=== PATIENT | female | born 1955 | race Caucasian/White ===

== ENCOUNTER → 2021-10-15 13:00 | Outpatient (CLI) | payer MEDICARE, SELFPAY ==
[2021-10-19 19:19] LABS: Occult Blood 1 Negative (Negative)
[2021-10-19 20:08] LABS: Clostridium Difficile Tox PCR Negative for C. diff (Negative)
== END ==
PROVIDERS: PCP Nurse Practitioner Family; Visit Provider Nurse Practitioner Family
DX: R19.7 Diarrhea, unspecified (principal)
CPT/HCPCS: 82270; 87045; 87177; 87493; 87899

== ENCOUNTER 2023-02-13 13:50 | Inpatient (IN) | payer MEDICARE, SELFPAY ==
[2023-02-13] VITALS (111 sets, daily range): BP systolic 127–184; BP diastolic 70–113; PULSE 61–133; RESP 12–46; TEMP 36.1–38.9; O2SAT 86–100; BMI 22.3
--- NOTE | 2023-02-13 13:57 | DI.RAD.S_ITS ---
PROCEDURE: XR CHEST 1V INDICATIONS: suspected sepsis TECHNIQUE: One view of the chest was acquired. COMPARISON: None. FINDINGS: Surgical changes and devices: None. Lungs and pleura: Lungs are clear. No pleural effusions or pneumothorax. Mediastinum: Mediastinal contours appear normal. Heart size is normal. Bones and chest wall: No suspicious bony lesions. Overlying soft tissues appear unremarkable. IMPRESSION: No evidence acute pulmonary process. Dictated by: Delmer Christiansen M.D. on 02/13/2023 at 15:09 Approved by: Delmer Christiansen M.D. on 02/13/2023 at 15:10
--- NOTE | 2023-02-13 14:02 | DI.CT.S_ITS ---
PROCEDURE: CT STROKE INDICATIONS: decreased mental status ? bleed TECHNIQUE: Noncontrast 4.5 mm thick angled axial sections acquired from the foramen magnum to the vertex, with coronal reformats. For radiation dose reduction, the following was used: automated exposure control, adjustment of mA and/or kV according to patient size. COMPARISON: None. FINDINGS: Image quality: Excellent. CSF spaces: Basal cisterns are patent. No extra-axial fluid collections. The ventricles are symmetric in size and shape. Brain: No acute intracranial hemorrhage or mass effect. There is cerebral volume loss for age, with resultant ventricular and sulcal prominence. There are periventricular and deep white matter chronic small vessel ischemic changes. There is intracranial internal carotid artery atherosclerosis. Skull and face: Calvarium and visualized facial bones appear intact, without suspicious lesions. Sinuses: Visualized sinuses and mastoids are clear. IMPRESSION: No acute intracranial abnormality. Findings were discussed with the referring physician, Dr. Olmstead, by telephone on 02/13/2023 at 2:16 PM. This study fulfills neurological imaging criteria for inclusion or exclusion of acute stroke therapies based on available published neurological guidelines. Approved by: Volodymyr Pitts M.D. on 02/13/2023 at 14:17
[2023-02-13 14:39] LABS: Add Manual Diff / Slide Review NO; Basophils Absolute Auto 0 /uL (0-100); Basophils Percent Auto 0.3 % (0-2); Eosinophils Absolute Auto 0 /uL (0-450); Hematocrit 42.4 % (36-46); Lymphocytes Absolute Auto 1300 /uL (1100-4500); Lymphocytes Percent Auto 11.6 % (25-40); Mean Corpuscular HGB Conc 33.1 % (30-36); Mean Corpuscular Hemoglobin 28.6 PG (26-34); Mean Corpuscular Volume 86.5 fL (80-100); Monocytes Absolute Auto 300 /uL (0-900); Monocytes Percent Auto 2.4 % (3-14); Neutrophils Absolute Auto 9900 /uL (1500-7000); Neutrophils Percent Auto 85.7 % (50-75); Platelet Count 370 X10^3/uL (150-400); White Blood Cell Count 11.6 X10^3/uL (4.5-11.0)
[2023-02-13] MEDS: SODIUM CHLORIDE 0.9% 1,000 ML 1000 ML IV ×2 (14:39→15:29)
[2023-02-13 14:47] LABS: pH ABG 7.56 (7.35-7.45)
--- NOTE | 2023-02-13 14:47 | ED.AMS ---
HPI - Altered Mental Status <Carolina Olmstead, DO - Last Filed: 02/15/23 07:52> General Chief Complaint: Altered Mental Status Stated Complaint: ?UTI, weakness, nausea x 5 days Time Seen by Provider: 02/13/23 14:02 History of Present Illness HPI narrative: Patient is a 67-year-old female who presents today with decreasing mental status nausea and vomiting. She takes Lexapro for depression. She apparently was admitted at [facility] 08/04/2022 through 08/07/2022 with a similar presentation. During that admission she had taken her late 's temazepam secondary to her insomnia and she had metabolic encephalopathy coffee-ground emesis appearing during that admission she underwent an EGD and colonoscopy without acute findings. Today she has a decreasing mental status overall poor historian history is provided by son and previous records. She is able to follow commands she is actively vomiting. According to the son she thought that she had a bladder infection a couple of days ago. He reports that the temazepam has been thrown away. Other medications in the bathroom include ketorolac, Pyridium, diphenoxylate/atropine, HCTZ, pantoprazole. Due to her severe confusion and vomiting concern for intracranial hemorrhage. She was immediately taken to CT. Related Data Home Medications Medication Instructions Recorded Confirmed escitalopram oxalate 10 mg tablet 10 mg PO DAILY 02/13/23 02/13/23 omeprazole 20 mg capsule,delayed 20 mg PO DAILY 02/13/23 02/13/23 release Previous Rx's Medication Instructions Recorded amoxicillin 875 mg-potassium 1 tab PO BID 5 days #10 tabs 02/17/23 clavulanate 125 mg tablet potassium chloride 20 mEq 20 meq PO DAILY #30 tabs 02/17/23 tablet,extended release Allergies Allergy/AdvReac Type Severity Reaction Status Date / Time No Known Drug Allergies Allergy Unverified 10/15/21 12:47 <Dorian Mir DO - Last Filed: 02/18/23 04:01> History of Present Illness HPI narrative: Patient is a 67-year-old female who presents today with decreasing mental status nausea and vomiting. She takes Lexapro for depression. She apparently was admitted at [facility] 08/04/2022 through 08/07/2022 with a similar presentation. During that admission she had taken her late 's temazepam secondary to her insomnia and she had metabolic encephalopathy coffee-ground emesis appearing during that admission she underwent an EGD and colonoscopy without acute findings. Today she has a decreasing mental status overall poor historian history is provided by son and previous records. She is able to follow commands she is actively vomiting. According to the son she thought that she had a bladder infection a couple of days ago. He reports that the temazepam has been thrown away. Other medications in the bathroom include ketorolac, Pyridium, diphenoxylate/atropine, HCTZ, pantoprazole. Due to her severe confusion and vomiting concern for intracranial hemorrhage. She was immediately taken to CT. Review of Systems <Carolina Olmstead DO - Last Filed: 02/15/23 07:52> Review of Systems ROS Unobtainable: All systems reviewed & are unremarkable except as noted in HPI and below Patient History <Carolina Olmstead DO - Last Filed: 02/15/23 07:52> Social History household members: children Smoking Status: Former smoker alcohol intake: never Smoking Status: Former smoker Exam <Carolina Olmstead DO - Last Filed: 02/15/23 07:52> Initial Vital Signs Initial Vital Signs: Vital Signs Pulse Rate 71 02/13/23 14:04 Respiratory Rate 26 H 02/13/23 14:04 Blood Pressure 127/74 02/13/23 14:04 Pulse Oximetry 97 02/13/23 14:04 Oxygen Delivery Method Nasal Cannula 02/13/23 14:04 Oxygen Flow Rate 4 02/13/23 14:04 GENERAL: Alert confused weak 67-year-old female, actively dry heaving HEENT: Head atraumatic,EOMI, face is symmetric pupils dilated but equal CARDIOVASCULAR: Regular rate and rhythm without murmurs, rubs or gallops. RESPIRATORY: Breath sounds equal bilaterally, no wheezes rales or rhonchi. ABDOMEN: Soft, nontender. Normoactive bowel sounds all 4 quadrants. No guarding or rebound. EXTREMITIES: Normal range of motion, no clubbing or edema. Neurovascularly intact NEUROLOGICAL: Moving extremities gin clerk strength equal SKIN: Warm, dry, no laceration, no petechiae, no rashes or lesions. <Dorian Mir DO - Last Filed: 02/18/23 04:01> Initial Vital Signs Initial Vital Signs: Vital Signs Pulse Rate 71 02/13/23 14:04 Respiratory Rate 26 H 02/13/23 14:04 Blood Pressure 127/74 02/13/23 14:04 Pulse Oximetry 97 02/13/23 14:04 Oxygen Delivery Method Nasal Cannula 02/13/23 14:04 Oxygen Flow Rate 4 02/13/23 14:04 <Dorian Mir DO - Last Filed: 02/18/23 04:01> Lumbar Puncture Time Out Performed: Yes Patient Position: upright Skin Prep: Povidone-Iodine 1% Local Anesthetic: lidocaine 1% Amount of anesthesia used (mL): 3 Spinal Needle Gauge: 20G Interspace Used: L4-L5 Fluid Initially Obtained: clear Complications: none Scores <Carolina Olmstead DO - Last Filed: 02/15/23 07:52> GCS Eduardo coma scale eye opening: Spontaneous Eduardo coma scale verbal response: Words Eduardo coma scale motor response: Obey commands Eduardo coma scale total score: 13 <Dorian Mir DO - Last Filed: 02/18/23 04:01> GCS Reeds coma scale total score: 13 Course <Carolina Olmstead DO - Last Filed: 02/15/23 07:52> Orders Ordered: Discontinued Medications Acetaminophen (Acetaminophen 325 Mg Tablet) 975 mg PO NOW ONE Stop: 02/14/23 08:55 Last Admin: 02/15/23 01:44 Dose: Not Given Documented By: LIZETH Acetaminophen (Acetaminophen 325 Mg Tablet) 650 mg PO Q6H PRN PRN Reason: Fever/Mild Pain (1-3) Amiodarone HCl (Amiodarone 200 Mg Tablet) 400 mg PO BIDWM [facility] Last Admin: 02/16/23 10:06 Dose: Not Given Documented By: BLAS Heparin Sodium (Porcine) (Heparin 5,000 Unit/Ml Vial) 5,000 unit SUBCUT BID [facility] Last Admin: 02/17/23 09:00 Dose: 5,000 unit Documented By: Admin: 02/16/23 21:30 Dose: 5,000 unit Documented By: Admin: 02/16/23 08:53 Dose: 5,000 unit Documented By: Admin: 02/15/23 22:49 Dose: 5,000 unit Documented By: Admin: 02/15/23 08:20 Dose: 5,000 unit Documented By: Admin: 02/14/23 21:12 Dose: 5,000 unit Documented By: Admin: 02/14/23 12:21 Dose: 5,000 unit Documented By: FARTUN Sodium Chloride (Normal Saline 0.9%) 1,000 mls @ 1,000 mls/hr IV BOLUS ONE Stop: 02/13/23 14:56 Last Infusion: 02/13/23 15:47 Dose: 0 mls/hr Documented By: Admin: 02/13/23 14:39 Dose: 1,000 mls/hr Documented By: TORRIE Sodium Chloride (Normal Saline 0.9%) 1,000 mls @ 1,000 mls/hr IV BOLUS ONE Stop: 02/13/23 16:20 Last Infusion: 02/13/23 15:56 Dose: 0 mls/hr Documented By: Admin: 02/13/23 15:29 Dose: 1,000 mls/hr Documented By: YONG Ceftriaxone Sodium 2,000 mg/ (Sodium Chloride) 100 mls @ 200 mls/hr IV NOW ONE Stop: 02/13/23 17:11 Last Infusion: 02/13/23 17:40 Dose: 0 mls/hr Documented By: Admin: 02/13/23 17:20 Dose: 200 mls/hr Documented By: TORRIE Azithromycin 500 mg/ Dextrose 250 mls @ 250 mls/hr IV NOW ONE Stop: 02/13/23 17:11 Last Infusion: 02/13/23 19:12 Dose: 0 mls/hr Documented By: Admin: 02/13/23 18:12 Dose: 250 mls/hr Documented By: TORRIE Metronidazole (Flagyl) 500 mg in 100 mls @ 100 mls/hr IV NOW ONE Stop: 02/13/23 18:58 Last Infusion: 02/13/23 22:13 Dose: 0 mls/hr Documented By: Admin: 02/13/23 19:50 Dose: 100 mls/hr Documented By: LISA Acetaminophen (Ofirmev) 1,000 mg in 100 mls @ 400 mls/hr IV NOW ONE Stop: 02/13/23 18:34 Last Infusion: 02/13/23 19:00 Dose: 0 mls/hr Documented By: Admin: 02/13/23 18:39 Dose: 400 mls/hr Documented By: MPO Sodium Chloride (Normal Saline 0.9%) 1,000 mls @ 150 mls/hr IV CONT FILOMENA Last Infusion: 02/17/23 10:38 Dose: 0 mls/hr Documented By: Admin: 02/17/23 04:45 Dose: 150 mls/hr Documented By: Infusion: 02/17/23 04:10 Dose: 150 mls/hr Documented By: Admin: 02/16/23 21:29 Dose: 150 mls/hr Documented By: Infusion: 02/16/23 21:05 Dose: 150 mls/hr Documented By: Admin: 02/16/23 14:24 Dose: 150 mls/hr Documented By: Infusion: 02/16/23 07:51 Dose: 150 mls/hr Documented By: Admin: 02/16/23 01:10 Dose: 150 mls/hr Documented By: Infusion: 02/16/23 01:03 Dose: 150 mls/hr Documented By: Admin: 02/15/23 18:22 Dose: 150 mls/hr Documented By: Infusion: 02/15/23 17:25 Dose: 150 mls/hr Documented By: Admin: 02/15/23 10:44 Dose: 150 mls/hr Documented By: Infusion: 02/14/23 12:25 Dose: 150 mls/hr Documented By: Admin: 02/14/23 09:25 Dose: 150 mls/hr Documented By: Infusion: 02/14/23 09:24 Dose: 0 mls/hr Documented By: Admin: 02/14/23 02:34 Dose: 150 mls/hr Documented By: SB POTASSIUM CHLORIDE IN WATER (Potassium Cl 10 Meq/100 Ml Sharla) 10 meq in 100 mls @ 100 mls/hr IV Q1H FILOMENA Stop: 02/14/23 10:44 Last Admin: 02/14/23 13:43 Dose: 100 mls/hr Documented By: Infusion: 02/14/23 11:00 Dose: 0 mls/hr Documented By: Admin: 02/14/23 09:56 Dose: 100 mls/hr Documented By: Infusion: 02/14/23 09:56 Dose: 0 mls/hr Documented By: Admin: 02/14/23 08:53 Dose: 100 mls/hr Documented By: Infusion: 02/14/23 08:52 Dose: 0 mls/hr Documented By: Admin: 02/14/23 07:25 Dose: 100 mls/hr Documented By: Infusion: 02/14/23 07:17 Dose: 0 mls/hr Documented By: Admin: 02/14/23 06:16 Dose: 100 mls/hr Documented By: Infusion: 02/14/23 06:07 Dose: 0 mls/hr Documented By: Admin: 02/14/23 05:07 Dose: 100 mls/hr Documented By: ES Piperacillin Sod/Tazobactam (Sod 4.5 gm/ Sodium Chloride) 100 mls @ 200 mls/hr IV NOW ONE Stop: 02/14/23 06:05 Last Infusion: 02/14/23 08:13 Dose: 0 mls/hr Documented By: Admin: 02/14/23 07:26 Dose: 200 mls/hr Documented By: TORRIE Piperacillin Sod/Tazobactam (Sod 3.375 gm/ Sodium Chloride) 100 mls @ 25 mls/hr IV Q8H [facility] Last Admin: 02/14/23 12:37 Dose: Not Given Documented By: FARTUN Vancomycin HCl (Vancomycin) 750 mg in 150 mls @ 150 mls/hr IV Q8H [facility] [place] Last Infusion: 02/15/23 06:37 Dose: 0 mls/hr Documented By: Admin: 02/15/23 05:11 Dose: 150 mls/hr Documented By: Infusion: 02/15/23 01:44 Dose: 0 mls/hr Documented By: Admin: 02/14/23 21:11 Dose: 150 mls/hr Documented By: Infusion: 02/14/23 17:21 Dose: 150 mls/hr Documented By: Admin: 02/14/23 12:38 Dose: 150 mls/hr Documented By: FARTUN Sodium Chloride (Normal Saline 0.9%) 1,000 mls @ 100 mls/hr IV CONT FILOMENA Last Infusion: 02/15/23 01:45 Dose: 0 mls/hr Documented By: Admin: 02/14/23 12:35 Dose: 100 mls/hr Documented By: FARTUN Piperacillin Sod/Tazobactam (Sod 3.375 gm/ Sodium Chloride) 100 mls @ 25 mls/hr IV Q8H [facility] Last Admin: 02/17/23 08:14 Dose: 25 mls/hr Documented By: Infusion: 02/17/23 04:45 Dose: 0 mls/hr Documented By: Admin: 02/17/23 00:26 Dose: 25 mls/hr Documented By: Infusion: 02/16/23 21:08 Dose: 0 mls/hr Documented By: Admin: 02/16/23 15:30 Dose: 25 mls/hr Documented By: Infusion: 02/16/23 12:52 Dose: 25 mls/hr Documented By: Admin: 02/16/23 08:52 Dose: 25 mls/hr Documented By: Infusion: 02/16/23 04:00 Dose: 0 mls/hr Documented By: Admin: 02/15/23 23:47 Dose: 25 mls/hr Documented By: Infusion: 02/15/23 21:53 Dose: 0 mls/hr Documented By: Admin: 02/15/23 16:55 Dose: 25 mls/hr Documented By: Infusion: 02/15/23 12:20 Dose: 25 mls/hr Documented By: Admin: 02/15/23 08:20 Dose: 25 mls/hr Documented By: Infusion: 02/15/23 05:11 Dose: 0 mls/hr Documented By: Admin: 02/14/23 23:56 Dose: 25 mls/hr Documented By: Infusion: 02/14/23 21:00 Dose: 25 mls/hr Documented By: Admin: 02/14/23 17:00 Dose: 25 mls/hr Documented By: FARTUN POTASSIUM CHLORIDE IN WATER (Potassium Cl 10 Meq/100 Ml Sharla) 10 meq in 100 mls @ 100 mls/hr IV Q1H FILOME[facility] Stop: 02/14/23 20:14 Last Infusion: 02/14/23 22:32 Dose: 0 mls/hr Documented By: Admin: 02/14/23 20:57 Dose: 100 mls/hr Documented By: Infusion: 02/14/23 20:54 Dose: 0 mls/hr Documented By: Admin: 02/14/23 19:28 Dose: 100 mls/hr Documented By: Infusion: 02/14/23 19:28 Dose: 100 mls/hr Documented By: Admin: 02/14/23 18:29 Dose: 100 mls/hr Documented By: Infusion: 02/14/23 18:19 Dose: 100 mls/hr Documented By: Admin: 02/14/23 17:19 Dose: 100 mls/hr Documented By: FARTUN Magnesium Sulfate (Magnesium Sulfate) 2 gm in 50 mls @ 25 mls/hr IV NOW ONE Stop: 02/15/23 02:55 Last Infusion: 02/15/23 03:18 Dose: 0 mls/hr Documented By: LIZETH Co-signed By: LETICIA Admin: 02/15/23 01:31 Dose: 25 mls/hr Documented By: LETICIA Co-signed By: Amiodarone HCl/Dextrose (Nexterone) 150 mg in 100 mls @ 600 mls/hr IV NOW ONE; Protocol Stop: 02/15/23 01:05 Last Infusion: 02/15/23 01:45 Dose: 0 mls/hr Documented By: Admin: 02/15/23 01:32 Dose: 600 mls/hr Documented By: LETICIA Amiodarone HCl/Dextrose (Nexterone) 360 mg in 200 mls @ 33.333 mls/hr IV NOW ONE; Protocol Stop: 02/15/23 06:55 Last Admin: 02/15/23 01:39 Dose: 33.333 ml/hr, 33.33 mls/hr Documented By: LETICIA POTASSIUM CHLORIDE IN WATER (Potassium Cl 10 Meq/100 Ml Sharla) 10 meq in 100 mls @ 100 mls/hr IV Q1H [facility] [place] Stop: 02/15/23 06:29 Last Admin: 02/15/23 06:17 Dose: 100 mls/hr Documented By: Infusion: 02/15/23 06:11 Dose: 0 mls/hr Documented By: Admin: 02/15/23 05:11 Dose: 100 mls/hr Documented By: Infusion: 02/15/23 04:44 Dose: 0 mls/hr Documented By: Admin: 02/15/23 03:44 Dose: 100 mls/hr Documented By: Infusion: 02/15/23 03:42 Dose: 0 mls/hr Documented By: Admin: 02/15/23 02:42 Dose: 100 mls/hr Documented By: LIZETH Amiodarone HCl/Dextrose (Nexterone) 360 mg in 200 mls @ 16.7 mls/hr IV CONT FILOMENA; Protocol Stop: 02/15/23 17:59 Last Titration: 02/15/23 20:10 Dose: 0 mls/hr, 0 mls/hr Documented By: Admin: 02/15/23 06:16 Dose: 16.7 mls/hr, 16.7 mls/hr Documented By: LIZETH Amiodarone HCl/Dextrose (Nexterone) 150 mg in 100 mls @ 600 mls/hr IV NOW ONE; Protocol Stop: 02/16/23 10:49 Last Admin: 02/16/23 10:45 Dose: 600 mls/hr Documented By: BLAS Amiodarone HCl/Dextrose (Nexterone) 360 mg in 200 mls @ 33.333 mls/hr IV NOW ONE; Protocol Stop: 02/16/23 16:49 Last Admin: 02/16/23 11:05 Dose: 33.3 mls/hr, 33.3 mls/hr Documented By: BLAS Amiodarone HCl/Dextrose (Nexterone) 360 mg in 200 mls @ 16.7 mls/hr IV CONT FILOMENA; Protocol Stop: 02/17/23 04:49 Last Titration: 02/17/23 04:43 Dose: 0 mls/hr, 0 mls/hr Documented By: Admin: 02/16/23 16:27 Dose: 16.7 mls/hr, 16.7 mls/hr Documented By: BLAS Magnesium Sulfate (Magnesium Sulfate) 2 gm in 50 mls @ 25 mls/hr IV NOW ONE Stop: 02/16/23 13:03 Last Admin: 02/16/23 11:12 Dose: 25 mls/hr Documented By: BLAS Co-signed By: ZOË Amiodarone HCl/Dextrose (Nexterone) 180 mg in 100 mls @ 16.7 mls/hr IV CONT FILOMENA; Protocol Stop: 02/17/23 10:50 Last Infusion: 02/17/23 11:09 Dose: 0 mls/hr Documented By: Admin: 02/17/23 04:45 Dose: 16.7 mls/hr Documented By: SOMMER POTASSIUM CHLORIDE IN WATER (Potassium Cl 10 Meq/100 Ml Sharla) 10 meq in 100 mls @ 100 mls/hr IV Q1H FILOMENA Stop: 02/16/23 19:29 Last Infusion: 02/16/23 21:10 Dose: 0 mls/hr Documented By: Admin: 02/16/23 18:28 Dose: 100 mls/hr Documented By: Infusion: 02/16/23 18:28 Dose: 100 mls/hr Documented By: Admin: 02/16/23 17:35 Dose: 100 mls/hr Documented By: Infusion: 02/16/23 17:27 Dose: 100 mls/hr Documented By: Admin: 02/16/23 16:27 Dose: 100 mls/hr Documented By: Infusion: 02/16/23 16:27 Dose: 100 mls/hr Documented By: Admin: 02/16/23 15:30 Dose: 100 mls/hr Documented By: Infusion: 02/16/23 15:25 Dose: 100 mls/hr Documented By: Admin: 02/16/23 14:25 Dose: 100 mls/hr Documented By: Infusion: 02/16/23 14:25 Dose: 100 mls/hr Documented By: Admin: 02/16/23 13:35 Dose: 100 mls/hr Documented By: Infusion: 02/16/23 13:30 Dose: 100 mls/hr Documented By: Admin: 02/16/23 12:30 Dose: 100 mls/hr Documented By: Infusion: 02/16/23 12:30 Dose: 100 mls/hr Documented By: Admin: 02/16/23 11:35 Dose: 100 mls/hr Documented By: BLAS POTASSIUM CHLORIDE IN WATER (Potassium Cl 10 Meq/100 Ml Sharla) 10 meq in 100 mls @ 100 mls/hr IV Q1H [facility] Stop: 02/17/23 08:44 Last Infusion: 02/17/23 11:09 Dose: 0 mls/hr Documented By: Admin: 02/17/23 08:02 Dose: 100 mls/hr Documented By: Infusion: 02/17/23 07:54 Dose: 100 mls/hr Documented By: Admin: 02/17/23 06:54 Dose: 100 mls/hr Documented By: Infusion: 02/17/23 06:47 Dose: 100 mls/hr Documented By: Admin: 02/17/23 05:47 Dose: 100 mls/hr Documented By: Infusion: 02/17/23 05:47 Dose: 100 mls/hr Documented By: Admin: 02/17/23 04:49 Dose: 100 mls/hr Documented By: SOMMER Magnesium Sulfate (Magnesium Sulfate) 2 gm in 50 mls @ 25 mls/hr IV NOW ONE Stop: 02/17/23 07:05 Last Infusion: 02/17/23 08:02 Dose: 0 mls/hr Documented By: BLAS Co-signed By: Admin: 02/17/23 05:47 Dose: 25 mls/hr Documented By: SOMMER Co-signed By: CHAYA Ketorolac Tromethamine (Ketorolac 30 Mg/Ml Vial) 15 mg IV NOW ONE Stop: 02/13/23 17:11 Last Admin: 02/13/23 17:20 Dose: 15 mg Documented By: TORRIE Ketorolac Tromethamine (Ketorolac 30 Mg/Ml Vial) 15 mg IV NOW ONE Stop: 02/14/23 01:33 Last Admin: 02/14/23 02:34 Dose: 15 mg Documented By: LISA Loperamide HCl (Loperamide 2 Mg Capsule) 2 mg PO QID PRN PRN Reason: Diarrhea Last Admin: 02/17/23 03:13 Dose: 2 mg Documented By: Admin: 02/16/23 15:44 Dose: 2 mg Documented By: BLAS Lorazepam (Lorazepam 2 Mg/Ml Inj) 1 mg IV NOW ONE Stop: 02/13/23 15:25 Last Admin: 02/13/23 15:28 Dose: 0.5 mg Documented By: YONG Lorazepam (Lorazepam 0.5 Mg Tablet) 0.5 mg PO NOW ONE Stop: 02/16/23 22:22 Last Admin: 02/16/23 22:43 Dose: 0.5 mg Documented By: SOMMER Metoclopramide HCl (Metoclopramide 10 Mg/2 Ml Inj) 10 mg IV NOW ONE Stop: 02/13/23 19:00 Last Admin: 02/13/23 19:05 Dose: 10 mg Documented By: YONG Metoclopramide HCl (Metoclopramide 10 Mg/2 Ml Inj) 10 mg IV Q6HR PRN PRN Reason: Nausea And Vomiting Last Admin: 02/17/23 12:54 Dose: 10 mg Documented By: BLAS Naloxone HCl (Naloxone 0.4 Mg/Ml Vial) 0.2 mg IV Q2MIN PRN PRN Reason: Opiate Reversal Ondansetron HCl (Ondansetron 4 Mg/2 Ml Inj) 4 mg IV NOW PRN PRN Reason: Nausea And Vomiting Last Admin: 02/14/23 02:34 Dose: 4 mg Documented By: LISA Ondansetron HCl (Ondansetron 4 Mg Odt) 4 mg SL NOW PRN PRN Reason: Nausea And Vomiting Ondansetron HCl (Ondansetron 4 Mg/2 Ml Inj) 4 mg IV Q8HR PRN PRN Reason: Nausea And Vomiting Last Admin: 02/14/23 12:33 Dose: 4 mg Documented By: FARTUN Ondansetron HCl (Ondansetron 4 Mg/2 Ml Inj) 4 mg IV Q6HR PRN PRN Reason: Nausea And Vomiting Last Admin: 02/16/23 11:11 Dose: 4 mg Documented By: Admin: 02/16/23 04:02 Dose: 4 mg Documented By: Admin: 02/15/23 14:56 Dose: 4 mg Documented By: Admin: 02/14/23 21:18 Dose: 4 mg Documented By: HORTENCIA Pantoprazole Sodium (Pantoprazole 40 Mg Vial) 40 mg IV NOW ONE Stop: 02/13/23 15:25 Last Admin: 02/13/23 15:28 Dose: 40 mg Documented By: YONG Pantoprazole Sodium (Pantoprazole 40 Mg Vial) 40 mg IV NOW ONE Stop: 02/14/23 04:46 Last Admin: 02/14/23 05:07 Dose: 40 mg Documented By: CALOS Pantoprazole Sodium (Pantoprazole 40 Mg Vial) 40 mg IV BID [facility] [place] Last Admin: 02/14/23 12:37 Dose: Not Given Documented By: FARTUN Pantoprazole Sodium (Pantoprazole 40 Mg Vial) 40 mg IV BID [facility] [place] Last Admin: 02/17/23 09:00 Dose: 40 mg Documented By: Admin: 02/16/23 21:30 Dose: 40 mg Documented By: Admin: 02/16/23 08:53 Dose: 40 mg Documented By: Admin: 02/15/23 22:50 Dose: 40 mg Documented By: Admin: 02/15/23 08:20 Dose: 40 mg Documented By: Admin: 02/14/23 21:12 Dose: 40 mg Documented By: Admin: 02/14/23 12:21 Dose: 40 mg Documented By: FARTUN Potassium Chloride (Potassium Chloride 20 Meq Tab) 40 meq PO TIDWM [facility] [place] Stop: 02/16/23 17:01 Last Admin: 02/16/23 11:48 Dose: Not Given Documented By: BLAS Potassium Chloride (Potassium Chloride 20 Meq Tab) 40 meq PO TIDWM [facility] [place] Stop: 02/17/23 17:01 Last Admin: 02/17/23 12:00 Dose: 40 meq Documented By: Admin: 02/17/23 10:37 Dose: 40 meq Documented By: BLAS Pramipexole Dihydrochloride (Pramipexole 0.25 Mg Tablet) 0.125 mg PO BEDTIME [facility] [place] Last Admin: 02/16/23 18:28 Dose: 0.125 mg Documented By: BLAS Vancomycin HCl (Vancomycin Per Pharmacy) 1 request [facility] NOW ONE Stop: 02/14/23 08:52 Last Admin: 02/14/23 12:36 Dose: 1 request Documented By: FARTUN Vital Signs Vital signs: Vital Signs - 8 hr 02/13/23 21:00 02/13/23 21:00 02/13/23 21:05 Temperature 101.3 F H 101.3 F H Pulse Rate 70 67 Respiratory Rate 30 H 30 H Blood Pressure 177/110 H Pulse Oximetry 97 98 Oxygen Delivery Method Oxygen Flow Rate 02/13/23 21:10 02/13/23 21:15 02/13/23 21:15 Temperature 101.3 F H 101.1 F H Pulse Rate 76 68 Respiratory Rate 26 H 29 H Blood Pressure 174/105 H Pulse Oximetry 97 98 Oxygen Delivery Method Oxygen Flow Rate 02/13/23 21:20 02/13/23 21:25 02/13/23 21:30 Temperature 101.1 F H 101.1 F H Pulse Rate 68 69 Respiratory Rate 23 22 Blood Pressure 179/90 H Pulse Oximetry 99 99 Oxygen Delivery Method Oxygen Flow Rate 02/13/23 21:30 02/13/23 21:35 02/13/23 21:40 Temperature 101.1 F H 101.1 F H 101.1 F H Pulse Rate 69 72 69 Respiratory Rate 20 18 23 Blood Pressure Pulse Oximetry 99 98 98 Oxygen Delivery Method Oxygen Flow Rate 02/13/23 21:45 02/13/23 21:46 02/13/23 21:46 Temperature 101.1 F H 101.1 F H Pulse Rate 68 70 Respiratory Rate 26 H 26 H Blood Pressure 172/113 H Pulse Oximetry 98 97 Oxygen Delivery Method Oxygen Flow Rate 02/13/23 21:50 02/13/23 21:55 02/13/23 21:55 Temperature 101.1 F H 101.1 F H Pulse Rate 68 71 Respiratory Rate 22 27 H Blood Pressure 150/79 H Pulse Oximetry 97 96 Oxygen Delivery Method Oxygen Flow Rate 02/13/23 22:00 02/13/23 22:01 02/13/23 22:01 Temperature 101.1 F H 101.1 F H Pulse Rate 71 69 Respiratory Rate 27 H 24 Blood Pressure 171/79 H Pulse Oximetry 96 96 Oxygen Delivery Method Oxygen Flow Rate 02/13/23 22:05 02/13/23 22:10 02/13/23 22:15 Temperature 101.1 F H 101.3 F H 101.3 F H Pulse Rate 69 71 75 Respiratory Rate 27 H 26 H 27 H Blood Pressure Pulse Oximetry 96 97 98 Oxygen Delivery Method Oxygen Flow Rate 02/13/23 22:20 02/13/23 22:25 02/13/23 22:30 Temperature 101.3 F H 101.3 F H Pulse Rate 75 73 Respiratory Rate 25 H 30 H Blood Pressure 173/81 H Pulse Oximetry 97 97 Oxygen Delivery Method Oxygen Flow Rate 02/13/23 22:30 02/13/23 22:35 02/13/23 22:40 Temperature 101.3 F H 101.3 F H 101.5 F H Pulse Rate 72 73 71 Respiratory Rate 42 H 21 30 H Blood Pressure Pulse Oximetry 96 97 97 Oxygen Delivery Method Oxygen Flow Rate 02/13/23 22:45 02/13/23 22:50 02/13/23 22:55 Temperature 101.5 F H 101.5 F H 101.5 F H Pulse Rate 75 76 72 Respiratory Rate 25 H 30 H 27 H Blood Pressure Pulse Oximetry 97 98 97 Oxygen Delivery Method Oxygen Flow Rate 02/13/23 23:00 02/13/23 23:00 02/13/23 23:05 Temperature 101.5 F H 101.5 F H Pulse Rate 71 70 Respiratory Rate 21 26 H Blood Pressure 174/93 H Pulse Oximetry 96 96 Oxygen Delivery Method Oxygen Flow Rate 02/13/23 23:10 02/13/23 23:15 02/13/23 23:20 Temperature 101.5 F H 101.5 F H 101.5 F H Pulse Rate 70 69 70 Respiratory Rate 27 H 26 H 27 H Blood Pressure Pulse Oximetry 96 97 96 Oxygen Delivery Method Oxygen Flow Rate 02/13/23 23:25 02/13/23 23:30 02/13/23 23:35 Temperature 101.5 F H 101.5 F H 101.5 F H Pulse Rate 71 73 72 Respiratory Rate 25 H 31 H 23 Blood Pressure Pulse Oximetry 97 97 97 Oxygen Delivery Method Oxygen Flow Rate 02/13/23 23:40 02/13/23 23:45 02/13/23 23:50 Temperature 101.3 F H 101.5 F H 101.5 F H Pulse Rate 74 92 H 73 Respiratory Rate 29 H 31 H 29 H Blood Pressure Pulse Oximetry 97 96 97 Oxygen Delivery Method Oxygen Flow Rate 02/13/23 23:55 02/14/23 00:00 02/14/23 00:05 Temperature 101.5 F H 101.3 F H 101.3 F H Pulse Rate 75 79 74 Respiratory Rate 30 H 44 H 36 H Blood Pressure Pulse Oximetry 97 97 96 Oxygen Delivery Method Oxygen Flow Rate 02/14/23 00:10 02/14/23 00:15 02/14/23 00:30 Temperature 101.3 F H 101.3 F H Pulse Rate 75 78 80 Respiratory Rate 36 H 34 H 26 H Blood Pressure Pulse Oximetry 96 97 98 Oxygen Delivery Method Nasal Cannula Oxygen Flow Rate 4 02/14/23 00:45 02/14/23 01:00 02/14/23 01:15 Temperature Pulse Rate 108 H 112 H 75 Respiratory Rate 33 H 41 H 22 Blood Pressure Pulse Oximetry 98 97 98 Oxygen Delivery Method Nasal Cannula Room Air Oxygen Flow Rate 2 02/14/23 01:30 02/14/23 02:34 Temperature 101.5 F H 101.5 F H Pulse Rate 70 Respiratory Rate 24 Blood Pressure Pulse Oximetry 97 Oxygen Delivery Method Oxygen Flow Rate <Dorian Mir DO - Last Filed: 02/18/23 04:01> Orders Ordered: Discontinued Medications Acetaminophen (Acetaminophen 325 Mg Tablet) 975 mg PO NOW ONE Stop: 02/14/23 08:55 Last Admin: 02/15/23 01:44 Dose: Not Given Documented By: LIZETH Acetaminophen (Acetaminophen 325 Mg Tablet) 650 mg PO Q6H PRN PRN Reason: Fever/Mild Pain (1-3) Amiodarone HCl (Amiodarone 200 Mg Tablet) 400 mg PO BIDWM [facility] [place] Last Admin: 02/16/23 10:06 Dose: Not Given Documented By: BLAS Heparin Sodium (Porcine) (Heparin 5,000 Unit/Ml Vial) 5,000 unit SUBCUT BID [facility] [place] Last Admin: 02/17/23 09:00 Dose: 5,000 unit Documented By: Admin: 02/16/23 21:30 Dose: 5,000 unit Documented By: Admin: 02/16/23 08:53 Dose: 5,000 unit Documented By: Admin: 02/15/23 22:49 Dose: 5,000 unit Documented By: Admin: 02/15/23 08:20 Dose: 5,000 unit Documented By: Admin: 02/14/23 21:12 Dose: 5,000 unit Documented By: Admin: 02/14/23 12:21 Dose: 5,000 unit Documented By: FARTUN Sodium Chloride (Normal Saline 0.9%) 1,000 mls @ 1,000 mls/hr IV BOLUS ONE Stop: 02/13/23 14:56 Last Infusion: 02/13/23 15:47 Dose: 0 mls/hr Documented By: Admin: 02/13/23 14:39 Dose: 1,000 mls/hr Documented By: TORRIE Sodium Chloride (Normal Saline 0.9%) 1,000 mls @ 1,000 mls/hr IV BOLUS ONE Stop: 02/13/23 16:20 Last Infusion: 02/13/23 15:56 Dose: 0 mls/hr Documented By: Admin: 02/13/23 15:29 Dose: 1,000 mls/hr Documented By: YONG Ceftriaxone Sodium 2,000 mg/ (Sodium Chloride) 100 mls @ 200 mls/hr IV NOW ONE Stop: 02/13/23 17:11 Last Infusion: 02/13/23 17:40 Dose: 0 mls/hr Documented By: Admin: 02/13/23 17:20 Dose: 200 mls/hr Documented By: MPO Azithromycin 500 mg/ Dextrose 250 mls @ 250 mls/hr IV NOW ONE Stop: 02/13/23 17:11 Last Infusion: 02/13/23 19:12 Dose: 0 mls/hr Documented By: Admin: 02/13/23 18:12 Dose: 250 mls/hr Documented By: MPO Metronidazole (Flagyl) 500 mg in 100 mls @ 100 mls/hr IV NOW ONE Stop: 02/13/23 18:58 Last Infusion: 02/13/23 22:13 Dose: 0 mls/hr Documented By: Admin: 02/13/23 19:50 Dose: 100 mls/hr Documented By: SB Acetaminophen (Ofirmev) 1,000 mg in 100 mls @ 400 mls/hr IV NOW ONE Stop: 02/13/23 18:34 Last Infusion: 02/13/23 19:00 Dose: 0 mls/hr Documented By: Admin: 02/13/23 18:39 Dose: 400 mls/hr Documented By: MPO Sodium Chloride (Normal Saline 0.9%) 1,000 mls @ 150 mls/hr IV CONT FILOMENA Last Infusion: 02/17/23 10:38 Dose: 0 mls/hr Documented By: Admin: 02/17/23 04:45 Dose: 150 mls/hr Documented By: Infusion: 02/17/23 04:10 Dose: 150 mls/hr Documented By: Admin: 02/16/23 21:29 Dose: 150 mls/hr Documented By: Infusion: 02/16/23 21:05 Dose: 150 mls/hr Documented By: Admin: 02/16/23 14:24 Dose: 150 mls/hr Documented By: Infusion: 02/16/23 07:51 Dose: 150 mls/hr Documented By: Admin: 02/16/23 01:10 Dose: 150 mls/hr Documented By: Infusion: 02/16/23 01:03 Dose: 150 mls/hr Documented By: Admin: 02/15/23 18:22 Dose: 150 mls/hr Documented By: Infusion: 02/15/23 17:25 Dose: 150 mls/hr Documented By: Admin: 02/15/23 10:44 Dose: 150 mls/hr Documented By: Infusion: 02/14/23 12:25 Dose: 150 mls/hr Documented By: Admin: 02/14/23 09:25 Dose: 150 mls/hr Documented By: Infusion: 02/14/23 09:24 Dose: 0 mls/hr Documented By: Admin: 02/14/23 02:34 Dose: 150 mls/hr Documented By: LISA POTASSIUM CHLORIDE IN WATER (Potassium Cl 10 Meq/100 Ml Sharla) 10 meq in 100 mls @ 100 mls/hr IV Q1H FILOMENA Stop: 02/14/23 10:44 Last Admin: 02/14/23 13:43 Dose: 100 mls/hr Documented By: Infusion: 02/14/23 11:00 Dose: 0 mls/hr Documented By: Admin: 02/14/23 09:56 Dose: 100 mls/hr Documented By: Infusion: 02/14/23 09:56 Dose: 0 mls/hr Documented By: Admin: 02/14/23 08:53 Dose: 100 mls/hr Documented By: Infusion: 02/14/23 08:52 Dose: 0 mls/hr Documented By: Admin: 02/14/23 07:25 Dose: 100 mls/hr Documented By: Infusion: 02/14/23 07:17 Dose: 0 mls/hr Documented By: Admin: 02/14/23 06:16 Dose: 100 mls/hr Documented By: Infusion: 02/14/23 06:07 Dose: 0 mls/hr Documented By: Admin: 02/14/23 05:07 Dose: 100 mls/hr Documented By: CALOS Piperacillin Sod/Tazobactam (Sod 4.5 gm/ Sodium Chloride) 100 mls @ 200 mls/hr IV NOW ONE Stop: 02/14/23 06:05 Last Infusion: 02/14/23 08:13 Dose: 0 mls/hr Documented By: Admin: 02/14/23 07:26 Dose: 200 mls/hr Documented By: MPO Piperacillin Sod/Tazobactam (Sod 3.375 gm/ Sodium Chloride) 100 mls @ 25 mls/hr IV Q8H FILOMENA Last Admin: 02/14/23 12:37 Dose: Not Given Documented By: FARTUN Vancomycin HCl (Vancomycin) 750 mg in 150 mls @ 150 mls/hr IV Q8H FILOMENA Last Infusion: 02/15/23 06:37 Dose: 0 mls/hr Documented By: Admin: 02/15/23 05:11 Dose: 150 mls/hr Documented By: Infusion: 02/15/23 01:44 Dose: 0 mls/hr Documented By: Admin: 02/14/23 21:11 Dose: 150 mls/hr Documented By: Infusion: 02/14/23 17:21 Dose: 150 mls/hr Documented By: Admin: 02/14/23 12:38 Dose: 150 mls/hr Documented By: FARTUN Sodium Chloride (Normal Saline 0.9%) 1,000 mls @ 100 mls/hr IV CONT FILOMENA Last Infusion: 02/15/23 01:45 Dose: 0 mls/hr Documented By: Admin: 02/14/23 12:35 Dose: 100 mls/hr Documented By: FARTUN Piperacillin Sod/Tazobactam (Sod 3.375 gm/ Sodium Chloride) 100 mls @ 25 mls/hr IV Q8H FILOMENA Last Admin: 02/17/23 08:14 Dose: 25 mls/hr Documented By: Infusion: 02/17/23 04:45 Dose: 0 mls/hr Documented By: Admin: 02/17/23 00:26 Dose: 25 mls/hr Documented By: Infusion: 02/16/23 21:08 Dose: 0 mls/hr Documented By: Admin: 02/16/23 15:30 Dose: 25 mls/hr Documented By: Infusion: 02/16/23 12:52 Dose: 25 mls/hr Documented By: Admin: 02/16/23 08:52 Dose: 25 mls/hr Documented By: Infusion: 02/16/23 04:00 Dose: 0 mls/hr Documented By: Admin: 02/15/23 23:47 Dose: 25 mls/hr Documented By: Infusion: 02/15/23 21:53 Dose: 0 mls/hr Documented By: Admin: 02/15/23 16:55 Dose: 25 mls/hr Documented By: Infusion: 02/15/23 12:20 Dose: 25 mls/hr Documented By: Admin: 02/15/23 08:20 Dose: 25 mls/hr Documented By: Infusion: 02/15/23 05:11 Dose: 0 mls/hr Documented By: Admin: 02/14/23 23:56 Dose: 25 mls/hr Documented By: Infusion: 02/14/23 21:00 Dose: 25 mls/hr Documented By: Admin: 02/14/23 17:00 Dose: 25 mls/hr Documented By: FARTUN POTASSIUM CHLORIDE IN WATER (Potassium Cl 10 Meq/100 Ml Sharla) 10 meq in 100 mls @ 100 mls/hr IV Q1H [facility] [place] Stop: 02/14/23 20:14 Last Infusion: 02/14/23 22:32 Dose: 0 mls/hr Documented By: Admin: 02/14/23 20:57 Dose: 100 mls/hr Documented By: Infusion: 02/14/23 20:54 Dose: 0 mls/hr Documented By: Admin: 02/14/23 19:28 Dose: 100 mls/hr Documented By: Infusion: 02/14/23 19:28 Dose: 100 mls/hr Documented By: Admin: 02/14/23 18:29 Dose: 100 mls/hr Documented By: Infusion: 02/14/23 18:19 Dose: 100 mls/hr Documented By: Admin: 02/14/23 17:19 Dose: 100 mls/hr Documented By: FARTUN Magnesium Sulfate (Magnesium Sulfate) 2 gm in 50 mls @ 25 mls/hr IV NOW ONE Stop: 02/15/23 02:55 Last Infusion: 02/15/23 03:18 Dose: 0 mls/hr Documented By: LIZETH Co-signed By: LETICIA Admin: 02/15/23 01:31 Dose: 25 mls/hr Documented By: LETICIA Co-signed By: Amiodarone HCl/Dextrose (Nexterone) 150 mg in 100 mls @ 600 mls/hr IV NOW ONE; Protocol Stop: 02/15/23 01:05 Last Infusion: 02/15/23 01:45 Dose: 0 mls/hr Documented By: Admin: 02/15/23 01:32 Dose: 600 mls/hr Documented By: LETICIA Amiodarone HCl/Dextrose (Nexterone) 360 mg in 200 mls @ 33.333 mls/hr IV NOW ONE; Protocol Stop: 02/15/23 06:55 Last Admin: 02/15/23 01:39 Dose: 33.333 ml/hr, 33.33 mls/hr Documented By: LETICIA POTASSIUM CHLORIDE IN WATER (Potassium Cl 10 Meq/100 Ml Sharla) 10 meq in 100 mls @ 100 mls/hr IV Q1H FILOMENA Stop: 02/15/23 06:29 Last Admin: 02/15/23 06:17 Dose: 100 mls/hr Documented By: Infusion: 02/15/23 06:11 Dose: 0 mls/hr Documented By: Admin: 02/15/23 05:11 Dose: 100 mls/hr Documented By: Infusion: 02/15/23 04:44 Dose: 0 mls/hr Documented By: Admin: 02/15/23 03:44 Dose: 100 mls/hr Documented By: Infusion: 02/15/23 03:42 Dose: 0 mls/hr Documented By: Admin: 02/15/23 02:42 Dose: 100 mls/hr Documented By: LIZETH Amiodarone HCl/Dextrose (Nexterone) 360 mg in 200 mls @ 16.7 mls/hr IV CONT FILOMENA; Protocol Stop: 02/15/23 17:59 Last Titration: 02/15/23 20:10 Dose: 0 mls/hr, 0 mls/hr Documented By: Admin: 02/15/23 06:16 Dose: 16.7 mls/hr, 16.7 mls/hr Documented By: LIZETH Amiodarone HCl/Dextrose (Nexterone) 150 mg in 100 mls @ 600 mls/hr IV NOW ONE; Protocol Stop: 02/16/23 10:49 Last Admin: 02/16/23 10:45 Dose: 600 mls/hr Documented By: BLAS Amiodarone HCl/Dextrose (Nexterone) 360 mg in 200 mls @ 33.333 mls/hr IV NOW ONE; Protocol Stop: 02/16/23 16:49 Last Admin: 02/16/23 11:05 Dose: 33.3 mls/hr, 33.3 mls/hr Documented By: BLAS Amiodarone HCl/Dextrose (Nexterone) 360 mg in 200 mls @ 16.7 mls/hr IV CONT FILOMENA; Protocol Stop: 02/17/23 04:49 Last Titration: 02/17/23 04:43 Dose: 0 mls/hr, 0 mls/hr Documented By: Admin: 02/16/23 16:27 Dose: 16.7 mls/hr, 16.7 mls/hr Documented By: BLAS Magnesium Sulfate (Magnesium Sulfate) 2 gm in 50 mls @ 25 mls/hr IV NOW ONE Stop: 02/16/23 13:03 Last Admin: 02/16/23 11:12 Dose: 25 mls/hr Documented By: BLAS Co-signed By: ZOË Amiodarone HCl/Dextrose (Nexterone) 180 mg in 100 mls @ 16.7 mls/hr IV CONT FILOMENA; Protocol Stop: 02/17/23 10:50 Last Infusion: 02/17/23 11:09 Dose: 0 mls/hr Documented By: Admin: 02/17/23 04:45 Dose: 16.7 mls/hr Documented By: SOMMER POTASSIUM CHLORIDE IN WATER (Potassium Cl 10 Meq/100 Ml Sharla) 10 meq in 100 mls @ 100 mls/hr IV Q1H FILOMENA Stop: 02/16/23 19:29 Last Infusion: 02/16/23 21:10 Dose: 0 mls/hr Documented By: Admin: 02/16/23 18:28 Dose: 100 mls/hr Documented By: Infusion: 02/16/23 18:28 Dose: 100 mls/hr Documented By: Admin: 02/16/23 17:35 Dose: 100 mls/hr Documented By: Infusion: 02/16/23 17:27 Dose: 100 mls/hr Documented By: Admin: 02/16/23 16:27 Dose: 100 mls/hr Documented By: Infusion: 02/16/23 16:27 Dose: 100 mls/hr Documented By: Admin: 02/16/23 15:30 Dose: 100 mls/hr Documented By: Infusion: 02/16/23 15:25 Dose: 100 mls/hr Documented By: Admin: 02/16/23 14:25 Dose: 100 mls/hr Documented By: Infusion: 02/16/23 14:25 Dose: 100 mls/hr Documented By: Admin: 02/16/23 13:35 Dose: 100 mls/hr Documented By: Infusion: 02/16/23 13:30 Dose: 100 mls/hr Documented By: Admin: 02/16/23 12:30 Dose: 100 mls/hr Documented By: Infusion: 02/16/23 12:30 Dose: 100 mls/hr Documented By: Admin: 02/16/23 11:35 Dose: 100 mls/hr Documented By: BLAS POTASSIUM CHLORIDE IN WATER (Potassium Cl 10 Meq/100 Ml Sharla) 10 meq in 100 mls @ 100 mls/hr IV Q1H FILOMENA Stop: 02/17/23 08:44 Last Infusion: 02/17/23 11:09 Dose: 0 mls/hr Documented By: Admin: 02/17/23 08:02 Dose: 100 mls/hr Documented By: Infusion: 02/17/23 07:54 Dose: 100 mls/hr Documented By: Admin: 02/17/23 06:54 Dose: 100 mls/hr Documented By: Infusion: 02/17/23 06:47 Dose: 100 mls/hr Documented By: Admin: 02/17/23 05:47 Dose: 100 mls/hr Documented By: Infusion: 02/17/23 05:47 Dose: 100 mls/hr Documented By: Admin: 02/17/23 04:49 Dose: 100 mls/hr Documented By: SOMMER Magnesium Sulfate (Magnesium Sulfate) 2 gm in 50 mls @ 25 mls/hr IV NOW ONE Stop: 02/17/23 07:05 Last Infusion: 02/17/23 08:02 Dose: 0 mls/hr Documented By: BLAS Co-signed By: Admin: 02/17/23 05:47 Dose: 25 mls/hr Documented By: SOMMER Co-signed By: CHAYA Ketorolac Tromethamine (Ketorolac 30 Mg/Ml Vial) 15 mg IV NOW ONE Stop: 02/13/23 17:11 Last Admin: 02/13/23 17:20 Dose: 15 mg Documented By: TORRIE Ketorolac Tromethamine (Ketorolac 30 Mg/Ml Vial) 15 mg IV NOW ONE Stop: 02/14/23 01:33 Last Admin: 02/14/23 02:34 Dose: 15 mg Documented By: SB Loperamide HCl (Loperamide 2 Mg Capsule) 2 mg PO QID PRN PRN Reason: Diarrhea Last Admin: 02/17/23 03:13 Dose: 2 mg Documented By: Admin: 02/16/23 15:44 Dose: 2 mg Documented By: BLAS Lorazepam (Lorazepam 2 Mg/Ml Inj) 1 mg IV NOW ONE Stop: 02/13/23 15:25 Last Admin: 02/13/23 15:28 Dose: 0.5 mg Documented By: YONG Lorazepam (Lorazepam 0.5 Mg Tablet) 0.5 mg PO NOW ONE Stop: 02/16/23 22:22 Last Admin: 02/16/23 22:43 Dose: 0.5 mg Documented By: SOMMER Metoclopramide HCl (Metoclopramide 10 Mg/2 Ml Inj) 10 mg IV NOW ONE Stop: 02/13/23 19:00 Last Admin: 02/13/23 19:05 Dose: 10 mg Documented By: YONG Metoclopramide HCl (Metoclopramide 10 Mg/2 Ml Inj) 10 mg IV Q6HR PRN PRN Reason: Nausea And Vomiting Last Admin: 02/17/23 12:54 Dose: 10 mg Documented By: BLAS Naloxone HCl (Naloxone 0.4 Mg/Ml Vial) 0.2 mg IV Q2MIN PRN PRN Reason: Opiate Reversal Ondansetron HCl (Ondansetron 4 Mg/2 Ml Inj) 4 mg IV NOW PRN PRN Reason: Nausea And Vomiting Last Admin: 02/14/23 02:34 Dose: 4 mg Documented By: LISA Ondansetron HCl (Ondansetron 4 Mg Odt) 4 mg SL NOW PRN PRN Reason: Nausea And Vomiting Ondansetron HCl (Ondansetron 4 Mg/2 Ml Inj) 4 mg IV Q8HR PRN PRN Reason: Nausea And Vomiting Last Admin: 02/14/23 12:33 Dose: 4 mg Documented By: FARTUN Ondansetron HCl (Ondansetron 4 Mg/2 Ml Inj) 4 mg IV Q6HR PRN PRN Reason: Nausea And Vomiting Last Admin: 02/16/23 11:11 Dose: 4 mg Documented By: Admin: 02/16/23 04:02 Dose: 4 mg Documented By: Admin: 02/15/23 14:56 Dose: 4 mg Documented By: Admin: 02/14/23 21:18 Dose: 4 mg Documented By: HORTENCIA Pantoprazole Sodium (Pantoprazole 40 Mg Vial) 40 mg IV NOW ONE Stop: 02/13/23 15:25 Last Admin: 02/13/23 15:28 Dose: 40 mg Documented By: YONG Pantoprazole Sodium (Pantoprazole 40 Mg Vial) 40 mg IV NOW ONE Stop: 02/14/23 04:46 Last Admin: 02/14/23 05:07 Dose: 40 mg Documented By: CALOS Pantoprazole Sodium (Pantoprazole 40 Mg Vial) 40 mg IV BID [facility] [place] Last Admin: 02/14/23 12:37 Dose: Not Given Documented By: FARTUN Pantoprazole Sodium (Pantoprazole 40 Mg Vial) 40 mg IV BID [facility] [place] Last Admin: 02/17/23 09:00 Dose: 40 mg Documented By: Admin: 02/16/23 21:30 Dose: 40 mg Documented By: Admin: 02/16/23 08:53 Dose: 40 mg Documented By: Admin: 02/15/23 22:50 Dose: 40 mg Documented By: Admin: 02/15/23 08:20 Dose: 40 mg Documented By: Admin: 02/14/23 21:12 Dose: 40 mg Documented By: Admin: 02/14/23 12:21 Dose: 40 mg Documented By: FARTUN Potassium Chloride (Potassium Chloride 20 Meq Tab) 40 meq PO TIDWM [facility] [place] Stop: 02/16/23 17:01 Last Admin: 02/16/23 11:48 Dose: Not Given Documented By: BLAS Potassium Chloride (Potassium Chloride 20 Meq Tab) 40 meq PO TIDWM [facility] [place] Stop: 02/17/23 17:01 Last Admin: 02/17/23 12:00 Dose: 40 meq Documented By: Admin: 02/17/23 10:37 Dose: 40 meq Documented By: BLAS Pramipexole Dihydrochloride (Pramipexole 0.25 Mg Tablet) 0.125 mg PO BEDTIME [facility] [place] Last Admin: 02/16/23 18:28 Dose: 0.125 mg Documented By: BLAS Vancomycin HCl (Vancom[facility] Per Pharmacy) [facility] Stop: 02/14/23 08:52 Last Admin: 02/14/23 12:36 Dose: 1 request Documented By: FARTUN Vital Signs Vital signs: Vital Signs - 8 hr 02/13/23 21:00 02/13/23 21:00 02/13/23 21:05 Temperature 101.3 F H 101.3 F H Pulse Rate 70 67 Respiratory Rate 30 H 30 H Blood Pressure 177/110 H Pulse Oximetry 97 98 Oxygen Delivery Method Oxygen Flow Rate 02/13/23 21:10 02/13/23 21:15 02/13/23 21:15 Temperature 101.3 F H 101.1 F H Pulse Rate 76 68 Respiratory Rate 26 H 29 H Blood Pressure 174/105 H Pulse Oximetry 97 98 Oxygen Delivery Method Oxygen Flow Rate 02/13/23 21:20 02/13/23 21:25 02/13/23 21:30 Temperature 101.1 F H 101.1 F H Pulse Rate 68 69 Respiratory Rate 23 22 Blood Pressure 179/90 H Pulse Oximetry 99 99 Oxygen Delivery Method Oxygen Flow Rate 02/13/23 21:30 02/13/23 21:35 02/13/23 21:40 Temperature 101.1 F H 101.1 F H 101.1 F H Pulse Rate 69 72 69 Respiratory Rate 20 18 23 Blood Pressure Pulse Oximetry 99 98 98 Oxygen Delivery Method Oxygen Flow Rate 02/13/23 21:45 02/13/23 21:46 02/13/23 21:46 Temperature 101.1 F H 101.1 F H Pulse Rate 68 70 Respiratory Rate 26 H 26 H Blood Pressure 172/113 H Pulse Oximetry 98 97 Oxygen Delivery Method Oxygen Flow Rate 02/13/23 21:50 02/13/23 21:55 02/13/23 21:55 Temperature 101.1 F H 101.1 F H Pulse Rate 68 71 Respiratory Rate 22 27 H Blood Pressure 150/79 H Pulse Oximetry 97 96 Oxygen Delivery Method Oxygen Flow Rate 02/13/23 22:00 02/13/23 22:01 02/13/23 22:01 Temperature 101.1 F H 101.1 F H Pulse Rate 71 69 Respiratory Rate 27 H 24 Blood Pressure 171/79 H Pulse Oximetry 96 96 Oxygen Delivery Method Oxygen Flow Rate 02/13/23 22:05 02/13/23 22:10 02/13/23 22:15 Temperature 101.1 F H 101.3 F H 101.3 F H Pulse Rate 69 71 75 Respiratory Rate 27 H 26 H 27 H Blood Pressure Pulse Oximetry 96 97 98 Oxygen Delivery Method Oxygen Flow Rate 02/13/23 22:20 02/13/23 22:25 02/13/23 22:30 Temperature 101.3 F H 101.3 F H Pulse Rate 75 73 Respiratory Rate 25 H 30 H Blood Pressure 173/81 H Pulse Oximetry 97 97 Oxygen Delivery Method Oxygen Flow Rate 02/13/23 22:30 02/13/23 22:35 02/13/23 22:40 Temperature 101.3 F H 101.3 F H 101.5 F H Pulse Rate 72 73 71 Respiratory Rate 42 H 21 30 H Blood Pressure Pulse Oximetry 96 97 97 Oxygen Delivery Method Oxygen Flow Rate 02/13/23 22:45 02/13/23 22:50 02/13/23 22:55 Temperature 101.5 F H 101.5 F H 101.5 F H Pulse Rate 75 76 72 Respiratory Rate 25 H 30 H 27 H Blood Pressure Pulse Oximetry 97 98 97 Oxygen Delivery Method Oxygen Flow Rate 02/13/23 23:00 02/13/23 23:00 02/13/23 23:05 Temperature 101.5 F H 101.5 F H Pulse Rate 71 70 Respiratory Rate 21 26 H Blood Pressure 174/93 H Pulse Oximetry 96 96 Oxygen Delivery Method Oxygen Flow Rate 02/13/23 23:10 02/13/23 23:15 02/13/23 23:20 Temperature 101.5 F H 101.5 F H 101.5 F H Pulse Rate 70 69 70 Respiratory Rate 27 H 26 H 27 H Blood Pressure Pulse Oximetry 96 97 96 Oxygen Delivery Method Oxygen Flow Rate 02/13/23 23:25 02/13/23 23:30 02/13/23 23:35 Temperature 101.5 F H 101.5 F H 101.5 F H Pulse Rate 71 73 72 Respiratory Rate 25 H 31 H 23 Blood Pressure Pulse Oximetry 97 97 97 Oxygen Delivery Method Oxygen Flow Rate 02/13/23 23:40 02/13/23 23:45 02/13/23 23:50 Temperature 101.3 F H 101.5 F H 101.5 F H Pulse Rate 74 92 H 73 Respiratory Rate 29 H 31 H 29 H Blood Pressure Pulse Oximetry 97 96 97 Oxygen Delivery Method Oxygen Flow Rate 02/13/23 23:55 02/14/23 00:00 02/14/23 00:05 Temperature 101.5 F H 101.3 F H 101.3 F H Pulse Rate 75 79 74 Respiratory Rate 30 H 44 H 36 H Blood Pressure Pulse Oximetry 97 97 96 Oxygen Delivery Method Oxygen Flow Rate 02/14/23 00:10 02/14/23 00:15 02/14/23 00:30 Temperature 101.3 F H 101.3 F H Pulse Rate 75 78 80 Respiratory Rate 36 H 34 H 26 H Blood Pressure Pulse Oximetry 96 97 98 Oxygen Delivery Method Nasal Cannula Oxygen Flow Rate 4 02/14/23 00:45 02/14/23 01:00 02/14/23 01:15 Temperature Pulse Rate 108 H 112 H 75 Respiratory Rate 33 H 41 H 22 Blood Pressure Pulse Oximetry 98 97 98 Oxygen Delivery Method Nasal Cannula Room Air Oxygen Flow Rate 2 02/14/23 01:30 02/14/23 02:34 Temperature 101.5 F H 101.5 F H Pulse Rate 70 Respiratory Rate 24 Blood Pressure Pulse Oximetry 97 Oxygen Delivery Method Oxygen Flow Rate MDM - Altered Mental Status <Carolina Olmstead, DO - Last Filed: 02/15/23 07:52> Lab Data 02/17/23 04:08 02/17/23 04:08 Labs: Lab Results 02/13/23 02/13/23 02/13/23 Range/Units 14:30 14:30 14:30 WBC 11.6 H (4.5-11.0) X10^3/uL RBC 4.90 (4.0-5.2) X10^6/uL Hgb 14.0 (12.0-16.0) g/dL Hct 42.4 (36-46) % MCV 86.5 (80-100) fL MCH 28.6 (26-34) PG MCHC 33.1 (30-36) % RDW 13.0 (11.6-14.8) % Plt Count 370 (150-400) X10^3/uL Neut % (Auto) 85.7 H (50-75) % Lymph % (Auto) 11.6 L (25-40) % [place] % (Auto) 2.4 L (3-14) % Eos % (Auto) 0.0 L (2-4) % Baso % (Auto) 0.3 (0-2) % Neut # (Auto) 9900 H (5534-7947) /uL Lymph # (Auto) 1300 (9375-3731) /uL [place] # (Auto) 300 (0-900) /uL Eos # (Auto) 0 (0-450) /uL Baso # (Auto) 0 (0-100) /uL PT 12.0 (10.1-12.7) SECONDS INR 1.0 (0.9-1.3) APTT 52 H (26-36) SECONDS ABG pH (7.35-7.45) ABG pCO2 (35-45) mmHg ABG pO2 (80-100) mmHg ABG HCO3 (23-27) mmol/L ABG Total CO2 (23-27) mmol/L ABG O2 Saturation (95-100) % ABG Base Excess (-2-3) mmol/L FiO2 Sodium 141 (137-145) mmol/L Potassium 3.6 (3.4-5.1) mmol/L Chloride 106 (98-107) mmol/L Carbon Dioxide 22 (22-32) mmol/L BUN 13 (7-17) mg/dL Creatinine 0.77 (0.52-1.04) mg/dL Estimated GFR > 60 (>60) mL/min BUN/Creatinine Ratio 16.9 (6-22) Glucose 146 H (80-110) mg/dL Lactate (0.7-2.1) mmol/L Calcium 9.4 (8.4-10.2) mg/dL Total Bilirubin 0.6 (0.2-1.3) mg/dL AST 31 (14-36) IU/L ALT 17 (<35) IU/L Alkaline Phosphatase 163 H (38-126) U/L Ammonia (9-30) umol/L Total Creatine Kinase (30-135) U/L Troponin I (0.01-0.034) ng/mL Total Protein 8.4 H (6.3-8.2) g/dL Albumin 4.4 (3.5-5.0) g/dL Globulin 4.0 (1.7-4.1) g/dL Albumin/Globulin Ratio 1.1 (1.0-2.8) Lipase 77 (23-300) U/L Procalcitonin < 0.03 (<0.5) ng/mL Urine Color Urine Appearance Urine pH (4.5-8.0) Ur Specific [place] (1.000-1.035) Urine Protein (Negative) Urine Glucose (UA) (Negative) g/dL Urine Ketones (NEGATIVE) Urine Occult Blood (Negative) Urine Nitrate (Negative) Urine Bilirubin (NEGATIVE) Urine Urobilinogen (0.2) E.U./dL Ur Leukocyte Esterase (NEGATIVE) Urine RBC (0-5/HPF) Urine WBC (0-5/HPF) Ur Squamous Epith Cells (0-5/HPF) Urine Bacteria (None) Ur Culture Indicated? CSF Tube Number CSF Volume CSF Appearance (Clear) CSF Color (Colorless) CSF WBC (0-5) MONO/uL CSF RBC RBC /uL CSF Mononuclear WBCs CSF Polynuclear WBCs CSF Glucose (40-70) mg/dL CSF Total Protein (12-60) mg/dL CSF C.neoform/gat PCR (Not Detect) CSF CMV DNA (PCR) (Not Detect) CSF Enterovirus (PCR) (Not Detect) CSF E. coli (PCR) (Not Detect) CSF H. influenzae (PCR) (Not Detect) CSF HSV I (PCR) (Not Detect) CSF HSV II (PCR) (Not Detect) CSF HHV 6 (PCR) (Not Detect) CSF L.monocytogenes PCR (Not Detect) CSF N. meningitidis PCR (Not Detect) CSF Parechovirus (PCR) (Not Detect) CSF S. agalactiae (PCR) (Not Detect) CSF S. pneumoniae (PCR) (Not Detect) CSF VZV (PCR) (Not Detecte) Salicylates (<20) mg/dL U Opiates 300ng/mL cut (Negative) Ur Oxycodone Screen (Negative) Urine Methadone Screen (Negative) Acetaminophen (10-30) ug/mL Ur Barbiturates Screen (Negative) U Tricyclic Antidepress (Negative) Ur Phencyclidine Scrn (Negative) Ur Amphetamines Screen (Negative) U Methamphetamines Scrn (Negative) Ur MDMA Scrn (Ecstasy) (Negative) U Benzodiazepines Scrn (Negative) Urine Cocaine Screen (Negative) U Marijuana (THC) Screen (Negative) Ethyl Alcohol ( - 10) mg/dL Chlamy pneumoniae PCR (Not Detect) Adenovirus (PCR) (Not Detect) B. pertussis DNA (PCR) (Not Detecte) B.parapertussis DNA PCR (Not Detecte) Coronavirus OC43 (PCR) (Not Detect) Coronavirus HKU1 (PCR) (Not Detect) Coronavirus 229E (PCR) (Not Detect) SARS-CoV-2 (PCR) (Not Detecte) Coronavirus NL63 (PCR) (Not Detect) Human Metapneumovir PCR (Not Detect) Influenza Type A (PCR) (Not Detect) Influenza Type B (PCR) (Not Detect) M. pneumoniae (PCR) (Not Detect) Parainfluenza 1 (PCR) (Not Detect) Parainfluenza 2 (PCR) (Not Detect) Parainfluenza 3 (PCR) (Not Detect) Parainfluenza 4 (PCR) (Not Detect) RSV (PCR) (Not Detect) Entero/Rhino (PCR) (Not Detect) 02/13/23 02/13/23 02/13/23 Range/Units 14:30 14:30 14:30 WBC (4.5-11.0) X10^3/uL RBC (4.0-5.2) X10^6/uL Hgb (12.0-16.0) g/dL Hct (36-46) % MCV (80-100) fL MCH (26-34) PG MCHC (30-36) % RDW (11.6-14.8) % Plt Count (150-400) X10^3/uL Neut % (Auto) (50-75) % Lymph % (Auto) (25-40) % [place] % (Auto) (3-14) % Eos % (Auto) (2-4) % Baso % (Auto) (0-2) % Neut # (Auto) (8684-6555) /uL Lymph # (Auto) (8007-9181) /uL [place] # (Auto) (0-900) /uL Eos # (Auto) (0-450) /uL Baso # (Auto) (0-100) /uL PT (10.1-12.7) SECONDS INR (0.9-1.3) APTT (26-36) SECONDS ABG pH (7.35-7.45) ABG pCO2 (35-45) mmHg ABG pO2 (80-100) mmHg ABG HCO3 (23-27) mmol/L ABG Total CO2 (23-27) mmol/L ABG O2 Saturation (95-100) % ABG Base Excess (-2-3) mmol/L FiO2 Sodium (137-145) mmol/L Potassium (3.4-5.1) mmol/L Chloride (98-107) mmol/L Carbon Dioxide (22-32) mmol/L BUN (7-17) mg/dL Creatinine (0.52-1.04) mg/dL Estimated GFR (>60) mL/min BUN/Creatinine Ratio (6-22) Glucose (80-110) mg/dL Lactate 2.8 H (0.7-2.1) mmol/L Calcium (8.4-10.2) mg/dL Total Bilirubin (0.2-1.3) mg/dL AST (14-36) IU/L ALT (<35) IU/L Alkaline Phosphatase (38-126) U/L Ammonia (9-30) umol/L Total Creatine Kinase 31 (30-135) U/L Troponin I < 0.012 (0.01-0.034) ng/mL Total Protein (6.3-8.2) g/dL Albumin (3.5-5.0) g/dL Globulin (1.7-4.1) g/dL Albumin/Globulin Ratio (1.0-2.8) Lipase (23-300) U/L Procalcitonin (<0.5) ng/mL Urine Color Urine Appearance Urine pH (4.5-8.0) Ur Specific [place] (1.000-1.035) Urine Protein (Negative) Urine Glucose (UA) (Negative) g/dL Urine Ketones (NEGATIVE) Urine Occult Blood (Negative) Urine Nitrate (Negative) Urine Bilirubin (NEGATIVE) Urine Urobilinogen (0.2) E.U./dL Ur Leukocyte Esterase (NEGATIVE) Urine RBC (0-5/HPF) Urine WBC (0-5/HPF) Ur Squamous Epith Cells (0-5/HPF) Urine Bacteria (None) Ur Culture Indicated? CSF Tube Number CSF Volume CSF Appearance (Clear) CSF Color (Colorless) CSF WBC (0-5) MONO/uL CSF RBC RBC /uL CSF Mononuclear WBCs CSF Polynuclear WBCs CSF Glucose (40-70) mg/dL CSF Total Protein (12-60) mg/dL CSF C.neoform/gat PCR (Not Detect) CSF CMV DNA (PCR) (Not Detect) CSF Enterovirus (PCR) (Not Detect) CSF E. coli (PCR) (Not Detect) CSF H. influenzae (PCR) (Not Detect) CSF HSV I (PCR) (Not Detect) CSF HSV II (PCR) (Not Detect) CSF HHV 6 (PCR) (Not Detect) CSF L.monocytogenes PCR (Not Detect) CSF N. meningitidis PCR (Not Detect) CSF Parechovirus (PCR) (Not Detect) CSF S. agalactiae (PCR) (Not Detect) CSF S. pneumoniae (PCR) (Not Detect) CSF VZV (PCR) (Not Detecte) Salicylates < 1.0 (<20) mg/dL U Opiates 300ng/mL cut (Negative) Ur Oxycodone Screen (Negative) Urine Methadone Screen (Negative) Acetaminophen < 10 (10-30) ug/mL Ur Barbiturates Screen (Negative) U Tricyclic Antidepress (Negative) Ur Phencyclidine Scrn (Negative) Ur Amphetamines Screen (Negative) U Methamphetamines Scrn (Negative) Ur MDMA Scrn (Ecstasy) (Negative) U Benzodiazepines Scrn (Negative) Urine Cocaine Screen (Negative) U Marijuana (THC) Screen (Negative) Ethyl Alcohol < 10 ( - 10) mg/dL Chlamy pneumoniae PCR (Not Detect) Adenovirus (PCR) (Not Detect) B. pertussis DNA (PCR) (Not Detecte) B.parapertussis DNA PCR (Not Detecte) Coronavirus OC43 (PCR) (Not Detect) Coronavirus HKU1 (PCR) (Not Detect) Coronavirus 229E (PCR) (Not Detect) SARS-CoV-2 (PCR) (Not Detecte) Coronavirus NL63 (PCR) (Not Detect) Human Metapneumovir PCR (Not Detect) Influenza Type A (PCR) (Not Detect) Influenza Type B (PCR) (Not Detect) M. pneumoniae (PCR) (Not Detect) Parainfluenza 1 (PCR) (Not Detect) Parainfluenza 2 (PCR) (Not Detect) Parainfluenza 3 (PCR) (Not Detect) Parainfluenza 4 (PCR) (Not Detect) RSV (PCR) (Not Detect) Entero/Rhino (PCR) (Not Detect) 02/13/23 02/13/23 02/13/23 Range/Units 14:41 14:50 15:45 WBC (4.5-11.0) X10^3/uL RBC (4.0-5.2) X10^6/uL Hgb (12.0-16.0) g/dL Hct (36-46) % MCV (80-100) fL MCH (26-34) PG MCHC (30-36) % RDW (11.6-14.8) % Plt Count (150-400) X10^3/uL Neut % (Auto) (50-75) % Lymph % (Auto) (25-40) % [place] % (Auto) (3-14) % Eos % (Auto) (2-4) % Baso % (Auto) (0-2) % Neut # (Auto) (7749-5086) /uL Lymph # (Auto) (6739-8522) /uL [place] # (Auto) (0-900) /uL Eos # (Auto) (0-450) /uL Baso # (Auto) (0-100) /uL PT (10.1-12.7) SECONDS INR (0.9-1.3) APTT (26-36) SECONDS ABG pH 7.56 H (7.35-7.45) ABG pCO2 21.9 L* (35-45) mmHg ABG pO2 58 L (80-100) mmHg ABG HCO3 19 L (23-27) mmol/L ABG Total CO2 20 L (23-27) mmol/L ABG O2 Saturation 94 L (95-100) % ABG Base Excess -3.0 L (-2-3) mmol/L FiO2 21 Sodium (137-145) mmol/L Potassium (3.4-5.1) mmol/L Chloride (98-107) mmol/L Carbon Dioxide (22-32) mmol/L BUN (7-17) mg/dL Creatinine (0.52-1.04) mg/dL Estimated GFR (>60) mL/min BUN/Creatinine Ratio (6-22) Glucose (80-110) mg/dL Lactate (0.7-2.1) mmol/L Calcium (8.4-10.2) mg/dL Total Bilirubin (0.2-1.3) mg/dL AST (14-36) IU/L ALT (<35) IU/L Alkaline Phosphatase (38-126) U/L Ammonia (9-30) umol/L Total Creatine Kinase (30-135) U/L Troponin I (0.01-0.034) ng/mL Total Protein (6.3-8.2) g/dL Albumin (3.5-5.0) g/dL Globulin (1.7-4.1) g/dL Albumin/Globulin Ratio (1.0-2.8) Lipase (23-300) U/L Procalcitonin (<0.5) ng/mL Urine Color Urine Appearance Urine pH (4.5-8.0) Ur Specific [place] (1.000-1.035) Urine Protein (Negative) Urine Glucose (UA) (Negative) g/dL Urine Ketones (NEGATIVE) Urine Occult Blood (Negative) Urine Nitrate (Negative) Urine Bilirubin (NEGATIVE) Urine Urobilinogen (0.2) E.U./dL Ur Leukocyte Esterase (NEGATIVE) Urine RBC (0-5/HPF) Urine WBC (0-5/HPF) Ur Squamous Epith Cells (0-5/HPF) Urine Bacteria (None) Ur Culture Indicated? CSF Tube Number CSF Volume CSF Appearance (Clear) CSF Color (Colorless) CSF WBC (0-5) MONO/uL CSF RBC RBC /uL CSF Mononuclear WBCs CSF Polynuclear WBCs CSF Glucose (40-70) mg/dL CSF Total Protein (12-60) mg/dL CSF C.neoform/gat PCR (Not Detect) CSF CMV DNA (PCR) (Not Detect) CSF Enterovirus (PCR) (Not Detect) CSF E. coli (PCR) (Not Detect) CSF H. influenzae (PCR) (Not Detect) CSF HSV I (PCR) (Not Detect) CSF HSV II (PCR) (Not Detect) CSF HHV 6 (PCR) (Not Detect) CSF L.monocytogenes PCR (Not Detect) CSF N. meningitidis PCR (Not Detect) CSF Parechovirus (PCR) (Not Detect) CSF S. agalactiae (PCR) (Not Detect) CSF S. pneumoniae (PCR) (Not Detect) CSF VZV (PCR) (Not Detecte) Salicylates (<20) mg/dL U Opiates 300ng/mL cut Negative (Negative) Ur Oxycodone Screen Negative (Negative) Urine Methadone Screen Negative (Negative) Acetaminophen (10-30) ug/mL Ur Barbiturates Screen Negative (Negative) U Tricyclic Antidepress Negative (Negative) Ur Phencyclidine Scrn Negative (Negative) Ur Amphetamines Screen Negative (Negative) U Methamphetamines Scrn Negative (Negative) Ur MDMA Scrn (Ecstasy) Negative (Negative) U Benzodiazepines Scrn Negative (Negative) Urine Cocaine Screen Negative (Negative) U Marijuana (THC) Screen Negative (Negative) Ethyl Alcohol ( - 10) mg/dL Chlamy pneumoniae PCR Not detected (Not Detect) Adenovirus (PCR) Not detected (Not Detect) B. pertussis DNA (PCR) Not detected (Not Detecte) B.parapertussis DNA PCR Not detected (Not Detecte) Coronavirus OC43 (PCR) Not detected (Not Detect) Coronavirus HKU1 (PCR) Not detected (Not Detect) Coronavirus 229E (PCR) Not detected (Not Detect) SARS-CoV-2 (PCR) Not detected (Not Detecte) Coronavirus NL63 (PCR) Not detected (Not Detect) Human Metapneumovir PCR Not detected (Not Detect) Influenza Type A (PCR) Not detected (Not Detect) Influenza Type B (PCR) Not detected (Not Detect) M. pneumoniae (PCR) Not detected (Not Detect) Parainfluenza 1 (PCR) Not detected (Not Detect) Parainfluenza 2 (PCR) Not detected (Not Detect) Parainfluenza 3 (PCR) Not detected (Not Detect) Parainfluenza 4 (PCR) Not detected (Not Detect) RSV (PCR) Not detected (Not Detect) Entero/Rhino (PCR) Not detected (Not Detect) 02/13/23 02/13/23 02/13/23 Range/Units 15:45 16:50 19:31 WBC (4.5-11.0) X10^3/uL RBC (4.0-5.2) X10^6/uL Hgb (12.0-16.0) g/dL Hct (36-46) % MCV (80-100) fL MCH (26-34) PG MCHC (30-36) % RDW (11.6-14.8) % Plt Count (150-400) X10^3/uL Neut % (Auto) (50-75) % Lymph % (Auto) (25-40) % [place] % (Auto) (3-14) % Eos % (Auto) (2-4) % Baso % (Auto) (0-2) % Neut # (Auto) (2838-0387) /uL Lymph # (Auto) (4515-9147) /uL [place] # (Auto) (0-900) /uL Eos # (Auto) (0-450) /uL Baso # (Auto) (0-100) /uL PT (10.1-12.7) SECONDS INR (0.9-1.3) APTT (26-36) SECONDS ABG pH (7.35-7.45) ABG pCO2 (35-45) mmHg ABG pO2 (80-100) mmHg ABG HCO3 (23-27) mmol/L ABG Total CO2 (23-27) mmol/L ABG O2 Saturation (95-100) % ABG Base Excess (-2-3) mmol/L FiO2 Sodium (137-145) mmol/L Potassium (3.4-5.1) mmol/L Chloride (98-107) mmol/L Carbon Dioxide (22-32) mmol/L BUN (7-17) mg/dL Creatinine (0.52-1.04) mg/dL Estimated GFR (>60) mL/min BUN/Creatinine Ratio (6-22) Glucose (80-110) mg/dL Lactate 1.6 5.1 H* (0.7-2.1) mmol/L Calcium (8.4-10.2) mg/dL Total Bilirubin (0.2-1.3) mg/dL AST (14-36) IU/L ALT (<35) IU/L Alkaline Phosphatase (38-126) U/L Ammonia (9-30) umol/L Total Creatine Kinase (30-135) U/L Troponin I (0.01-0.034) ng/mL Total Protein (6.3-8.2) g/dL Albumin (3.5-5.0) g/dL Globulin (1.7-4.1) g/dL Albumin/Globulin Ratio (1.0-2.8) Lipase (23-300) U/L Procalcitonin (<0.5) ng/mL Urine Color Yellow Urine Appearance Sl cloudy Urine pH 6.5 (4.5-8.0) Ur Specific [place] <=1.005 (1.000-1.035) Urine Protein Negative (Negative) Urine Glucose (UA) Negative (Negative) g/dL Urine Ketones Negative (NEGATIVE) Urine Occult Blood Trace-intact (Negative) Urine Nitrate Negative (Negative) Urine Bilirubin Negative (NEGATIVE) Urine Urobilinogen 0.2 (0.2) E.U./dL Ur Leukocyte Esterase Trace H (NEGATIVE) Urine RBC 0-1/hpf (0-5/HPF) Urine WBC 1-5/hpf (0-5/HPF) Ur Squamous Epith Cells None seen (0-5/HPF) Urine Bacteria Many (>30) H (None) Ur Culture Indicated? Specimen cultured CSF Tube Number CSF Volume CSF Appearance (Clear) CSF Color (Colorless) CSF WBC (0-5) MONO/uL CSF RBC RBC /uL CSF Mononuclear WBCs CSF Polynuclear WBCs CSF Glucose (40-70) mg/dL CSF Total Protein (12-60) mg/dL CSF C.neoform/gat PCR (Not Detect) CSF CMV DNA (PCR) (Not Detect) CSF Enterovirus (PCR) (Not Detect) CSF E. coli (PCR) (Not Detect) CSF H. influenzae (PCR) (Not Detect) CSF HSV I (PCR) (Not Detect) CSF HSV II (PCR) (Not Detect) CSF HHV 6 (PCR) (Not Detect) CSF L.monocytogenes PCR (Not Detect) CSF N. meningitidis PCR (Not Detect) CSF Parechovirus (PCR) (Not Detect) CSF S. agalactiae (PCR) (Not Detect) CSF S. pneumoniae (PCR) (Not Detect) CSF VZV (PCR) (Not Detecte) Salicylates (<20) mg/dL U Opiates 300ng/mL cut (Negative) Ur Oxycodone Screen (Negative) Urine Methadone Screen (Negative) Acetaminophen (10-30) ug/mL Ur Barbiturates Screen (Negative) U Tricyclic Antidepress (Negative) Ur Phencyclidine Scrn (Negative) Ur Amphetamines Screen (Negative) U Methamphetamines Scrn (Negative) Ur MDMA Scrn (Ecstasy) (Negative) U Benzodiazepines Scrn (Negative) Urine Cocaine Screen (Negative) U Marijuana (THC) Screen (Negative) Ethyl Alcohol ( - 10) mg/dL Chlamy pneumoniae PCR (Not Detect) Adenovirus (PCR) (Not Detect) B. pertussis DNA (PCR) (Not Detecte) B.parapertussis DNA PCR (Not Detecte) Coronavirus OC43 (PCR) (Not Detect) Coronavirus HKU1 (PCR) (Not Detect) Coronavirus 229E (PCR) (Not Detect) SARS-CoV-2 (PCR) (Not Detecte) Coronavirus NL63 (PCR) (Not Detect) Human Metapneumovir PCR (Not Detect) Influenza Type A (PCR) (Not Detect) Influenza Type B (PCR) (Not Detect) M. pneumoniae (PCR) (Not Detect) Parainfluenza 1 (PCR) (Not Detect) Parainfluenza 2 (PCR) (Not Detect) Parainfluenza 3 (PCR) (Not Detect) Parainfluenza 4 (PCR) (Not Detect) RSV (PCR) (Not Detect) Entero/Rhino (PCR) (Not Detect) 02/13/23 02/13/23 02/13/23 Range/Units 19:31 20:15 20:15 WBC (4.5-11.0) X10^3/uL RBC (4.0-5.2) X10^6/uL Hgb (12.0-16.0) g/dL Hct (36-46) % MCV (80-100) fL MCH (26-34) PG MCHC (30-36) % RDW (11.6-14.8) % Plt Count (150-400) X10^3/uL Neut % (Auto) (50-75) % Lymph % (Auto) (25-40) % [place] % (Auto) (3-14) % Eos % (Auto) (2-4) % Baso % (Auto) (0-2) % Neut # (Auto) (7135-6529) /uL Lymph # (Auto) (2722-2143) /uL [place] # (Auto) (0-900) /uL Eos # (Auto) (0-450) /uL Baso # (Auto) (0-100) /uL PT (10.1-12.7) SECONDS INR (0.9-1.3) APTT (26-36) SECONDS ABG pH (7.35-7.45) ABG pCO2 (35-45) mmHg ABG pO2 (80-100) mmHg ABG HCO3 (23-27) mmol/L ABG Total CO2 (23-27) mmol/L ABG O2 Saturation (95-100) % ABG Base Excess (-2-3) mmol/L FiO2 Sodium (137-145) mmol/L Potassium (3.4-5.1) mmol/L Chloride (98-107) mmol/L Carbon Dioxide (22-32) mmol/L BUN (7-17) mg/dL Creatinine (0.52-1.04) mg/dL Estimated GFR (>60) mL/min BUN/Creatinine Ratio (6-22) Glucose (80-110) mg/dL Lactate (0.7-2.1) mmol/L Calcium (8.4-10.2) mg/dL Total Bilirubin (0.2-1.3) mg/dL AST (14-36) IU/L ALT (<35) IU/L Alkaline Phosphatase (38-126) U/L Ammonia < 9 L (9-30) umol/L Total Creatine Kinase (30-135) U/L Troponin I (0.01-0.034) ng/mL Total Protein (6.3-8.2) g/dL Albumin (3.5-5.0) g/dL Globulin (1.7-4.1) g/dL Albumin/Globulin Ratio (1.0-2.8) Lipase (23-300) U/L Procalcitonin (<0.5) ng/mL Urine Color Urine Appearance Urine pH (4.5-8.0) Ur Specific [place] (1.000-1.035) Urine Protein (Negative) Urine Glucose (UA) (Negative) g/dL Urine Ketones (NEGATIVE) Urine Occult Blood (Negative) Urine Nitrate (Negative) Urine Bilirubin (NEGATIVE) Urine Urobilinogen (0.2) E.U./dL Ur Leukocyte Esterase (NEGATIVE) Urine RBC (0-5/HPF) Urine WBC (0-5/HPF) Ur Squamous Epith Cells (0-5/HPF) Urine Bacteria (None) Ur Culture Indicated? CSF Tube Number 3 CSF Volume 1.0 ml CSF Appearance Clear (Clear) CSF Color Colorless (Colorless) CSF WBC 3 (0-5) MONO/uL CSF RBC 0 RBC /uL CSF Mononuclear WBCs CSF Polynuclear WBCs CSF Glucose 76 H (40-70) mg/dL CSF Total Protein 95 H (12-60) mg/dL CSF C.neoform/gat PCR Not detected (Not Detect) CSF CMV DNA (PCR) Not detected (Not Detect) CSF Enterovirus (PCR) Not detected (Not Detect) CSF E. coli (PCR) Not detected (Not Detect) CSF H. influenzae (PCR) Not detected (Not Detect) CSF HSV I (PCR) Not detected (Not Detect) CSF HSV II (PCR) Not detected (Not Detect) CSF HHV 6 (PCR) Not detected (Not Detect) CSF L.monocytogenes PCR Not detected (Not Detect) CSF N. meningitidis PCR Not detected (Not Detect) CSF Parechovirus (PCR) Not detected (Not Detect) CSF S. agalactiae (PCR) Not detected (Not Detect) CSF S. pneumoniae (PCR) Not detected (Not Detect) CSF VZV (PCR) Not detected (Not Detecte) Salicylates (<20) mg/dL U Opiates 300ng/mL cut (Negative) Ur Oxycodone Screen (Negative) Urine Methadone Screen (Negative) Acetaminophen (10-30) ug/mL Ur Barbiturates Screen (Negative) U Tricyclic Antidepress (Negative) Ur Phencyclidine Scrn (Negative) Ur Amphetamines Screen (Negative) U Methamphetamines Scrn (Negative) Ur MDMA Scrn (Ecstasy) (Negative) U Benzodiazepines Scrn (Negative) Urine Cocaine Screen (Negative) U Marijuana (THC) Screen (Negative) Ethyl Alcohol ( - 10) mg/dL Chlamy pneumoniae PCR (Not Detect) Adenovirus (PCR) (Not Detect) B. pertussis DNA (PCR) (Not Detecte) B.parapertussis DNA PCR (Not Detecte) Coronavirus OC43 (PCR) (Not Detect) Coronavirus HKU1 (PCR) (Not Detect) Coronavirus 229E (PCR) (Not Detect) SARS-CoV-2 (PCR) (Not Detecte) Coronavirus NL63 (PCR) (Not Detect) Human Metapneumovir PCR (Not Detect) Influenza Type A (PCR) (Not Detect) Influenza Type B (PCR) (Not Detect) M. pneumoniae (PCR) (Not Detect) Parainfluenza 1 (PCR) (Not Detect) Parainfluenza 2 (PCR) (Not Detect) Parainfluenza 3 (PCR) (Not Detect) Parainfluenza 4 (PCR) (Not Detect) RSV (PCR) (Not Detect) Entero/Rhino (PCR) (Not Detect) 02/13/23 02/13/23 02/14/23 Range/Units 20:18 22:34 03:28 WBC 19.1 H D (4.5-11.0) X10^3/uL RBC 5.05 (4.0-5.2) X10^6/uL Hgb 14.5 (12.0-16.0) g/dL Hct 42.6 (36-46) % MCV 84.3 (80-100) fL MCH 28.6 (26-34) PG MCHC 34.0 (30-36) % RDW 13.1 (11.6-14.8) % Plt Count 439 H (150-400) X10^3/uL Neut % (Auto) 84.5 H (50-75) % Lymph % (Auto) 12.0 L (25-40) % [place] % (Auto) 3.4 (3-14) % Eos % (Auto) 0.0 L (2-4) % Baso % (Auto) 0.1 (0-2) % Neut # (Auto) 86833 H (1861-4582) /uL Lymph # (Auto) 2300 (8519-2073) /uL [place] # (Auto) 600 (0-900) /uL Eos # (Auto) 0 (0-450) /uL Baso # (Auto) 0 (0-100) /uL PT (10.1-12.7) SECONDS INR (0.9-1.3) APTT (26-36) SECONDS ABG pH (7.35-7.45) ABG pCO2 (35-45) mmHg ABG pO2 (80-100) mmHg ABG HCO3 (23-27) mmol/L ABG Total CO2 (23-27) mmol/L ABG O2 Saturation (95-100) % ABG Base Excess (-2-3) mmol/L FiO2 Sodium (137-145) mmol/L Potassium (3.4-5.1) mmol/L Chloride (98-107) mmol/L Carbon Dioxide (22-32) mmol/L BUN (7-17) mg/dL Creatinine (0.52-1.04) mg/dL Estimated GFR (>60) mL/min BUN/Creatinine Ratio (6-22) Glucose (80-110) mg/dL Lactate 2.5 H (0.7-2.1) mmol/L Calcium (8.4-10.2) mg/dL Total Bilirubin (0.2-1.3) mg/dL AST (14-36) IU/L ALT (<35) IU/L Alkaline Phosphatase (38-126) U/L Ammonia (9-30) umol/L Total Creatine Kinase (30-135) U/L Troponin I (0.01-0.034) ng/mL Total Protein (6.3-8.2) g/dL Albumin (3.5-5.0) g/dL Globulin (1.7-4.1) g/dL Albumin/Globulin Ratio (1.0-2.8) Lipase (23-300) U/L Procalcitonin (<0.5) ng/mL Urine Color Urine Appearance Urine pH (4.5-8.0) Ur Specific [place] (1.000-1.035) Urine Protein (Negative) Urine Glucose (UA) (Negative) g/dL Urine Ketones (NEGATIVE) Urine Occult Blood (Negative) Urine Nitrate (Negative) Urine Bilirubin (NEGATIVE) Urine Urobilinogen (0.2) E.U./dL Ur Leukocyte Esterase (NEGATIVE) Urine RBC (0-5/HPF) Urine WBC (0-5/HPF) Ur Squamous Epith Cells (0-5/HPF) Urine Bacteria (None) Ur Culture Indicated? CSF Tube Number CSF Volume CSF Appearance (Clear) CSF Color (Colorless) CSF WBC (0-5) MONO/uL CSF RBC RBC /uL CSF Mononuclear WBCs Not Reportable CSF Polynuclear WBCs Not Reportable CSF Glucose (40-70) mg/dL CSF Total Protein (12-60) mg/dL CSF C.neoform/gat PCR (Not Detect) CSF CMV DNA (PCR) (Not Detect) CSF Enterovirus (PCR) (Not Detect) CSF E. coli (PCR) (Not Detect) CSF H. influenzae (PCR) (Not Detect) CSF HSV I (PCR) (Not Detect) CSF HSV II (PCR) (Not Detect) CSF HHV 6 (PCR) (Not Detect) CSF L.monocytogenes PCR (Not Detect) CSF N. meningitidis PCR (Not Detect) CSF Parechovirus (PCR) (Not Detect) CSF S. agalactiae (PCR) (Not Detect) CSF S. pneumoniae (PCR) (Not Detect) CSF VZV (PCR) (Not Detecte) Salicylates (<20) mg/dL U Opiates 300ng/mL cut (Negative) Ur Oxycodone Screen (Negative) Urine Methadone Screen (Negative) Acetaminophen (10-30) ug/mL Ur Barbiturates Screen (Negative) U Tricyclic Antidepress (Negative) Ur Phencyclidine Scrn (Negative) Ur Amphetamines Screen (Negative) U Methamphetamines Scrn (Negative) Ur MDMA Scrn (Ecstasy) (Negative) U Benzodiazepines Scrn (Negative) Urine Cocaine Screen (Negative) U Marijuana (THC) Screen (Negative) Ethyl Alcohol ( - 10) mg/dL Chlamy pneumoniae PCR (Not Detect) Adenovirus (PCR) (Not Detect) B. pertussis DNA (PCR) (Not Detecte) B.parapertussis DNA PCR (Not Detecte) Coronavirus OC43 (PCR) (Not Detect) Coronavirus HKU1 (PCR) (Not Detect) Coronavirus 229E (PCR) (Not Detect) SARS-CoV-2 (PCR) (Not Detecte) Coronavirus NL63 (PCR) (Not Detect) Human Metapneumovir PCR (Not Detect) Influenza Type A (PCR) (Not Detect) Influenza Type B (PCR) (Not Detect) M. pneumoniae (PCR) (Not Detect) Parainfluenza 1 (PCR) (Not Detect) Parainfluenza 2 (PCR) (Not Detect) Parainfluenza 3 (PCR) (Not Detect) Parainfluenza 4 (PCR) (Not Detect) RSV (PCR) (Not Detect) Entero/Rhino (PCR) (Not Detect) 02/14/23 02/14/23 02/14/23 Range/Units 03:28 03:28 03:28 WBC (4.5-11.0) X10^3/uL RBC (4.0-5.2) X10^6/uL Hgb (12.0-16.0) g/dL Hct (36-46) % MCV (80-100) fL MCH (26-34) PG MCHC (30-36) % RDW (11.6-14.8) % Plt Count (150-400) X10^3/uL Neut % (Auto) (50-75) % Lymph % (Auto) (25-40) % [place] % (Auto) (3-14) % Eos % (Auto) (2-4) % Baso % (Auto) (0-2) % Neut # (Auto) (2051-7909) /uL Lymph # (Auto) (6679-1686) /uL [place] # (Auto) (0-900) /uL Eos # (Auto) (0-450) /uL Baso # (Auto) (0-100) /uL PT (10.1-12.7) SECONDS INR (0.9-1.3) APTT (26-36) SECONDS ABG pH (7.35-7.45) ABG pCO2 (35-45) mmHg ABG pO2 (80-100) mmHg ABG HCO3 (23-27) mmol/L ABG Total CO2 (23-27) mmol/L ABG O2 Saturation (95-100) % ABG Base Excess (-2-3) mmol/L FiO2 Sodium 137 (137-145) mmol/L Potassium 2.7 L* (3.4-5.1) mmol/L Chloride 105 (98-107) mmol/L Carbon Dioxide 18 L (22-32) mmol/L BUN 11 (7-17) mg/dL Creatinine 0.71 (0.52-1.04) mg/dL Estimated GFR > 60 (>60) mL/min BUN/Creatinine Ratio 15.5 (6-22) Glucose 150 H (80-110) mg/dL Lactate 2.7 H (0.7-2.1) mmol/L Calcium 9.5 (8.4-10.2) mg/dL Total Bilirubin 0.8 (0.2-1.3) mg/dL AST 36 (14-36) IU/L ALT 18 (<35) IU/L Alkaline Phosphatase 147 H (38-126) U/L Ammonia (9-30) umol/L Total Creatine Kinase (30-135) U/L Troponin I (0.01-0.034) ng/mL Total Protein 8.5 H (6.3-8.2) g/dL Albumin 4.5 (3.5-5.0) g/dL Globulin 4.0 (1.7-4.1) g/dL Albumin/Globulin Ratio 1.1 (1.0-2.8) Lipase (23-300) U/L Procalcitonin < 0.03 (<0.5) ng/mL Urine Color Urine Appearance Urine pH (4.5-8.0) Ur Specific [place] (1.000-1.035) Urine Protein (Negative) Urine Glucose (UA) (Negative) g/dL Urine Ketones (NEGATIVE) Urine Occult Blood (Negative) Urine Nitrate (Negative) Urine Bilirubin (NEGATIVE) Urine Urobilinogen (0.2) E.U./dL Ur Leukocyte Esterase (NEGATIVE) Urine RBC (0-5/HPF) Urine WBC (0-5/HPF) Ur Squamous Epith Cells (0-5/HPF) Urine Bacteria (None) Ur Culture Indicated? CSF Tube Number CSF Volume CSF Appearance (Clear) CSF Color (Colorless) CSF WBC (0-5) MONO/uL CSF RBC RBC /uL CSF Mononuclear WBCs CSF Polynuclear WBCs CSF Glucose (40-70) mg/dL CSF Total Protein (12-60) mg/dL CSF C.neoform/gat PCR (Not Detect) CSF CMV DNA (PCR) (Not Detect) CSF Enterovirus (PCR) (Not Detect) CSF E. coli (PCR) (Not Detect) CSF H. influenzae (PCR) (Not Detect) CSF HSV I (PCR) (Not Detect) CSF HSV II (PCR) (Not Detect) CSF HHV 6 (PCR) (Not Detect) CSF L.monocytogenes PCR (Not Detect) CSF N. meningitidis PCR (Not Detect) CSF Parechovirus (PCR) (Not Detect) CSF S. agalactiae (PCR) (Not Detect) CSF S. pneumoniae (PCR) (Not Detect) CSF VZV (PCR) (Not Detecte) Salicylates (<20) mg/dL U Opiates 300ng/mL cut (Negative) Ur Oxycodone Screen (Negative) Urine Methadone Screen (Negative) Acetaminophen (10-30) ug/mL Ur Barbiturates Screen (Negative) U Tricyclic Antidepress (Negative) Ur Phencyclidine Scrn (Negative) Ur Amphetamines Screen (Negative) U Methamphetamines Scrn (Negative) Ur MDMA Scrn (Ecstasy) (Negative) U Benzodiazepines Scrn (Negative) Urine Cocaine Screen (Negative) U Marijuana (THC) Screen (Negative) Ethyl Alcohol ( - 10) mg/dL Chlamy pneumoniae PCR (Not Detect) Adenovirus (PCR) (Not Detect) B. pertussis DNA (PCR) (Not Detecte) B.parapertussis DNA PCR (Not Detecte) Coronavirus OC43 (PCR) (Not Detect) Coronavirus HKU1 (PCR) (Not Detect) Coronavirus 229E (PCR) (Not Detect) SARS-CoV-2 (PCR) (Not Detecte) Coronavirus NL63 (PCR) (Not Detect) Human Metapneumovir PCR (Not Detect) Influenza Type A (PCR) (Not Detect) Influenza Type B (PCR) (Not Detect) M. pneumoniae (PCR) (Not Detect) Parainfluenza 1 (PCR) (Not Detect) Parainfluenza 2 (PCR) (Not Detect) Parainfluenza 3 (PCR) (Not Detect) Parainfluenza 4 (PCR) (Not Detect) RSV (PCR) (Not Detect) Entero/Rhino (PCR) (Not Detect) 02/14/23 02/14/23 02/14/23 Range/Units 07:36 07:36 07:36 WBC 17.6 H (4.5-11.0) X10^3/uL RBC 4.80 (4.0-5.2) X10^6/uL Hgb 13.6 (12.0-16.0) g/dL Hct 40.6 (36-46) % MCV 84.6 (80-100) fL MCH 28.3 (26-34) PG MCHC 33.5 (30-36) % RDW 13.2 (11.6-14.8) % Plt Count 368 (150-400) X10^3/uL Neut % (Auto) 80.7 H (50-75) % Lymph % (Auto) 14.2 L (25-40) % [place] % (Auto) 4.7 (3-14) % Eos % (Auto) 0.1 L (2-4) % Baso % (Auto) 0.3 (0-2) % Neut # (Auto) 03228 H (8904-0869) /uL Lymph # (Auto) 2500 (3927-4858) /uL [place] # (Auto) 800 (0-900) /uL Eos # (Auto) 0 (0-450) /uL Baso # (Auto) 100 (0-100) /uL PT (10.1-12.7) SECONDS INR (0.9-1.3) APTT (26-36) SECONDS ABG pH (7.35-7.45) ABG pCO2 (35-45) mmHg ABG pO2 (80-100) mmHg ABG HCO3 (23-27) mmol/L ABG Total CO2 (23-27) mmol/L ABG O2 Saturation (95-100) % ABG Base Excess (-2-3) mmol/L FiO2 Sodium 136 L (137-145) mmol/L Potassium 3.0 L (3.4-5.1) mmol/L Chloride 106 (98-107) mmol/L Carbon Dioxide 17 L (22-32) mmol/L BUN 11 (7-17) mg/dL Creatinine 0.68 (0.52-1.04) mg/dL Estimated GFR > 60 (>60) mL/min BUN/Creatinine Ratio 16.2 (6-22) Glucose 143 H (80-110) mg/dL Lactate 1.8 (0.7-2.1) mmol/L Calcium 9.1 (8.4-10.2) mg/dL Total Bilirubin 0.9 (0.2-1.3) mg/dL AST 33 (14-36) IU/L ALT 17 (<35) IU/L Alkaline Phosphatase 133 H (38-126) U/L Ammonia (9-30) umol/L Total Creatine Kinase (30-135) U/L Troponin I (0.01-0.034) ng/mL Total Protein 7.8 (6.3-8.2) g/dL Albumin 4.1 (3.5-5.0) g/dL Globulin 3.7 (1.7-4.1) g/dL Albumin/Globulin Ratio 1.1 (1.0-2.8) Lipase (23-300) U/L Procalcitonin (<0.5) ng/mL Urine Color Urine Appearance Urine pH (4.5-8.0) Ur Specific [place] (1.000-1.035) Urine Protein (Negative) Urine Glucose (UA) (Negative) g/dL Urine Ketones (NEGATIVE) Urine Occult Blood (Negative) Urine Nitrate (Negative) Urine Bilirubin (NEGATIVE) Urine Urobilinogen (0.2) E.U./dL Ur Leukocyte Esterase (NEGATIVE) Urine RBC (0-5/HPF) Urine WBC (0-5/HPF) Ur Squamous Epith Cells (0-5/HPF) Urine Bacteria (None) Ur Culture Indicated? CSF Tube Number CSF Volume CSF Appearance (Clear) CSF Color (Colorless) CSF WBC (0-5) MONO/uL CSF RBC RBC /uL CSF Mononuclear WBCs CSF Polynuclear WBCs CSF Glucose (40-70) mg/dL CSF Total Protein (12-60) mg/dL CSF C.neoform/gat PCR (Not Detect) CSF CMV DNA (PCR) (Not Detect) CSF Enterovirus (PCR) (Not Detect) CSF E. coli (PCR) (Not Detect) CSF H. influenzae (PCR) (Not Detect) CSF HSV I (PCR) (Not Detect) CSF HSV II (PCR) (Not Detect) CSF HHV 6 (PCR) (Not Detect) CSF L.monocytogenes PCR (Not Detect) CSF N. meningitidis PCR (Not Detect) CSF Parechovirus (PCR) (Not Detect) CSF S. agalactiae (PCR) (Not Detect) CSF S. pneumoniae (PCR) (Not Detect) CSF VZV (PCR) (Not Detecte) Salicylates (<20) mg/dL U Opiates 300ng/mL cut (Negative) Ur Oxycodone Screen (Negative) Urine Methadone Screen (Negative) Acetaminophen (10-30) ug/mL Ur Barbiturates Screen (Negative) U Tricyclic Antidepress (Negative) Ur Phencyclidine Scrn (Negative) Ur Amphetamines Screen (Negative) U Methamphetamines Scrn (Negative) Ur MDMA Scrn (Ecstasy) (Negative) U Benzodiazepines Scrn (Negative) Urine Cocaine Screen (Negative) U Marijuana (THC) Screen (Negative) Ethyl Alcohol ( - 10) mg/dL Chlamy pneumoniae PCR (Not Detect) Adenovirus (PCR) (Not Detect) B. pertussis DNA (PCR) (Not Detecte) B.parapertussis DNA PCR (Not Detecte) Coronavirus OC43 (PCR) (Not Detect) Coronavirus HKU1 (PCR) (Not Detect) Coronavirus 229E (PCR) (Not Detect) SARS-CoV-2 (PCR) (Not Detecte) Coronavirus NL63 (PCR) (Not Detect) Human Metapneumovir PCR (Not Detect) Influenza Type A (PCR) (Not Detect) Influenza Type B (PCR) (Not Detect) M. pneumoniae (PCR) (Not Detect) Parainfluenza 1 (PCR) (Not Detect) Parainfluenza 2 (PCR) (Not Detect) Parainfluenza 3 (PCR) (Not Detect) Parainfluenza 4 (PCR) (Not Detect) RSV (PCR) (Not Detect) Entero/Rhino (PCR) (Not Detect) Point of Care Testing Glucose POC [address] scan - head: Radiologist's Impression: PROCEDURE:? CT STROKE ? INDICATIONS:? decreased mental status ? bleed ? TECHNIQUE:? Noncontrast 4.5 mm thick angled axial sections acquired from the foramen magnum to the vertex, with coronal reformats.? For radiation dose reduction, the following was used:? automated exposure control, adjustment of mA and/or kV according to patient size.? ? COMPARISON:? None. ? FINDINGS:? Image quality:? Excellent.? ? CSF spaces:? Basal cisterns are patent.? No extra-axial fluid collections.? The ventricles are symmetric in size and shape.? ? Brain:? No acute intracranial hemorrhage or mass effect.? There is cerebral volume loss for age, with resultant ventricular and sulcal prominence.? There are periventricular and deep white matter chronic small vessel ischemic changes.? There is intracranial internal carotid artery atherosclerosis.? ? Skull and face:? Calvarium and visualized facial bones appear intact, without suspicious lesions.? ? Sinuses:? Visualized sinuses and mastoids are clear.? ? IMPRESSION:? No acute intracranial abnormality. ? Findings were discussed with the referring physician, Dr. Olmstead, by telephone on 02/13/2023 at 2:16 PM. ? This study fulfills neurological imaging criteria for inclusion or exclusion of acute stroke therapies based on available published neurological guidelines.? Approved by: Volodymyr Pitts M.D. on 02/13/2023 at 14:17? CT scan - abdomen/pelvis: Radiologist's Impression: PROCEDURE:? CT CHEST ABD PEL W CON ? INDICATIONS:? vomiting confusion ? TECHNIQUE:? After the administration of intravenous contrast, 5 mm thick sections acquired from the lung apices to the symphysis.? 5 mm coronal and sagittal reformats were performed, with additional 7 mm MIP reformats through the lungs.? For radiation dose reduction, the following was used:? automated exposure control, adjustment of mA and/or kV according to patient size.? ? COMPARISON:? None. ? FINDINGS:? Image quality:? Excellent.? ? CHEST:? Lungs and pleura:? No acute airspace opacities.? Linear atelectasis versus scarring within the right middle lobe.? Mild atelectasis adjacent to the hiatal hernia.? No pleural effusions or pneumothorax.? Central and peripheral airways appear patent and normal in caliber.? 2 millimeter right upper lobe pulmonary nodule (). ? Mediastinum:? Heart size is normal.? Mild coronary artery calcifications.? No pericardial effusion.? No mediastinal or hilar adenopathy by size criteria.? Thoracic aorta and central pulmonary arteries are normal in size.? Atherosclerotic vascular calcifications.? Patulous and fluid-filled esophagus.? Moderate to large hiatal hernia.? ? Chest wall:? No axillary or supraclavicular adenopathy by size criteria.? Thyroid gland is within normal limits .? ? ? ABDOMEN:? Solid organs:? Liver is normal in size and enhancement.? Gallbladder is within normal limits .? Biliary system is non dilated.? Pancreas enhances normally.? Spleen is normal in size and enhancement.? No adrenal nodules.? Kidneys demonstrate normal size and enhancement, without hydronephrosis.? Nonobstructing stones within the left kidney measuring up to 4 millimeters. ? ? Peritoneum and bowel:? Colonic wall thickening versus decompression Bowel loops otherwise demonstrate normal wall thickness and caliber.? No free fluid or air.? ? Nodes and vessels:? No retroperitoneal or mesenteric adenopathy by size criteria.? Aorta and inferior vena cava are normal in size.? ? Miscellaneous:? No ventral hernias.? ? ? PELVIS:? Genitourinary:? Bladder wall thickness is normal.? ? Miscellaneous:? No inguinal hernias or adenopathy.? ? Bones:? No suspicious bony lesions.? No vertebral body compression fractures.? ? IMPRESSION:? ? 1. Moderate to large hiatal hernia.? Patulous and fluid-filled esophagus. 2. Non-obstructing left renal stones measuring up to 4 millimeters.? No hydronephrosis. 3. Colonic wall thickening versus decompression, correlate for colitis. ? ? ? Dictated by: Phan Christian M.D. on 02/13/2023 at 15:53? Chest x-ray: Radiologist's Impression: PROCEDURE:? XR CHEST 1V ? INDICATIONS:? suspected sepsis ? TECHNIQUE:? One view of the chest was acquired.? ? COMPARISON:? None. ? FINDINGS:? ? Surgical changes and devices:? None.? ? Lungs and pleura:? Lungs are clear.? No pleural effusions or pneumothorax.? ? Mediastinum:? Mediastinal contours appear normal.? Heart size is normal.? ? Bones and chest wall:? No suspicious bony lesions.? Overlying soft tissues appear unremarkable.? ? IMPRESSION:? No evidence acute pulmonary process. ? ? ? Dictated by: Delmer Christiansen M.D. on 02/13/2023 at 15:09 ? ? Approved by: Delmer Christiansen M.D. on 02/13/2023 at 15:10 ? ECG Data Interpretation: Sinus rhythm rate 65 SC interval 156 QRS [address] changes MDM Narrative Medical decision making narrative: Patient 67-year-old female presents today with a metabolic encephalopathy nausea and vomiting. Initial concern was intracranial hemorrhage head CT is negative she does not appear to be on any anticoagulation. Blood work she is mild leukocytosis of 11 lactate slightly elevated at 2.8 which improved to 1.6 no electrolyte abnormality. She continues to vomit chest abdomen pelvis CT ordered which does show hiatal hernia but no obstruction. There is concern for aspiration while she is in the emergency department. She was given a small dose of Ativan. This seems to be a similar presentation what she had previously. She does have a UTI with trace leukocytes and many bacteria. She is given Rocephin azithromycin Rocephin for UTI and pneumonia azithromycin for possible aspiration. Possibility of a toxidrome she does take Celexa possible serotonin syndrome with elevated temperature however she is not significantly agitated. Unclear if this is infectious versus toxic Dr. Vogt accepts patient, however request LP be done. Patient signed out to Dr. Mir, who will do the LP [1900] ([place]) Patient received in sign out from Dr. Olmstead I have reviewed the clinical course and performed an independent history and physical exam. patient remains somewhat confused, controlling airway, secretions, following commands. Hemodynamically stable. Vitals improving. LP without abnormalities called mortgage processor to admit, but given earlier lactate of 5.1, now improved to 5.1, without more clear etiology of encephalopathy he suggests patient is best served at a larger institution 0200 - patient remains stable. Answering some questions though still confused. HR in the 70-80s. BP in the 110s 0435 - vomited, somewhat dark. Repeat labs back and K down. K Ridres ordered along with Protonix. <Dorian Mir, DO - Last Filed: 02/18/23 04:01> Lab Data Labs: Lab Results 02/13/23 02/13/23 02/13/23 Range/Units 14:30 14:30 14:30 WBC 11.6 H (4.5-11.0) X10^3/uL RBC 4.90 (4.0-5.2) X10^6/uL Hgb 14.0 (12.0-16.0) g/dL Hct 42.4 (36-46) % MCV 86.5 (80-100) fL MCH 28.6 (26-34) PG MCHC 33.1 (30-36) % RDW 13.0 (11.6-14.8) % Plt Count 370 (150-400) X10^3/uL Neut % (Auto) 85.7 H (50-75) % Lymph % (Auto) 11.6 L (25-40) % [place] % (Auto) 2.4 L (3-14) % Eos % (Auto) 0.0 L (2-4) % Baso % (Auto) 0.3 (0-2) % Neut # (Auto) 9900 H (3290-1895) /uL Lymph # (Auto) 1300 (8492-2810) /uL [place] # (Auto) 300 (0-900) /uL Eos # (Auto) 0 (0-450) /uL Baso # (Auto) 0 (0-100) /uL PT 12.0 (10.1-12.7) SECONDS INR 1.0 (0.9-1.3) APTT 52 H (26-36) SECONDS ABG pH (7.35-7.45) ABG pCO2 (35-45) mmHg ABG pO2 (80-100) mmHg ABG HCO3 (23-27) mmol/L ABG Total CO2 (23-27) mmol/L ABG O2 Saturation (95-100) % ABG Base Excess (-2-3) mmol/L FiO2 Sodium 141 (137-145) mmol/L Potassium 3.6 (3.4-5.1) mmol/L Chloride 106 (98-107) mmol/L Carbon Dioxide 22 (22-32) mmol/L BUN 13 (7-17) mg/dL Creatinine 0.77 (0.52-1.04) mg/dL Estimated GFR > 60 (>60) mL/min BUN/Creatinine Ratio 16.9 (6-22) Glucose 146 H (80-110) mg/dL Lactate (0.7-2.1) mmol/L Calcium 9.4 (8.4-10.2) mg/dL Total Bilirubin 0.6 (0.2-1.3) mg/dL AST 31 (14-36) IU/L ALT 17 (<35) IU/L Alkaline Phosphatase 163 H (38-126) U/L Ammonia (9-30) umol/L Total Creatine Kinase (30-135) U/L Troponin I (0.01-0.034) ng/mL Total Protein 8.4 H (6.3-8.2) g/dL Albumin 4.4 (3.5-5.0) g/dL Globulin 4.0 (1.7-4.1) g/dL Albumin/Globulin Ratio 1.1 (1.0-2.8) Lipase 77 (23-300) U/L Procalcitonin < 0.03 (<0.5) ng/mL Urine Color Urine Appearance Urine pH (4.5-8.0) Ur Specific [place] (1.000-1.035) Urine Protein (Negative) Urine Glucose (UA) (Negative) g/dL Urine Ketones (NEGATIVE) Urine Occult Blood (Negative) Urine Nitrate (Negative) Urine Bilirubin (NEGATIVE) Urine Urobilinogen (0.2) E.U./dL Ur Leukocyte Esterase (NEGATIVE) Urine RBC (0-5/HPF) Urine WBC (0-5/HPF) Ur Squamous Epith Cells (0-5/HPF) Urine Bacteria (None) Ur Culture Indicated? CSF Tube Number CSF Volume CSF Appearance (Clear) CSF Color (Colorless) CSF WBC (0-5) MONO/uL CSF RBC RBC /uL CSF Mononuclear WBCs CSF Polynuclear WBCs CSF Glucose (40-70) mg/dL CSF Total Protein (12-60) mg/dL CSF C.neoform/gat PCR (Not Detect) CSF CMV DNA (PCR) (Not Detect) CSF Enterovirus (PCR) (Not Detect) CSF E. coli (PCR) (Not Detect) CSF H. influenzae (PCR) (Not Detect) CSF HSV I (PCR) (Not Detect) CSF HSV II (PCR) (Not Detect) CSF HHV 6 (PCR) (Not Detect) CSF L.monocytogenes PCR (Not Detect) CSF N. meningitidis PCR (Not Detect) CSF Parechovirus (PCR) (Not Detect) CSF S. agalactiae (PCR) (Not Detect) CSF S. pneumoniae (PCR) (Not Detect) CSF VZV (PCR) (Not Detecte) Salicylates (<20) mg/dL U Opiates 300ng/mL cut (Negative) Ur Oxycodone Screen (Negative) Urine Methadone Screen (Negative) Acetaminophen (10-30) ug/mL Ur Barbiturates Screen (Negative) U Tricyclic Antidepress (Negative) Ur Phencyclidine Scrn (Negative) Ur Amphetamines Screen (Negative) U Methamphetamines Scrn (Negative) Ur MDMA Scrn (Ecstasy) (Negative) U Benzodiazepines Scrn (Negative) Urine Cocaine Screen (Negative) U Marijuana (THC) Screen (Negative) Ethyl Alcohol ( - 10) mg/dL Chlamy pneumoniae PCR (Not Detect) Adenovirus (PCR) (Not Detect) B. pertussis DNA (PCR) (Not Detecte) B.parapertussis DNA PCR (Not Detecte) Coronavirus OC43 (PCR) (Not Detect) Coronavirus HKU1 (PCR) (Not Detect) Coronavirus 229E (PCR) (Not Detect) SARS-CoV-2 (PCR) (Not Detecte) Coronavirus NL63 (PCR) (Not Detect) Human Metapneumovir PCR (Not Detect) Influenza Type A (PCR) (Not Detect) Influenza Type B (PCR) (Not Detect) M. pneumoniae (PCR) (Not Detect) Parainfluenza 1 (PCR) (Not Detect) Parainfluenza 2 (PCR) (Not Detect) Parainfluenza 3 (PCR) (Not Detect) Parainfluenza 4 (PCR) (Not Detect) RSV (PCR) (Not Detect) Entero/Rhino (PCR) (Not Detect) 02/13/23 02/13/23 02/13/23 Range/Units 14:30 14:30 14:30 WBC (4.5-11.0) X10^3/uL RBC (4.0-5.2) X10^6/uL Hgb (12.0-16.0) g/dL Hct (36-46) % MCV (80-100) fL MCH (26-34) PG MCHC (30-36) % RDW (11.6-14.8) % Plt Count (150-400) X10^3/uL Neut % (Auto) (50-75) % Lymph % (Auto) (25-40) % [place] % (Auto) (3-14) % Eos % (Auto) (2-4) % Baso % (Auto) (0-2) % Neut # (Auto) (2435-9565) /uL Lymph # (Auto) (2383-9566) /uL [place] # (Auto) (0-900) /uL Eos # (Auto) (0-450) /uL Baso # (Auto) (0-100) /uL PT (10.1-12.7) SECONDS INR (0.9-1.3) APTT (26-36) SECONDS ABG pH (7.35-7.45) ABG pCO2 (35-45) mmHg ABG pO2 (80-100) mmHg ABG HCO3 (23-27) mmol/L ABG Total CO2 (23-27) mmol/L ABG O2 Saturation (95-100) % ABG Base Excess (-2-3) mmol/L FiO2 Sodium (137-145) mmol/L Potassium (3.4-5.1) mmol/L Chloride (98-107) mmol/L Carbon Dioxide (22-32) mmol/L BUN (7-17) mg/dL Creatinine (0.52-1.04) mg/dL Estimated GFR (>60) mL/min BUN/Creatinine Ratio (6-22) Glucose (80-110) mg/dL Lactate 2.8 H (0.7-2.1) mmol/L Calcium (8.4-10.2) mg/dL Total Bilirubin (0.2-1.3) mg/dL AST (14-36) IU/L ALT (<35) IU/L Alkaline Phosphatase (38-126) U/L Ammonia (9-30) umol/L Total Creatine Kinase 31 (30-135) U/L Troponin I < 0.012 (0.01-0.034) ng/mL Total Protein (6.3-8.2) g/dL Albumin (3.5-5.0) g/dL Globulin (1.7-4.1) g/dL Albumin/Globulin Ratio (1.0-2.8) Lipase (23-300) U/L Procalcitonin (<0.5) ng/mL Urine Color Urine Appearance Urine pH (4.5-8.0) Ur Specific [place] (1.000-1.035) Urine Protein (Negative) Urine Glucose (UA) (Negative) g/dL Urine Ketones (NEGATIVE) Urine Occult Blood (Negative) Urine Nitrate (Negative) Urine Bilirubin (NEGATIVE) Urine Urobilinogen (0.2) E.U./dL Ur Leukocyte Esterase (NEGATIVE) Urine RBC (0-5/HPF) Urine WBC (0-5/HPF) Ur Squamous Epith Cells (0-5/HPF) Urine Bacteria (None) Ur Culture Indicated? CSF Tube Number CSF Volume CSF Appearance (Clear) CSF Color (Colorless) CSF WBC (0-5) MONO/uL CSF RBC RBC /uL CSF Mononuclear WBCs CSF Polynuclear WBCs CSF Glucose (40-70) mg/dL CSF Total Protein (12-60) mg/dL CSF C.neoform/gat PCR (Not Detect) CSF CMV DNA (PCR) (Not Detect) CSF Enterovirus (PCR) (Not Detect) CSF E. coli (PCR) (Not Detect) CSF H. influenzae (PCR) (Not Detect) CSF HSV I (PCR) (Not Detect) CSF HSV II (PCR) (Not Detect) CSF HHV 6 (PCR) (Not Detect) CSF L.monocytogenes PCR (Not Detect) CSF N. meningitidis PCR (Not Detect) CSF Parechovirus (PCR) (Not Detect) CSF S. agalactiae (PCR) (Not Detect) CSF S. pneumoniae (PCR) (Not Detect) CSF VZV (PCR) (Not Detecte) Salicylates < 1.0 (<20) mg/dL U Opiates 300ng/mL cut (Negative) Ur Oxycodone Screen (Negative) Urine Methadone Screen (Negative) Acetaminophen < 10 (10-30) ug/mL Ur Barbiturates Screen (Negative) U Tricyclic Antidepress (Negative) Ur Phencyclidine Scrn (Negative) Ur Amphetamines Screen (Negative) U Methamphetamines Scrn (Negative) Ur MDMA Scrn (Ecstasy) (Negative) U Benzodiazepines Scrn (Negative) Urine Cocaine Screen (Negative) U Marijuana (THC) Screen (Negative) Ethyl Alcohol < 10 ( - 10) mg/dL Chlamy pneumoniae PCR (Not Detect) Adenovirus (PCR) (Not Detect) B. pertussis DNA (PCR) (Not Detecte) B.parapertussis DNA PCR (Not Detecte) Coronavirus OC43 (PCR) (Not Detect) Coronavirus HKU1 (PCR) (Not Detect) Coronavirus 229E (PCR) (Not Detect) SARS-CoV-2 (PCR) (Not Detecte) Coronavirus NL63 (PCR) (Not Detect) Human Metapneumovir PCR (Not Detect) Influenza Type A (PCR) (Not Detect) Influenza Type B (PCR) (Not Detect) M. pneumoniae (PCR) (Not Detect) Parainfluenza 1 (PCR) (Not Detect) Parainfluenza 2 (PCR) (Not Detect) Parainfluenza 3 (PCR) (Not Detect) Parainfluenza 4 (PCR) (Not Detect) RSV (PCR) (Not Detect) Entero/Rhino (PCR) (Not Detect) 02/13/23 02/13/23 02/13/23 Range/Units 14:41 14:50 15:45 WBC (4.5-11.0) X10^3/uL RBC (4.0-5.2) X10^6/uL Hgb (12.0-16.0) g/dL Hct (36-46) % MCV (80-100) fL MCH (26-34) PG MCHC (30-36) % RDW (11.6-14.8) % Plt Count (150-400) X10^3/uL Neut % (Auto) (50-75) % Lymph % (Auto) (25-40) % [place] % (Auto) (3-14) % Eos % (Auto) (2-4) % Baso % (Auto) (0-2) % Neut # (Auto) (8200-8156) /uL Lymph # (Auto) (5455-9358) /uL [place] # (Auto) (0-900) /uL Eos # (Auto) (0-450) /uL Baso # (Auto) (0-100) /uL PT (10.1-12.7) SECONDS INR (0.9-1.3) APTT (26-36) SECONDS ABG pH 7.56 H (7.35-7.45) ABG pCO2 21.9 L* (35-45) mmHg ABG pO2 58 L (80-100) mmHg ABG HCO3 19 L (23-27) mmol/L ABG Total CO2 20 L (23-27) mmol/L ABG O2 Saturation 94 L (95-100) % ABG Base Excess -3.0 L (-2-3) mmol/L FiO2 21 Sodium (137-145) mmol/L Potassium (3.4-5.1) mmol/L Chloride (98-107) mmol/L Carbon Dioxide (22-32) mmol/L BUN (7-17) mg/dL Creatinine (0.52-1.04) mg/dL Estimated GFR (>60) mL/min BUN/Creatinine Ratio (6-22) Glucose (80-110) mg/dL Lactate (0.7-2.1) mmol/L Calcium (8.4-10.2) mg/dL Total Bilirubin (0.2-1.3) mg/dL AST (14-36) IU/L ALT (<35) IU/L Alkaline Phosphatase (38-126) U/L Ammonia (9-30) umol/L Total Creatine Kinase (30-135) U/L Troponin I (0.01-0.034) ng/mL Total Protein (6.3-8.2) g/dL Albumin (3.5-5.0) g/dL Globulin (1.7-4.1) g/dL Albumin/Globulin Ratio (1.0-2.8) Lipase (23-300) U/L Procalcitonin (<0.5) ng/mL Urine Color Urine Appearance Urine pH (4.5-8.0) Ur Specific [place] (1.000-1.035) Urine Protein (Negative) Urine Glucose (UA) (Negative) g/dL Urine Ketones (NEGATIVE) Urine Occult Blood (Negative) Urine Nitrate (Negative) Urine Bilirubin (NEGATIVE) Urine Urobilinogen (0.2) E.U./dL Ur Leukocyte Esterase (NEGATIVE) Urine RBC (0-5/HPF) Urine WBC (0-5/HPF) Ur Squamous Epith Cells (0-5/HPF) Urine Bacteria (None) Ur Culture Indicated? CSF Tube Number CSF Volume CSF Appearance (Clear) CSF Color (Colorless) CSF WBC (0-5) MONO/uL CSF RBC RBC /uL CSF Mononuclear WBCs CSF Polynuclear WBCs CSF Glucose (40-70) mg/dL CSF Total Protein (12-60) mg/dL CSF C.neoform/gat PCR (Not Detect) CSF CMV DNA (PCR) (Not Detect) CSF Enterovirus (PCR) (Not Detect) CSF E. coli (PCR) (Not Detect) CSF H. influenzae (PCR) (Not Detect) CSF HSV I (PCR) (Not Detect) CSF HSV II (PCR) (Not Detect) CSF HHV 6 (PCR) (Not Detect) CSF L.monocytogenes PCR (Not Detect) CSF N. meningitidis PCR (Not Detect) CSF Parechovirus (PCR) (Not Detect) CSF S. agalactiae (PCR) (Not Detect) CSF S. pneumoniae (PCR) (Not Detect) CSF VZV (PCR) (Not Detecte) Salicylates (<20) mg/dL U Opiates 300ng/mL cut Negative (Negative) Ur Oxycodone Screen Negative (Negative) Urine Methadone Screen Negative (Negative) Acetaminophen (10-30) ug/mL Ur Barbiturates Screen Negative (Negative) U Tricyclic Antidepress Negative (Negative) Ur Phencyclidine Scrn Negative (Negative) Ur Amphetamines Screen Negative (Negative) U Methamphetamines Scrn Negative (Negative) Ur MDMA Scrn (Ecstasy) Negative (Negative) U Benzodiazepines Scrn Negative (Negative) Urine Cocaine Screen Negative (Negative) U Marijuana (THC) Screen Negative (Negative) Ethyl Alcohol ( - 10) mg/dL Chlamy pneumoniae PCR Not detected (Not Detect) Adenovirus (PCR) Not detected (Not Detect) B. pertussis DNA (PCR) Not detected (Not Detecte) B.parapertussis DNA PCR Not detected (Not Detecte) Coronavirus OC43 (PCR) Not detected (Not Detect) Coronavirus HKU1 (PCR) Not detected (Not Detect) Coronavirus 229E (PCR) Not detected (Not Detect) SARS-CoV-2 (PCR) Not detected (Not Detecte) Coronavirus NL63 (PCR) Not detected (Not Detect) Human Metapneumovir PCR Not detected (Not Detect) Influenza Type A (PCR) Not detected (Not Detect) Influenza Type B (PCR) Not detected (Not Detect) M. pneumoniae (PCR) Not detected (Not Detect) Parainfluenza 1 (PCR) Not detected (Not Detect) Parainfluenza 2 (PCR) Not detected (Not Detect) Parainfluenza 3 (PCR) Not detected (Not Detect) Parainfluenza 4 (PCR) Not detected (Not Detect) RSV (PCR) Not detected (Not Detect) Entero/Rhino (PCR) Not detected (Not Detect) 02/13/23 02/13/23 02/13/23 Range/Units 15:45 16:50 19:31 WBC (4.5-11.0) X10^3/uL RBC (4.0-5.2) X10^6/uL Hgb (12.0-16.0) g/dL Hct (36-46) % MCV (80-100) fL MCH (26-34) PG MCHC (30-36) % RDW (11.6-14.8) % Plt Count (150-400) X10^3/uL Neut % (Auto) (50-75) % Lymph % (Auto) (25-40) % [place] % (Auto) (3-14) % Eos % (Auto) (2-4) % Baso % (Auto) (0-2) % Neut # (Auto) (4189-8754) /uL Lymph # (Auto) (7488-6562) /uL [place] # (Auto) (0-900) /uL Eos # (Auto) (0-450) /uL Baso # (Auto) (0-100) /uL PT (10.1-12.7) SECONDS INR (0.9-1.3) APTT (26-36) SECONDS ABG pH (7.35-7.45) ABG pCO2 (35-45) mmHg ABG pO2 (80-100) mmHg ABG HCO3 (23-27) mmol/L ABG Total CO2 (23-27) mmol/L ABG O2 Saturation (95-100) % ABG Base Excess (-2-3) mmol/L FiO2 Sodium (137-145) mmol/L Potassium (3.4-5.1) mmol/L Chloride (98-107) mmol/L Carbon Dioxide (22-32) mmol/L BUN (7-17) mg/dL Creatinine (0.52-1.04) mg/dL Estimated GFR (>60) mL/min BUN/Creatinine Ratio (6-22) Glucose (80-110) mg/dL Lactate 1.6 5.1 H* (0.7-2.1) mmol/L Calcium (8.4-10.2) mg/dL Total Bilirubin (0.2-1.3) mg/dL AST (14-36) IU/L ALT (<35) IU/L Alkaline Phosphatase (38-126) U/L Ammonia (9-30) umol/L Total Creatine Kinase (30-135) U/L Troponin I (0.01-0.034) ng/mL Total Protein (6.3-8.2) g/dL Albumin (3.5-5.0) g/dL Globulin (1.7-4.1) g/dL Albumin/Globulin Ratio (1.0-2.8) Lipase (23-300) U/L Procalcitonin (<0.5) ng/mL Urine Color Yellow Urine Appearance Sl cloudy Urine pH 6.5 (4.5-8.0) Ur Specific [place] <=1.005 (1.000-1.035) Urine Protein Negative (Negative) Urine Glucose (UA) Negative (Negative) g/dL Urine Ketones Negative (NEGATIVE) Urine Occult Blood Trace-intact (Negative) Urine Nitrate Negative (Negative) Urine Bilirubin Negative (NEGATIVE) Urine Urobilinogen 0.2 (0.2) E.U./dL Ur Leukocyte Esterase Trace H (NEGATIVE) Urine RBC 0-1/hpf (0-5/HPF) Urine WBC 1-5/hpf (0-5/HPF) Ur Squamous Epith Cells None seen (0-5/HPF) Urine Bacteria Many (>30) H (None) Ur Culture Indicated? Specimen cultured CSF Tube Number CSF Volume CSF Appearance (Clear) CSF Color (Colorless) CSF WBC (0-5) MONO/uL CSF RBC RBC /uL CSF Mononuclear WBCs CSF Polynuclear WBCs CSF Glucose (40-70) mg/dL CSF Total Protein (12-60) mg/dL CSF C.neoform/gat PCR (Not Detect) CSF CMV DNA (PCR) (Not Detect) CSF Enterovirus (PCR) (Not Detect) CSF E. coli (PCR) (Not Detect) CSF H. influenzae (PCR) (Not Detect) CSF HSV I (PCR) (Not Detect) CSF HSV II (PCR) (Not Detect) CSF HHV 6 (PCR) (Not Detect) CSF L.monocytogenes PCR (Not Detect) CSF N. meningitidis PCR (Not Detect) CSF Parechovirus (PCR) (Not Detect) CSF S. agalactiae (PCR) (Not Detect) CSF S. pneumoniae (PCR) (Not Detect) CSF VZV (PCR) (Not Detecte) Salicylates (<20) mg/dL U Opiates 300ng/mL cut (Negative) Ur Oxycodone Screen (Negative) Urine Methadone Screen (Negative) Acetaminophen (10-30) ug/mL Ur Barbiturates Screen (Negative) U Tricyclic Antidepress (Negative) Ur Phencyclidine Scrn (Negative) Ur Amphetamines Screen (Negative) U Methamphetamines Scrn (Negative) Ur MDMA Scrn (Ecstasy) (Negative) U Benzodiazepines Scrn (Negative) Urine Cocaine Screen (Negative) U Marijuana (THC) Screen (Negative) Ethyl Alcohol ( - 10) mg/dL Chlamy pneumoniae PCR (Not Detect) Adenovirus (PCR) (Not Detect) B. pertussis DNA (PCR) (Not Detecte) B.parapertussis DNA PCR (Not Detecte) Coronavirus OC43 (PCR) (Not Detect) Coronavirus HKU1 (PCR) (Not Detect) Coronavirus 229E (PCR) (Not Detect) SARS-CoV-2 (PCR) (Not Detecte) Coronavirus NL63 (PCR) (Not Detect) Human Metapneumovir PCR (Not Detect) Influenza Type A (PCR) (Not Detect) Influenza Type B (PCR) (Not Detect) M. pneumoniae (PCR) (Not Detect) Parainfluenza 1 (PCR) (Not Detect) Parainfluenza 2 (PCR) (Not Detect) Parainfluenza 3 (PCR) (Not Detect) Parainfluenza 4 (PCR) (Not Detect) RSV (PCR) (Not Detect) Entero/Rhino (PCR) (Not Detect) 02/13/23 02/13/23 02/13/23 Range/Units 19:31 20:15 20:15 WBC (4.5-11.0) X10^3/uL RBC (4.0-5.2) X10^6/uL Hgb (12.0-16.0) g/dL Hct (36-46) % MCV (80-100) fL MCH (26-34) PG MCHC (30-36) % RDW (11.6-14.8) % Plt Count (150-400) X10^3/uL Neut % (Auto) (50-75) % Lymph % (Auto) (25-40) % [place] % (Auto) (3-14) % Eos % (Auto) (2-4) % Baso % (Auto) (0-2) % Neut # (Auto) (2089-1643) /uL Lymph # (Auto) (8319-0124) /uL [place] # (Auto) (0-900) /uL Eos # (Auto) (0-450) /uL Baso # (Auto) (0-100) /uL PT (10.1-12.7) SECONDS INR (0.9-1.3) APTT (26-36) SECONDS ABG pH (7.35-7.45) ABG pCO2 (35-45) mmHg ABG pO2 (80-100) mmHg ABG HCO3 (23-27) mmol/L ABG Total CO2 (23-27) mmol/L ABG O2 Saturation (95-100) % ABG Base Excess (-2-3) mmol/L FiO2 Sodium (137-145) mmol/L Potassium (3.4-5.1) mmol/L Chloride (98-107) mmol/L Carbon Dioxide (22-32) mmol/L BUN (7-17) mg/dL Creatinine (0.52-1.04) mg/dL Estimated GFR (>60) mL/min BUN/Creatinine Ratio (6-22) Glucose (80-110) mg/dL Lactate (0.7-2.1) mmol/L Calcium (8.4-10.2) mg/dL Total Bilirubin (0.2-1.3) mg/dL AST (14-36) IU/L ALT (<35) IU/L Alkaline Phosphatase (38-126) U/L Ammonia < 9 L (9-30) umol/L Total Creatine Kinase (30-135) U/L Troponin I (0.01-0.034) ng/mL Total Protein (6.3-8.2) g/dL Albumin (3.5-5.0) g/dL Globulin (1.7-4.1) g/dL Albumin/Globulin Ratio (1.0-2.8) Lipase (23-300) U/L Procalcitonin (<0.5) ng/mL Urine Color Urine Appearance Urine pH (4.5-8.0) Ur Specific [place] (1.000-1.035) Urine Protein (Negative) Urine Glucose (UA) (Negative) g/dL Urine Ketones (NEGATIVE) Urine Occult Blood (Negative) Urine Nitrate (Negative) Urine Bilirubin (NEGATIVE) Urine Urobilinogen (0.2) E.U./dL Ur Leukocyte Esterase (NEGATIVE) Urine RBC (0-5/HPF) Urine WBC (0-5/HPF) Ur Squamous Epith Cells (0-5/HPF) Urine Bacteria (None) Ur Culture Indicated? CSF Tube Number 3 CSF Volume 1.0 ml CSF Appearance Clear (Clear) CSF Color Colorless (Colorless) CSF WBC 3 (0-5) MONO/uL CSF RBC 0 RBC /uL CSF Mononuclear WBCs CSF Polynuclear WBCs CSF Glucose 76 H (40-70) mg/dL CSF Total Protein 95 H (12-60) mg/dL CSF C.neoform/gat PCR Not detected (Not Detect) CSF CMV DNA (PCR) Not detected (Not Detect) CSF Enterovirus (PCR) Not detected (Not Detect) CSF E. coli (PCR) Not detected (Not Detect) CSF H. influenzae (PCR) Not detected (Not Detect) CSF HSV I (PCR) Not detected (Not Detect) CSF HSV II (PCR) Not detected (Not Detect) CSF HHV 6 (PCR) Not detected (Not Detect) CSF L.monocytogenes PCR Not detected (Not Detect) CSF N. meningitidis PCR Not detected (Not Detect) CSF Parechovirus (PCR) Not detected (Not Detect) CSF S. agalactiae (PCR) Not detected (Not Detect) CSF S. pneumoniae (PCR) Not detected (Not Detect) CSF VZV (PCR) Not detected (Not Detecte) Salicylates (<20) mg/dL U Opiates 300ng/mL cut (Negative) Ur Oxycodone Screen (Negative) Urine Methadone Screen (Negative) Acetaminophen (10-30) ug/mL Ur Barbiturates Screen (Negative) U Tricyclic Antidepress (Negative) Ur Phencyclidine Scrn (Negative) Ur Amphetamines Screen (Negative) U Methamphetamines Scrn (Negative) Ur MDMA Scrn (Ecstasy) (Negative) U Benzodiazepines Scrn (Negative) Urine Cocaine Screen (Negative) U Marijuana (THC) Screen (Negative) Ethyl Alcohol ( - 10) mg/dL Chlamy pneumoniae PCR (Not Detect) Adenovirus (PCR) (Not Detect) B. pertussis DNA (PCR) (Not Detecte) B.parapertussis DNA PCR (Not Detecte) Coronavirus OC43 (PCR) (Not Detect) Coronavirus HKU1 (PCR) (Not Detect) Coronavirus 229E (PCR) (Not Detect) SARS-CoV-2 (PCR) (Not Detecte) Coronavirus NL63 (PCR) (Not Detect) Human Metapneumovir PCR (Not Detect) Influenza Type A (PCR) (Not Detect) Influenza Type B (PCR) (Not Detect) M. pneumoniae (PCR) (Not Detect) Parainfluenza 1 (PCR) (Not Detect) Parainfluenza 2 (PCR) (Not Detect) Parainfluenza 3 (PCR) (Not Detect) Parainfluenza 4 (PCR) (Not Detect) RSV (PCR) (Not Detect) Entero/Rhino (PCR) (Not Detect) 02/13/23 02/13/23 02/14/23 Range/Units 20:18 22:34 03:28 WBC 19.1 H D (4.5-11.0) X10^3/uL RBC 5.05 (4.0-5.2) X10^6/uL Hgb 14.5 (12.0-16.0) g/dL Hct 42.6 (36-46) % MCV 84.3 (80-100) fL MCH 28.6 (26-34) PG MCHC 34.0 (30-36) % RDW 13.1 (11.6-14.8) % Plt Count 439 H (150-400) X10^3/uL Neut % (Auto) 84.5 H (50-75) % Lymph % (Auto) 12.0 L (25-40) % [place] % (Auto) 3.4 (3-14) % Eos % (Auto) 0.0 L (2-4) % Baso % (Auto) 0.1 (0-2) % Neut # (Auto) 15693 H (7223-1383) /uL Lymph # (Auto) 2300 (4131-6552) /uL [place] # (Auto) 600 (0-900) /uL Eos # (Auto) 0 (0-450) /uL Baso # (Auto) 0 (0-100) /uL PT (10.1-12.7) SECONDS INR (0.9-1.3) APTT (26-36) SECONDS ABG pH (7.35-7.45) ABG pCO2 (35-45) mmHg ABG pO2 (80-100) mmHg ABG HCO3 (23-27) mmol/L ABG Total CO2 (23-27) mmol/L ABG O2 Saturation (95-100) % ABG Base Excess (-2-3) mmol/L FiO2 Sodium (137-145) mmol/L Potassium (3.4-5.1) mmol/L Chloride (98-107) mmol/L Carbon Dioxide (22-32) mmol/L BUN (7-17) mg/dL Creatinine (0.52-1.04) mg/dL Estimated GFR (>60) mL/min BUN/Creatinine Ratio (6-22) Glucose (80-110) mg/dL Lactate 2.5 H (0.7-2.1) mmol/L Calcium (8.4-10.2) mg/dL Total Bilirubin (0.2-1.3) mg/dL AST (14-36) IU/L ALT (<35) IU/L Alkaline Phosphatase (38-126) U/L Ammonia (9-30) umol/L Total Creatine Kinase (30-135) U/L Troponin I (0.01-0.034) ng/mL Total Protein (6.3-8.2) g/dL Albumin (3.5-5.0) g/dL Globulin (1.7-4.1) g/dL Albumin/Globulin Ratio (1.0-2.8) Lipase (23-300) U/L Procalcitonin (<0.5) ng/mL Urine Color Urine Appearance Urine pH (4.5-8.0) Ur Specific [place] (1.000-1.035) Urine Protein (Negative) Urine Glucose (UA) (Negative) g/dL Urine Ketones (NEGATIVE) Urine Occult Blood (Negative) Urine Nitrate (Negative) Urine Bilirubin (NEGATIVE) Urine Urobilinogen (0.2) E.U./dL Ur Leukocyte Esterase (NEGATIVE) Urine RBC (0-5/HPF) Urine WBC (0-5/HPF) Ur Squamous Epith Cells (0-5/HPF) Urine Bacteria (None) Ur Culture Indicated? CSF Tube Number CSF Volume CSF Appearance (Clear) CSF Color (Colorless) CSF WBC (0-5) MONO/uL CSF RBC RBC /uL CSF Mononuclear WBCs Not Reportable CSF Polynuclear WBCs Not Reportable CSF Glucose (40-70) mg/dL CSF Total Protein (12-60) mg/dL CSF C.neoform/gat PCR (Not Detect) CSF CMV DNA (PCR) (Not Detect) CSF Enterovirus (PCR) (Not Detect) CSF E. coli (PCR) (Not Detect) CSF H. influenzae (PCR) (Not Detect) CSF HSV I (PCR) (Not Detect) CSF HSV II (PCR) (Not Detect) CSF HHV 6 (PCR) (Not Detect) CSF L.monocytogenes PCR (Not Detect) CSF N. meningitidis PCR (Not Detect) CSF Parechovirus (PCR) (Not Detect) CSF S. agalactiae (PCR) (Not Detect) CSF S. pneumoniae (PCR) (Not Detect) CSF VZV (PCR) (Not Detecte) Salicylates (<20) mg/dL U Opiates 300ng/mL cut (Negative) Ur Oxycodone Screen (Negative) Urine Methadone Screen (Negative) Acetaminophen (10-30) ug/mL Ur Barbiturates Screen (Negative) U Tricyclic Antidepress (Negative) Ur Phencyclidine Scrn (Negative) Ur Amphetamines Screen (Negative) U Methamphetamines Scrn (Negative) Ur MDMA Scrn (Ecstasy) (Negative) U Benzodiazepines Scrn (Negative) Urine Cocaine Screen (Negative) U Marijuana (THC) Screen (Negative) Ethyl Alcohol ( - 10) mg/dL Chlamy pneumoniae PCR (Not Detect) Adenovirus (PCR) (Not Detect) B. pertussis DNA (PCR) (Not Detecte) B.parapertussis DNA PCR (Not Detecte) Coronavirus OC43 (PCR) (Not Detect) Coronavirus HKU1 (PCR) (Not Detect) Coronavirus 229E (PCR) (Not Detect) SARS-CoV-2 (PCR) (Not Detecte) Coronavirus NL63 (PCR) (Not Detect) Human Metapneumovir PCR (Not Detect) Influenza Type A (PCR) (Not Detect) Influenza Type B (PCR) (Not Detect) M. pneumoniae (PCR) (Not Detect) Parainfluenza 1 (PCR) (Not Detect) Parainfluenza 2 (PCR) (Not Detect) Parainfluenza 3 (PCR) (Not Detect) Parainfluenza 4 (PCR) (Not Detect) RSV (PCR) (Not Detect) Entero/Rhino (PCR) (Not Detect) 02/14/23 02/14/23 02/14/23 Range/Units 03:28 03:28 03:28 WBC (4.5-11.0) X10^3/uL RBC (4.0-5.2) X10^6/uL Hgb (12.0-16.0) g/dL Hct (36-46) % MCV (80-100) fL MCH (26-34) PG MCHC (30-36) % RDW (11.6-14.8) % Plt Count (150-400) X10^3/uL Neut % (Auto) (50-75) % Lymph % (Auto) (25-40) % [place] % (Auto) (3-14) % Eos % (Auto) (2-4) % Baso % (Auto) (0-2) % Neut # (Auto) (2563-6452) /uL Lymph # (Auto) (4961-4726) /uL [place] # (Auto) (0-900) /uL Eos # (Auto) (0-450) /uL Baso # (Auto) (0-100) /uL PT (10.1-12.7) SECONDS INR (0.9-1.3) APTT (26-36) SECONDS ABG pH (7.35-7.45) ABG pCO2 (35-45) mmHg ABG pO2 (80-100) mmHg ABG HCO3 (23-27) mmol/L ABG Total CO2 (23-27) mmol/L ABG O2 Saturation (95-100) % ABG Base Excess (-2-3) mmol/L FiO2 Sodium 137 (137-145) mmol/L Potassium 2.7 L* (3.4-5.1) mmol/L Chloride 105 (98-107) mmol/L Carbon Dioxide 18 L (22-32) mmol/L BUN 11 (7-17) mg/dL Creatinine 0.71 (0.52-1.04) mg/dL Estimated GFR > 60 (>60) mL/min BUN/Creatinine Ratio 15.5 (6-22) Glucose 150 H (80-110) mg/dL Lactate 2.7 H (0.7-2.1) mmol/L Calcium 9.5 (8.4-10.2) mg/dL Total Bilirubin 0.8 (0.2-1.3) mg/dL AST 36 (14-36) IU/L ALT 18 (<35) IU/L Alkaline Phosphatase 147 H (38-126) U/L Ammonia (9-30) umol/L Total Creatine Kinase (30-135) U/L Troponin I (0.01-0.034) ng/mL Total Protein 8.5 H (6.3-8.2) g/dL Albumin 4.5 (3.5-5.0) g/dL Globulin 4.0 (1.7-4.1) g/dL Albumin/Globulin Ratio 1.1 (1.0-2.8) Lipase (23-300) U/L Procalcitonin < 0.03 (<0.5) ng/mL Urine Color Urine Appearance Urine pH (4.5-8.0) Ur Specific [place] (1.000-1.035) Urine Protein (Negative) Urine Glucose (UA) (Negative) g/dL Urine Ketones (NEGATIVE) Urine Occult Blood (Negative) Urine Nitrate (Negative) Urine Bilirubin (NEGATIVE) Urine Urobilinogen (0.2) E.U./dL Ur Leukocyte Esterase (NEGATIVE) Urine RBC (0-5/HPF) Urine WBC (0-5/HPF) Ur Squamous Epith Cells (0-5/HPF) Urine Bacteria (None) Ur Culture Indicated? CSF Tube Number CSF Volume CSF Appearance (Clear) CSF Color (Colorless) CSF WBC (0-5) MONO/uL CSF RBC RBC /uL CSF Mononuclear WBCs CSF Polynuclear WBCs CSF Glucose (40-70) mg/dL CSF Total Protein (12-60) mg/dL CSF C.neoform/gat PCR (Not Detect) CSF CMV DNA (PCR) (Not Detect) CSF Enterovirus (PCR) (Not Detect) CSF E. coli (PCR) (Not Detect) CSF H. influenzae (PCR) (Not Detect) CSF HSV I (PCR) (Not Detect) CSF HSV II (PCR) (Not Detect) CSF HHV 6 (PCR) (Not Detect) CSF L.monocytogenes PCR (Not Detect) CSF N. meningitidis PCR (Not Detect) CSF Parechovirus (PCR) (Not Detect) CSF S. agalactiae (PCR) (Not Detect) CSF S. pneumoniae (PCR) (Not Detect) CSF VZV (PCR) (Not Detecte) Salicylates (<20) mg/dL U Opiates 300ng/mL cut (Negative) Ur Oxycodone Screen (Negative) Urine Methadone Screen (Negative) Acetaminophen (10-30) ug/mL Ur Barbiturates Screen (Negative) U Tricyclic Antidepress (Negative) Ur Phencyclidine Scrn (Negative) Ur Amphetamines Screen (Negative) U Methamphetamines Scrn (Negative) Ur MDMA Scrn (Ecstasy) (Negative) U Benzodiazepines Scrn (Negative) Urine Cocaine Screen (Negative) U Marijuana (THC) Screen (Negative) Ethyl Alcohol ( - 10) mg/dL Chlamy pneumoniae PCR (Not Detect) Adenovirus (PCR) (Not Detect) B. pertussis DNA (PCR) (Not Detecte) B.parapertussis DNA PCR (Not Detecte) Coronavirus OC43 (PCR) (Not Detect) Coronavirus HKU1 (PCR) (Not Detect) Coronavirus 229E (PCR) (Not Detect) SARS-CoV-2 (PCR) (Not Detecte) Coronavirus NL63 (PCR) (Not Detect) Human Metapneumovir PCR (Not Detect) Influenza Type A (PCR) (Not Detect) Influenza Type B (PCR) (Not Detect) M. pneumoniae (PCR) (Not Detect) Parainfluenza 1 (PCR) (Not Detect) Parainfluenza 2 (PCR) (Not Detect) Parainfluenza 3 (PCR) (Not Detect) Parainfluenza 4 (PCR) (Not Detect) RSV (PCR) (Not Detect) Entero/Rhino (PCR) (Not Detect) 08/15/23 08/15/23 08/15/23 Range/Units 07:36 07:36 07:36 WBC 17.6 H (4.5-11.0) X10^3/uL RBC 4.80 (4.0-5.2) X10^6/uL Hgb 13.6 (12.0-16.0) g/dL Hct 40.6 (36-46) % MCV 84.6 (80-100) fL MCH 28.3 (26-34) PG MCHC 33.5 (30-36) % RDW 13.2 (11.6-14.8) % Plt Count 368 (150-400) X10^3/uL Neut % (Auto) 80.7 H (50-75) % Lymph % (Auto) 14.2 L (25-40) % [place] % (Auto) 4.7 (3-14) % Eos % (Auto) 0.1 L (2-4) % Baso % (Auto) 0.3 (0-2) % Neut # (Auto) 09199 H (5951-7853) /uL Lymph # (Auto) 2500 (1767-1829) /uL [place] # (Auto) 800 (0-900) /uL Eos # (Auto) 0 (0-450) /uL Baso # (Auto) 100 (0-100) /uL PT (10.1-12.7) SECONDS INR (0.9-1.3) APTT (26-36) SECONDS ABG pH (7.35-7.45) ABG pCO2 (35-45) mmHg ABG pO2 (80-100) mmHg ABG HCO3 (23-27) mmol/L ABG Total CO2 (23-27) mmol/L ABG O2 Saturation (95-100) % ABG Base Excess (-2-3) mmol/L FiO2 Sodium 136 L (137-145) mmol/L Potassium 3.0 L (3.4-5.1) mmol/L Chloride 106 (98-107) mmol/L Carbon Dioxide 17 L (22-32) mmol/L BUN 11 (7-17) mg/dL Creatinine 0.68 (0.52-1.04) mg/dL Estimated GFR > 60 (>60) mL/min BUN/Creatinine Ratio 16.2 (6-22) Glucose 143 H (80-110) mg/dL Lactate 1.8 (0.7-2.1) mmol/L Calcium 9.1 (8.4-10.2) mg/dL Total Bilirubin 0.9 (0.2-1.3) mg/dL AST 33 (14-36) IU/L ALT 17 (<35) IU/L Alkaline Phosphatase 133 H (38-126) U/L Ammonia (9-30) umol/L Total Creatine Kinase (30-135) U/L Troponin I (0.01-0.034) ng/mL Total Protein 7.8 (6.3-8.2) g/dL Albumin 4.1 (3.5-5.0) g/dL Globulin 3.7 (1.7-4.1) g/dL Albumin/Globulin Ratio 1.1 (1.0-2.8) Lipase (23-300) U/L Procalcitonin (<0.5) ng/mL Urine Color Urine Appearance Urine pH (4.5-8.0) Ur Specific [place] (1.000-1.035) Urine Protein (Negative) Urine Glucose (UA) (Negative) g/dL Urine Ketones (NEGATIVE) Urine Occult Blood (Negative) Urine Nitrate (Negative) Urine Bilirubin (NEGATIVE) Urine Urobilinogen (0.2) E.U./dL Ur Leukocyte Esterase (NEGATIVE) Urine RBC (0-5/HPF) Urine WBC (0-5/HPF) Ur Squamous Epith Cells (0-5/HPF) Urine Bacteria (None) Ur Culture Indicated? CSF Tube Number CSF Volume CSF Appearance (Clear) CSF Color (Colorless) CSF WBC (0-5) MONO/uL CSF RBC RBC /uL CSF Mononuclear WBCs CSF Polynuclear WBCs CSF Glucose (40-70) mg/dL CSF Total Protein (12-60) mg/dL CSF C.neoform/gat PCR (Not Detect) CSF CMV DNA (PCR) (Not Detect) CSF Enterovirus (PCR) (Not Detect) CSF E. coli (PCR) (Not Detect) CSF H. influenzae (PCR) (Not Detect) CSF HSV I (PCR) (Not Detect) CSF HSV II (PCR) (Not Detect) CSF HHV 6 (PCR) (Not Detect) CSF L.monocytogenes PCR (Not Detect) CSF N. meningitidis PCR (Not Detect) CSF Parechovirus (PCR) (Not Detect) CSF S. agalactiae (PCR) (Not Detect) CSF S. pneumoniae (PCR) (Not Detect) CSF VZV (PCR) (Not Detecte) Salicylates (<20) mg/dL U Opiates 300ng/mL cut (Negative) Ur Oxycodone Screen (Negative) Urine Methadone Screen (Negative) Acetaminophen (10-30) ug/mL Ur Barbiturates Screen (Negative) U Tricyclic Antidepress (Negative) Ur Phencyclidine Scrn (Negative) Ur Amphetamines Screen (Negative) U Methamphetamines Scrn (Negative) Ur MDMA Scrn (Ecstasy) (Negative) U Benzodiazepines Scrn (Negative) Urine Cocaine Screen (Negative) U Marijuana (THC) Screen (Negative) Ethyl Alcohol ( - 10) mg/dL Chlamy pneumoniae PCR (Not Detect) Adenovirus (PCR) (Not Detect) B. pertussis DNA (PCR) (Not Detecte) B.parapertussis DNA PCR (Not Detecte) Coronavirus OC43 (PCR) (Not Detect) Coronavirus HKU1 (PCR) (Not Detect) Coronavirus 229E (PCR) (Not Detect) SARS-CoV-2 (PCR) (Not Detecte) Coronavirus NL63 (PCR) (Not Detect) Human Metapneumovir PCR (Not Detect) Influenza Type A (PCR) (Not Detect) Influenza Type B (PCR) (Not Detect) M. pneumoniae (PCR) (Not Detect) Parainfluenza 1 (PCR) (Not Detect) Parainfluenza 2 (PCR) (Not Detect) Parainfluenza 3 (PCR) (Not Detect) Parainfluenza 4 (PCR) (Not Detect) RSV (PCR) (Not Detect) Entero/Rhino (PCR) (Not Detect) Point of Care Testing Glucose POC 161 MDM Narrative Medical decision making narrative: Patient 67-year-old female presents today with a metabolic encephalopathy nausea and vomiting. Initial concern was intracranial hemorrhage head CT is negative she does not appear to be on any anticoagulation. Blood work she is mild leukocytosis of 11 lactate slightly elevated at 2.8 which improved to 1.6 no electrolyte abnormality. She continues to vomit chest abdomen pelvis CT ordered which does show hiatal hernia but no obstruction. There is concern for aspiration while she is in the emergency department. She was given a small dose of Ativan. This seems to be a similar presentation what she had previously. She does have a UTI with trace leukocytes and many bacteria. She is given Rocephin azithromycin Rocephin for UTI and pneumonia azithromycin for possible aspiration. Dr. Vogt accepts patient, however request LP be done. Patient signed out to Dr. Mir [[id number]] ([place]) Patient received in sign out from Dr. Olmstead I have reviewed the clinical course and performed an independent history and physical exam. patient remains somewhat confused, controlling airway, secretions, following commands. Hemodynamically stable. Vitals improving. LP without abnormalities called mortgage processor to admit, but given earlier lactate of 5.1, now improved to 5.1, without more clear etiology of encephalopathy he suggests patient is best served at a larger institution 0200 - patient remains stable. Answering some questions though still confused. HR in the 70-80s. BP in the 110s 0435 - vomited, somewhat dark. Repeat labs back and K down. K Ridres ordered along with Protonix. Discharge Plan Departure Patient Disposition: Admitted As Inpatient Clinical Impression: Encephalopathy, metabolic, Acute UTI Admit Date/Time: 02/14/23 09:35 Admit Provider: Rodney Vogt
[2023-02-13 14:48] LABS: Fractionated Inspired Oxygen 21; HCO3 ABG 19 mmol/L (23-27); Oxygen Saturation ABG 94 % (95-100); PCO2 ABG 21.9 mmHg (35-45); PO2 ABG 58 mmHg (80-100); TCO2 ABG 20 mmol/L (23-27)
--- NOTE | 2023-02-13 14:50 | DI.CT.S_ITS ---
PROCEDURE: CT CHEST ABD PEL W CON INDICATIONS: vomiting confusion TECHNIQUE: After the administration of intravenous contrast, 5 mm thick sections acquired from the lung apices to the symphysis. 5 mm coronal and sagittal reformats were performed, with additional 7 mm MIP reformats through the lungs. For radiation dose reduction, the following was used: automated exposure control, adjustment of mA and/or kV according to patient size. COMPARISON: None. FINDINGS: Image quality: Excellent. CHEST: Lungs and pleura: No acute airspace opacities. Linear atelectasis versus scarring within the right middle lobe. Mild atelectasis adjacent to the hiatal hernia. No pleural effusions or pneumothorax. Central and peripheral airways appear patent and normal in caliber. 2 millimeter right upper lobe pulmonary nodule (5/70). Mediastinum: Heart size is normal. Mild coronary artery calcifications. No pericardial effusion. No mediastinal or hilar adenopathy by size criteria. Thoracic aorta and central pulmonary arteries are normal in size. Atherosclerotic vascular calcifications. Patulous and fluid-filled esophagus. Moderate to large hiatal hernia. Chest wall: No axillary or supraclavicular adenopathy by size criteria. Thyroid gland is within normal limits . ABDOMEN: Solid organs: Liver is normal in size and enhancement. Gallbladder is within normal limits . Biliary system is non dilated. Pancreas enhances normally. Spleen is normal in size and enhancement. No adrenal nodules. Kidneys demonstrate normal size and enhancement, without hydronephrosis. Nonobstructing stones within the left kidney measuring up to 4 millimeters. Peritoneum and bowel: Colonic wall thickening versus decompression Bowel loops otherwise demonstrate normal wall thickness and caliber. No free fluid or air. Nodes and vessels: No retroperitoneal or mesenteric adenopathy by size criteria. Aorta and inferior vena cava are normal in size. Miscellaneous: No ventral hernias. PELVIS: Genitourinary: Bladder wall thickness is normal. Miscellaneous: No inguinal hernias or adenopathy. Bones: No suspicious bony lesions. No vertebral body compression fractures. IMPRESSION: 1. Moderate to large hiatal hernia. Patulous and fluid-filled esophagus. 2. Non-obstructing left renal stones measuring up to 4 millimeters. No hydronephrosis. 3. Colonic wall thickening versus decompression, correlate for colitis. Dictated by: Phan Christian M.D. on 02/13/2023 at 15:53 Approved by: Phan Christian M.D. on 02/13/2023 at 16:04
[2023-02-13 14:51] LABS: PTT Partial Thromboplastin Tim 52 SECONDS (26-36)
[2023-02-13 14:56] LABS: Alanine Aminotransferase 17 IU/L (<35); Albumin 4.4 g/dL (3.5-5.0); Albumin Globulin Ratio 1.1 (1.0-2.8); Alkaline Phosphatase 163 U/L (38-126); Aspartate Aminotransferase 31 IU/L (14-36); BUN Creatinine Ratio 16.9 (6-22); Bilirubin Total 0.6 mg/dL (0.2-1.3); Blood Urea Nitrogen 13 mg/dL (7-17); Calcium 9.4 mg/dL (8.4-10.2); Carbon Dioxide 22 mmol/L (22-32); Chloride 106 mmol/L (98-107); Estimated Glomerular Filt Rate > 60 mL/min (>60); Glucose 146 mg/dL (80-110); HEMOLYSIS < 15 (0-50); Lactate (Lactic Acid) 2.8 mmol/L (0.7-2.1); Lipase 77 U/L (23-300); Potassium 3.6 mmol/L (3.4-5.1); Sodium 141 mmol/L (137-145); Total Protein 8.4 g/dL (6.3-8.2)
[2023-02-13 15:01] LABS: Creatine Kinase 31 U/L (30-135)
[2023-02-13 15:02] LABS: Acetaminophen < 10 ug/mL (10-30); Ethanol (ETOH) < 10 mg/dL; Salicylate < 1.0 mg/dL (<20)
[2023-02-13 15:12] LABS: Procalcitonin < 0.03 ng/mL (<0.5)
[2023-02-13 15:13] LABS: Troponin I < 0.012 ng/mL (0.01-0.034)
[2023-02-13] MEDS: PANTOPRAZOLE 40 MG VIAL IV (15:28)
[2023-02-13] MEDS: LORazepam 2 MG/ML INJ 1 MG IV (15:28)
[2023-02-13 15:48] LABS: Adenovirus Not Detected (Not Detect); B. parapertussis Not Detected (Not Detecte); Bordetella pertussis Not Detected (Not Detecte); Chlamydophila pneumoniae Not Detected (Not Detect); Coronavirus 229E Not Detected (Not Detect); Coronavirus HKU1 Not Detected (Not Detect); Coronavirus NL 63 Not Detected (Not Detect); Coronavirus OC43 Not Detected (Not Detect); Human Metapneumovirus Not Detected (Not Detect); Human Rhinovirus/Enterovirus Not Detected (Not Detect); Influenza A Not Detected (Not Detect); Influenza B Not Detected (Not Detect); Mycoplasma pneumoniae Not Detected (Not Detect); Parainfluenza Virus 1 Not Detected (Not Detect); Parainfluenza Virus 2 Not Detected (Not Detect); Parainfluenza Virus 3 Not Detected (Not Detect); Parainfluenza Virus 4 Not Detected (Not Detect); Respiratory Syncytial Virus Not Detected (Not Detect); SARS- CoV-2 Not Detected (Not Detecte)
--- NOTE | 2023-02-13 16:04 | PC.NURSE ---
1530 Pt more alert and able to answer questions.
[2023-02-13 16:19] LABS: Appearance Urine UA SL CLOUDY; Bilirubin Urine UA NEGATIVE (NEGATIVE); Color Urine UA YELLOW; Glucose Urine UA NEGATIVE (Negative); Ketones Urine UA NEGATIVE (NEGATIVE); Leukocyte Esterase Urine UA TRACE (NEGATIVE); Nitrite Urine UA NEGATIVE (Negative); Occult Blood Urine UA TRACE-INTACT (Negative); Protein Urine UA NEGATIVE (Negative); Specific Gravity Urine UA <=1.005 (1.000-1.035); Urobilinogen Urine UA 0.2 E.U./dL (0.2)
[2023-02-13 16:27] LABS: Ur Creatinine Normal (Normal); Ur Specific Gravity Normal (Normal); Urine pH Normal (Normal); pH Urine UA 6.5 (4.5-8.0)
[2023-02-13 16:28] LABS: UR Morphine/Opiate cutoff 300 Negative (Negative); Urine Amphetamines Negative (Negative); Urine Barbiturates Negative (Negative); Urine Benzodiazepines Negative (Negative); Urine Cocaine Negative (Negative); Urine MDMA Negative (Negative); Urine Methadone Negative (Negative); Urine Methamphetamines Negative (Negative); Urine Oxycodone Negative (Negative); Urine Phencyclidine Negative (Negative); Urine Tetrahydrocannabinol Negative (Negative); Urine Tricyclic Antidepressant Negative (Negative)
[2023-02-13 16:31] LABS: Bacteria Urine Many (>30); Culture Indicated Urine Specimen Cultured; RBC Urine 0-1/HPF (0-5/HPF); Squamous Epithelial Cell Urine None Seen (0-5/HPF); WBC Urine 1-5/HPF (0-5/HPF)
[2023-02-13 16:35] LABS: Reflexed Lactate in 2 Hours Y
--- NOTE | 2023-02-13 17:03 | PC.NURSE ---
continues to have vomiting of bile. Strong possibility of aspiration.
[2023-02-13 17:11] LABS: Lactate 2HR (Lactic Acid Rflx) 1.6 mmol/L (0.7-2.1)
[2023-02-13] MEDS: cefTRIAXone 2,000 MG in SODIUM CHLORIDE 0.9% 100 ML 200 MG IV (17:20)
[2023-02-13] MEDS: KETOROLAC 30 MG/ML VIAL 15 MG IV (17:20)
[2023-02-13] MEDS: AZITHROMYCIN 500 MG in DEXTROSE 5% IN WATER 250 ML 250 MG IV (18:12)
[2023-02-13] MEDS: ACETAMINOPHEN IV 1,000 MG/100 ML VIAL 400 MG IV (18:39)
[2023-02-13] MEDS: METOCLOPRAMIDE 10 MG/2 ML INJ IV (19:05)
--- NOTE | 2023-02-13 19:34 | PC.NURSE ---
At 1850, pt was found to be increasingly altered. Pt's speech is uncomprehendable. Pt is beginning to pull at medical equipment. Dr. Olmstead notifed. RN attempting to re-orient pt.
[2023-02-13] MEDS: metroNIDAZOLE 500 MG/100 ML PIGGYBACK 100 MG IV (19:50)
[2023-02-13 19:58] LABS: Ammonia (NH3) < 9 umol/L (9-30)
[2023-02-13] MEDS: LIDOCAINE 1% 20 ML (20:00)
[2023-02-13 20:07] LABS: Lactate (Lactic Acid) 5.1 mmol/L (0.7-2.1)
[2023-02-13 20:39] LABS: Appearance CSF Clear (Clear); CSF Tube Number 3; Color CSF Colorless (Colorless)
[2023-02-13 20:46] LABS: Glucose CSF 76 mg/dL (40-70); Total Protein CSF 95 mg/dL (12-60)
[2023-02-13 20:51] LABS: Red Blood Cell CSF 0 RBC /uL; White Blood Cell CSF 3 MONO/uL (0-5)
[2023-02-13 20:53] LABS: CSF Tube Volume 1.0 mL
[2023-02-13 21:41] LABS: Reflexed Lactate in 2 Hours Y
[2023-02-13 21:57] LABS: Escherichia coli K1 Not Detected (Not Detect)
[2023-02-13 21:58] LABS: Cryptococcus neoformans/gattii Not Detected (Not Detect); Enterovirus Not Detected (Not Detect); Haemophilus influenzae Not Detected (Not Detect); Herpes simplex virus 1 Not Detected (Not Detect); Herpes simplex virus 2 Not Detected (Not Detect); Human herpesvirus 6 Not Detected (Not Detect); Human parechovirus Not Detected (Not Detect); Listeria monocytogenes Not Detected (Not Detect); Neisseria meningitidis Not Detected (Not Detect); Streptococcus agalactiae Not Detected (Not Detect); Streptococcus pneumoniae Not Detected (Not Detect); Varicella Zoster Virus Not Detected (Not Detecte)
[2023-02-13 22:52] LABS: Lactate 2HR (Lactic Acid Rflx) 2.5 mmol/L (0.7-2.1)
[2023-02-14] VITALS (37 sets, daily range): BP systolic 136–176; BP diastolic 71–103; PULSE 63–114; RESP 16–50; TEMP 37–38.7; O2SAT 94–100
--- NOTE | 2023-02-14 | DI.RAD.S_ITS ---
PROCEDURE: XR CHEST FOR PICC 1V INDICATIONS: PICC LINE TECHNIQUE: One view of the chest was acquired. COMPARISON: [facility], , XR CHEST FOR PICC 1V, 02/14/2023, 11:11. FINDINGS: Surgical changes and devices: There is a right PICC with the tip pointing cephalic, presumably within the jugular vein. On the subsequent x-ray, the PICC is repositioned with the tip in the area of atrial caval junction. Lungs and pleura: Linear densities in the right midlung zone is most likely scars and atelectasis. No pleural effusions or pneumothorax. Mediastinum: Mediastinal contours appear normal. Heart size is normal. Bones and chest wall: No suspicious bony lesions. Overlying soft tissues appear unremarkable. IMPRESSION: The ight PICC with the tip pointing cephalic, presumably within the jugular vein. On the subsequent x-ray, the PICC is repositioned with the tip in the area of atriocaval junction. Dictated by: Pietro Faye M.D. on 02/14/2023 at 12:45 Approved by: Pietro Faye M.D. on 02/14/2023 at 12:46
[2023-02-14] MEDS: KETOROLAC 30 MG/ML VIAL 15 MG IV (02:34)
[2023-02-14] MEDS: ONDANSETRON 4 MG/2 ML INJ IV ×3 (02:34→21:18)
[2023-02-14] MEDS: SODIUM CHLORIDE 0.9% 1,000 ML 150 ML IV ×2 (02:34→09:25)
[2023-02-14 04:26] LABS: Add Manual Diff / Slide Review NO; Basophils Absolute Auto 0 /uL (0-100); Basophils Percent Auto 0.1 % (0-2); Eosinophils Absolute Auto 0 /uL (0-450); Hematocrit 42.6 % (36-46); Hemoglobin 14.5 g/dL (12.0-16.0); Lymphocytes Absolute Auto 2300 /uL (1100-4500); Mean Corpuscular Hemoglobin 28.6 PG (26-34); Mean Corpuscular Volume 84.3 fL (80-100); Monocytes Absolute Auto 600 /uL (0-900); Monocytes Percent Auto 3.4 % (3-14); Neutrophils Absolute Auto 16100 /uL (1500-7000); Neutrophils Percent Auto 84.5 % (50-75); Platelet Count 439 X10^3/uL (150-400); Red Blood Cell Count 5.05 X10^6/uL (4.0-5.2); Red Cell Distribution Width 13.1 % (11.6-14.8); White Blood Cell Count 19.1 X10^3/uL (4.5-11.0)
--- NOTE | 2023-02-14 04:30 | PC.NURSE ---
Patient coughing frequently, then vomited while sitting up in bed. Emesis seen on white blankets, emesis had coffee ground appearance. Patient reports having some abd discomfort. Pt's gown and linen changed, repositioned on bed for comfort. MD updated about emesis appearance.
[2023-02-14 04:38] LABS: Lactate (Lactic Acid) 2.7 mmol/L (0.7-2.1)
[2023-02-14 04:39] LABS: Alanine Aminotransferase 18 IU/L (<35); Albumin 4.5 g/dL (3.5-5.0); Albumin Globulin Ratio 1.1 (1.0-2.8); Alkaline Phosphatase 147 U/L (38-126); Aspartate Aminotransferase 36 IU/L (14-36); BUN Creatinine Ratio 15.5 (6-22); Bilirubin Total 0.8 mg/dL (0.2-1.3); Blood Urea Nitrogen 11 mg/dL (7-17); Calcium 9.5 mg/dL (8.4-10.2); Carbon Dioxide 18 mmol/L (22-32); Chloride 105 mmol/L (98-107); Estimated Glomerular Filt Rate > 60 mL/min (>60); Glucose 150 mg/dL (80-110); HEMOLYSIS < 15 (0-50); Sodium 137 mmol/L (137-145); Total Protein 8.5 g/dL (6.3-8.2)
[2023-02-14 04:44] LABS: Potassium 2.7 mmol/L (3.4-5.1)
[2023-02-14 04:54] LABS: Procalcitonin < 0.03 ng/mL (<0.5)
[2023-02-14] MEDS: POTASSIUM CHLORIDE IN WATER 10 MEQ/100 ML PIGGYBACK 100 MEQ IV ×10 (05:07→20:57)
[2023-02-14] MEDS: PANTOPRAZOLE 40 MG VIAL IV ×3 (05:07→21:12)
[2023-02-14 06:19] LABS: Reflexed Lactate in 2 Hours Y
--- NOTE | 2023-02-14 06:40 | PC.NURSE ---
Patient again vomiting coffee ground appearing emesis, patient protecting airway, sitting up but continues to be confused. Gown and linen changed. MD updated.
[2023-02-14] MEDS: PIPERACILLIN/TAZO 4.5 GM in SODIUM CHLORIDE 0.9% 100 ML IV (07:26)
--- NOTE | 2023-02-14 07:42 | PC.NURSE ---
Pt alert and confused and disoriented. Arousable to name and touch.
[2023-02-14 07:46] LABS: Add Manual Diff / Slide Review NO; Basophils Absolute Auto 100 /uL (0-100); Basophils Percent Auto 0.3 % (0-2); Eosinophils Absolute Auto 0 /uL (0-450); Eosinophils Percent Auto 0.1 % (2-4); Hematocrit 40.6 % (36-46); Hemoglobin 13.6 g/dL (12.0-16.0); Lymphocytes Absolute Auto 2500 /uL (1100-4500); Lymphocytes Percent Auto 14.2 % (25-40); Mean Corpuscular HGB Conc 33.5 % (30-36); Mean Corpuscular Hemoglobin 28.3 PG (26-34); Mean Corpuscular Volume 84.6 fL (80-100); Monocytes Absolute Auto 800 /uL (0-900); Monocytes Percent Auto 4.7 % (3-14); Neutrophils Absolute Auto 14200 /uL (1500-7000); Neutrophils Percent Auto 80.7 % (50-75); Platelet Count 368 X10^3/uL (150-400); Red Cell Distribution Width 13.2 % (11.6-14.8); White Blood Cell Count 17.6 X10^3/uL (4.5-11.0)
[2023-02-14 07:55] LABS: Lactate 2HR (Lactic Acid Rflx) 1.8 mmol/L (0.7-2.1)
[2023-02-14 07:56] LABS: Alanine Aminotransferase 17 IU/L (<35); Albumin 4.1 g/dL (3.5-5.0); Albumin Globulin Ratio 1.1 (1.0-2.8); Alkaline Phosphatase 133 U/L (38-126); Aspartate Aminotransferase 33 IU/L (14-36); BUN Creatinine Ratio 16.2 (6-22); Bilirubin Total 0.9 mg/dL (0.2-1.3); Blood Urea Nitrogen 11 mg/dL (7-17); Calcium 9.1 mg/dL (8.4-10.2); Carbon Dioxide 17 mmol/L (22-32); Chloride 106 mmol/L (98-107); Estimated Glomerular Filt Rate > 60 mL/min (>60); Globulin 3.7 g/dL (1.7-4.1); Glucose 143 mg/dL (80-110); HEMOLYSIS < 15 (0-50); Sodium 136 mmol/L (137-145); Total Protein 7.8 g/dL (6.3-8.2)
--- NOTE | 2023-02-14 11:13 | DI.RAD.S_ITS ---
PROCEDURE: XR CHEST FOR PICC 1V INDICATIONS: picc verification COMPARISON: [facility], TARIK, XR CHEST FOR PICC 1V, 02/14/2023, 10:34. [facility], TARIK, XR CHEST 1V, 02/13/2023, 14:13. FINDINGS: PICC was placed by the intravenous therapy team from the right side. Fluoroscopic spot film demonstrates the tip of PICC projecting to the area of cavoatrial junction/proximal right atrium. IMPRESSION: Tip of PICC projects to the area of cavoatrial junction/proximal right atrium. Dictated by: Phan Christian M.D. on 02/14/2023 at 12:38 Approved by: Phan Christian M.D. on 02/14/2023 at 12:40
[2023-02-14] MEDS: HEPARIN 5,000 UNIT/ML VIAL 5000 UNIT SUBCUT ×2 (12:21→21:12)
[2023-02-14] MEDS: SODIUM CHLORIDE 0.9% 1,000 ML 100 ML IV (12:35)
[2023-02-14] MEDS: VANCOMYCIN PER PHARMACY 1 REQUEST MISC (12:36)
[2023-02-14] MEDS: VANCOMYCIN 750 MG/150 ML PIGGYBACK 150 MG IV ×2 (12:38→21:11)
[2023-02-14 14:29] LABS: Add Manual Diff / Slide Review NO; Basophils Absolute Auto 100 /uL (0-100); Basophils Percent Auto 0.5 % (0-2); Eosinophils Absolute Auto 0 /uL (0-450); Hematocrit 38.5 % (36-46); Hemoglobin 13.1 g/dL (12.0-16.0); Lymphocytes Absolute Auto 2500 /uL (1100-4500); Lymphocytes Percent Auto 14.6 % (25-40); Mean Corpuscular Hemoglobin 28.8 PG (26-34); Mean Corpuscular Volume 84.7 fL (80-100); Monocytes Absolute Auto 1000 /uL (0-900); Monocytes Percent Auto 5.8 % (3-14); Neutrophils Absolute Auto 13600 /uL (1500-7000); Neutrophils Percent Auto 79.1 % (50-75); Platelet Count 364 X10^3/uL (150-400); Red Blood Cell Count 4.54 X10^6/uL (4.0-5.2); White Blood Cell Count 17.2 X10^3/uL (4.5-11.0)
[2023-02-14 14:44] LABS: BUN Creatinine Ratio 16.4 (6-22); Blood Urea Nitrogen 11 mg/dL (7-17); Carbon Dioxide 17 mmol/L (22-32); Chloride 107 mmol/L (98-107); Estimated Glomerular Filt Rate > 60 mL/min (>60); Glucose 132 mg/dL (80-110); HEMOLYSIS 46 (0-50); Potassium 3.2 mmol/L (3.4-5.1); Sodium 134 mmol/L (137-145)
--- NOTE | 2023-02-14 16:59 | PM.HP.1 ---
History of Present Illness History of Present Illness Date Patient Seen: 02/14/23 Time Patient Seen: 09:00 Chief complaint: ?UTI, weakness, nausea x 5 days Narrative: Ms. Khanna is a 67W with PMH hiatal hernia, depression who presents to the hospital with encephalopathy and fever. She is unable to provide any significant history. Her family does provide a history and states she has previously had a severe encephalopathic admission secondary to temazepam overdose. However this event there is no known ingestion. She does have a prescription for lexapro but has not filled this recently. She did have lomotil at home, her son found an old bottle of gabapentin for her dog. Her son did say she have urinary symptoms a few days prior to presentation, and that she was concerned she was developing a UTI. She had some back pain as well. She has no cough or shortness of breath. She was found confused at her home, unable to provide history, speaking garbled, she was repeatedly vomiting. In the ED workup was done, vitals notable for febrile to 101, heart rate 70s, blood pressure 120s/70s, sats 97% on room air. Labs reviewed by me and notable for WBC 11.6->17.6, hgb 14, plts 370. Creatinine 0.77. Lactate 2.8->1.6->5.1->2.5->1.8. Procal 0.03. UA had trace leuk esterase and many bacteria. Urine culture showed gram negative rods. CSF showed mildly elevated glucose and protein, and WBCs of 3. Urine tox screen negative. Viral respiratory panel negative. Chest xray with no acute process. Head CT with no acute process. CT abdomen showed moderate to large hiatal hernia with fluid filled esophagus, possible colonic wall thickening. EKG with narrow complex, normal intervals, tachycardic. She was ordered for fluids and antibiotics and admitted for further treatment. FOR[facility]LY [facility] Social History Smoking Status: Former smoker alcohol intake: never Meds Home Medications and Allergies Home Medications Medication Instructions Recorded Confirmed Type escitalopram oxalate 10 mg tablet 10 mg PO DAILY 02/13/23 02/13/23 History omeprazole 20 mg capsule,delayed 20 mg PO DAILY 02/13/23 02/13/23 History release Allergies Allergy/AdvReac Type Severity Reaction Status Date / Time No Known Drug Allergies Allergy Unverified 10/15/21 12:47 Review of Systems Review of Systems Narrative: 14 systems reviewed and negative aside from whats is noted in HPI Exam Vital Signs (past 8 hours): - 02/14/23 09:00 02/14/23 09:01 02/14/23 09:01 Temperature 100.6 F H 100.6 F H Pulse Rate 114 H 76 Respiratory Rate 32 H 29 H Blood Pressure 147/92 H Pulse Oximetry 98 99 Oxygen Delivery Method Oxygen Flow Rate 02/14/23 09:30 02/14/23 09:30 02/14/23 10:00 Temperature 100.9 F H 100.6 F H Pulse Rate 67 84 Respiratory Rate 29 H 35 H Blood Pressure 146/102 H Pulse Oximetry 97 98 Oxygen Delivery Method Oxygen Flow Rate 02/14/23 10:30 02/14/23 11:00 02/14/23 11:30 Temperature 100.6 F H 100.8 F H 100.8 F H Pulse Rate 86 68 70 Respiratory Rate 32 H 24 27 H Blood Pressure Pulse Oximetry 97 99 98 Oxygen Delivery Method Oxygen Flow Rate 02/14/23 11:53 02/14/23 11:53 02/14/23 15:53 Temperature 98.9 F 100.2 F H Pulse Rate 63 71 Respiratory Rate 20 20 Blood Pressure 156/87 H 148/80 H Pulse Oximetry 99 99 94 Oxygen Delivery Method Room Air Oxygen Flow Rate 0 0 Oxygen Delivery Method Room Air Oxygen Flow Rate 0 Narrative Exam Narrative: GEN: ill appearing, restless, flushed, mumbling incoherently PERRL: equal and reactive bilaterally CV: regular rate and rhythm, no murmurs PULM: clear bilaterally ABD: soft, nontender NEURO: altered, moving all extremities aimlessly Objective Labs 02/14/23 14:20 02/14/23 14:20 Labs: Laboratory Results - last 24 hr 02/13/23 02/13/23 02/13/23 16:50 19:31 19:31 WBC RBC Hgb Hct MCV MCH MCHC RDW Plt Count Neut % (Auto) Lymph % (Auto) Howard % (Auto) Eos % (Auto) Baso % (Auto) Neut # (Auto) Lymph # (Auto) Howard # (Auto) Eos # (Auto) Baso # (Auto) Sodium Potassium Chloride Carbon Dioxide BUN Creatinine Estimated GFR BUN/Creatinine Ratio Glucose Lactate 1.6 5.1 H* Calcium Total Bilirubin AST ALT Alkaline Phosphatase Ammonia < 9 L Total Protein Albumin Globulin Albumin/Globulin Ratio Procalcitonin CSF Tube Number CSF Volume CSF Appearance CSF Color CSF WBC CSF RBC CSF Mononuclear WBCs CSF Polynuclear WBCs CSF Glucose CSF Total Protein CSF C.neoform/gat PCR CSF CMV DNA (PCR) CSF Enterovirus (PCR) CSF E. coli (PCR) CSF H. influenzae (PCR) CSF HSV I (PCR) CSF HSV II (PCR) CSF HHV 6 (PCR) CSF L.monocytogenes PCR CSF N. meningitidis PCR CSF Parechovirus (PCR) CSF S. agalactiae (PCR) CSF S. pneumoniae (PCR) CSF VZV (PCR) 02/13/23 02/13/23 02/13/23 20:15 20:15 20:18 WBC RBC Hgb Hct MCV MCH MCHC RDW Plt Count Neut % (Auto) Lymph % (Auto) Howard % (Auto) Eos % (Auto) Baso % (Auto) Neut # (Auto) Lymph # (Auto) Howard # (Auto) Eos # (Auto) Baso # (Auto) Sodium Potassium Chloride Carbon Dioxide BUN Creatinine Estimated GFR BUN/Creatinine Ratio Glucose Lactate Calcium Total Bilirubin AST ALT Alkaline Phosphatase Ammonia Total Protein Albumin Globulin Albumin/Globulin Ratio Procalcitonin CSF Tube Number 3 CSF Volume 1.0 ml CSF Appearance Clear CSF Color Colorless CSF WBC 3 CSF RBC 0 CSF Mononuclear WBCs Not Reportable CSF Polynuclear WBCs Not Reportable CSF Glucose 76 H CSF Total Protein 95 H CSF C.neoform/gat PCR Not detected CSF CMV DNA (PCR) Not detected CSF Enterovirus (PCR) Not detected CSF E. coli (PCR) Not detected CSF H. influenzae (PCR) Not detected CSF HSV I (PCR) Not detected CSF HSV II (PCR) Not detected CSF HHV 6 (PCR) Not detected CSF L.monocytogenes PCR Not detected CSF N. meningitidis PCR Not detected CSF Parechovirus (PCR) Not detected CSF S. agalactiae (PCR) Not detected CSF S. pneumoniae (PCR) Not detected CSF VZV (PCR) Not detected 02/13/23 02/14/23 02/14/23 22:34 03:28 03:28 WBC 19.1 H D RBC 5.05 Hgb 14.5 Hct 42.6 MCV 84.3 MCH 28.6 MCHC 34.0 RDW 13.1 Plt Count 439 H Neut % (Auto) 84.5 H Lymph % (Auto) 12.0 L Howard % (Auto) 3.4 Eos % (Auto) 0.0 L Baso % (Auto) 0.1 Neut # (Auto) 89138 H Lymph # (Auto) 2300 Howard # (Auto) 600 Eos # (Auto) 0 Baso # (Auto) 0 Sodium 137 Potassium 2.7 L* Chloride 105 Carbon Dioxide 18 L BUN 11 Creatinine 0.71 Estimated GFR > 60 BUN/Creatinine Ratio 15.5 Glucose 150 H Lactate 2.5 H Calcium 9.5 Total Bilirubin 0.8 AST 36 ALT 18 Alkaline Phosphatase 147 H Ammonia Total Protein 8.5 H Albumin 4.5 Globulin 4.0 Albumin/Globulin Ratio 1.1 Procalcitonin CSF Tube Number CSF Volume CSF Appearance CSF Color CSF WBC CSF RBC CSF Mononuclear WBCs CSF Polynuclear WBCs CSF Glucose CSF Total Protein CSF C.neoform/gat PCR CSF CMV DNA (PCR) CSF Enterovirus (PCR) CSF E. coli (PCR) CSF H. influenzae (PCR) CSF HSV I (PCR) CSF HSV II (PCR) CSF HHV 6 (PCR) CSF L.monocytogenes PCR CSF N. meningitidis PCR CSF Parechovirus (PCR) CSF S. agalactiae (PCR) CSF S. pneumoniae (PCR) CSF VZV (PCR) 02/14/23 02/14/23 02/14/23 03:28 03:28 07:36 WBC RBC Hgb Hct MCV MCH MCHC RDW Plt Count Neut % (Auto) Lymph % (Auto) Howard % (Auto) Eos % (Auto) Baso % (Auto) Neut # (Auto) Lymph # (Auto) Howard # (Auto) Eos # (Auto) Baso # (Auto) Sodium Potassium Chloride Carbon Dioxide BUN Creatinine Estimated GFR BUN/Creatinine Ratio Glucose Lactate 2.7 H 1.8 Calcium Total Bilirubin AST ALT Alkaline Phosphatase Ammonia Total Protein Albumin Globulin Albumin/Globulin Ratio Procalcitonin < 0.03 CSF Tube Number CSF Volume CSF Appearance CSF Color CSF WBC CSF RBC CSF Mononuclear WBCs CSF Polynuclear WBCs CSF Glucose CSF Total Protein CSF C.neoform/gat PCR CSF CMV DNA (PCR) CSF Enterovirus (PCR) CSF E. coli (PCR) CSF H. influenzae (PCR) CSF HSV I (PCR) CSF HSV II (PCR) CSF HHV 6 (PCR) CSF L.monocytogenes PCR CSF N. meningitidis PCR CSF Parechovirus (PCR) CSF S. agalactiae (PCR) CSF S. pneumoniae (PCR) CSF VZV (PCR) 02/14/23 02/14/23 02/14/23 07:36 07:36 14:20 WBC 17.6 H 17.2 H RBC 4.80 4.54 Hgb 13.6 13.1 Hct 40.6 38.5 MCV 84.6 84.7 MCH 28.3 28.8 MCHC 33.5 34.0 RDW 13.2 13.0 Plt Count 368 364 Neut % (Auto) 80.7 H 79.1 H Lymph % (Auto) 14.2 L 14.6 L Howard % (Auto) 4.7 5.8 Eos % (Auto) 0.1 L 0.0 L Baso % (Auto) 0.3 0.5 Neut # (Auto) 78609 H 01586 H Lymph # (Auto) 2500 2500 Howard # (Auto) 800 1000 H Eos # (Auto) 0 0 Baso # (Auto) 100 100 Sodium 136 L Potassium 3.0 L Chloride 106 Carbon Dioxide 17 L BUN 11 Creatinine 0.68 Estimated GFR > 60 BUN/Creatinine Ratio 16.2 Glucose 143 H Lactate Calcium 9.1 Total Bilirubin 0.9 AST 33 ALT 17 Alkaline Phosphatase 133 H Ammonia Total Protein 7.8 Albumin 4.1 Globulin 3.7 Albumin/Globulin Ratio 1.1 Procalcitonin CSF Tube Number CSF Volume CSF Appearance CSF Color CSF WBC CSF RBC CSF Mononuclear WBCs CSF Polynuclear WBCs CSF Glucose CSF Total Protein CSF C.neoform/gat PCR CSF CMV DNA (PCR) CSF Enterovirus (PCR) CSF E. coli (PCR) CSF H. influenzae (PCR) CSF HSV I (PCR) CSF HSV II (PCR) CSF HHV 6 (PCR) CSF L.monocytogenes PCR CSF N. meningitidis PCR CSF Parechovirus (PCR) CSF S. agalactiae (PCR) CSF S. pneumoniae (PCR) CSF VZV (PCR) 02/14/23 14:20 WBC RBC Hgb Hct MCV MCH MCHC RDW Plt Count Neut % (Auto) Lymph % (Auto) Howard % (Auto) Eos % (Auto) Baso % (Auto) Neut # (Auto) Lymph # (Auto) Howard # (Auto) Eos # (Auto) Baso # (Auto) Sodium 134 L Potassium 3.2 L Chloride 107 Carbon Dioxide 17 L BUN 11 Creatinine 0.67 Estimated GFR > 60 BUN/Creatinine Ratio 16.4 Glucose 132 H Lactate Calcium 9.0 Total Bilirubin AST ALT Alkaline Phosphatase Ammonia Total Protein Albumin Globulin Albumin/Globulin Ratio Procalcitonin CSF Tube Number CSF Volume CSF Appearance CSF Color CSF WBC CSF RBC CSF Mononuclear WBCs CSF Polynuclear WBCs CSF Glucose CSF Total Protein CSF C.neoform/gat PCR CSF CMV DNA (PCR) CSF Enterovirus (PCR) CSF E. coli (PCR) CSF H. influenzae (PCR) CSF HSV I (PCR) CSF HSV II (PCR) CSF HHV 6 (PCR) CSF L.monocytogenes PCR CSF N. meningitidis PCR CSF Parechovirus (PCR) CSF S. agalactiae (PCR) CSF S. pneumoniae (PCR) CSF VZV (PCR) Assessment & Plan Assessment & Plan narrative: 1. Acute encephalopathy -etiology possibly secondary to infection -lumbar puncture with only 3 WBCs, doubt infection -urine culture growing GNR, but not clear to me if this is source as UA is fairly unremarkable -CT shows no pneumonia -procal only at 0.03 -ammonia normal -other consideration is ingestion, possible serotonin syndrome vs anticholinergic toxicity, but no definite ingestion occurred per family, and if it were the case supportive care is what is indicated -follow up blood cultures -for now ordered or broad spectrum antibiotics 2. Sepsis -secondary to possible urinary infection -presented with leukocytosis, fevers and encephalopathy -treat as above 3. UTI -follow up urine cultures -treat as above 4. Depression -hold ssri for now 5. Hiatal hernia -continue with IV PPI -advance diet as able I have discussed plan of care and obtained history from patient's son. I have discussed plan of care with ED physician and bedside nurse. I have reviewed labs, imaging. CODE: presumed Full, patient unable to state Proxy: Chinedu Khanna, aranza Quality VTE Deep Vein Thrombosis/Pulmonary Embolism Present on Admission: No MIPS - Meds 'Current medications' to include all prescriptions, [id number] products, herbals, cannabis/cannabidiol products, and vitamin/mineral/dietary (nutritional) supplements. I have utilized all available resources to obtain, update, or review the patient?s current medications. [If Yes, STOP here]: Yes
[2023-02-14] MEDS: PIPERACILLIN/TAZO 3.375 GM in SODIUM CHLORIDE 0.9% 100 ML IV ×2 (17:00→23:56)
--- NOTE | 2023-02-14 20:58 | DI.CT.S_ITS ---
PROCEDURE: CT HEAD/BRAIN WO CON INDICATIONS: unequal pupils TECHNIQUE: Noncontrast 4.5 mm thick angled axial sections acquired from the foramen magnum to the vertex, with coronal and sagittal reformats. For radiation dose reduction, the following was used: automated exposure control, adjustment of mA and/or kV according to patient size. COMPARISON: [facility], CT, CT STROKE, 02/13/2023, 14:13. FINDINGS: Image quality: Excellent. CSF spaces: Basal cisterns are patent. No extra-axial fluid collections. Ventricles are normal in size and shape. Brain: No intracranial hemorrhage, mass, or mass effect. Zamora-white matter interface appears preserved. Skull and face: Calvarium and visualized facial bones are intact, without suspicious lesions. The globes are intact and symmetric in appearance. Sinuses: Visualized sinuses and mastoids are clear. IMPRESSION: 1. No acute intracranial abnormality. Dictated by: Nakul Rowell M.D. on 02/14/2023 at 23:06 Approved by: Nakul Rowell M.D. on 02/14/2023 at 23:07
--- NOTE | 2023-02-14 21:08 | PM.EVENT ---
Event Note Event Note (Rapid Response, Code, or fall): RN called due to unequal pupils. No other FND. Per prior RN shift - pupils were also unequal and reactive - same as present. Fever resolved. Patient with acute met encephalopathy due to UTI PVCs on tele. PLAN: Check Mag - serum, CT head non con stat, fall and aspiration precautions.
[2023-02-14 21:40] LABS: Magnesium 1.5 mg/dL (1.6-2.3)
[2023-02-15] VITALS (57 sets, daily range): BP systolic 138–185; BP diastolic 79–113; PULSE 59–104; RESP 14–39; TEMP 37.2–38.4; O2SAT 93–99
--- NOTE | 2023-02-15 00:46 | PM.EVENT ---
Event Note Event Note (Rapid Response, Code, or fall): Episode of sustained ventricular tachycardia lasting 1.5 to 2 minutes.? The patient is altered at baseline attributed to complicated UTI POA.? Also undergoing expanded work-up for altered mental status.? Magnesium tested and equal to 1.5. Blood pressure normal. Plan: Discussed extensively with warehouse associate driver.? Transfer to ICU.? Amiodarone 150 mg IV bolus now followed by gtt.? Continue telemetry.? Fall and aspiration precautions.? Magnesium 2 g IV.
[2023-02-15] MEDS: MAGNESIUM SULFATE 2 GM/50 ML PIGGYBACK IV (01:31)
[2023-02-15] MEDS: AMIODARONE 150 MG/100 ML PIGGYBACK 600 MG IV (01:32)
[2023-02-15 01:33] LABS: Alanine Aminotransferase 19 IU/L (<35); Albumin 3.9 g/dL (3.5-5.0); Alkaline Phosphatase 111 U/L (38-126); Aspartate Aminotransferase 48 IU/L (14-36); BUN Creatinine Ratio 16.2 (6-22); Bilirubin Total 1.2 mg/dL (0.2-1.3); Blood Urea Nitrogen 11 mg/dL (7-17); Calcium 8.8 mg/dL (8.4-10.2); Carbon Dioxide 14 mmol/L (22-32); Chloride 106 mmol/L (98-107); Estimated Glomerular Filt Rate > 60 mL/min (>60); Globulin 3.9 g/dL (1.7-4.1); Glucose 157 mg/dL (80-110); HEMOLYSIS 32 (0-50); Potassium 3.1 mmol/L (3.4-5.1); Sodium 132 mmol/L (137-145); Total Protein 7.8 g/dL (6.3-8.2)
[2023-02-15 01:36] LABS: Add Manual Diff / Slide Review NO; Basophils Absolute Auto 100 /uL (0-100); Basophils Percent Auto 0.3 % (0-2); Eosinophils Absolute Auto 0 /uL (0-450); Hemoglobin 13.2 g/dL (12.0-16.0); Lymphocytes Absolute Auto 2700 /uL (1100-4500); Lymphocytes Percent Auto 16.2 % (25-40); Mean Corpuscular HGB Conc 33.8 % (30-36); Mean Corpuscular Hemoglobin 28.7 PG (26-34); Mean Corpuscular Volume 84.9 fL (80-100); Monocytes Absolute Auto 1000 /uL (0-900); Monocytes Percent Auto 5.7 % (3-14); Neutrophils Absolute Auto 13100 /uL (1500-7000); Neutrophils Percent Auto 77.8 % (50-75); Platelet Count 339 X10^3/uL (150-400); Red Blood Cell Count 4.59 X10^6/uL (4.0-5.2); Red Cell Distribution Width 12.9 % (11.6-14.8); White Blood Cell Count 16.8 X10^3/uL (4.5-11.0)
[2023-02-15] MEDS: AMIODARONE 360 MG/200 ML PIGGYBACK 33.33 MG IV (01:39)
--- NOTE | 2023-02-15 01:40 | PC.NURSE ---
Addendum entered by Janki Drew R.N. 02/15/23 05:31: At approx 20:30 this RN was notified by RACHEL MCKINNON of change in patient condition, with increasing confusion as well as unequal dilated pupils. Pt reported by thre ICU to have 2 beats of VTACH as well as an increase in PVC frequency. Contacted provider, ordered lab draw of magnesium and a head CT. At approx 2200, ICU noted a 22 beat run of VTACH, patient asymptomatic, other vital signs stable. Informed provider, awaiting results of pending labs/CT, requested continued monitoring. At 0037 this RN was notified by the primary RN about sustained VTACH 1.5-2 minutes w/ patient change in condition/mentation. DIPLOMATIC COURIER F RUNDLES present to assist. Provider imemdiately notified. Ordered loading dose of amiodarone followed by titrating gtt, 2 mg magnesium IV, and XFR to ICU. Stat labs ordered and obtained on entering ICU. Ordered additional IV potassium supplement when labs returned. Patient care handed off to DIPLOMATIC COURIER. Original Note: Amiodarone gtt started w/ F RUNDLES in ICU per titrating protocol.
[2023-02-15 01:44] LABS: Troponin I 0.083 ng/mL (0.01-0.034)
[2023-02-15 02:18] LABS: Lactate (Lactic Acid) 1.5 mmol/L (0.7-2.1)
[2023-02-15] MEDS: POTASSIUM CHLORIDE IN WATER 10 MEQ/100 ML PIGGYBACK 100 MEQ IV ×4 (02:42→06:17)
[2023-02-15 03:10] LABS: MRSA (Nasal) PCR Not Detected (Not Detect)
--- NOTE | 2023-02-15 03:53 | PC.NURSE ---
Event RN Note-Patient transferred to ICU room 231 for VT lasting 1-2 minutes noted on Telemetry and lethargy. Upon arrival, patient is back in SR, can state name and follow very simple commands, remains drowsy and mostly non-verbal, makes eye contact, is also slightly restless, turning side to side and fidgeting with lines, denies pain. Amiodarone started per order/protocol, 2mg Mg+ rider started, labs drawn, Temp Cullen in place, initial T 101.1, now 100.4, skin hot and dry, had chills briefly, ice packs placed to axilla and groin. Curtain open, patient within view of staff, bed alarm on. See also assessment and vitals.
[2023-02-15] MEDS: VANCOMYCIN 750 MG/150 ML PIGGYBACK 150 MG IV (05:11)
[2023-02-15] MEDS: AMIODARONE 360 MG/200 ML PIGGYBACK 16.7 MG IV (06:16)
[2023-02-15] MEDS: HEPARIN 5,000 UNIT/ML VIAL 5000 UNIT SUBCUT ×2 (08:20→22:49)
[2023-02-15] MEDS: PANTOPRAZOLE 40 MG VIAL IV ×2 (08:20→22:50)
[2023-02-15] MEDS: PIPERACILLIN/TAZO 3.375 GM in SODIUM CHLORIDE 0.9% 100 ML IV ×3 (08:20→23:47)
--- NOTE | 2023-02-15 09:08 | PM.PN.1 ---
Subjective Subjective Interval history: Admitted for encephalopathy. Better over night. Had VT and was given amiodarone. Low K and Mag. More alert today. On abx for possible infection (pna or colitis). 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 PICC placed in ED. Exam Vital Signs (past 8 hours): - 02/15/23 01:10 02/15/23 01:10 02/15/23 01:20 Temperature 100.9 F H 100.8 F H Pulse Rate 78 97 H Respiratory Rate 33 H 39 H Blood Pressure 155/90 H Pulse Oximetry 99 99 Oxygen Delivery Method Oxygen Flow Rate 02/15/23 01:20 02/15/23 01:30 02/15/23 01:30 Temperature 100.8 F H Pulse Rate 80 Respiratory Rate 28 H Blood Pressure 160/86 H 165/98 H Pulse Oximetry 98 Oxygen Delivery Method Oxygen Flow Rate 02/15/23 01:40 02/15/23 01:40 02/15/23 01:50 Temperature 100.8 F H 100.8 F H Pulse Rate 90 92 H Respiratory Rate 29 H 37 H Blood Pressure 159/95 H Pulse Oximetry 98 98 Oxygen Delivery Method Oxygen Flow Rate 02/15/23 01:50 02/15/23 02:00 02/15/23 02:00 Temperature 100.2 F H Pulse Rate 70 Respiratory Rate 30 H Blood Pressure 149/93 H 179/92 H Pulse Oximetry 98 Oxygen Delivery Method Oxygen Flow Rate 0 0 02/15/23 02:10 02/15/23 02:10 02/15/23 02:22 Temperature 100.0 F H 100.6 F H Pulse Rate 91 H 80 Respiratory Rate 27 H 28 H Blood Pressure 185/88 H Pulse Oximetry 97 97 Oxygen Delivery Method Oxygen Flow Rate 02/15/23 02:22 02/15/23 02:30 02/15/23 03:00 Temperature 100.4 F H Pulse Rate 66 Respiratory Rate 20 Blood Pressure 182/97 H 165/85 H Pulse Oximetry 97 Oxygen Delivery Method Oxygen Flow Rate 02/15/23 03:00 02/15/23 05:00 02/15/23 03:30 Temperature 100.6 F H 100.4 F H Pulse Rate 80 82 Respiratory Rate 25 H 16 Blood Pressure Pulse Oximetry 97 97 97 Oxygen Delivery Method Room Air Oxygen Flow Rate 0 02/15/23 04:00 02/15/23 04:00 02/15/23 04:30 Temperature 100.4 F H 100.4 F H Pulse Rate 85 64 Respiratory Rate 24 28 H Blood Pressure 164/80 H Pulse Oximetry 97 96 Oxygen Delivery Method Oxygen Flow Rate 02/15/23 05:00 02/15/23 05:00 02/15/23 05:30 Temperature 100.6 F H 100.4 F H Pulse Rate 67 72 Respiratory Rate 25 H 29 H Blood Pressure 167/90 H Pulse Oximetry 96 97 Oxygen Delivery Method Oxygen Flow Rate 0 02/15/23 06:00 02/15/23 06:00 02/15/23 06:30 Temperature 100.6 F H 100.4 F H Pulse Rate 66 67 Respiratory Rate 27 H 25 H Blood Pressure 163/82 H Pulse Oximetry 96 93 Oxygen Delivery Method Oxygen Flow Rate 0 02/15/23 07:00 02/15/23 07:00 02/15/23 07:30 Temperature 100.4 F H 99.9 F H Pulse Rate 64 68 Respiratory Rate 29 H 24 Blood Pressure 176/92 H Pulse Oximetry Oxygen Delivery Method Oxygen Flow Rate Oxygen Delivery Method Room Air Oxygen Flow Rate 0 Narrative Exam Narrative: NAD Slow but appropriate speech. Lungs clear Heart regular. No murmur. Abdomen soft. NT No leg edema or skin rash. Objective Imaging CT scan - abdomen: Radiologist's impression: IMPRESSION:? ? 1. Moderate to large hiatal hernia.? Patulous and fluid-filled esophagus. 2. Non-obstructing left renal stones measuring up to 4 millimeters.? No hydronephrosis. 3. Colonic wall thickening versus decompression, correlate for colitis. Labs 02/15/23 01:20 02/15/23 01:12 Labs: Laboratory Results - last 24 hr 02/14/23 02/14/23 02/14/23 14:20 14:20 21:20 WBC 17.2 H RBC 4.54 Hgb 13.1 Hct 38.5 MCV 84.7 MCH 28.8 MCHC 34.0 RDW 13.0 Plt Count 364 Neut % (Auto) 79.1 H Lymph % (Auto) 14.6 L [place] % (Auto) 5.8 Eos % (Auto) 0.0 L Baso % (Auto) 0.5 Neut # (Auto) 56520 H Lymph # (Auto) 2500 [place] # (Auto) 1000 H Eos # (Auto) 0 Baso # (Auto) 100 Sodium 134 L Potassium 3.2 L Chloride 107 Carbon Dioxide 17 L BUN 11 Creatinine 0.67 Estimated GFR > 60 BUN/Creatinine Ratio 16.4 Glucose 132 H Lactate Calcium 9.0 Magnesium 1.5 L Total Bilirubin AST ALT Alkaline Phosphatase Troponin I Total Protein Albumin Globulin Albumin/Globulin Ratio Nasal Screen MRSA (PCR) 02/15/23 02/15/23 02/15/23 01:12 01:20 01:50 WBC 16.8 H RBC 4.59 Hgb 13.2 Hct 39.0 MCV 84.9 MCH 28.7 MCHC 33.8 RDW 12.9 Plt Count 339 Neut % (Auto) 77.8 H Lymph % (Auto) 16.2 L [place] % (Auto) 5.7 Eos % (Auto) 0.0 L Baso % (Auto) 0.3 Neut # (Auto) 48191 H Lymph # (Auto) 2700 [place] # (Auto) 1000 H Eos # (Auto) 0 Baso # (Auto) 100 Sodium 132 L Potassium 3.1 L Chloride 106 Carbon Dioxide 14 L BUN 11 Creatinine 0.68 Estimated GFR > 60 BUN/Creatinine Ratio 16.2 Glucose 157 H Lactate Calcium 8.8 Magnesium Total Bilirubin 1.2 AST 48 H ALT 19 Alkaline Phosphatase 111 Troponin I 0.083 H Total Protein 7.8 Albumin 3.9 Globulin 3.9 Albumin/Globulin Ratio 1.0 Nasal Screen MRSA (PCR) Not detected 02/15/23 02:00 WBC RBC Hgb Hct MCV MCH MCHC RDW Plt Count Neut % (Auto) Lymph % (Auto) [place] % (Auto) Eos % (Auto) Baso % (Auto) Neut # (Auto) Lymph # (Auto) [place] # (Auto) Eos # (Auto) Baso # (Auto) Sodium Potassium Chloride Carbon Dioxide BUN Creatinine Estimated GFR BUN/Creatinine Ratio Glucose Lactate 1.5 Calcium Magnesium Total Bilirubin AST ALT Alkaline Phosphatase Troponin I Total Protein Albumin Globulin Albumin/Globulin Ratio Nasal Screen MRSA (PCR) [facility] Social History Smoking Status: Former smoker alcohol intake: never Assessment & Plan Assessment & Plan narrative: 1. Acute encephalopathy, POA and improving. -etiology possibly secondary to infection (pos urine culture). -lumbar puncture with only 3 WBCs, doubt infection -urine culture growing GNR, but not clear to me if this is source as UA is fairly unremarkable -CT shows no pneumonia -procal only at 0.03, lactic at 1.5 -ammonia normal -other consideration is ingestion, possible serotonin syndrome vs anticholinergic toxicity, but no definite ingestion occurred per family, and if it were the case supportive care is what is indicated. She denies. -follow up blood cultures (remain negative). -continue Zosyn, stop vanco. 2. VT last night, improved. - Mg and K repleted. - monitor and replete - cont amiodarone - ECHO 3. Hypokalemia and Hypomagnesemia, new and active. - replete and monitor. 2. Sepsis, POA and improved. -secondary to possible urinary infection -presented with leukocytosis, fevers and encephalopathy -cont Zosyn pending cultures. 3. UTI, POA -follow up urine cultures -treat as above 4. Depression -hold ssri for now 5. Hiatal hernia -continue with IV PPI -advance diet as able Time Spent With Patient Time with patient: less than 30 minutes Quality VTE Deep Vein Thrombosis/Pulmonary Embolism Present on Admission: No
[2023-02-15 09:33] LABS: BUN Creatinine Ratio 16.4 (6-22); Blood Urea Nitrogen 10 mg/dL (7-17); Calcium 8.7 mg/dL (8.4-10.2); Carbon Dioxide 17 mmol/L (22-32); Chloride 104 mmol/L (98-107); Estimated Glomerular Filt Rate > 60 mL/min (>60); Glucose 123 mg/dL (80-110); HEMOLYSIS 40 (0-50); Potassium 3.4 mmol/L (3.4-5.1); Sodium 133 mmol/L (137-145)
--- NOTE | 2023-02-15 09:33 | PC.NURSE ---
late entry Patient arrived to room 206 02/14/23 at approximately 1245 pm. Patient had PICC placed and DI Nurse awaiting placement confirmation. Cleared to use PICC Line. Patient was able to answer some simple yes and no questions about comfort and state name. Unable to state where she is even with choices. She moves all extremities and speech is clear. She denies pain but state nausea comes and goes. VSS, although low grade temp 99.0-100.2 this afternoon. NSR on telemetry this shift. She tolerates IV vanco and zosyn well and receives potassium replacement from ED (6) total bags of 10 MEQ K+. This evening she is cleared for clear liquid diet but declines eating and drinking more than a sip or two. Per labs 3.2 K+ potassium this afternoon orders to repeat K+ replacement started on (3 of 4 bags) 10 meq K+. Son (Chinedu) called for an update on patient today states he lives with his mother and at baseline she is mobile and mostly oriented at baseline, some forgetfullness.
[2023-02-15 09:45] LABS: Troponin I 0.067 ng/mL (0.01-0.034)
[2023-02-15 10:00] LABS: Magnesium 2.1 mg/dL (1.6-2.3)
[2023-02-15] MEDS: SODIUM CHLORIDE 0.9% 1,000 ML 150 ML IV ×2 (10:44→18:22)
--- NOTE | 2023-02-15 13:14 | PC.NURSE ---
Addendum entered by Jose Nelson R.N. 02/15/23 17:10: 1530 - Patient tolerated five minutes of the MRI. Upon returning, exhibiting flat affect and no speech. Able to follow commands, tracking with her eyes. Dr Cabrales at bedside. Original Note: Patient states vision is blurry. Pupils unequal and non-reactive, right 6mm and left 8mm. Dr Cabrales made aware.
--- NOTE | 2023-02-15 13:23 | DI.MRI.S_ITS ---
PROCEDURE: MR HEAD/BRAIN WO CON INDICATIONS: confusion TECHNIQUE: Is this study is highly limited, terminated early by the patient. The following imaging sequences were obtained: Sagittal FLAIR images, axial T1 weighted images, axial FLAIR images COMPARISON: [facility], CT, CT HEAD/BRAIN WO CON, 02/14/2023, 22:21. FINDINGS: Image quality: Limited by patient motion and by incomplete protocol, as the patient terminated the examination early. CSF spaces: Ventricles appear symmetric in size and shape. Basal cisterns are patent. No extra-axial fluid collections. Brain: No intracranial bleeds or mass effects. There is cerebral volume loss for age. There are periventricular and deep white matter chronic small vessel ischemic changes. Brainstem appears normal. No chronic ischemic insults. Normal intravascular flow voids are present. Skull and face: Calvarial bone marrow is normal in signal. Orbits are normal. Sinuses: No significant paranasal sinus abnormality is seen. IMPRESSION: Highly limited study, without a kaila acute abnormality. Please note that no diffusion weighted images were obtained and this study does not evaluate for acute infarct. Please consider short-term follow-up study, when complete the examination. Dictated by: Maury Danielson M.D. on 02/15/2023 at 15:19 Approved by: Maury Danielson M.D. on 02/15/2023 at 15:21
[2023-02-15 13:36] LABS: Alanine Aminotransferase 19 IU/L (<35); Albumin 4.1 g/dL (3.5-5.0); Albumin Globulin Ratio 1.2 (1.0-2.8); Alkaline Phosphatase 111 U/L (38-126); Aspartate Aminotransferase 59 IU/L (14-36); BUN Creatinine Ratio 14.7 (6-22); Bilirubin Total 1.2 mg/dL (0.2-1.3); Blood Urea Nitrogen 10 mg/dL (7-17); Calcium 9.2 mg/dL (8.4-10.2); Carbon Dioxide 16 mmol/L (22-32); Chloride 105 mmol/L (98-107); Estimated Glomerular Filt Rate > 60 mL/min (>60); Globulin 3.4 g/dL (1.7-4.1); Glucose 141 mg/dL (80-110); Potassium 3.6 mmol/L (3.4-5.1); Sodium 135 mmol/L (137-145); Total Protein 7.5 g/dL (6.3-8.2)
[2023-02-15 13:37] LABS: HEMOLYSIS 57 (0-50)
[2023-02-15 13:52] LABS: Troponin I 0.045 ng/mL (0.01-0.034)
[2023-02-15] MEDS: ONDANSETRON 4 MG/2 ML INJ IV (14:56)
--- NOTE | 2023-02-15 17:21 | DI.CT.S_ITS ---
PROCEDURE: CT HEAD/BRAIN WO CON INDICATIONS: confusion TECHNIQUE: Noncontrast 4.5 mm thick angled axial sections acquired from the foramen magnum to the vertex, with coronal and sagittal reformats. For radiation dose reduction, the following was used: automated exposure control, adjustment of mA and/or kV according to patient size. COMPARISON: [facility], CT, CT STROKE, 02/13/2023, 14:13. [facility], MR, MR HEAD/BRAIN WO CON, 02/15/2023, 15:35. [facility], CT, CT HEAD/BRAIN WO CON, 02/14/2023, 22:21. FINDINGS: Image quality: Excellent. CSF spaces: Basal cisterns are patent. No extra-axial fluid collections. The ventricles are symmetric in size and shape. Brain: No intracranial bleeds or masses. There is cerebral volume loss for age, with resultant ventricular and sulcal prominence. There are periventricular and deep white matter chronic small vessel ischemic changes. There is intracranial internal carotid artery atherosclerosis. Skull and face: Calvarium and visualized facial bones appear intact, without suspicious lesions. Sinuses: Visualized sinuses and mastoids are clear. IMPRESSION: No interval abnormality can be seen. No acute intracranial hemorrhage. Dictated by: Maury Danielson M.D. on 02/15/2023 at 17:27 Approved by: Maury Danielson M.D. on 02/15/2023 at 17:28
[2023-02-16] VITALS (51 sets, daily range): BP systolic 131–170; BP diastolic 69–95; PULSE 55–101; RESP 14–34; TEMP 36.8–38.1; O2SAT 85–98
[2023-02-16] MEDS: SODIUM CHLORIDE 0.9% 1,000 ML 150 ML IV ×3 (01:10→21:29)
[2023-02-16] MEDS: ONDANSETRON 4 MG/2 ML INJ IV ×2 (04:02→11:11)
[2023-02-16] MEDS: PIPERACILLIN/TAZO 3.375 GM in SODIUM CHLORIDE 0.9% 100 ML IV ×2 (08:52→15:30)
[2023-02-16] MEDS: PANTOPRAZOLE 40 MG VIAL IV ×2 (08:53→21:30)
[2023-02-16] MEDS: HEPARIN 5,000 UNIT/ML VIAL 5000 UNIT SUBCUT ×2 (08:53→21:30)
--- NOTE | 2023-02-16 09:13 | DI.ECHO.S_ITS ---
[facility] +---------+ : : [address] : : : : [id number] : : : : Phone: [phone]+ Echocardiogram Report + + :Name: DEBBIE SALAZAR Study Date: 02/16/2023 Height: 64 in : :[facility] ReadingLocation: Weight: 140 lb : : Gender: Female BSA: 1.7 m2 : :: 1955 Age: 67 yrs BP: 136/79 mmHg: :Reason For Study: TACHYCARDIA : :Ordering Physician: JOSE, : :THERESA Calix Performed By: Kaylin Aaron : :Referring: THERESA GARCIA : + + Interpretation Summary Normal sinus rhythm. Heart rate is 55-59 bpm. Normal LV size, wall thickness, wall motion and LV systolic function. Ejection fraction is 60-65% Normal chamber sizes. No significant valvular abnormalities. No prior study available for comparison. Procedure: A two-dimensional transthoracic echocardiogram with color flow and Doppler was performed. The study quality was technically adequate. There is no prior echocardiogram noted for this patient. The patient was in sinus rhythm with heart rates between 55-59 bpm during the exam. Left Ventricle: The left ventricle is normal in size and wall thickness. The ejection fraction is estimated to be 60-65%. Right Ventricle: The right ventricle is normal in size and function. Atria: The left atrial size is normal. Right atrial size is normal. There is no Doppler evidence for an interatrial shunt. Mitral Valve: The mitral valve is normal in structure and function. There is mild mitral regurgitation. Aortic Valve: The aortic valve is trileaflet. The aortic valve opens well. There is no aortic valve stenosis. There is trace aortic regurgitation. Tricuspid Valve: The tricuspid valve is normal in structure and function. There is mild tricuspid regurgitation. The right ventricular systolic pressure is estimated to be at least 25 mmHg based on an estimated right atrial pressure of 3 mm Hg. Pulmonic Valve: The pulmonic valve leaflets are thin and pliable; valve motion is normal. There is no pulmonic valvular regurgitation. Great Vessels: The aortic root is normal size. The dimensions of the ascending aorta are normal. The IVC is of normal diameter and collapses greater than 50% with a sniff. This suggests a low right atrial pressure of 3 mm Hg. Pericardium/ Pleura There is no pericardial effusion. There is no pleural effusion. MMode/2D Measurements & Calculations LVIDd: 4.3 cm LVOT diam: 2.0 cm LVIDs: 2.7 cm Ao root diam: 2.7 cm FS: 37.0 % asc Aorta Diam: 2.6 cm EPSS: 1.0 cm Ao Arch Diam (Prox Trans): 2.5 cm IVSd: 0.72 cm LVPWd: 0.87 cm LV byers. diameter/BSA (cm/m^2): 2.6 LV sys. diameter/BSA (cm/m^2): 1.6 LA A2 area: 14.8 cm2 RA long axis: 4.4 cm LA A4 area: 14.2 cm2 RA area: 13.0 cm2 LA length (vol): 4.2 cm RA vol: 32.6 ml LA vol: 42.6 ml RA : 19.4 ml/m2 LA vol index: 25.3 ml/m2 IVC diam: 1.1 cm RVD1 (basal): 3.6 cm RVD2 (mid): 2.8 cm TAPSE: 2.3 cm Doppler Measurements & Calculations Ao V2 max: 152.3 cm/sec LVOT Max Florencio: 84.6 cm/sec Ao V2 mean: 107.3 cm/sec LV V1 max P.9 mmHg Ao max P.3 mmHg LV V1 VTI: 17.0 cm Ao mean P.2 mmHg CHASTITY(I,D): 1.9 cm2 Ao V2 VTI: 30.2 cm CHASTITY(V,D): 1.8 cm2 sev ratio: 0.56 CHASTITY indexed to BSA (cm^2/m^2): 1.1 MV E max florencio: 57.7 cm/sec TR max florencio: 234.2 cm/sec MV A max florencio: 80.5 cm/sec TR max P.9 mmHg MV E/A: 0.72 PA V2 max: 87.4 cm/sec Med Peak E' Florencio: 4.1 cm/sec PA V2 mean: 56.4 cm/sec E/E' med: 14.2 PA mean P.5 mmHg Lat Peak E' Florencio: 5.6 cm/sec PA pr(Accel): 27.6 mmHg E/E' lat: 10.3 E/e' average: 12.2 MV dec time: 0.34 sec Pulm Fifi Revs Florencio: 31.8 cm/sec SV(LVOT): 56.0 ml Pulmalcom Calix Revs Dur: 0.11 sec Electronically signed by: Michelle Bai M.D. on Reading Physician:02/16/2023 04:10 PM
[2023-02-16] MEDS: AMIODARONE 150 MG/100 ML PIGGYBACK 600 MG IV (10:45)
[2023-02-16 10:48] LABS: Add Manual Diff / Slide Review NO; Basophils Absolute Auto 100 /uL (0-100); Basophils Percent Auto 0.6 % (0-2); Eosinophils Absolute Auto 0 /uL (0-450); Hematocrit 37.4 % (36-46); Hemoglobin 12.6 g/dL (12.0-16.0); Lymphocytes Absolute Auto 2100 /uL (1100-4500); Lymphocytes Percent Auto 16.6 % (25-40); Mean Corpuscular HGB Conc 33.6 % (30-36); Mean Corpuscular Hemoglobin 28.7 PG (26-34); Mean Corpuscular Volume 85.5 fL (80-100); Monocytes Absolute Auto 1000 /uL (0-900); Monocytes Percent Auto 7.7 % (3-14); Neutrophils Absolute Auto 9600 /uL (1500-7000); Neutrophils Percent Auto 75.1 % (50-75); Platelet Count 280 X10^3/uL (150-400); Red Blood Cell Count 4.37 X10^6/uL (4.0-5.2); Red Cell Distribution Width 12.9 % (11.6-14.8); White Blood Cell Count 12.8 X10^3/uL (4.5-11.0)
[2023-02-16 11:00] LABS: Magnesium 1.7 mg/dL (1.6-2.3)
[2023-02-16 11:01] LABS: BUN Creatinine Ratio 15.5 (6-22); Blood Urea Nitrogen 9 mg/dL (7-17); Calcium 8.3 mg/dL (8.4-10.2); Carbon Dioxide 20 mmol/L (22-32); Chloride 105 mmol/L (98-107); Estimated Glomerular Filt Rate > 60 mL/min (>60); Glucose 96 mg/dL (80-110); HEMOLYSIS 23 (0-50); Sodium 133 mmol/L (137-145)
[2023-02-16 11:02] LABS: Potassium 2.6 mmol/L (3.4-5.1)
[2023-02-16] MEDS: AMIODARONE 360 MG/200 ML PIGGYBACK 33.3 MG IV (11:05)
[2023-02-16] MEDS: MAGNESIUM SULFATE 2 GM/50 ML PIGGYBACK IV (11:12)
[2023-02-16] MEDS: POTASSIUM CHLORIDE IN WATER 10 MEQ/100 ML PIGGYBACK 100 MEQ IV ×8 (11:35→18:28)
--- NOTE | 2023-02-16 12:06 | PC.NURSE ---
1039 - Patient's monitoring manager alarming v-tach. Patient symptomatic with mild dizziness, stated they felt their heart racing. Dr Hightower alerted, IV amiodarone protocol restarted.
--- NOTE | 2023-02-16 13:05 | CM.DANOTE ---
Initial DCP Assessment Note Pt is a 67 yo female, resident of [place], admitted for encephalopathy, possibly UTI source PCP: Nito Coburn Payer: ALICE ESCOBEDO Reviewed chart, spoke with son/DPOA Chinedu (requested DPOA ppk) by phone, introduced self and role Patient and son Chinedu currently live together, Chinedu is not employed currently. Patient's spouse 3 years ago. Patient is indp and active at baseline per son and completes all ADLs indp Patient has struggled with depression and anxiety for most of her adult life per son, feels sx have been well managed on Lexapro. Patient had expressed suicidal ideation in 2008,no attempt, son states patient has not expressed SI to him since that time Discussed home health services. Son willing to consider if dr recommends. This MCAT INSTRUCTOR will plan to meet with patient today or tomorrow once more awake and alert, introduce self and role and review DCP JOLIE Jovel Discharge Planning/Care Management CM Discharge Assessment Start: 02/16/23 12:58 Freq: Status: Active Protocol: Document 02/16/23 12:58 CINDY (Rec: 02/16/23 13:05 CINDY [id number]) Discharge Planning Assessment Assigned Specialty Molder JOLIE Snider/Assigned Designee Name aranza Spangler Contact Information [phone] Advance Directives? Yes Advance Directives on File No History Provided By Family Member,Medical Record Prior Living Arrangements House Household Members children Type of transporation used prior to Relies on Others admit Independent with ADL's Yes Is patient alert and oriented? Yes Comment Struggled with depression and anxiety most of her life per son. [facility] 2008 suicidal ideation. None expressed since that time per son Patient/Family Preference Home with Home Health Barriers to Discharge No Comment Home w/son upon discharge, may benefit from HH services Discharge Plan Home Transportation Arrangement son Additional Comment May benefit from HH services
[2023-02-16] MEDS: LOPERAMIDE 2 MG CAPSULE PO (15:44)
--- NOTE | 2023-02-16 15:58 | ST.IPSLE ---
Visit Care Team Role Provider Type Carolina Olmstead DO Referring Provider Physician Specialty: Emergency Medicine Address: [address] [place] [address], [address] Email: [email or web address] Primary Care Provider Non-Staff Specialty: Nursing Address: [address] [address], [address], [place], [address] Fax: Email: Dorian Mir DO Emergency Provider Physician Specialty: Emergency Medicine Address: [address] [place] [address], [address] Email: [email or web address] Rodney Vogt MD Admit Provider Physician Attending Provider Specialty: Hospitalist Address: [address] [place] [address], [address] Fax: Email: [email or web address] Sepsis, unspecified organism (02/14/23) Speech-Language Pathology 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 Khanna is a 67W with PMH hiatal hernia, depression who presents to the hospital with encephalopathy and fever. She is unable to provide any significant history. Her family does provide a history and states she has previously had a severe encephalopathic admission secondary to temazepam overdose. However this event there is no known ingestion. She does have a prescription for lexapro but has not filled this recently. She did have lomotil at home, her son found an old bottle of gabapentin for her dog. Her son did say she have urinary symptoms a few days prior to presentation, and that she was concerned she was developing a UTI. She had some back pain as well. She has no cough or shortness of breath. She was found confused at her home, unable to provide history, speaking garbled, she was repeatedly vomiting. In the ED workup was done, vitals notable for febrile to 101, heart rate 70s, blood pressure 120s/70s, sats 97% on room air. Labs reviewed by me and notable for WBC 11.6->17. 6, hgb 14, plts 370. Creatinine 0.77. Lactate 2.8-> 1.6->5.1->2.5->1.8. Procal 0. 03. UA had trace leuk esterase and many bacteria. Urine culture showed gram negative rods. CSF showed mildly elevated glucose and protein, and WBCs of 3. Urine tox screen negative. Viral respiratory panel negative. Chest xray with no acute process. Head CT with no acute process. CT abdomen showed moderate to large hiatal hernia with fluid filled esophagus, possible colonic wall thickening. EKG with narrow complex, normal intervals, tachycardic. She was ordered for fluids and antibiotics and admitted for further treatment. Pt admitted for encephalopathy , and was noteable for low K and Mag. Pt demonstrating continued sessions of emesis with nursing note reporting concerns for possible aspiration and unequal pupil size. Head CT showed no acute findings. Following attempted MRI, pt reported to be nonverbal with increased confusion. Pt demonstrating variable mentation with memory deficits. ST referred to assess current swallow and cognitive function. Hearing Hearing Level Normal Vision Vision Status Impaired Comments blurry vision Subjective Pain Intensity 0 Pain Scale Used Numeric (0 - 10) Mental Status Alert,Confused,Lethargic Assessment Oral Motor Examination Completed Yes Results OME WNL Informal Assessment Receptive Language Normal Yes Receptive Language Impairment(s) Comprehension of complex yes/ no questions,Following 3-step commands Expressive Language Normal No: word finding deficits observed Expressive Language Impairment(s) Divergent naming,Expression of complex thoughts/ideas Pragmatic Language Normal Yes Speech Normal No Speech Impairment(s) Slow speech rate,Decreased volume/intensity,Poor breath support Cognition Normal No Cognitive Impairment(s) Orientation,Attention,Short- term memory,Long-term memory, Executive functioning,Problem solving,Reasoning,Thought organization,Safety awareness, Impulsivity Formal Assessment Standardized Test/Screener Type [facility] Status ([facility]) Administration Incomplete Results UMS attempted, and partially completed, unable to complete d/t patient fatigue and nausea. Pt partially oriented, with difficulty in short term memory and attention. PT stated she feels she has had mild cognitive improvement, but that her cognition is still not good, that she had recently been asked simple questions by other staff but had been unable to recall them (where she was, where she lived, etc). Pt was able to state the date, including the year, but this may have been d /t recently being asked by other staff. Pt did not recall where her call light was or how to ask for assist. ST provided education and example w good return. Pt demonstrated difficulty w recall of recent events and with reasoning tasks (cause and effect of intake and nutrition, impact of hernia and esophageal issues as possible causation for emesis and illness). Findings/Results Language Function Within functional limits Cognitive Function Moderately impaired Findings Subjectively, pt demonstrates moderate cognitive impairment, with an unclear etiology. Pt demonstrates variable mentation which may be related to hypokalemia, however does not appear to directly correlate to K+ levels. Pt K+ had increased to 3.6 on 02/15, however K+ dropped in labs performed today (02/16) to 2.6. Variable mentation appears likely to be metabolic in nature. Should pt not demonstrate improvement in cognitive function following treatment of current medical issues, pt may benefit from re -evaluation and skilled ST to address environmental modifications and patient/ caregiver training for increased safety and participation. ST to dc at this time with re-evaluation as needed. Cognitive Communication Deficits Self-awareness of Cognitive- Situational awareness ( Communication Deficits recognition of problem in context;in real time) Impact on Functioning Activity Limits/Particip.Rest. Mod: General Tasks and Demands Safety Risks Sev: Being Left Alone at Home Reacting to Emergency Managing Medication Traveling Alone in Community Prognosis Comment Unable to assess at this time Plan of Care Speech-Language Treatment No Discharge Recommendations Home with Home Health
--- NOTE | 2023-02-16 16:05 | ST.IPCSEOM ---
Visit Care Team Role Provider Type Carolina Olmstead DO Referring Provider Physician Specialty: Emergency Medicine Address: [address] [place] [address], [address] Email: [email or web address] Primary Care Provider Non-Staff Specialty: Nursing Address: [address] [address], [address], [place], [address] Fax: Email: Dorian Mir DO Emergency Provider Physician Specialty: Emergency Medicine Address: [address] [place] [address], [address] Email: [email or web address] Rodney Vogt MD Admit Provider Physician Attending Provider Specialty: Hospitalist Address: [address] [place] [address], [address] Fax: Email: [email or web address] Sepsis, unspecified organism (02/14/23) Speech-Language Pathology Swallow 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 ST assisted in repositioning to approx fully upright position. Pt denied any physical issues with swallowing or cough response to solids or liquids, describing the issue as more mental, like she was reluctant or just didn't want to eat or drink, likely d/t frequent emesis. Patients vocal quality low and raspy, with loss of voice x1 during session for a few seconds. Reported by Patient/Caregiver Pain/Discomfort No Current Diet Liquidised (IDDSI 3) Baseline Feeding Method Independent in self-feeding Type of Patient Questionnaire (e.g., EAT Promis GDS -10, MDADI, etc.) Results 51.6, indicative of mild swallow impairment, possibly related to her hiatal hernia The IDDSI Framework Protocol: IDDSI.1 Objective Assessment Mental Status Alert,Confused Oral Integrity WFL Dentition Within normal limits Lip Function Within normal limits Tongue Function Within normal limits Jaw Function Within normal limits Hard/Soft Palate Function Within normal limits Food and Liquid Trials Position During Assessment Upright (90 degrees) Liquids Trialed Thin (IDDSI 0) Administration Type Cup consecutive sips,Straw Oral Impairment Within functional limits Pharyngeal Impairment Within functional limits Fatigue/Endurance Moderate fatigue [place] Swallow Protocol Yes Results Pt passed [place] challenge, however pt noted to be slow to attempt and demonstrated increased vocal roughness following multiple swallows. ( Voice is noted to be low and raspy, possibly d/t combined repeated emesis and limited oral intake. ST provided education on need for oral intake and followup w PCP should vocal issues not resolve) The IDDSI Framework Protocol: IDDSI.1 Findings Swallowing Function Within functional limits Swallowing Function Comments mild weakness in swallow function, no overt s/s of asp/ pen observed. Severity of Swallow Impairment Within functional limits Contributing Factors to Swallow Reduced alertness or attention Impairment Prognosis Fair Based on Cognitive status,Other ( comment) Comment Clinical swallow eval today demonstrated min functional swallow concerns, pt demonstrated no overt s/s of asp/pen at beside and was able to sucessfully complete a [place] swallow challenge. ( although silent aspiration cannot be ruled out with an instrumental exam). Patient does demonstrate a low and raspy vocal quality, which is believed to be d/t repeated episodes of emesis and limited oral intake. ST recommended patient discuss w PCP should it not resolve independently in response to other cares. Limited oral intake and mild swallow deficits appear likely to be related to esophageal findings (hiatal hernia and fluid filled esophagus) and repeated emesis, (possibly related to hernia and/or low K +). ST discussed options of clear nutritional drinks vs milk based with patient and informed nursing of pt preference of clear/ juice based protein drinks). ST provided education for importance of small amounts of oral intake as tolerated. Should current min intake continue, pt may be at risk for inadequate nutition/ hydration. No additional swallow therapy required at this time, recommend re-eval if needed following treatment for hernia and hypokalemia. Impact on Safety and Functioning Risk for inadequate nutrition/ hydration Recommendations Instrumental Assessment No Swallowing Treatment No Recommended Liquids Thin (IDDSI 0) Safety Precautions/Swallowing Remain upright (90 degrees) Recommendations during all oral intake,Small bites and sips when eating, Slow rate; swallow between bites Medication Recommendations As Tolerated Discharge Recommendations Home,Home with Home Health Referrals Recommended Referrals Gastroenterology Education Patient/Caregiver Education Patient expressed understanding of evaluation, Patient expressed understanding of safety precautions,Patient expressed understanding of feeding recommendations
[2023-02-16] MEDS: AMIODARONE 360 MG/200 ML PIGGYBACK 16.7 MG IV (16:27)
--- NOTE | 2023-02-16 17:16 | PM.PN.1 ---
Subjective Subjective Interval history: Patient feeling more clear-headed today. Having NV and diarrhea. Runs of VT this AM so back on amio drip with plan to bridge to po amio. K returned at 2.6. Exam Vital Signs (past 8 hours): - 02/16/23 12:00 02/16/23 09:30 02/16/23 10:00 Temperature 98.2 F 100.0 F H Pulse Rate 75 Respiratory Rate 25 H Blood Pressure 163/89 H Pulse Oximetry Oxygen Delivery Method 02/16/23 10:00 02/16/23 10:30 02/16/23 10:42 Temperature 99.9 F H 99.9 F H Pulse Rate 57 L 81 Respiratory Rate 25 H 17 Blood Pressure 149/75 H Pulse Oximetry Oxygen Delivery Method 02/16/23 10:42 02/16/23 11:00 02/16/23 11:00 Temperature 99.9 F H 99.9 F H Pulse Rate 85 101 H Respiratory Rate 26 H 22 Blood Pressure 146/82 H Pulse Oximetry Oxygen Delivery Method 02/16/23 11:30 02/16/23 12:00 02/16/23 12:00 Temperature 99.9 F H Pulse Rate 79 69 Respiratory Rate 17 14 Blood Pressure 135/78 Pulse Oximetry Oxygen Delivery Method 02/16/23 10:00 02/16/23 13:00 02/16/23 13:10 Temperature 98.2 F Pulse Rate Respiratory Rate Blood Pressure Pulse Oximetry 98 Oxygen Delivery Method Room Air Room Air 02/16/23 12:30 02/16/23 13:00 02/16/23 13:00 Temperature Pulse Rate 68 69 Respiratory Rate 22 24 Blood Pressure 149/73 H Pulse Oximetry Oxygen Delivery Method 02/16/23 13:30 02/16/23 14:00 02/16/23 14:00 Temperature Pulse Rate 84 64 Respiratory Rate 21 15 Blood Pressure 131/76 Pulse Oximetry Oxygen Delivery Method 02/16/23 14:30 02/16/23 15:00 02/16/23 15:00 Temperature Pulse Rate 70 60 Respiratory Rate 29 H 20 Blood Pressure 136/70 Pulse Oximetry Oxygen Delivery Method 02/16/23 15:30 02/16/23 17:00 Temperature Pulse Rate 65 Respiratory Rate 17 Blood Pressure Pulse Oximetry 98 Oxygen Delivery Method Room Air Oxygen Delivery Method Room Air Oxygen Flow Rate 0 Narrative Exam Narrative: NAD, appears fatigued Slow but appropriate speech. Lungs clear Heart regular. No murmur. Abdomen soft. NT No leg edema or skin rash. Objective Labs 02/16/23 09:11 02/16/23 09:11 Labs: Laboratory Results - last 24 hr 02/16/23 02/16/23 02/16/23 09:11 09:11 10:30 WBC 12.8 H RBC 4.37 Hgb 12.6 Hct 37.4 MCV 85.5 MCH 28.7 MCHC 33.6 RDW 12.9 Plt Count 280 Neut % (Auto) 75.1 H Lymph % (Auto) 16.6 L [place] % (Auto) 7.7 Eos % (Auto) 0.0 L Baso % (Auto) 0.6 Neut # (Auto) 9600 H Lymph # (Auto) 2100 [place] # (Auto) 1000 H Eos # (Auto) 0 Baso # (Auto) 100 Sodium 133 L Potassium 2.6 L* Chloride 105 Carbon Dioxide 20 L BUN 9 Creatinine 0.58 Estimated GFR > 60 BUN/Creatinine Ratio 15.5 Glucose 96 Calcium 8.3 L Magnesium 1.7 PFSH Social History household members: children Smoking Status: Former smoker alcohol intake: never Assessment & Plan Assessment & Plan narrative: 1. Acute encephalopathy, POA and resolved. -etiology possibly secondary to infection (pos urine culture). -lumbar puncture with only 3 WBCs, doubt infection. Culture negative. -urine culture with E. coli resistant to cephalosporins and quinolones -CT shows no pneumonia -procal only at 0.03, lactic at 1.5 -ammonia normal -other consideration is ingestion, possible serotonin syndrome vs anticholinergic toxicity, but no definite ingestion occurred per family, and if it were the case supportive care is what is indicated. She denies. -follow up blood cultures (remain negative). -continue Zosyn, stop vanco. 2. VT, improved. - mag 1.7 and K 2.6, repleted with IV - monitor and replete PRN - cont amiodarone drip with bridge to po amio - ECHO with EF 60-65% and otherwise normal 3. Hypokalemia and Hypomagnesemia, new and active. - replete and monitor. 4. Pyelonephritis with sepsis, improving -secondary to possible urinary infection -presented with leukocytosis, fevers and encephalopathy -cont Zosyn, urine culture with E. coli resistant to cephalosporins and quinolones 5. Depression -hold ssri for now 6. Hiatal hernia -continue with IV PPI -advance diet as able -speech eval ordered Dispo: Home pending resolution of VT and sepsis. Likely 1-2 days. Time Spent With Patient Time with patient: less than 30 minutes Quality VTE Deep Vein Thrombosis/Pulmonary Embolism Present on Admission: No
[2023-02-16] MEDS: PRAMIPEXOLE 0.25 MG TABLET 0.125 MG PO (18:28)
[2023-02-16 20:37] LABS: BUN Creatinine Ratio 10.9 (6-22); Blood Urea Nitrogen 7 mg/dL (7-17); Calcium 8.1 mg/dL (8.4-10.2); Carbon Dioxide 17 mmol/L (22-32); Chloride 110 mmol/L (98-107); Estimated Glomerular Filt Rate > 60 mL/min (>60); Glucose 117 mg/dL (80-110); HEMOLYSIS < 15 (0-50); Sodium 137 mmol/L (137-145)
[2023-02-16 21:57] LABS: HEMOLYSIS 49 (0-50); Potassium 3.3 mmol/L (3.4-5.1)
[2023-02-16] MEDS: LORazepam 0.5 MG TABLET PO (22:43)
[2023-02-17] VITALS (31 sets, daily range): BP systolic 118–153; BP diastolic 64–86; PULSE 53–79; RESP 10–29; TEMP 36.6; O2SAT 95–99
[2023-02-17] MEDS: PIPERACILLIN/TAZO 3.375 GM in SODIUM CHLORIDE 0.9% 100 ML IV ×2 (00:26→08:14)
[2023-02-17] MEDS: LOPERAMIDE 2 MG CAPSULE PO (03:13)
[2023-02-17 04:19] LABS: Add Manual Diff / Slide Review NO; Basophils Absolute Auto 100 /uL (0-100); Basophils Percent Auto 1.4 % (0-2); Eosinophils Absolute Auto 0 /uL (0-450); Hematocrit 34.2 % (36-46); Hemoglobin 11.6 g/dL (12.0-16.0); Lymphocytes Absolute Auto 2000 /uL (1100-4500); Lymphocytes Percent Auto 21.9 % (25-40); Mean Corpuscular Hemoglobin 28.9 PG (26-34); Monocytes Absolute Auto 900 /uL (0-900); Monocytes Percent Auto 9.5 % (3-14); Neutrophils Absolute Auto 6100 /uL (1500-7000); Neutrophils Percent Auto 67.2 % (50-75); Platelet Count 253 X10^3/uL (150-400); Red Blood Cell Count 4.02 X10^6/uL (4.0-5.2); Red Cell Distribution Width 12.9 % (11.6-14.8)
[2023-02-17 04:27] LABS: BUN Creatinine Ratio 8.6 (6-22); Blood Urea Nitrogen 5 mg/dL (7-17); Calcium 7.7 mg/dL (8.4-10.2); Carbon Dioxide 20 mmol/L (22-32); Chloride 106 mmol/L (98-107); Estimated Glomerular Filt Rate > 60 mL/min (>60); Glucose 141 mg/dL (80-110); HEMOLYSIS 45 (0-50); Magnesium 1.9 mg/dL (1.6-2.3); Potassium 2.9 mmol/L (3.4-5.1); Sodium 133 mmol/L (137-145)
[2023-02-17] MEDS: AMIODARONE 180 MG/100 ML PIGGYBACK 16.7 MG IV (04:45)
[2023-02-17] MEDS: SODIUM CHLORIDE 0.9% 1,000 ML 150 ML IV (04:45)
[2023-02-17] MEDS: POTASSIUM CHLORIDE IN WATER 10 MEQ/100 ML PIGGYBACK 100 MEQ IV ×4 (04:49→08:02)
[2023-02-17] MEDS: MAGNESIUM SULFATE 2 GM/50 ML PIGGYBACK IV (05:47)
[2023-02-17] MEDS: PANTOPRAZOLE 40 MG VIAL IV (09:00)
[2023-02-17] MEDS: HEPARIN 5,000 UNIT/ML VIAL 5000 UNIT SUBCUT (09:00)
--- NOTE | 2023-02-17 10:35 | PC.NURSE ---
1015 - Cullen catheter removed. Patient tolerated well.
[2023-02-17] MEDS: POTASSIUM CHLORIDE 20 MEQ TAB 40 MEQ PO ×2 (10:37→12:00)
[2023-02-17] MEDS: METOCLOPRAMIDE 10 MG/2 ML INJ IV (12:54)
--- NOTE | 2023-02-17 15:30 | P.DS_ITS ---
History of Present Illness History of Present Illness Date Patient Seen: 02/14/23 Time Patient Seen: 09:00 Chief complaint: ?UTI, weakness, nausea x 5 days Narrative: Ms. Khanna is a 67W with PMH hiatal hernia, depression who presents to the hospital with encephalopathy and fever. She is unable to provide any significant history. Her family does provide a history and states she has previously had a severe encephalopathic admission secondary to temazepam overdose. However this event there is no known ingestion. She does have a prescription for lexapro but has not filled this recently. She did have lomotil at home, her son found an old bottle of gabapentin for her dog. Her son did say she have urinary symptoms a few days prior to presentation, and that she was concerned she was developing a UTI. She had some back pain as well. She has no cough or shortness of breath. She was found confused at her home, unable to provide history, speaking garbled, she was repeatedly vomiting. In the ED workup was done, vitals notable for febrile to 101, heart rate 70s, blood pressure 120s/70s, sats 97% on room air. Labs reviewed by me and notable for WBC 11.6->17.6, hgb 14, plts 370. Creatinine 0.77. Lactate 2.8->1.6->5.1->2.5->1.8. Procal 0.03. UA had trace leuk esterase and many bacteria. Urine culture showed gram negative rods. CSF showed mildly elevated glucose and protein, and WBCs of 3. Urine tox screen negative. Viral respiratory panel negative. Chest xray with no acute process. Head CT with no acute process. CT abdomen showed moderate to large hiatal hernia with fluid filled esophagus, possible colonic wall thickening. EKG with narrow complex, normal intervals, tachycardic. She was ordered for fluids and antibiotics and admitted for further treatment. Discharge Providers Provider Date of admission: 02/14/23 09:35 Discharge Date: 02/17/23 Primary care physician: CHRISTINE Berger Consults: 02/16/23 11:19 Consult to Speech Therapy Evaluate & Treat Comment: Physician Instructions: Evaluate and treat 02/17/23 14:46 Consult to Physical Therapy Evaluate & Treat Comment: Physician Instructions: Evaluate and Treat Discharge provider: Stuart Hightower DO Summary Hospital Course Discharge Diagnosis: 1. Acute encephalopathy, POA and resolved. -etiology possibly secondary to infection (pos urine culture). -lumbar puncture with only 3 WBCs, doubt infection. Culture negative. -urine culture with E. coli resistant to cephalosporins and quinolones -CT shows no pneumonia -procal only at 0.03, lactic at 1.5 -ammonia normal -other consideration is ingestion, possible serotonin syndrome vs anticholinergic toxicity, but no definite ingestion occurred per family, and if it were the case supportive care is what is indicated. She denies. -follow up blood cultures (remain negative). -received 5 days of Zosyn -AMS resolved -discharged on po augmentin to complete 10 day course fo pyelo. 2. VT, improved. - mag 1.7 and K 2.6, repleted with IV - monitor and replete PRN - cont amiodarone drip, finished no recurrence of VT - ECHO with EF 60-65% and otherwise normal -likely due to recurrent hypokalemia, placed on daily po potassium 20mEq on discharge 3. Hypokalemia and Hypomagnesemia, new and active. - replete and monitor. 4. Pyelonephritis with sepsis, improving -secondary to possible urinary infection -presented with leukocytosis, fevers and encephalopathy -cont Zosyn, urine culture with E. coli resistant to cephalosporins and jose nolones -discharged on po augmentin to finish 10 days 5. Depression -hold ssri for now 6. Hiatal hernia -continue with IV PPI -advance diet as able -speech eval ordered Hospital Course: Admitted for acute encephalopathy and found to have sepsis from pyelo. Treated with IV zosyn. Urine cultures grew E. coli resistant to cephalosporins and quinolones. Her mentation cleared. Had a run of VT due to hypokalemia so placed on amio drip and this resolved. Discharged home on po potassium and 5 more days of po augmentin. Exam Vital Signs (past 8 hours): - 02/17/23 08:00 02/17/23 08:00 02/17/23 08:30 Pulse Rate 55 L 54 L Respiratory Rate 21 22 Blood Pressure 150/86 H Pulse Oximetry Oxygen Delivery Method 02/17/23 09:00 02/17/23 09:00 02/17/23 09:00 Pulse Rate 54 L Respiratory Rate 13 Blood Pressure 148/84 H Pulse Oximetry 99 Oxygen Delivery Method Room Air 02/17/23 09:30 02/17/23 10:00 02/17/23 10:00 Pulse Rate 56 L 79 Respiratory Rate 21 29 H Blood Pressure 137/72 Pulse Oximetry Oxygen Delivery Method 02/17/23 13:00 02/17/23 10:54 02/17/23 11:00 Pulse Rate 68 59 L Respiratory Rate 16 22 Blood Pressure Pulse Oximetry 98 Oxygen Delivery Method Room Air 02/17/23 11:30 02/17/23 12:00 02/17/23 12:30 Pulse Rate 73 73 61 Respiratory Rate 22 23 22 Blood Pressure Pulse Oximetry Oxygen Delivery Method 02/17/23 13:00 02/17/23 13:30 02/17/23 14:00 Pulse Rate 60 57 L 57 L Respiratory Rate 18 16 15 Blood Pressure Pulse Oximetry Oxygen Delivery Method 02/17/23 14:30 Pulse Rate 56 L Respiratory Rate 10 L Blood Pressure Pulse Oximetry Oxygen Delivery Method Oxygen Delivery Method Room Air Oxygen Flow Rate 0 Narrative Exam Narrative: NAD Slow but appropriate speech. Lungs clear Heart regular. No murmur. Abdomen soft. NT No leg edema or skin rash. Objective Labs 02/17/23 04:08 02/17/23 04:08 Labs: Laboratory Results - last 24 hr 02/16/23 02/16/23 02/17/23 20:15 21:20 04:08 WBC RBC Hgb Hct MCV MCH MCHC RDW Plt Count Neut % (Auto) Lymph % (Auto) Reynolds % (Auto) Eos % (Auto) Baso % (Auto) Neut # (Auto) Lymph # (Auto) Reynolds # (Auto) Eos # (Auto) Baso # (Auto) Sodium 137 Potassium 3.0 L 3.3 L Chloride 110 H Carbon Dioxide 17 L BUN 7 Creatinine 0.64 Estimated GFR > 60 BUN/Creatinine Ratio 10.9 Glucose 117 H Calcium 8.1 L Magnesium 1.9 02/17/23 02/17/23 04:08 04:08 WBC 9.0 RBC 4.02 Hgb 11.6 L Hct 34.2 L MCV 85.0 MCH 28.9 MCHC 34.0 RDW 12.9 Plt Count 253 Neut % (Auto) 67.2 Lymph % (Auto) 21.9 L Reynolds % (Auto) 9.5 Eos % (Auto) 0.0 L Baso % (Auto) 1.4 Neut # (Auto) 6100 Lymph # (Auto) 2000 Reynolds # (Auto) 900 Eos # (Auto) 0 Baso # (Auto) 100 Sodium 133 L Potassium 2.9 L Chloride 106 Carbon Dioxide 20 L BUN 5 L Creatinine 0.58 Estimated GFR > 60 BUN/Creatinine Ratio 8.6 Glucose 141 H Calcium 7.7 L Magnesium PFSH Social History household members: children Smoking Status: Former smoker alcohol intake: never Discharge Plan Discharge Plan Patient Disposition: Home Discharge orders & Medications Prescriptions: New amoxicillin-pot clavulanate 875-125 mg tablet 1 tab PO BID 5 Days Qty: 10 0RF potassium chloride 20 mEq tablet extended release 20 meq PO DAILY Qty: 30 0RF Continued escitalopram oxalate 10 mg tablet 10 mg PO DAILY omeprazole 20 mg capsule,delayed release(DR/EC) 20 mg PO DAILY Follow up/Referrals: Nito Coburn ARNP [Primary Care Provider] - 2 Weeks Visit Report/Discharge Packet Stand Alone Forms: Patient Portal/API, Stroke Signs & Symptoms Discharge Data Primary Care Provider: Nito Coburn Discharges patient from system. Discharge Date/Time: 02/17/23 16:35 Quality VTE Deep Vein Thrombosis/Pulmonary Embolism Present on Admission: No
== END 2023-02-17 16:35 | disposition home or self-care (01) | DRG 871 ==
LOC: ED 18:04 → AC 23:37 → ICU 02-15 00:48
PROVIDERS: Emergency Medicine; Family Medicine; Hospitalist; Student in an Organized Health Care Education/Training Program; Admitting Provider Internal Medicine; Emergency Provider Emergency Medicine; PCP Nurse Practitioner Family; Referring Provider Emergency Medicine; Visit Provider Internal Medicine
DX: A41.9 Sepsis, unspecified organism (principal); G93.41 Metabolic encephalopathy; I47.20 Ventricular tachycardia, unspecified; Z16.19 Resistance to other specified beta lactam antibiotics; N12 Tubulo-interstitial nephritis, not specified as acute or chronic; Z16.23 Resistance to quinolones and fluoroquinolones; K44.9 Diaphragmatic hernia without obstruction or gangrene; E87.6 Hypokalemia; E83.42 Hypomagnesemia; B96.20 Unspecified Escherichia coli [E. coli] as the cause of diseases classified elsewhere; Z87.891 Personal history of nicotine dependence
CPT/HCPCS: 36415; 36569; 36592; 36600; 62270; 70450; 70551; 71045; 71260; 74177; 80048; 80053; 80305; 80320; 80329; 81001; 82140; 82550; 82805; 82945; 82962; 83605; 83690; 83735; 84100; 84132; 84145; 84157; 84484; 85025; 85610; 85730; 87040; 87070; 87077; 87086; 87186; 87205; 87633; 87797; 87798; 89051; 92523; 92610; 93005; 93306; 96365; 96366; 96367; 96368; 96375; 96376; 99285; 99291; 99292; C9113; G0480; J0131; J0282; J0696; J1644; J1885; J2060; J2405; J2543; J2765; J3475; Q9967

== ENCOUNTER 2023-02-20 11:45 | Emergency (ER) | payer MEDICARE, SELFPAY ==
[2023-02-13 18:39] VITALS: BMI 22.3
[2023-02-20] VITALS (97 sets, daily range): BP systolic 167–222; BP diastolic 84–120; PULSE 63–111; RESP 0–32; TEMP 36.2; O2SAT 95–100; BMI 23.6
--- NOTE | 2023-02-20 11:59 | ED_ITS ---
HPI - Nausea/Vomiting/Diarrhea General Chief complaint: Nausea/Vomiting/Diarrhea Stated complaint: Nausea and vomiting. Time Seen by Provider: 02/20/23 11:59 Source: patient and EMS Mode of arrival: EMS History of Present Illness HPI Narrative: 67-year-old female with recent history of metabolic encephalopathy, hypokalemia, urinary tract infection presents by EMS from home for nausea and vomiting. Patient was discharged 3 days ago on oral Augmentin after undergoing hospitalization for encephalopathy, UTI, hypokalemia. History is somewhat limited as the patient is actively dry heaving into an emesis bag and moaning in discomfort. Patient states that she is been taking her medications as prescribed, however due to her vomiting she did not take any of her medications this morning. She is uncertain if she was given any antiemetics to take at home. Related Data Home Medications Medication Instructions Recorded Confirmed escitalopram oxalate 10 mg tablet 10 mg PO DAILY 02/13/23 02/13/23 omeprazole 20 mg capsule,delayed 20 mg PO DAILY 02/13/23 02/13/23 release Previous Rx's Medication Instructions Recorded amoxicillin 875 mg-potassium 1 tab PO BID 5 days #10 tabs 02/17/23 clavulanate 125 mg tablet potassium chloride 20 mEq 20 meq PO DAILY #30 tabs 02/17/23 tablet,extended release ondansetron 4 mg disintegrating 4 mg PO Q8H PRN nausea and 02/20/23 tablet vomiting #30 tabs promethazine 25 mg rectal 25 mg ID Q6H PRN vomiting #12 ea 02/20/23 suppository Allergies Allergy/AdvReac Type Severity Reaction Status Date / Time No Known Drug Allergies Allergy Unverified 10/15/21 12:47 Review of Systems Gastrointestinal Gastrointestinal: Denies change in bowel habits, Reports nausea and Reports vomiting Patient History Social History household members: children Smoking Status: Former smoker alcohol intake: never Smoking Status: Former smoker Substance Use Type: does not use Exam Initial Vital Signs Initial Vital Signs: Vital Signs Temperature 97.2 F L 02/20/23 11:50 Pulse Rate 81 02/20/23 11:50 Respiratory Rate 22 02/20/23 11:50 Blood Pressure 198/103 H 02/20/23 11:50 Pulse Oximetry 98 02/20/23 11:50 Oxygen Delivery Method Room Air 02/20/23 11:50 Const: Frail, appears chronically unwell, or the stated age Eyes: PERRL, EOMI, conjunctiva normal ENT: Atraumatic, dentition normal, mildly dry mucous membranes Cardiac: regular rate, regular rhythm RESP: unlabored, clear bilaterally, no wheezing GI: Atraumatic, generalized tenderness to deep palpation without rebound or guarding MSK: Atraumatic, full range of motion, pulses equal Skin: Warm, Dry, intact, no rashes Neuro: AO x3, CN II-XII grossly intact, moves all extremities Psych: affect normal, mood normal, not suicidal, not homicidal Course Course Course Narrative: Chronically and well-appearing patient presenting with nausea and vomiting. Abdomen is soft, but she is actively vomiting into emesis bag. Patient does have history of hiatal hernia, UTI, hypokalemia. We will give antiemetics and will obtain CT imaging of the abdomen and pelvis. Orders Ordered: ED Orders 02/20/23 12:05 Complete Blood Count AUTO DIFF Stat Comprehensive Metabolic Panel Stat Lipase Stat 02/20/23 13:01 CT abdomen pelvis w con Stat 02/20/23 14:40 Urinalysis and Microscopic Stat Urine Culture Stat Urine Drug Screen, Rapid Stat Ondansetron HCl (Ondansetron 4 Mg Odt) 4 mg SL NOW PRN PRN Reason: Nausea And Vomiting Ondansetron HCl (Ondansetron 4 Mg/2 Ml Inj) 4 mg IV NOW PRN PRN Reason: Nausea And Vomiting Discontinued Medications Droperidol (Droperidol 5 Mg/2 Ml Vial) 2.5 mg IV NOW ONE Stop: 02/20/23 13:30 Last Admin: 02/20/23 13:37 Dose: 2.5 mg Documented By: RB Haloperidol (Haloperidol 5 Mg/Ml Vial) 5 mg IV NOW ONE Stop: 02/20/23 14:57 Last Admin: 02/20/23 15:02 Dose: 5 mg Documented By: RB Sodium Chloride (Normal Saline 0.9%) 1,000 mls @ 1,000 mls/hr IV BOLUS ONE Stop: 02/20/23 13:03 Last Infusion: 02/20/23 13:07 Dose: 0 mls/hr Documented By: Admin: 02/20/23 12:19 Dose: 1,000 mls/hr Documented By: RB Metoclopramide HCl (Metoclopramide 10 Mg/2 Ml Inj) 10 mg IV NOW ONE Stop: 02/20/23 12:07 Last Admin: 02/20/23 12:19 Dose: 10 mg Documented By: MARIE Reevaluation(s) Reevaluation #1: Patient is still vomiting after Reglan. We will give droperidol. Labs reviewed, mild hypokalemia, however improved from patient's initial presentation on 02/13. Pending CT imaging. Reevaluation #2: Attempted p.o. fluids, however patient vomited nearly immediately after administration. Will attempt additional Haldol. CT imaging is suggestive of gastroenteritis without other acute process. Reevaluation #3: Patient refusing p.o. after Haldol, stating that she keeps vomiting and does not want to vomit anymore. Additional Reevaluation(s): Patient has tolerated ice chips and is currently sleeping in bed. Vital signs stable. Will discharge with Zofran and rectal Phenergan Vital Signs Vital signs: Vital Signs - 8 hr 02/20/23 11:50 02/20/23 11:52 02/20/23 11:55 Temperature 97.2 F L Pulse Rate 81 74 79 Respiratory Rate 22 26 H Blood Pressure 198/103 H Pulse Oximetry 98 97 96 Oxygen Delivery Method Room Air 02/20/23 11:55 02/20/23 12:00 02/20/23 12:00 Temperature Pulse Rate 72 Respiratory Rate 14 Blood Pressure 198/103 H 199/101 H Pulse Oximetry 97 Oxygen Delivery Method 02/20/23 12:05 02/20/23 12:52 02/20/23 12:54 Temperature Pulse Rate 69 95 H Respiratory Rate 21 24 Blood Pressure 211/101 H Pulse Oximetry 98 98 Oxygen Delivery Method 02/20/23 12:54 02/20/23 12:55 02/20/23 13:00 Temperature Pulse Rate 74 79 Respiratory Rate Blood Pressure 202/95 H Pulse Oximetry 100 99 Oxygen Delivery Method 02/20/23 13:00 02/20/23 13:05 02/20/23 13:18 Temperature Pulse Rate 71 94 H 82 Respiratory Rate 20 24 Blood Pressure Pulse Oximetry 99 98 98 Oxygen Delivery Method 02/20/23 13:19 02/20/23 13:19 02/20/23 13:20 Temperature Pulse Rate 103 H 95 H Respiratory Rate 19 17 Blood Pressure 209/120 H Pulse Oximetry 99 99 Oxygen Delivery Method 02/20/23 13:25 02/20/23 13:30 02/20/23 13:31 Temperature Pulse Rate 69 73 72 Respiratory Rate 11 L 21 21 Blood Pressure Pulse Oximetry 98 98 99 Oxygen Delivery Method 02/20/23 13:31 02/20/23 13:35 02/20/23 13:40 Temperature Pulse Rate 64 92 H Respiratory Rate 22 Blood Pressure 199/107 H Pulse Oximetry 98 98 Oxygen Delivery Method 02/20/23 13:45 02/20/23 13:45 02/20/23 13:50 Temperature Pulse Rate 66 63 Respiratory Rate 19 30 H Blood Pressure 186/84 H Pulse Oximetry 99 99 Oxygen Delivery Method 02/20/23 13:55 02/20/23 14:00 02/20/23 14:00 Temperature Pulse Rate 110 H 82 Respiratory Rate 30 H 23 Blood Pressure 193/98 H Pulse Oximetry 98 98 Oxygen Delivery Method 02/20/23 14:05 02/20/23 14:10 02/20/23 14:15 Temperature Pulse Rate 65 65 Respiratory Rate 27 H 24 Blood Pressure 170/100 H Pulse Oximetry 97 97 Oxygen Delivery Method 02/20/23 14:15 02/20/23 14:20 02/20/23 14:25 Temperature Pulse Rate 99 H 95 H 86 Respiratory Rate 19 24 24 Blood Pressure Pulse Oximetry 99 98 98 Oxygen Delivery Method 02/20/23 14:30 02/20/23 14:31 02/20/23 14:31 Temperature Pulse Rate 83 86 Respiratory Rate 18 17 Blood Pressure 192/96 H Pulse Oximetry 98 97 Oxygen Delivery Method 02/20/23 14:35 02/20/23 14:40 02/20/23 14:41 Temperature Pulse Rate 87 83 80 Respiratory Rate 17 19 Blood Pressure Pulse Oximetry 98 99 99 Oxygen Delivery Method 02/20/23 14:41 02/20/23 14:45 02/20/23 14:45 Temperature Pulse Rate 75 Respiratory Rate 13 Blood Pressure 201/107 H 192/108 H Pulse Oximetry 99 Oxygen Delivery Method 02/20/23 14:50 02/20/23 14:55 02/20/23 15:00 Temperature Pulse Rate 68 111 H 88 Respiratory Rate 23 27 H 21 Blood Pressure Pulse Oximetry 98 98 98 Oxygen Delivery Method 02/20/23 15:01 02/20/23 15:01 02/20/23 15:05 Temperature Pulse Rate 93 H 94 H Respiratory Rate 20 20 Blood Pressure 192/119 H Pulse Oximetry 100 98 Oxygen Delivery Method MDM - Nausea/Vomiting/Diarrhea Differential Diagnosis Differential diagnosis: Likely food poisoning, gastroenteritis and drug-induced nausea and vomiting Condition is:: Failing to change as expected Lab Data 02/20/23 12:05 02/20/23 12:05 Labs: Lab Results 02/20/23 02/20/23 02/20/23 Range/Units 12:05 12:05 14:40 WBC 11.5 H (4.5-11.0) X10^3/uL RBC 4.39 (4.0-5.2) X10^6/uL Hgb 12.7 (12.0-16.0) g/dL Hct 38.2 (36-46) % MCV 87.0 (80-100) fL MCH 29.0 (26-34) PG MCHC 33.3 (30-36) % RDW 13.0 (11.6-14.8) % Plt Count 325 (150-400) X10^3/uL Neut % (Auto) 82.3 H (50-75) % Lymph % (Auto) 13.5 L (25-40) % [place] % (Auto) 3.9 (3-14) % Eos % (Auto) 0.0 L (2-4) % Baso % (Auto) 0.3 (0-2) % Neut # (Auto) 9500 H (1977-9786) /uL Lymph # (Auto) 1600 (4168-3546) /uL [place] # (Auto) 400 (0-900) /uL Eos # (Auto) 0 (0-450) /uL Baso # (Auto) 0 (0-100) /uL Sodium 141 (137-145) mmol/L Potassium 3.3 L (3.4-5.1) mmol/L Chloride 111 H (98-107) mmol/L Carbon Dioxide 21 L (22-32) mmol/L BUN 10 (7-17) mg/dL Creatinine 0.62 (0.52-1.04) mg/dL Estimated GFR > 60 (>60) mL/min BUN/Creatinine Ratio 16.1 (6-22) Glucose 132 H (80-110) mg/dL Calcium 8.5 (8.4-10.2) mg/dL Total Bilirubin 0.6 (0.2-1.3) mg/dL AST 27 (14-36) IU/L ALT 18 (<35) IU/L Alkaline Phosphatase 95 (38-126) U/L Total Protein 7.3 (6.3-8.2) g/dL Albumin 3.9 (3.5-5.0) g/dL Globulin 3.4 (1.7-4.1) g/dL Albumin/Globulin Ratio 1.1 (1.0-2.8) Lipase 79 (23-300) U/L Urine Color Urine Appearance Urine pH (4.5-8.0) Ur Specific [place] (1.000-1.035) Urine Protein (Negative) Urine Glucose (UA) (Negative) g/dL Urine Ketones (NEGATIVE) Urine Occult Blood (Negative) Urine Nitrate (Negative) Urine Bilirubin (NEGATIVE) Urine Urobilinogen (0.2) E.U./dL Ur Leukocyte Esterase (NEGATIVE) Urine RBC (0-5/HPF) Urine WBC (0-5/HPF) Ur Squamous Epith Cells (0-5/HPF) Ur Transition Epith Cell (0-5/HPF) Calcium Oxalate Crystal Urine Bacteria (None) Ur Culture Indicated? U Opiates 300ng/mL cut Negative (Negative) Ur Oxycodone Screen Negative (Negative) Urine Methadone Screen Negative (Negative) Ur Barbiturates Screen Negative (Negative) U Tricyclic Antidepress Negative (Negative) Ur Phencyclidine Scrn Negative (Negative) Ur Amphetamines Screen Negative (Negative) U Methamphetamines Scrn Negative (Negative) Ur MDMA Scrn (Ecstasy) Negative (Negative) U Benzodiazepines Scrn Negative (Negative) Urine Cocaine Screen Negative (Negative) U Marijuana (THC) Screen Negative (Negative) 02/20/23 Range/Units 14:40 WBC (4.5-11.0) X10^3/uL RBC (4.0-5.2) X10^6/uL Hgb (12.0-16.0) g/dL Hct (36-46) % MCV (80-100) fL MCH (26-34) PG MCHC (30-36) % RDW (11.6-14.8) % Plt Count (150-400) X10^3/uL Neut % (Auto) (50-75) % Lymph % (Auto) (25-40) % [place] % (Auto) (3-14) % Eos % (Auto) (2-4) % Baso % (Auto) (0-2) % Neut # (Auto) (4231-3892) /uL Lymph # (Auto) (5498-3157) /uL [place] # (Auto) (0-900) /uL Eos # (Auto) (0-450) /uL Baso # (Auto) (0-100) /uL Sodium (137-145) mmol/L Potassium (3.4-5.1) mmol/L Chloride (98-107) mmol/L Carbon Dioxide (22-32) mmol/L BUN (7-17) mg/dL Creatinine (0.52-1.04) mg/dL Estimated GFR (>60) mL/min BUN/Creatinine Ratio (6-22) Glucose (80-110) mg/dL Calcium (8.4-10.2) mg/dL Total Bilirubin (0.2-1.3) mg/dL AST (14-36) IU/L ALT (<35) IU/L Alkaline Phosphatase (38-126) U/L Total Protein (6.3-8.2) g/dL Albumin (3.5-5.0) g/dL Globulin (1.7-4.1) g/dL Albumin/Globulin Ratio (1.0-2.8) Lipase (23-300) U/L Urine Color Yellow Urine Appearance Clear Urine pH 5.5 (4.5-8.0) Ur Specific [place] 1.015 (1.000-1.035) Urine Protein Negative (Negative) Urine Glucose (UA) Negative (Negative) g/dL Urine Ketones Trace H (NEGATIVE) Urine Occult Blood Trace-intact (Negative) Urine Nitrate Negative (Negative) Urine Bilirubin Negative (NEGATIVE) Urine Urobilinogen 0.2 (0.2) E.U./dL Ur Leukocyte Esterase Trace H (NEGATIVE) Urine RBC 1-5/hpf (0-5/HPF) Urine WBC 1-5/hpf (0-5/HPF) Ur Squamous Epith Cells 1-5 /hpf (0-5/HPF) Ur Transition Epith Cell 0-1/hpf (0-5/HPF) Calcium Oxalate Crystal Occasional H Urine Bacteria None seen (None) Ur Culture Indicated? Specimen cultured U Opiates 300ng/mL cut (Negative) Ur Oxycodone Screen (Negative) Urine Methadone Screen (Negative) Ur Barbiturates Screen (Negative) U Tricyclic Antidepress (Negative) Ur Phencyclidine Scrn (Negative) Ur Amphetamines Screen (Negative) U Methamphetamines Scrn (Negative) Ur MDMA Scrn (Ecstasy) (Negative) U Benzodiazepines Scrn (Negative) Urine Cocaine Screen (Negative) U Marijuana (THC) Screen (Negative) Point of Care Testing Glucose POC 130 Discharge Plan Departure Patient Disposition: Home Clinical Impression: Gastroenteritis Instructions: DI for Dehydration -- Adult, DI for Nausea -- Adult Prescriptions: New ondansetron 4 mg tablet,disintegrating 4 mg PO Q8H PRN (Reason: nausea and vomiting) Qty: 30 0RF promethazine 25 mg suppository 25 mg ID Q6H PRN (Reason: vomiting) Qty: 12 0RF No Action escitalopram oxalate 10 mg tablet 10 mg PO DAILY omeprazole 20 mg capsule,delayed release(DR/EC) 20 mg PO DAILY amoxicillin-pot clavulanate 875-125 mg tablet 1 tab PO BID 5 Days Qty: 10 0RF potassium chloride 20 mEq tablet extended release 20 meq PO DAILY Qty: 30 0RF Referrals: Nito Coburn ARNP [Primary Care Provider] - Stand Alone Forms: Patient Portal/API
--- NOTE | 2023-02-20 12:03 | PC.NURSE ---
This RN gave verbal report to provider. Provider informed of increased blood pressure. No new orders at this time.
[2023-02-20 12:14] LABS: Add Manual Diff / Slide Review NO; Basophils Absolute Auto 0 /uL (0-100); Basophils Percent Auto 0.3 % (0-2); Eosinophils Absolute Auto 0 /uL (0-450); Hematocrit 38.2 % (36-46); Hemoglobin 12.7 g/dL (12.0-16.0); Lymphocytes Absolute Auto 1600 /uL (1100-4500); Lymphocytes Percent Auto 13.5 % (25-40); Mean Corpuscular HGB Conc 33.3 % (30-36); Monocytes Absolute Auto 400 /uL (0-900); Monocytes Percent Auto 3.9 % (3-14); Neutrophils Absolute Auto 9500 /uL (1500-7000); Neutrophils Percent Auto 82.3 % (50-75); Platelet Count 325 X10^3/uL (150-400); Red Blood Cell Count 4.39 X10^6/uL (4.0-5.2); White Blood Cell Count 11.5 X10^3/uL (4.5-11.0)
[2023-02-20] MEDS: SODIUM CHLORIDE 0.9% 1,000 ML 1000 ML IV (12:19)
[2023-02-20] MEDS: METOCLOPRAMIDE 10 MG/2 ML INJ IV (12:19)
[2023-02-20 12:24] LABS: Alanine Aminotransferase 18 IU/L (<35); Albumin 3.9 g/dL (3.5-5.0); Albumin Globulin Ratio 1.1 (1.0-2.8); Alkaline Phosphatase 95 U/L (38-126); Aspartate Aminotransferase 27 IU/L (14-36); BUN Creatinine Ratio 16.1 (6-22); Bilirubin Total 0.6 mg/dL (0.2-1.3); Blood Urea Nitrogen 10 mg/dL (7-17); Calcium 8.5 mg/dL (8.4-10.2); Carbon Dioxide 21 mmol/L (22-32); Chloride 111 mmol/L (98-107); Estimated Glomerular Filt Rate > 60 mL/min (>60); Globulin 3.4 g/dL (1.7-4.1); Glucose 132 mg/dL (80-110); HEMOLYSIS 17 (0-50); Lipase 79 U/L (23-300); Potassium 3.3 mmol/L (3.4-5.1); Sodium 141 mmol/L (137-145); Total Protein 7.3 g/dL (6.3-8.2)
--- NOTE | 2023-02-20 13:01 | DI.CT.S_ITS ---
PROCEDURE: CT ABDOMEN PELVIS W CON INDICATIONS: ABD PAIN, N/V TECHNIQUE: After the administration of oral and IV contrast, axial sections were acquired from the lung bases to the pubic symphysis. Coronal and sagittal reformats were performed. For radiation dose reduction, the following was used: automated exposure control, adjustment of mA and/or kV according to patient size. COMPARISON: Merged With [facility], CT, ABDOMEN/PELVIS WITH CONTRAST, 07/14/2013, 3:15. FINDINGS: Image quality: Excellent. Lung bases: Clear lung bases. Moderate to large hiatal hernia containing the proximal 1/2 of the stomach. Heart: No significant findings. ABDOMEN: Liver: Unremarkable. Gallbladder: Partially distended. Biliary ducts: Nondilated. Pancreas: Normal. Spleen: Normal. Adrenal Glands: Normal. Kidneys and Ureters: There are a few nonobstructing left intrarenal calculi. The largest measures 4 mm. No hydronephrosis or hydroureter. There is symmetric renal enhancement. Stomach and Bowel: Stomach and small bowel loops are fairly decompressed. There is liquid stool and air-fluid levels throughout the colon. No focal: Wall thickening or pericolonic inflammation. Peritoneum: No abnormal intraperitoneal fluid. No free air. Ventral Wall: No hernia. Abdominal Nodes: No retroperitoneal or mesenteric adenopathy by size criteria. Vessels: Aorta and inferior vena cava are normal in size. PELVIS: Pelvic Organs: The uterus is absent. No suspicious adnexal mass. Ovaries are not well seen. Bladder: Distended urinary bladder without stones or wall thickening. Pelvic Nodes: No enlarged lymph nodes. Miscellaneous: No inguinal hernias are seen. Bones: No suspicious bone lesions. Severe degenerative disc height loss L5-S1. Severe facet arthropathy at L4-5 and L5-S1. IMPRESSION: 1. Findings suggestive of gastroenteritis given liquid stool throughout the colon. 2. Moderate to large hiatal hernia containing about 1/2 the stomach. 3. Left-sided nephrolithiasis without obstructive uropathy. Dictated by: Josseline Bueno M.D. on 02/20/2023 at 13:45 Approved by: Josseline Bueno M.D. on 02/20/2023 at 13:52
[2023-02-20] MEDS: DROPERIDOL 5 MG/2 ML VIAL 2.5 MG IV (13:37)
[2023-02-20 14:49] LABS: Appearance Urine UA CLEAR; Bilirubin Urine UA NEGATIVE (NEGATIVE); Color Urine UA YELLOW; Glucose Urine UA NEGATIVE (Negative); Ketones Urine UA TRACE (NEGATIVE); Leukocyte Esterase Urine UA TRACE (NEGATIVE); Nitrite Urine UA NEGATIVE (Negative); Occult Blood Urine UA TRACE-INTACT (Negative); Protein Urine UA NEGATIVE (Negative); Specific Gravity Urine UA 1.015 (1.000-1.035); Urobilinogen Urine UA 0.2 E.U./dL (0.2)
[2023-02-20 14:51] LABS: pH Urine UA 5.5 (4.5-8.0)
[2023-02-20 14:54] LABS: UR Morphine/Opiate cutoff 300 Negative (Negative); Ur Creatinine Normal (Normal); Ur Specific Gravity Normal (Normal); Urine Amphetamines Negative (Negative); Urine Barbiturates Negative (Negative); Urine Benzodiazepines Negative (Negative); Urine Cocaine Negative (Negative); Urine MDMA Negative (Negative); Urine Methadone Negative (Negative); Urine Methamphetamines Negative (Negative); Urine Oxycodone Negative (Negative); Urine Phencyclidine Negative (Negative); Urine Tetrahydrocannabinol Negative (Negative); Urine Tricyclic Antidepressant Negative (Negative); Urine pH Normal (Normal)
[2023-02-20 14:57] LABS: Calcium Oxalate Crystals Urine Occasional; Culture Indicated Urine Specimen Cultured; RBC Urine 1-5/HPF (0-5/HPF); WBC Urine 1-5/HPF (0-5/HPF)
[2023-02-20 14:58] LABS: Bacteria Urine None Seen; Squamous Epithelial Cell Urine 1-5 /HPF (0-5/HPF); Transitional Epi Cells Urine 0-1/HPF (0-5/HPF)
[2023-02-20] MEDS: HALOPERIDOL 5 MG/ML VIAL IV (15:02)
--- NOTE | 2023-02-20 17:08 | DI.CT.S_ITS ---
PROCEDURE: CT HEAD/BRAIN WO CON INDICATIONS: persistant vomiting TECHNIQUE: Noncontrast 4.5 mm thick angled axial sections acquired from the foramen magnum to the vertex, with coronal and sagittal reformats. For radiation dose reduction, the following was used: automated exposure control, adjustment of mA and/or kV according to patient size. COMPARISON: [facility], CT, CT HEAD/BRAIN WO CON, 02/15/2023, 17:47. FINDINGS: Image quality: Excellent. CSF spaces: Basal cisterns are patent. No extra-axial fluid collections. Ventricles are normal in size and shape. Brain: No midline shift. No intracranial masses or hemorrhage. Zamora-white matter interface is normal. Skull and face: Calvarium and visualized facial bones are intact, without suspicious lesions. Sinuses: Visualized sinuses and mastoids are clear. IMPRESSION: 1. No CT evidence of acute intracranial process. Dictated by: Josseline Bueno M.D. on 02/20/2023 at 17:50 Approved by: Josseline Bueno M.D. on 02/20/2023 at 17:51
[2023-02-20] MEDS: ONDANSETRON 4 MG ODT PREPACK 1 BOTTLE MISC (20:05)
== END 2023-02-20 20:46 | disposition home or self-care (01) ==
PROVIDERS: Emergency Provider Emergency Medicine; PCP Nurse Practitioner Family
DX: K52.9 Noninfective gastroenteritis and colitis, unspecified (principal); R11.2 Nausea with vomiting, unspecified
CPT/HCPCS: 36415; 70450; 74177; 80053; 80305; 81001; 82962; 83690; 85025; 87086; 96361; 96374; 96375; 99284; J1630; J1790; J2765; Q9967

== ENCOUNTER → 2023-05-29 15:10 | Outpatient (CLI) | payer MEDICARE, SELFPAY ==
[2023-02-13 18:39] VITALS: BMI 22.3
== END ==
PROVIDERS: PCP Nurse Practitioner Family; Visit Provider Nurse Practitioner Family
DX: R30.0 Dysuria (principal)
CPT/HCPCS: 87086

== ENCOUNTER 2023-06-20 12:57 | Emergency (ER) | payer MEDICARE, SELFPAY ==
[2023-02-13 18:39] VITALS: BMI 22.3
[2023-06-20] VITALS (8 sets, daily range): BP systolic 141–168; BP diastolic 81–92; PULSE 59–79; RESP 18; TEMP 36.4–36.9; O2SAT 93–99; BMI 24.7
--- NOTE | 2023-06-20 13:17 | DI.US.S_ITS ---
PROCEDURE: US RENAL COMPLETE INDICATIONS: H/O LT NON-OBSTRUCTIVE 4MM NEPHROLITHIASIS W/WORSENING PAIN TECHNIQUE: Real-time scanning was performed of the kidneys and bladder, with image documentation. COMPARISON: [facility], , RENAL COMPLETE, 03/23/2015, 21:42. FINDINGS: Kidneys: Kidneys are small in size. Right kidney measures 9.7 cm long; left kidney measures 9.7 cm long. Right renal cortical thickness is 0.6 cm; left renal cortical thickness is 0.6 cm. Renal cortical echotexture is increased. Nonobstructing stone within the renal pelvis measuring 8 x 7 millimeters. No suspicious solid mass lesions. Bladder: Pre-void bladder volume is 24 mL. The patient cannot void. Pre-void images demonstrate no intraluminal masses or stones. On pre-void images, neither ureteral jets are noted with color Doppler interrogation. (Of note, ureteral jets may not be detectable in up to 25% of cases due to insufficient differences in specific gravity between ureteral and bladder urine). Miscellaneous: No free pelvic fluid. IMPRESSION: Nonobstructing left renal pelvic stone measuring 8 x 7 millimeters. No hydronephrosis. Chronic renal parenchymal disease. Dictated by: Paul Herring M.D. on 06/20/2023 at 14:26 Approved by: Paul Herring M.D. on 06/20/2023 at 14:27
[2023-06-20 13:25] LABS: Add Manual Diff / Slide Review NO; Basophils Absolute Auto 0 /uL (0-100); Basophils Percent Auto 0.3 % (0-2); Eosinophils Absolute Auto 0 /uL (0-450); Hematocrit 37.7 % (36-46); Hemoglobin 12.5 g/dL (12.0-16.0); Lymphocytes Absolute Auto 2000 /uL (1100-4500); Lymphocytes Percent Auto 16.4 % (25-40); Mean Corpuscular HGB Conc 33.1 % (30-36); Mean Corpuscular Hemoglobin 27.4 PG (26-34); Mean Corpuscular Volume 82.8 fL (80-100); Monocytes Absolute Auto 1000 /uL (0-900); Monocytes Percent Auto 7.8 % (3-14); Neutrophils Absolute Auto 9400 /uL (1500-7000); Neutrophils Percent Auto 75.5 % (50-75); Platelet Count 511 X10^3/uL (150-400); Red Blood Cell Count 4.55 X10^6/uL (4.0-5.2); Red Cell Distribution Width 15.5 % (11.6-14.8); White Blood Cell Count 12.4 X10^3/uL (4.5-11.0)
--- NOTE | 2023-06-20 13:27 | ED.GENADULT ---
HPI - General Adult General Chief complaint: Urogenital-Female Stated complaint: L flank pain/7mm kidney stone/n/v Time Seen by Provider: 06/20/23 13:17 Source: patient and EMS Mode of arrival: EMS History of Present Illness HPI narrative: Patient is a 67-year-old female. She is here for evaluation of left flank pain, nausea and vomiting and diarrhea. She states she discovered that she would a left-sided kidney stone several weeks ago when she went to her primary doctor's office because she thought that she would a urinary tract infection. She did not have an x-ray. She is uncertain as whether not she had a CT scan. Somewhat uncertain as to how this left-sided stone was diagnosed. She has had to have stones removed in the past. Over the past day or so she is had quite a bit of nausea and vomiting and diarrhea. No recent antibiotics. No recent travel. She was scheduled to have a follow-up with the Urology yesterday but could not make it because of her symptoms and she was told by her primary doctor to come to the emergency department today. She currently is not nauseous. Related Data Home Medications Medication Instructions Recorded Confirmed escitalopram oxalate 10 mg tablet 10 mg PO DAILY 02/13/23 05/29/23 omeprazole 20 mg capsule,delayed 20 mg PO DAILY 02/13/23 05/29/23 release Previous Rx's Medication Instructions Recorded potassium chloride 20 mEq 20 meq PO DAILY #30 tabs 02/17/23 tablet,extended release ondansetron 4 mg disintegrating 4 mg PO Q8H PRN nausea and 02/20/23 tablet vomiting #30 tabs promethazine 25 mg rectal 25 mg VA Q6H PRN vomiting #12 ea 02/20/23 suppository ondansetron 4 mg disintegrating 4 mg PO Q6H PRN nausea and 06/20/23 tablet vomiting #14 tabs Allergies Allergy/AdvReac Type Severity Reaction Status Date / Time No Known Drug Allergies Allergy Verified 06/20/23 13:09 Review of Systems Constitutional Constitutional: Reports system reviewed and no additional complaints, except as documented Cardiovascular Cardiovascular: Reports system reviewed and no additional complaints, except as documented Respiratory Respiratory: Reports system reviewed and no additional complaints, except as documented Gastrointestinal Gastrointestinal: Reports system reviewed and no additional complaints, except as documented Genitourinary Genitourinary: Reports system reviewed and no additional complaints, except as documented Musculoskeletal Musculoskeletal: Reports system reviewed and no additional complaints, except as documented Integumentary/Breasts Skin/Breast: Reports system reviewed and no additional complaints, except as documented Patient History Social History household members: children Smoking Status: Former smoker alcohol intake: never Smoking Status: Former smoker alcohol intake frequency: other Substance Use Type: does not use Exam Initial Vital Signs Initial Vital Signs: Vital Signs Pulse Rate 79 06/20/23 13:03 Blood Pressure 141/81 H 06/20/23 13:03 Pulse Oximetry 97 06/20/23 13:03 Oxygen Delivery Method Room Air 06/20/23 13:03 HENMT Head: normal to inspection and normocephalic Resp Effort & Inspection: normal respiratory effort Cardio Rate: regular rate GI Inspection: non-distended Neuro General: patient alert, patient awake and moves all extremities Course Orders Ordered: ED Orders 06/20/23 13:05 Complete Blood Count AUTO DIFF Stat Comprehensive Metabolic Panel Stat Lipase Stat 06/20/23 13:17 US renal complete Stat 06/20/23 15:43 Urine Microscopic Stat Discontinued Medications Sodium Chloride (Normal Saline 0.9%) 1,000 mls @ 1,000 mls/hr IV BOLUS ONE Stop: 06/20/23 15:11 Last Infusion: 06/20/23 15:27 Dose: Infused Documented By: Admin: 06/20/23 14:20 Dose: 1,000 mls/hr Documented By: LISA Ondansetron HCl (Ondansetron 4 Mg/2 Ml Inj) 4 mg IV NOW ONE Stop: 06/20/23 15:00 Last Admin: 06/20/23 15:02 Dose: 4 mg Documented By: LISA Vital Signs Vital signs: Vital Signs - 8 hr 06/20/23 13:03 06/20/23 13:03 06/20/23 13:05 Temperature 98.5 F Pulse Rate 79 77 Respiratory Rate 18 Blood Pressure 141/81 H 141/81 H Pulse Oximetry 97 98 Oxygen Delivery Method Room Air Room Air 06/20/23 14:10 06/20/23 14:10 06/20/23 14:30 Temperature Pulse Rate 65 70 Respiratory Rate Blood Pressure 142/88 H Pulse Oximetry 98 98 Oxygen Delivery Method Room Air 06/20/23 14:30 06/20/23 15:00 06/20/23 15:00 Temperature 97.6 F Pulse Rate 65 Respiratory Rate Blood Pressure 155/81 H 168/88 H Pulse Oximetry 99 Oxygen Delivery Method Room Air 06/20/23 15:56 06/20/23 15:57 06/20/23 15:57 Temperature Pulse Rate 64 61 Respiratory Rate Blood Pressure 160/88 H Pulse Oximetry 93 98 Oxygen Delivery Method 06/20/23 16:00 06/20/23 16:00 Temperature Pulse Rate 59 L Respiratory Rate Blood Pressure 162/92 H Pulse Oximetry 97 Oxygen Delivery Method Room Air Medical Decision Making Lab Data Lab results reviewed: Yes I reviewed the patient's lab results. 06/20/23 13:05 06/20/23 13:05 Labs: Lab Results 06/20/23 06/20/23 Range/Units 13:05 15:43 WBC 12.4 H (4.5-11.0) X10^3/uL RBC 4.55 (4.0-5.2) X10^6/uL Hgb 12.5 (12.0-16.0) g/dL Hct 37.7 (36-46) % MCV 82.8 (80-100) fL MCH 27.4 (26-34) PG MCHC 33.1 (30-36) % RDW 15.5 H (11.6-14.8) % Plt Count 511 H (150-400) X10^3/uL Neut % (Auto) 75.5 H (50-75) % Lymph % (Auto) 16.4 L (25-40) % [place] % (Auto) 7.8 (3-14) % Eos % (Auto) 0.0 L (2-4) % Baso % (Auto) 0.3 (0-2) % Neut # (Auto) 9400 H (6754-7545) /uL Lymph # (Auto) 2000 (7123-2366) /uL [place] # (Auto) 1000 H (0-900) /uL Eos # (Auto) 0 (0-450) /uL Baso # (Auto) 0 (0-100) /uL Sodium 138 (137-145) mmol/L Potassium 3.5 (3.4-5.1) mmol/L Chloride 107 (98-107) mmol/L Carbon Dioxide 22 (22-32) mmol/L BUN 24 H (7-17) mg/dL Creatinine 0.75 (0.52-1.04) mg/dL Estimated GFR > 60 (>60) mL/min BUN/Creatinine Ratio 32.0 H (6-22) Glucose 129 H (80-110) mg/dL Calcium 10.1 (8.4-10.2) mg/dL Total Bilirubin 1.0 (0.2-1.3) mg/dL AST 34 (14-36) IU/L ALT 26 (<35) IU/L Alkaline Phosphatase 90 (38-126) U/L Total Protein 8.1 (6.3-8.2) g/dL Albumin 4.2 (3.5-5.0) g/dL Globulin 3.9 (1.7-4.1) g/dL Albumin/Globulin Ratio 1.1 (1.0-2.8) Lipase 44 (23-300) U/L Urine RBC 5-10/hpf H (0-5/HPF) Urine WBC 0-1/hpf (0-5/HPF) Ur Squamous Epith Cells 0-1 /hpf (0-5/HPF) Urine Bacteria Occasional (0-1) (None) Urine Mucus 2+ H (Negative) Ur Culture Indicated? Cult not indicated Urine Dip Bedside Urine Glucose Negative Bedside Urine Bilirubin - Negative Bedside Urine Ketone +/- 5 Urine Specific [place] 1.010 Bedside Urine Occult Blood +++ Bedside Urine pH 6.0 Bedside Urine Protein +/- 15 Bedside Urine Urobilinogen - Negative Bedside Urine Nitrite - Negative Bedside Urine Leukocytes - Negative Esterase Point of care testing: Urine Dip Bedside Urine Glucose Negative Bedside Urine Bilirubin - Negative Bedside Urine Ketone +/- 5 Urine Specific [place] 1.010 Bedside Urine Occult Blood +++ Bedside Urine pH 6.0 Bedside Urine Protein +/- 15 Bedside Urine Urobilinogen - Negative Bedside Urine Nitrite - Negative Bedside Urine Leukocytes - Negative Esterase Imaging Data Renal ultrasound: Radiologist's Impression: PROCEDURE: US RENAL COMPLETE INDICATIONS: H/O LT NON-OBSTRUCTIVE 4MM NEPHROLITHIASIS W/WORSENING PAIN TECHNIQUE: Real-time scanning was performed of the kidneys and bladder, with image documentation. COMPARISON: [facility], US, RENAL COMPLETE, 03/23/2015, 21:42. FINDINGS: Kidneys: Kidneys are small in size. Right kidney measures 9.7 cm long; left kidney measures 9.7 cm long. Right renal cortical thickness is 0.6 cm; left renal cortical thickness is 0.6 cm. Renal cortical echotexture is increased. Nonobstructing stone within the renal pelvis measuring 8 x 7 millimeters. No suspicious solid mass lesions. Bladder: Pre-void bladder volume is 24 mL. The patient cannot void. Pre-void images demonstrate no intraluminal masses or stones. On pre-void images, neither ureteral jets are noted with color Doppler interrogation. (Of note, ureteral jets may not be detectable in up to 25% of cases due to insufficient differences in specific gravity between ureteral and bladder urine). Miscellaneous: No free pelvic fluid. IMPRESSION: Nonobstructing left renal pelvic stone measuring 8 x 7 millimeters. No hydronephrosis. Chronic renal parenchymal disease. MDM Narrative Medical decision making narrative: Urinalysis is unremarkable. Kidney function is unremarkable. Ultrasound shows no hydronephrosis. She does have a 7 mm left-sided stone. She is having diarrhea. There was no indication for antibiotics. She is not retaining urine. No indication for admission to the hospital or emergent urologic consultation. Will have patient contact her primary doctor and also the urology department to reschedule her appointment that she missed yesterday. She was given return precautions. Discharge Plan Departure Patient Disposition: Home Clinical Impression: Kidney stone on left side Instructions: DI for Kidney Stones Activity Restrictions/Additional Instructions: I do recommend that you contact your primary doctor for a follow-up and also contact the urology office to reschedule your appointment that you missed yesterday. Return to the emergency department for new symptoms. Prescriptions: New ondansetron 4 mg tablet,disintegrating 4 mg PO Q6H PRN (Reason: nausea and vomiting) Qty: 14 0RF No Action escitalopram oxalate 10 mg tablet 10 mg PO DAILY omeprazole 20 mg capsule,delayed release(DR/EC) 20 mg PO DAILY potassium chloride 20 mEq tablet extended release 20 meq PO DAILY Qty: 30 0RF ondansetron 4 mg tablet,disintegrating 4 mg PO Q8H PRN (Reason: nausea and vomiting) Qty: 30 0RF promethazine 25 mg suppository 25 mg VA Q6H PRN (Reason: vomiting) Qty: 12 0RF Referrals: Nito Coburn ARNP [Primary Care Provider] - Stand Alone Forms: Patient Portal/API
[2023-06-20 13:30] LABS: Alanine Aminotransferase 26 IU/L (<35); Albumin 4.2 g/dL (3.5-5.0); Albumin Globulin Ratio 1.1 (1.0-2.8); Alkaline Phosphatase 90 U/L (38-126); Aspartate Aminotransferase 34 IU/L (14-36); Blood Urea Nitrogen 24 mg/dL (7-17); Calcium 10.1 mg/dL (8.4-10.2); Carbon Dioxide 22 mmol/L (22-32); Chloride 107 mmol/L (98-107); Estimated Glomerular Filt Rate > 60 mL/min (>60); Globulin 3.9 g/dL (1.7-4.1); Glucose 129 mg/dL (80-110); HEMOLYSIS < 15 (0-50); Lipase 44 U/L (23-300); Potassium 3.5 mmol/L (3.4-5.1); Sodium 138 mmol/L (137-145); Total Protein 8.1 g/dL (6.3-8.2)
--- NOTE | 2023-06-20 13:58 | PC.NURSE ---
1330: Patient attempts to urinate but is unable to produce any urine. Asked what time patient last voided and she thinks it was sometime early this morning. Provider made aware and bladder scan performed.
[2023-06-20] MEDS: SODIUM CHLORIDE 0.9% 1,000 ML 1000 ML IV (14:20)
[2023-06-20] MEDS: ONDANSETRON 4 MG/2 ML INJ IV (15:02)
[2023-06-20 16:15] LABS: RBC Urine 5-10/HPF (0-5/HPF)
[2023-06-20 16:16] LABS: Bacteria Urine Occasional (0-1); Culture Indicated Urine Cult Not Indicated; Mucus Urine 2+ (Negative); Squamous Epithelial Cell Urine 0-1 /HPF (0-5/HPF); WBC Urine 0-1/HPF (0-5/HPF)
== END 2023-06-20 16:50 | disposition home or self-care (01) ==
PROVIDERS: Emergency Provider Emergency Medicine; PCP Nurse Practitioner Family
DX: N20.0 Calculus of kidney (principal); R11.2 Nausea with vomiting, unspecified
CPT/HCPCS: 36415; 51798; 76770; 80053; 81003; 81015; 83690; 85025; 96361; 96374; 99284; J2405

== ENCOUNTER 2024-03-28 13:14 | Observation (INO) | payer MEDICARE, SELFPAY ==
[2023-02-13 18:39] VITALS: BMI 22.3
[2024-03-28] VITALS (22 sets, daily range): BP systolic 130–170; BP diastolic 73–100; PULSE 87–141; RESP 10–34; TEMP 36.9–37.3; O2SAT 95–100; BMI 23.4
--- NOTE | 2024-03-28 13:40 | PC.NURSE ---
Pt's son came into department to drop off his mothers glasses. He left department due to dog in the car. He reports pt is usually alert and oriented, however this morning she was having difficulty finding words and a change in cognitive per son (joel) who lives with patient. Joel last saw patient at 1400 yesterday when she appeared normal cognitively. She was experiencing N/V/D yesterday morning. Pt is denying any pain, SOB, dizziness.
--- NOTE | 2024-03-28 13:48 | ED_ITS ---
HPI - Altered Mental Status <Carolina Olmstead DO - Last Filed: 03/29/24 06:50> General Chief Complaint: Altered Mental Status Stated Complaint: Altered Mental Status Time Seen by Provider: 03/28/24 13:38 History of Present Illness HPI narrative: Patient 68-year-old female history of depression on Lexapro presenting today with altered mental status. She has previously had presentations with altered mental status 1 was secondary to temazepam the other was UTI. She currently lives with her son who reports that she has had some diarrhea the last few days she was normal last night but presents today with word-finding difficulty. She is able to tell me her name and follow commands. She does admit to diarrhea. Related Data Home Medications Medication Instructions Recorded Confirmed escitalopram oxalate 10 mg tablet 10 mg PO DAILY 02/13/23 05/29/23 omeprazole 20 mg capsule,delayed 20 mg PO DAILY 02/13/23 05/29/23 release Previous Rx's Medication Instructions Recorded potassium chloride 20 mEq 20 meq PO DAILY #30 tabs 02/17/23 tablet,extended release ondansetron 4 mg disintegrating 4 mg PO Q8H PRN nausea and 02/20/23 tablet vomiting #30 tabs promethazine 25 mg rectal 25 mg NV Q6H PRN vomiting #12 ea 02/20/23 suppository ondansetron 4 mg disintegrating 4 mg PO Q6H PRN nausea and 06/20/23 tablet vomiting #14 tabs Allergies Allergy/AdvReac Type Severity Reaction Status Date / Time No Known Drug Allergies Allergy Verified 03/28/24 13:44 Review of Systems <DO Stacey Peña Last Filed: 03/28/24 22:48> Review of Systems ROS Unobtainable: All systems reviewed & are unremarkable except as noted in HPI and below Patient History <Carolina Olmstead DO - Last Filed: 03/29/24 06:50> Social History household members: children Smoking Status: Former smoker alcohol intake: never Smoking Status: Former smoker alcohol intake frequency: other Substance Use Type: does not use Exam <Carolina Olmstead DO - Last Filed: 03/29/24 06:50> Initial Vital Signs Initial Vital Signs: Vital Signs Pulse Rate 105 H 03/28/24 13:19 Blood Pressure 138/90 03/28/24 13:19 Pulse Oximetry 98 03/28/24 13:19 GENERAL: Alert confused 68-year-old female HEENT: Head atraumatic,EOMI, pupils reactive, face symmetric, moist mucous membranes CARDIOVASCULAR: Regular rate and rhythm without murmurs, rubs or gallops. RESPIRATORY: Breath sounds equal bilaterally, no wheezes rales or rhonchi. ABDOMEN: Soft, nontender. Normoactive bowel sounds all 4 quadrants. No guarding or rebound. EXTREMITIES: Normal range of motion, no clubbing or edema. Neurovascularly intact NEUROLOGICAL: Alert and oriented x1.Normal gait and speech. Cranial nerves II through XII grossly intact. Good [id number], good [id number], strength equal bilaterally, no dysarthria or aphasia, sensation in tact to soft touch bilaterally, no visual changes, no facial droop SKIN: Warm, dry, no laceration, no petechiae, no rashes or lesions. <Fadi Cantrell DO - Last Filed: 03/28/24 22:48> Initial Vital Signs Initial Vital Signs: Vital Signs Pulse Rate 105 H 03/28/24 13:19 Blood Pressure 138/90 03/28/24 13:19 Pulse Oximetry 98 03/28/24 13:19 Scores <Carolina Olmstead DO - Last Filed: 03/29/24 06:50> [facility] [place] coma scale total score: 14 <Fadi Cantrell DO - Last Filed: 03/28/24 22:48> [facility] [place] coma scale eye opening: Spontaneous [place] coma scale verbal response: Confused [place] coma scale motor response: Obey commands [place] coma scale total score: 14 Course <Carolina Olmstead DO - Last Filed: 03/29/24 06:50> Orders Ordered: Acetaminophen (Acetaminophen 325 Mg Tablet) 650 mg PO Q6H PRN PRN Reason: Fever/Mild Pain (1-3) Heparin Sodium (Porcine) (Heparin 5,000 Unit/Ml Vial) 5,000 unit SUBCUT BID [facility] Sodium Chloride (Normal Saline 0.9%) 1,000 mls @ 100 mls/hr IV CONT [facility] Last Admin: 03/28/24 22:41 Dose: 100 mls/hr Documented By: SR Naloxone HCl (Naloxone 0.4 Mg/Ml Vial) 0.2 mg IV Q2MIN PRN PRN Reason: Opiate Reversal Ondansetron HCl (Ondansetron 4 Mg/2 Ml Inj) 4 mg IV Q8HR PRN PRN Reason: Nausea And Vomiting Pantoprazole Sodium (Pantoprazole Dr 20 Mg Tablet) 20 mg PO DAILY [facility] Potassium Chloride (Potassium Chloride 20 Meq Tab) 20 meq PO DAILY [facility] Vancomycin HCl (Vancomycin 125 Mg Capsule) 125 mg PO Q6H [facility] Last Admin: 03/29/24 06:15 Dose: 125 mg Documented By: SR Discontinued Medications Sodium Chloride (Normal Saline 0.9%) 1,000 mls @ 1,000 mls/hr IV BOLUS ONE Stop: 03/28/24 18:12 Last Infusion: 03/28/24 18:37 Dose: Infused Documented By: Admin: 03/28/24 17:15 Dose: 1,000 mls/hr Documented By: TAMEKA Vancomycin HCl (Vancomycin 125 Mg Capsule) 125 mg PO NOW ONE Stop: 03/28/24 20:40 Last Admin: 03/28/24 21:28 Dose: 125 mg Documented By: AB Vital Signs Vital signs: Vital Signs - 8 hr 03/28/24 15:00 03/28/24 15:30 03/28/24 16:00 Pulse Rate 94 H 91 H 97 H Respiratory Rate 14 18 Blood Pressure Pulse Oximetry 100 100 100 Oxygen Delivery Method Room Air Room Air 03/28/24 16:30 03/28/24 17:00 03/28/24 17:12 Pulse Rate 141 H 101 H 94 H Respiratory Rate 34 H 25 H 20 Blood Pressure Pulse Oximetry 99 Oxygen Delivery Method Room Air 03/28/24 17:12 03/28/24 17:30 03/28/24 18:00 Pulse Rate 96 H 95 H Respiratory Rate 26 H 20 Blood Pressure 142/80 H Pulse Oximetry Oxygen Delivery Method 03/28/24 18:06 03/28/24 18:06 03/28/24 18:30 Pulse Rate 91 H Respiratory Rate 24 Blood Pressure 130/76 143/85 H Pulse Oximetry 100 Oxygen Delivery Method Room Air 03/28/24 18:30 03/28/24 19:00 03/28/24 19:00 Pulse Rate 94 H 89 Respiratory Rate 14 20 Blood Pressure 149/81 H Pulse Oximetry 99 99 Oxygen Delivery Method Room Air Room Air 03/28/24 19:30 03/28/24 19:30 03/28/24 20:00 Pulse Rate 90 Respiratory Rate 26 H Blood Pressure 154/89 H 170/89 H Pulse Oximetry 99 Oxygen Delivery Method 03/28/24 20:00 03/28/24 20:30 03/28/24 20:30 Pulse Rate 88 106 H Respiratory Rate 17 21 Blood Pressure 167/78 H Pulse Oximetry 99 99 Oxygen Delivery Method Room Air 03/28/24 21:00 03/28/24 21:00 Pulse Rate 91 H Respiratory Rate 21 Blood Pressure 138/81 Pulse Oximetry 99 Oxygen Delivery Method <Fadi Cantrell, - Last Filed: 03/28/24 22:48> Orders Ordered: Acetaminophen (Acetaminophen 325 Mg Tablet) 650 mg PO Q6H PRN PRN Reason: Fever/Mild Pain (1-3) Heparin Sodium (Porcine) (Heparin 5,000 Unit/Ml Vial) 5,000 unit SUBCUT BID [facility] Sodium Chloride (Normal Saline 0.9%) 1,000 mls @ 100 mls/hr IV CONT [facility] Last Admin: 03/28/24 22:41 Dose: 100 mls/hr Documented By: SR Naloxone HCl (Naloxone 0.4 Mg/Ml Vial) 0.2 mg IV Q2MIN PRN PRN Reason: Opiate Reversal Ondansetron HCl (Ondansetron 4 Mg/2 Ml Inj) 4 mg IV Q8HR PRN PRN Reason: Nausea And Vomiting Pantoprazole Sodium (Pantoprazole Dr 20 Mg Tablet) 20 mg PO DAILY [facility] Potassium Chloride (Potassium Chloride 20 Meq Tab) 20 meq PO DAILY [facility] Vancomycin HCl (Vancomycin 125 Mg Capsule) 125 mg PO Q6H [facility] Last Admin: 03/29/24 06:15 Dose: 125 mg Documented By: SR Discontinued Medications Sodium Chloride (Normal Saline 0.9%) 1,000 mls @ 1,000 mls/hr IV BOLUS ONE Stop: 03/28/24 18:12 Last Infusion: 03/28/24 18:37 Dose: Infused Documented By: Admin: 03/28/24 17:15 Dose: 1,000 mls/hr Documented By: SPF Vancomycin HCl (Vancomycin 125 Mg Capsule) 125 mg PO NOW ONE Stop: 03/28/24 20:40 Last Admin: 03/28/24 21:28 Dose: 125 mg Documented By: AB Vital Signs Vital signs: Vital Signs - 8 hr 03/28/24 15:00 03/28/24 15:30 03/28/24 16:00 Pulse Rate 94 H 91 H 97 H Respiratory Rate 14 18 Blood Pressure Pulse Oximetry 100 100 100 Oxygen Delivery Method Room Air Room Air 03/28/24 16:30 03/28/24 17:00 03/28/24 17:12 Pulse Rate 141 H 101 H 94 H Respiratory Rate 34 H 25 H 20 Blood Pressure Pulse Oximetry 99 Oxygen Delivery Method Room Air 03/28/24 17:12 03/28/24 17:30 03/28/24 18:00 Pulse Rate 96 H 95 H Respiratory Rate 26 H 20 Blood Pressure 142/80 H Pulse Oximetry Oxygen Delivery Method 03/28/24 18:06 03/28/24 18:06 03/28/24 18:30 Pulse Rate 91 H Respiratory Rate 24 Blood Pressure 130/76 143/85 H Pulse Oximetry 100 Oxygen Delivery Method Room Air 03/28/24 18:30 03/28/24 19:00 03/28/24 19:00 Pulse Rate 94 H 89 Respiratory Rate 14 20 Blood Pressure 149/81 H Pulse Oximetry 99 99 Oxygen Delivery Method Room Air Room Air 03/28/24 19:30 03/28/24 19:30 03/28/24 20:00 Pulse Rate 90 Respiratory Rate 26 H Blood Pressure 154/89 H 170/89 H Pulse Oximetry 99 Oxygen Delivery Method 03/28/24 20:00 03/28/24 20:30 03/28/24 20:30 Pulse Rate 88 106 H Respiratory Rate 17 21 Blood Pressure 167/78 H Pulse Oximetry 99 99 Oxygen Delivery Method Room Air 03/28/24 21:00 03/28/24 21:00 Pulse Rate 91 H Respiratory Rate 21 Blood Pressure 138/81 Pulse Oximetry 99 Oxygen Delivery Method MDM - Altered Mental Status <Carolina Olmstead, DO - Last Filed: 03/29/24 06:50> Lab Data 03/29/24 04:30 03/29/24 04:30 Labs: Lab Results 03/28/24 03/28/24 03/28/24 Range/Units 15:10 16:30 19:00 WBC 11.2 H (4.5-11.0) X10^3/uL RBC 4.52 (4.0-5.2) X10^6/uL Hgb 11.8 L (12.0-16.0) g/dL Hct 36.7 (36-46) % MCV 81.2 (80-100) fL MCH 26.0 (26-34) PG MCHC 32.0 (30-36) % RDW 18.5 H (11.6-14.8) % Plt Count 474 H (150-400) X10^3/uL Neut % (Auto) 69.6 (50-75) % Lymph % (Auto) 22.7 L (25-40) % [place] % (Auto) 7.6 (3-14) % Eos % (Auto) 0.0 L (2-4) % Baso % (Auto) 0.1 (0-2) % Neut # (Auto) 7800 H (8737-5875) /uL Lymph # (Auto) 2500 (4317-3441) /uL [place] # (Auto) 800 (0-900) /uL Eos # (Auto) 0 (0-450) /uL Baso # (Auto) 0 (0-100) /uL PT 12.4 (9.4-12.5) SECONDS INR 1.1 (0.9-1.3) APTT 50 H (25.1-36.5) SECONDS Sodium 143 (137-145) mmol/L Potassium 3.6 (3.4-5.1) mmol/L Chloride 110 H (98-107) mmol/L Carbon Dioxide 22 (22-32) mmol/L BUN 20 H (7-17) mg/dL Creatinine 0.73 (0.52-1.04) mg/dL Estimated GFR > 60 (>60) mL/min BUN/Creatinine Ratio 27.4 H (6-22) Glucose 101 (80-110) mg/dL Lactate 1.7 (0.7-2.1) mmol/L Calcium 9.8 (8.4-10.2) mg/dL Total Bilirubin 1.0 (0.2-1.3) mg/dL AST 30 (14-36) IU/L ALT 17 (<35) IU/L Alkaline Phosphatase 126 (38-126) U/L Total Creatine Kinase 62 (30-135) U/L Troponin I < 0.012 (0.01-0.034) ng/mL Total Protein 8.1 (6.3-8.2) g/dL Albumin 4.5 (3.5-5.0) g/dL Globulin 3.6 (1.7-4.1) g/dL Albumin/Globulin Ratio 1.3 (1.0-2.8) Procalcitonin 0.034 (<0.5) ng/mL TSH 0.333 L (0.47-4.68) uIU/mL Urine Color Yellow Urine Appearance Clear Urine pH 7.0 (4.5-8.0) Ur Specific [place] 1.015 (1.000-1.035) Urine Protein Negative (Negative) Urine Glucose (UA) Negative (Negative) g/dL Urine Ketones 2+ H (NEGATIVE) Urine Occult Blood Negative (Negative) Urine Nitrate Negative (Negative) Urine Bilirubin Negative (NEGATIVE) Urine Urobilinogen 1.0 (0.2) E.U./dL Ur Leukocyte Esterase Trace H (NEGATIVE) Urine RBC None seen (0-5/HPF) Urine WBC 5-10/hpf H (0-5/HPF) Ur Squamous Epith Cells None seen (0-5/HPF) Amorphous Sediment 2+ Urine Bacteria Few (2-10) H (None) Ur Culture Indicated? Specimen cultured Vol Urine Centrifuged 10ml (spun) Stl C. cayetanensis PCR Not detected (Not Detect) Stool Rotavirus (PCR) Not detected (Not Detect) Stool Adenovirus (PCR) Not detected (Not Detect) Stool Astrovirus (PCR) Not detected (Not Detect) Stool Cryptosporidium PCR Not detected (Not Detect) Stl E.coli Shiga Tox PCR Not detected (Not Detect) St Sh/Enteroin Ecoli PCR Not detected (Not Detect) Stl Enterotoxigenic E PCR Not detected (Not Detect) Stool EPEC (PCR) Not detected (Not Detect) Stl E. histolytica PCR Not detected (Not Detect) Stool Giardia Lamblia PCR Not detected (Not Detect) Stool Sapovirus (PCR) Not detected (Not Detect) Stl P. shigelloides PCR Not detected (Not Detect) St Y.enterocolitica PCR Not detected (Not Detect) Stool Vibrio (PCR) Not detected (Not Detect) Stl Vibrio cholerae PCR Not detected (Not Detect) Stl Enteroaggr Ecoli PCR Not detected (Not Detect) Stl Norovirus GI/GII PCR Not detected (Not Detect) Salicylates < 1.0 (<20) mg/dL U Opiates 300ng/mL cut Negative (Negative) Ur Oxycodone Screen Negative (Negative) Urine Methadone Screen Negative (Negative) Acetaminophen < 10 (10-30) ug/mL Ur Barbiturates Screen Negative (Negative) U Tricyclic Antidepress Negative (Negative) Ur Phencyclidine Scrn Negative (Negative) Ur Amphetamines Screen Negative (Negative) U Methamphetamines Scrn Negative (Negative) Ur MDMA Scrn (Ecstasy) Negative (Negative) U Benzodiazepines Scrn Negative (Negative) Urine Cocaine Screen Negative (Negative) U Marijuana (THC) Screen Negative (Negative) Urine Specific [place] (Normal) Ethyl Alcohol < 10 ( - 10) mg/dL Ur Creatinine (Normal) Chlamy pneumoniae PCR (Not Detect) Adenovirus (PCR) (Not Detect) B. pertussis DNA (PCR) (Not Detect) B.parapertussis DNA PCR (Not Detecte) Campylobacter (PCR) Not detected (Not Detect) C. difficile Tox (PCR) Detected H (Not Detect) Coronavirus OC43 (PCR) (Not Detect) Coronavirus HKU1 (PCR) (Not Detect) Coronavirus 229E (PCR) (Not Detect) SARS-CoV-2 (PCR) (Not Detecte) Coronavirus NL63 (PCR) (Not Detect) Human Metapneumovir PCR (Not Detect) Influenza Type A (PCR) (Not Detect) Influenza Type B (PCR) (Not Detect) M. pneumoniae (PCR) (Not Detect) Parainfluenza 1 (PCR) (Not Detect) Parainfluenza 2 (PCR) (Not Detect) Parainfluenza 3 (PCR) (Not Detect) Parainfluenza 4 (PCR) (Not Detect) RSV (PCR) (Not Detect) Entero/Rhino (PCR) (Not Detect) Salmonella (PCR) Not detected (Not Detect) 03/28/24 Range/Units 19:00 WBC (4.5-11.0) X10^3/uL RBC (4.0-5.2) X10^6/uL Hgb (12.0-16.0) g/dL Hct (36-46) % MCV (80-100) fL MCH (26-34) PG MCHC (30-36) % RDW (11.6-14.8) % Plt Count (150-400) X10^3/uL Neut % (Auto) (50-75) % Lymph % (Auto) (25-40) % [place] % (Auto) (3-14) % Eos % (Auto) (2-4) % Baso % (Auto) (0-2) % Neut # (Auto) (8777-1708) /uL Lymph # (Auto) (5347-6668) /uL [place] # (Auto) (0-900) /uL Eos # (Auto) (0-450) /uL Baso # (Auto) (0-100) /uL PT (9.4-12.5) SECONDS INR (0.9-1.3) APTT (25.1-36.5) SECONDS Sodium (137-145) mmol/L Potassium (3.4-5.1) mmol/L Chloride (98-107) mmol/L Carbon Dioxide (22-32) mmol/L BUN (7-17) mg/dL Creatinine (0.52-1.04) mg/dL Estimated GFR (>60) mL/min BUN/Creatinine Ratio (6-22) Glucose (80-110) mg/dL Lactate (0.7-2.1) mmol/L Calcium (8.4-10.2) mg/dL Total Bilirubin (0.2-1.3) mg/dL AST (14-36) IU/L ALT (<35) IU/L Alkaline Phosphatase (38-126) U/L Total Creatine Kinase (30-135) U/L Troponin I (0.01-0.034) ng/mL Total Protein (6.3-8.2) g/dL Albumin (3.5-5.0) g/dL Globulin (1.7-4.1) g/dL Albumin/Globulin Ratio (1.0-2.8) Procalcitonin (<0.5) ng/mL TSH (0.47-4.68) uIU/mL Urine Color Urine Appearance Urine pH Normal (4.5-8.0) Ur Specific [place] (1.000-1.035) Urine Protein (Negative) Urine Glucose (UA) (Negative) g/dL Urine Ketones (NEGATIVE) Urine Occult Blood (Negative) Urine Nitrate (Negative) Urine Bilirubin (NEGATIVE) Urine Urobilinogen (0.2) E.U./dL Ur Leukocyte Esterase (NEGATIVE) Urine RBC (0-5/HPF) Urine WBC (0-5/HPF) Ur Squamous Epith Cells (0-5/HPF) Amorphous Sediment Urine Bacteria (None) Ur Culture Indicated? Vol Urine Centrifuged Stl C. cayetanensis PCR (Not Detect) Stool Rotavirus (PCR) (Not Detect) Stool Adenovirus (PCR) (Not Detect) Stool Astrovirus (PCR) (Not Detect) Stool Cryptosporidium PCR (Not Detect) Stl E.coli Shiga Tox PCR (Not Detect) St Sh/Enteroin Ecoli PCR (Not Detect) Stl Enterotoxigenic E PCR (Not Detect) Stool EPEC (PCR) (Not Detect) Stl E. histolytica PCR (Not Detect) Stool Giardia Lamblia PCR (Not Detect) Stool Sapovirus (PCR) (Not Detect) Stl P. shigelloides PCR (Not Detect) St Y.enterocolitica PCR (Not Detect) Stool Vibrio (PCR) (Not Detect) Stl Vibrio cholerae PCR (Not Detect) Stl Enteroaggr Ecoli PCR (Not Detect) Stl Norovirus GI/GII PCR (Not Detect) Salicylates (<20) mg/dL U Opiates 300ng/mL cut (Negative) Ur Oxycodone Screen (Negative) Urine Methadone Screen (Negative) Acetaminophen (10-30) ug/mL Ur Barbiturates Screen (Negative) U Tricyclic Antidepress (Negative) Ur Phencyclidine Scrn (Negative) Ur Amphetamines Screen (Negative) U Methamphetamines Scrn (Negative) Ur MDMA Scrn (Ecstasy) (Negative) U Benzodiazepines Scrn (Negative) Urine Cocaine Screen (Negative) U Marijuana (THC) Screen (Negative) Urine Specific [place] Normal (Normal) Ethyl Alcohol ( - 10) mg/dL Ur Creatinine Normal (Normal) Chlamy pneumoniae PCR Not detected (Not Detect) Adenovirus (PCR) Not detected (Not Detect) B. pertussis DNA (PCR) Not detected (Not Detect) B.parapertussis DNA PCR Not detected (Not Detecte) Campylobacter (PCR) (Not Detect) C. difficile Tox (PCR) (Not Detect) Coronavirus OC43 (PCR) Not detected (Not Detect) Coronavirus HKU1 (PCR) Not detected (Not Detect) Coronavirus 229E (PCR) Not detected (Not Detect) SARS-CoV-2 (PCR) Detected H (Not Detecte) Coronavirus NL63 (PCR) Not detected (Not Detect) Human Metapneumovir PCR Not detected (Not Detect) Influenza Type A (PCR) Not detected (Not Detect) Influenza Type B (PCR) Not detected (Not Detect) M. pneumoniae (PCR) Not detected (Not Detect) Parainfluenza 1 (PCR) Not detected (Not Detect) Parainfluenza 2 (PCR) Not detected (Not Detect) Parainfluenza 3 (PCR) Not detected (Not Detect) Parainfluenza 4 (PCR) Not detected (Not Detect) RSV (PCR) Not detected (Not Detect) Entero/Rhino (PCR) Not detected (Not Detect) Salmonella (PCR) (Not Detect) ECG Data Attestation: I personally reviewed and interpreted this ECG as follows: Prior ECG tracings: available for review Interpretation: normal sinus rhythm rate 91 NV interval 134 QRS 82 QTC 450 Q-wave noted in lead 3 and AVF MDM Narrative Medical decision making narrative: MDM CC: Altered mental status Complicating co-morbidities: Depression Data collected from:Son Medical records reviewed: Previous admissions for UTI metabolic encephalopathy an adverse drug reaction, presenting similarly Differential considered: CVA sepsis, toxicology Exam documented above, pertinent findings include: Confused but no focal deficits moving all extremities no facial droop abdomen soft no difficulty breathing Lab Test results independently reviewed as above. Pertinent findings: CBC mild WBC of 11.2 previously 12.4, no left shift CMP sodium 143 potassium 3.4 chloride 22 BUN 20 creatinine 0.7 which is stable glucose is 101 Lactate 1.7 procalcitonin 0.034 Troponin negative TSH 0.33 Independently reviewed EKG as above Imaging studies independently reviewed: Head CT negative for intracranial hemorrhage Chest x-ray negative for cardiopulmonary process Consultations: [ ] Treatments: IV fluids Re-evaluations: Patient remains confused Discussion: 68-year-old female presenting today with altered mental status. Has historically been adverse drug reaction and or infection. She has had diarrhea. Awaiting for GI panel she has had some difficulty getting urine. Ultimately needed a urinary catheter Blood work does show mild leukocytosis without significant sepsis she has a normal lactate normal procalcitonin. Electrolytes are stable. She is some mild hyperthyroid unlikely causing her symptoms. Unclear what is causing her metabolic encephalopathy, still awaiting urine, GI panel I think unlikely to be an encephalitis possible she was not appear to have a headache or neck pain. Awaiting GI panel Signed out to Dr. Cantrell <Fadi Cantrell, - Last Filed: 03/28/24 22:48> Medical Records Attestation: I reviewed the patient's medical records. Lab Data Attestation: I reviewed the patient's lab results. Labs: Lab Results 03/28/24 03/28/24 03/28/24 Range/Units 15:10 16:30 19:00 WBC 11.2 H (4.5-11.0) X10^3/uL RBC 4.52 (4.0-5.2) X10^6/uL Hgb 11.8 L (12.0-16.0) g/dL Hct 36.7 (36-46) % MCV 81.2 (80-100) fL MCH 26.0 (26-34) PG MCHC 32.0 (30-36) % RDW 18.5 H (11.6-14.8) % Plt Count 474 H (150-400) X10^3/uL Neut % (Auto) 69.6 (50-75) % Lymph % (Auto) 22.7 L (25-40) % [place] % (Auto) 7.6 (3-14) % Eos % (Auto) 0.0 L (2-4) % Baso % (Auto) 0.1 (0-2) % Neut # (Auto) 7800 H (2864-3356) /uL Lymph # (Auto) 2500 (8304-3941) /uL [place] # (Auto) 800 (0-900) /uL Eos # (Auto) 0 (0-450) /uL Baso # (Auto) 0 (0-100) /uL PT 12.4 (9.4-12.5) SECONDS INR 1.1 (0.9-1.3) APTT 50 H (25.1-36.5) SECONDS Sodium 143 (137-145) mmol/L Potassium 3.6 (3.4-5.1) mmol/L Chloride 110 H (98-107) mmol/L Carbon Dioxide 22 (22-32) mmol/L BUN 20 H (7-17) mg/dL Creatinine 0.73 (0.52-1.04) mg/dL Estimated GFR > 60 (>60) mL/min BUN/Creatinine Ratio 27.4 H (6-22) Glucose 101 (80-110) mg/dL Lactate 1.7 (0.7-2.1) mmol/L Calcium 9.8 (8.4-10.2) mg/dL Total Bilirubin 1.0 (0.2-1.3) mg/dL AST 30 (14-36) IU/L ALT 17 (<35) IU/L Alkaline Phosphatase 126 (38-126) U/L Total Creatine Kinase 62 (30-135) U/L Troponin I < 0.012 (0.01-0.034) ng/mL Total Protein 8.1 (6.3-8.2) g/dL Albumin 4.5 (3.5-5.0) g/dL Globulin 3.6 (1.7-4.1) g/dL Albumin/Globulin Ratio 1.3 (1.0-2.8) Procalcitonin 0.034 (<0.5) ng/mL TSH 0.333 L (0.47-4.68) uIU/mL Urine Color Yellow Urine Appearance Clear Urine pH 7.0 (4.5-8.0) Ur Specific [place] 1.015 (1.000-1.035) Urine Protein Negative (Negative) Urine Glucose (UA) Negative (Negative) g/dL Urine Ketones 2+ H (NEGATIVE) Urine Occult Blood Negative (Negative) Urine Nitrate Negative (Negative) Urine Bilirubin Negative (NEGATIVE) Urine Urobilinogen 1.0 (0.2) E.U./dL Ur Leukocyte Esterase Trace H (NEGATIVE) Urine RBC None seen (0-5/HPF) Urine WBC 5-10/hpf H (0-5/HPF) Ur Squamous Epith Cells None seen (0-5/HPF) Amorphous Sediment 2+ Urine Bacteria Few (2-10) H (None) Ur Culture Indicated? Specimen cultured Vol Urine Centrifuged 10ml (spun) Stl C. cayetanensis PCR Not detected (Not Detect) Stool Rotavirus (PCR) Not detected (Not Detect) Stool Adenovirus (PCR) Not detected (Not Detect) Stool Astrovirus (PCR) Not detected (Not Detect) Stool Cryptosporidium PCR Not detected (Not Detect) Stl E.coli Shiga Tox PCR Not detected (Not Detect) St Sh/Enteroin Ecoli PCR Not detected (Not Detect) Stl Enterotoxigenic E PCR Not detected (Not Detect) Stool EPEC (PCR) Not detected (Not Detect) Stl E. histolytica PCR Not detected (Not Detect) Stool Giardia Lamblia PCR Not detected (Not Detect) Stool Sapovirus (PCR) Not detected (Not Detect) Stl P. shigelloides PCR Not detected (Not Detect) St Y.enterocolitica PCR Not detected (Not Detect) Stool Vibrio (PCR) Not detected (Not Detect) Stl Vibrio cholerae PCR Not detected (Not Detect) Stl Enteroaggr Ecoli PCR Not detected (Not Detect) Stl Norovirus GI/GII PCR Not detected (Not Detect) Salicylates < 1.0 (<20) mg/dL U Opiates 300ng/mL cut Negative (Negative) Ur Oxycodone Screen Negative (Negative) Urine Methadone Screen Negative (Negative) Acetaminophen < 10 (10-30) ug/mL Ur Barbiturates Screen Negative (Negative) U Tricyclic Antidepress Negative (Negative) Ur Phencyclidine Scrn Negative (Negative) Ur Amphetamines Screen Negative (Negative) U Methamphetamines Scrn Negative (Negative) Ur MDMA Scrn (Ecstasy) Negative (Negative) U Benzodiazepines Scrn Negative (Negative) Urine Cocaine Screen Negative (Negative) U Marijuana (THC) Screen Negative (Negative) Urine Specific [place] (Normal) Ethyl Alcohol < 10 ( - 10) mg/dL Ur Creatinine (Normal) Chlamy pneumoniae PCR (Not Detect) Adenovirus (PCR) (Not Detect) B. pertussis DNA (PCR) (Not Detect) B.parapertussis DNA PCR (Not Detecte) Campylobacter (PCR) Not detected (Not Detect) C. difficile Tox (PCR) Detected H (Not Detect) Coronavirus OC43 (PCR) (Not Detect) Coronavirus HKU1 (PCR) (Not Detect) Coronavirus 229E (PCR) (Not Detect) SARS-CoV-2 (PCR) (Not Detecte) Coronavirus NL63 (PCR) (Not Detect) Human Metapneumovir PCR (Not Detect) Influenza Type A (PCR) (Not Detect) Influenza Type B (PCR) (Not Detect) M. pneumoniae (PCR) (Not Detect) Parainfluenza 1 (PCR) (Not Detect) Parainfluenza 2 (PCR) (Not Detect) Parainfluenza 3 (PCR) (Not Detect) Parainfluenza 4 (PCR) (Not Detect) RSV (PCR) (Not Detect) Entero/Rhino (PCR) (Not Detect) Salmonella (PCR) Not detected (Not Detect) 03/28/24 Range/Units 19:00 WBC (4.5-11.0) X10^3/uL RBC (4.0-5.2) X10^6/uL Hgb (12.0-16.0) g/dL Hct (36-46) % MCV (80-100) fL MCH (26-34) PG MCHC (30-36) % RDW (11.6-14.8) % Plt Count (150-400) X10^3/uL Neut % (Auto) (50-75) % Lymph % (Auto) (25-40) % [place] % (Auto) (3-14) % Eos % (Auto) (2-4) % Baso % (Auto) (0-2) % Neut # (Auto) (2863-8650) /uL Lymph # (Auto) (4106-6691) /uL [place] # (Auto) (0-900) /uL Eos # (Auto) (0-450) /uL Baso # (Auto) (0-100) /uL PT (9.4-12.5) SECONDS INR (0.9-1.3) APTT (25.1-36.5) SECONDS Sodium (137-145) mmol/L Potassium (3.4-5.1) mmol/L Chloride (98-107) mmol/L Carbon Dioxide (22-32) mmol/L BUN (7-17) mg/dL Creatinine (0.52-1.04) mg/dL Estimated GFR (>60) mL/min BUN/Creatinine Ratio (6-22) Glucose (80-110) mg/dL Lactate (0.7-2.1) mmol/L Calcium (8.4-10.2) mg/dL Total Bilirubin (0.2-1.3) mg/dL AST (14-36) IU/L ALT (<35) IU/L Alkaline Phosphatase (38-126) U/L Total Creatine Kinase (30-135) U/L Troponin I (0.01-0.034) ng/mL Total Protein (6.3-8.2) g/dL Albumin (3.5-5.0) g/dL Globulin (1.7-4.1) g/dL Albumin/Globulin Ratio (1.0-2.8) Procalcitonin (<0.5) ng/mL TSH (0.47-4.68) uIU/mL Urine Color Urine Appearance Urine pH Normal (4.5-8.0) Ur Specific [place] (1.000-1.035) Urine Protein (Negative) Urine Glucose (UA) (Negative) g/dL Urine Ketones (NEGATIVE) Urine Occult Blood (Negative) Urine Nitrate (Negative) Urine Bilirubin (NEGATIVE) Urine Urobilinogen (0.2) E.U./dL Ur Leukocyte Esterase (NEGATIVE) Urine RBC (0-5/HPF) Urine WBC (0-5/HPF) Ur Squamous Epith Cells (0-5/HPF) Amorphous Sediment Urine Bacteria (None) Ur Culture Indicated? Vol Urine Centrifuged Stl C. cayetanensis PCR (Not Detect) Stool Rotavirus (PCR) (Not Detect) Stool Adenovirus (PCR) (Not Detect) Stool Astrovirus (PCR) (Not Detect) Stool Cryptosporidium PCR (Not Detect) Stl E.coli Shiga Tox PCR (Not Detect) St Sh/Enteroin Ecoli PCR (Not Detect) Stl Enterotoxigenic E PCR (Not Detect) Stool EPEC (PCR) (Not Detect) Stl E. histolytica PCR (Not Detect) Stool Giardia Lamblia PCR (Not Detect) Stool Sapovirus (PCR) (Not Detect) Stl P. shigelloides PCR (Not Detect) St Y.enterocolitica PCR (Not Detect) Stool Vibrio (PCR) (Not Detect) Stl Vibrio cholerae PCR (Not Detect) Stl Enteroaggr Ecoli PCR (Not Detect) Stl Norovirus GI/GII PCR (Not Detect) Salicylates (<20) mg/dL U Opiates 300ng/mL cut (Negative) Ur Oxycodone Screen (Negative) Urine Methadone Screen (Negative) Acetaminophen (10-30) ug/mL Ur Barbiturates Screen (Negative) U Tricyclic Antidepress (Negative) Ur Phencyclidine Scrn (Negative) Ur Amphetamines Screen (Negative) U Methamphetamines Scrn (Negative) Ur MDMA Scrn (Ecstasy) (Negative) U Benzodiazepines Scrn (Negative) Urine Cocaine Screen (Negative) U Marijuana (THC) Screen (Negative) Urine Specific [place] Normal (Normal) Ethyl Alcohol ( - 10) mg/dL Ur Creatinine Normal (Normal) Chlamy pneumoniae PCR Not detected (Not Detect) Adenovirus (PCR) Not detected (Not Detect) B. pertussis DNA (PCR) Not detected (Not Detect) B.parapertussis DNA PCR Not detected (Not Detecte) Campylobacter (PCR) (Not Detect) C. difficile Tox (PCR) (Not Detect) Coronavirus OC43 (PCR) Not detected (Not Detect) Coronavirus HKU1 (PCR) Not detected (Not Detect) Coronavirus 229E (PCR) Not detected (Not Detect) SARS-CoV-2 (PCR) Detected H (Not Detecte) Coronavirus NL63 (PCR) Not detected (Not Detect) Human Metapneumovir PCR Not detected (Not Detect) Influenza Type A (PCR) Not detected (Not Detect) Influenza Type B (PCR) Not detected (Not Detect) M. pneumoniae (PCR) Not detected (Not Detect) Parainfluenza 1 (PCR) Not detected (Not Detect) Parainfluenza 2 (PCR) Not detected (Not Detect) Parainfluenza 3 (PCR) Not detected (Not Detect) Parainfluenza 4 (PCR) Not detected (Not Detect) RSV (PCR) Not detected (Not Detect) Entero/Rhino (PCR) Not detected (Not Detect) Salmonella (PCR) (Not Detect) Imaging Data Chest x-ray: Radiologist's Impression: PROCEDURE: XR CHEST 1V INDICATIONS: confusion TECHNIQUE: One view of the chest was acquired. COMPARISON: [facility], , XR CHEST FOR PICC 1V, 02/14/2023, 11:11. [facility], , XR CHEST FOR PICC 1V, 02/14/2023, 10:34. FINDINGS: Surgical changes and devices: None. Lungs and pleura: Lungs are clear. No pleural effusions or pneumothorax. Mediastinum: Mediastinal contours appear normal. Heart size is normal. Bones and chest wall: No suspicious bony lesions. Overlying soft tissues appear unremarkable. IMPRESSION: No acute cardiopulmonary abnormality is seen. CT scan - head: Radiologist's Impression: PROCEDURE: CT HEAD/BRAIN WO CON INDICATIONS: altered mental status TECHNIQUE: Noncontrast 4.5 mm thick angled axial sections acquired from the foramen magnum to the vertex, with coronal and sagittal reformats. For radiation dose reduction, the following was used: automated exposure control, adjustment of mA and/or kV according to patient size. COMPARISON: [facility], MR, MR HEAD/BRAIN WO CON, 02/15/2023, 15:35. [facility], CR, XR CHEST 1V, 03/28/2024, 14:01. [facility], CT, CT HEAD/BRAIN WO CON, 02/14/2023, 22:21. [facility], CT, CT HEAD/BRAIN WO CON, 02/15/2023, 17:47. [facility], CT, CT HEAD/BRAIN WO CON, 02/20/2023, 17:19. FINDINGS: Image quality: Diagnostic. CSF spaces: Basal cisterns are patent. No extra-axial fluid collections. The ventricles are symmetric in size and shape. Brain: No intracranial bleeds or masses. There is cerebral volume loss for age, with resultant ventricular and sulcal prominence. There are periventricular and deep white matter chronic small vessel ischemic changes. There is intracranial internal carotid artery atherosclerosis. Skull and face: Calvarium and visualized facial bones appear intact, without suspicious lesions. Sinuses: Visualized sinuses and mastoids are clear. IMPRESSION: No acute intracranial pathology. Stable from prior. MDM Narrative Medical decision making narrative: MDM CC: Altered mental status Complicating co-morbidities: Depression Data collected from:Son Medical records reviewed: Previous admissions for UTI metabolic encephalopathy an adverse drug reaction, presenting similarly Differential considered: CVA sepsis, toxicology Exam documented above, pertinent findings include: Confused but no focal deficits moving all extremities no facial droop abdomen soft no difficulty breathing Lab Test results independently reviewed as above. Pertinent findings: CBC mild WBC of 11.2 previously 12.4, no left shift CMP sodium 143 potassium 3.4 chloride 22 BUN 20 creatinine 0.7 which is stable glucose is 101 Lactate 1.7 procalcitonin 0.034 Troponin negative TSH 0.33 Independently reviewed EKG as above Imaging studies independently reviewed: Head CT negative for intracranial hemorrhage Chest x-ray negative for cardiopulmonary process Consultations: [ ] Treatments: IV fluids Re-evaluations: Patient remains confused Discussion: 68-year-old female presenting today with altered mental status. Has historically been adverse drug reaction and or infection. She has had diarrhea. Awaiting for GI panel she has had some difficulty getting urine. Ultimately needed a urinary catheter Blood work does show mild leukocytosis without significant sepsis she has a normal lactate normal procalcitonin. Electrolytes are stable. She is some mild hyperthyroid unlikely causing her symptoms. Unclear what is causing her metabolic encephalopathy, still awaiting urine, GI panel I think unlikely to be an encephalitis possible she was not appear to have a headache or neck pain. Awaiting GI panel Signed out to Dr. Óscar cantrell: Received turned over. Review patient's history and physical exam and workup . Patient is positive for COVID however she was not hypoxic. Not tachypneic. She was also positive for C diff. Was given an oral dose of vancomycin. Is confused. He was repetitive and answering questions. Head CT is unremarkable. Does not have a urinary tract infection. Electrolytes are unremarkable. Given her confusion will admit for further evaluation. Discussed the case with Dr. Wagner hospitalist on-call who will admit for further evaluation and treatment. Discharge Plan Departure Patient Disposition: Admitted As Inpatient Clinical Impression: Acute confusion, COVID-19, C. difficile diarrhea Admit Date/Time: 03/28/24 21:07 Admit Provider: Hema Wagner
--- NOTE | 2024-03-28 13:55 | DI.RAD.S_ITS ---
PROCEDURE: XR CHEST 1V INDICATIONS: confusion TECHNIQUE: One view of the chest was acquired. COMPARISON: [facility], CR, XR CHEST FOR PICC 1V, 02/14/2023, 11:11. [facility], CR, XR CHEST FOR PICC 1V, 02/14/2023, 10:34. FINDINGS: Surgical changes and devices: None. Lungs and pleura: Lungs are clear. No pleural effusions or pneumothorax. Mediastinum: Mediastinal contours appear normal. Heart size is normal. Bones and chest wall: No suspicious bony lesions. Overlying soft tissues appear unremarkable. IMPRESSION: No acute cardiopulmonary abnormality is seen. Dictated by: Phan Christian M.D. on 03/28/2024 at 14:35 Approved by: Phan Christian M.D. on 03/28/2024 at 14:36
--- NOTE | 2024-03-28 13:56 | EKG_ITS ---
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
--- NOTE | 2024-03-28 15:05 | PC.NURSE ---
Lab results delayed d/t difficult IV start requiring US IV and no US available at time.
[2024-03-28 15:35] LABS: INR 1.1 (0.9-1.3); Prothrombin Time 12.4 SECONDS (9.4-12.5)
[2024-03-28 15:38] LABS: Add Manual Diff / Slide Review NO; Basophils Absolute Auto 0 /uL (0-100); Basophils Percent Auto 0.1 % (0-2); Eosinophils Absolute Auto 0 /uL (0-450); Hematocrit 36.7 % (36-46); Hemoglobin 11.8 g/dL (12.0-16.0); Lymphocytes Absolute Auto 2500 /uL (1100-4500); Lymphocytes Percent Auto 22.7 % (25-40); Mean Corpuscular Volume 81.2 fL (80-100); Monocytes Absolute Auto 800 /uL (0-900); Monocytes Percent Auto 7.6 % (3-14); Neutrophils Absolute Auto 7800 /uL (1500-7000); Neutrophils Percent Auto 69.6 % (50-75); Platelet Count 474 X10^3/uL (150-400); Red Blood Cell Count 4.52 X10^6/uL (4.0-5.2); Red Cell Distribution Width 18.5 % (11.6-14.8); White Blood Cell Count 11.2 X10^3/uL (4.5-11.0)
[2024-03-28 15:41] LABS: Lactate (Lactic Acid) 1.7 mmol/L (0.7-2.1)
[2024-03-28 15:42] LABS: Alanine Aminotransferase 17 IU/L (<35); Albumin 4.5 g/dL (3.5-5.0); Albumin Globulin Ratio 1.3 (1.0-2.8); Alkaline Phosphatase 126 U/L (38-126); Aspartate Aminotransferase 30 IU/L (14-36); BUN Creatinine Ratio 27.4 (6-22); Blood Urea Nitrogen 20 mg/dL (7-17); Calcium 9.8 mg/dL (8.4-10.2); Carbon Dioxide 22 mmol/L (22-32); Chloride 110 mmol/L (98-107); Creatine Kinase 62 U/L (30-135); Estimated Glomerular Filt Rate > 60 mL/min (>60); Globulin 3.6 g/dL (1.7-4.1); Glucose 101 mg/dL (80-110); HEMOLYSIS < 15 (0-50); Potassium 3.6 mmol/L (3.4-5.1); Sodium 143 mmol/L (137-145); Total Protein 8.1 g/dL (6.3-8.2)
[2024-03-28 15:43] LABS: Acetaminophen < 10 ug/mL (10-30); Ethanol (ETOH) < 10 mg/dL; Salicylate < 1.0 mg/dL (<20)
[2024-03-28 15:46] LABS: PTT Partial Thromboplastin Tim 50 SECONDS (25.1-36.5)
[2024-03-28 15:54] LABS: Troponin I < 0.012 ng/mL (0.01-0.034)
[2024-03-28 15:59] LABS: Procalcitonin 0.034 ng/mL (<0.5)
--- NOTE | 2024-03-28 16:00 | DI.CT.S_ITS ---
PROCEDURE: CT HEAD/BRAIN WO CON INDICATIONS: altered mental status TECHNIQUE: Noncontrast 4.5 mm thick angled axial sections acquired from the foramen magnum to the vertex, with coronal and sagittal reformats. For radiation dose reduction, the following was used: automated exposure control, adjustment of mA and/or kV according to patient size. COMPARISON: [facility], MR, MR HEAD/BRAIN WO CON, 02/15/2023, 15:35. [facility], CR, XR CHEST 1V, 03/28/2024, 14:01. [facility], CT, CT HEAD/BRAIN WO CON, 02/14/2023, 22:21. [facility], CT, CT HEAD/BRAIN WO CON, 02/15/2023, 17:47. [facility], CT, CT HEAD/BRAIN WO CON, 02/20/2023, 17:19. FINDINGS: Image quality: Diagnostic. CSF spaces: Basal cisterns are patent. No extra-axial fluid collections. The ventricles are symmetric in size and shape. Brain: No intracranial bleeds or masses. There is cerebral volume loss for age, with resultant ventricular and sulcal prominence. There are periventricular and deep white matter chronic small vessel ischemic changes. There is intracranial internal carotid artery atherosclerosis. Skull and face: Calvarium and visualized facial bones appear intact, without suspicious lesions. Sinuses: Visualized sinuses and mastoids are clear. IMPRESSION: No acute intracranial pathology. Stable from prior. Dictated by: Maury Danielson M.D. on 03/28/2024 at 15:20 Approved by: Maury Danielson M.D. on 03/28/2024 at 15:21
[2024-03-28 16:12] LABS: Thyroid Stimulating Hormone 0.333 uIU/mL (0.47-4.68)
[2024-03-28] MEDS: SODIUM CHLORIDE 0.9% 1,000 ML 1000 ML IV (17:15)
[2024-03-28 19:21] LABS: Ur Creatinine Normal (Normal); Ur Specific Gravity Normal (Normal); Urine Amphetamines Negative (Negative); Urine Barbiturates Negative (Negative); Urine Benzodiazepines Negative (Negative); Urine Cocaine Negative (Negative); Urine MDMA Negative (Negative); Urine Methadone Negative (Negative); Urine Methamphetamines Negative (Negative); Urine Opiates Negative (Negative); Urine Oxycodone Negative (Negative); Urine Phencyclidine Negative (Negative); Urine THC Negative (Negative); Urine Tricyclic Antidepressant Negative (Negative); Urine pH Normal (Normal)
[2024-03-28 19:35] LABS: Appearance Urine UA CLEAR; Bilirubin Urine UA NEGATIVE (NEGATIVE); Color Urine UA YELLOW; Glucose Urine UA NEGATIVE (Negative); Ketones Urine UA 2+ (NEGATIVE); Leukocyte Esterase Urine UA TRACE (NEGATIVE); Nitrite Urine UA NEGATIVE (Negative); Occult Blood Urine UA NEGATIVE (Negative); Protein Urine UA NEGATIVE (Negative); Specific Gravity Urine UA 1.015 (1.000-1.035)
[2024-03-28 19:42] LABS: Urine Volume 10mL (spun)
[2024-03-28 19:43] LABS: Amorphous Sediment Urine 2+; Bacteria Urine Few (2-10); Culture Indicated Urine Specimen Cultured; RBC Urine None Seen (0-5/HPF); Squamous Epithelial Cell Urine None Seen (0-5/HPF); WBC Urine 5-10/HPF (0-5/HPF)
--- NOTE | 2024-03-28 19:54 | PC.NURSE ---
Chinedu - pt son called to get an update. Update given, advised him that we will call prior to disposition whether it is admission or discharge.
[2024-03-28 20:05] LABS: Adenovirus Not Detected (Not Detect); B. parapertussis Not Detected (Not Detecte); Bordetella pertussis Not Detected (Not Detect); Chlamydophila pneumoniae Not Detected (Not Detect); Coronavirus 229E Not Detected (Not Detect); Coronavirus HKU1 Not Detected (Not Detect); Coronavirus NL 63 Not Detected (Not Detect); Coronavirus OC43 Not Detected (Not Detect); Human Metapneumovirus Not Detected (Not Detect); Human Rhinovirus/Enterovirus Not Detected (Not Detect); Influenza A Not Detected (Not Detect); Influenza B Not Detected (Not Detect); Mycoplasma pneumoniae Not Detected (Not Detect); Parainfluenza Virus 1 Not Detected (Not Detect); Parainfluenza Virus 2 Not Detected (Not Detect); Parainfluenza Virus 3 Not Detected (Not Detect); Parainfluenza Virus 4 Not Detected (Not Detect); Respiratory Syncytial Virus Not Detected (Not Detect)
[2024-03-28 20:10] LABS: SARS- CoV-2 Detected (Not Detecte)
[2024-03-28 20:22] LABS: Adenovirus F 40/41 Not Detected (Not Detect); Astrovirus Not Detected (Not Detect); Campylobacter Not Detected (Not Detect); Clostridium difficile toxin AB Detected (Not Detect); Cryptosporidium Not Detected (Not Detect); Cyclospora cayetanensis Not Detected (Not Detect); Entamoeba histolytica Not Detected (Not Detect); Enteroaggregative E.coli Not Detected (Not Detect); Enteropathogenic E.coli Not Detected (Not Detect); Enterotoxigenic E.coli It/st Not Detected (Not Detect); Giardia lamblia Not Detected (Not Detect); Norovirus GI/GII Not Detected (Not Detect); Plesiomonsa shigelloides Not Detected (Not Detect); Rotavirus A Not Detected (Not Detect); Salmonella Not Detected (Not Detect); Sapovirus Not Detected (Not Detect); Shiga-like toxin-prod E.coli Not Detected (Not Detect); Shigella/Enteroinvasive E.coli Not Detected (Not Detect); Vibrio Not Detected (Not Detect); Vibrio cholerae Not Detected (Not Detect); Yersinia enterocolitica Not Detected (Not Detect)
[2024-03-28] MEDS: VANCOMYCIN 125 MG CAPSULE PO (21:28)
--- NOTE | 2024-03-28 21:44 | PC.NURSE ---
Gave update to Jesus Che at [phone]. He would like to have a phone call after rounds with hospitalist in the morning.
[2024-03-28] MEDS: SODIUM CHLORIDE 0.9% 1,000 ML 100 ML IV (22:41)
--- NOTE | 2024-03-29 03:58 | PM.HP.1 ---
History of Present Illness History of Present Illness Chief complaint: Altered Mental Status Narrative: 68-year-old female with past medical history of depression presents with uAltered mental status. Of note, patient presents previous admission with similar presentation where she was found to have a UTI as well as taking her 's to temazepam muscle relaxant. However today it was noted that the patient was more confused and have watery diarrhea. Per the patient's son the patient was confused as well as having difficulty with some word finding. There's no report of any focal weakness or slur speech. The patient is a poor historian and unable to give much of a history though she is oriented to herself and does follow command.? In our emergency room, the patient was found to be positive for c diff as well as COVID infection. Chest x-ray however was clear and patient was saturating well on room air. There's no sign of sepsis. The patient was given IV fluid as well as oral vancomycin. Of note CT scan of the patient's head was negative.? [facility] Social History household members: children Smoking Status: Former smoker alcohol intake: never Meds Home Medications and Allergies Home Medications Medication Instructions Recorded Confirmed Type escitalopram oxalate 10 mg tablet 10 mg PO DAILY 02/13/23 05/29/23 History omeprazole 20 mg capsule,delayed 20 mg PO DAILY 02/13/23 05/29/23 History release potassium chloride 20 mEq 20 meq PO DAILY #30 tabs 02/17/23 05/29/23 Rx tablet,extended release ondansetron 4 mg disintegrating 4 mg PO Q8H PRN nausea and 02/20/23 05/29/23 Rx tablet vomiting #30 tabs promethazine 25 mg rectal 25 mg MN Q6H PRN vomiting #12 ea 02/20/23 05/29/23 Rx suppository ondansetron 4 mg disintegrating 4 mg PO Q6H PRN nausea and 06/20/23 Rx tablet vomiting #14 tabs Allergies Allergy/AdvReac Type Severity Reaction Status Date / Time No Known Drug Allergies Allergy Verified 03/28/24 13:44 Review of Systems Review of Systems Narrative: Limited due to patients confusion Exam Vital Signs (past 8 hours): - 03/28/24 20:00 03/28/24 20:00 03/28/24 20:30 Temperature Pulse Rate 88 Respiratory Rate 17 Blood Pressure 170/89 H 167/78 H Pulse Oximetry 99 Oxygen Delivery Method Room Air 03/28/24 20:30 03/28/24 21:00 03/28/24 21:00 Temperature Pulse Rate 106 H 91 H Respiratory Rate 21 21 Blood Pressure 138/81 Pulse Oximetry 99 99 Oxygen Delivery Method 03/28/24 21:30 03/28/24 21:30 03/28/24 22:12 Temperature 98.5 F Pulse Rate 87 89 Respiratory Rate 18 18 Blood Pressure 156/73 H 159/100 H Pulse Oximetry 98 95 Oxygen Delivery Method Room Air Oxygen Delivery Method Room Air Narrative Exam Narrative: GENERAL: The patient is not in any acute distressed. Awake and alert. HEENT: Nonicteric sclerae, PERRLA, EOMI. Oropharynx clear. Moist mucous membranes. Conjunctivae appear well perfused. HEART: Regular rate and rhythm without murmurs. No lower extremities edema. LUNGS: Clear to auscultation bilaterally. No wheezing, crackles or rhonchi ABDOMEN: Soft, positive bowel sounds, nontender. SKIN: No rash, no excessive bruising, petechiae, or purpura. NEUROLOGIC: AxO x 2. Cranial nerves II-XII intact without motor/sensory deficit. Objective Labs 03/28/24 15:10 03/28/24 15:10 Labs: Laboratory Results - last 24 hr 03/28/24 03/28/24 03/28/24 15:10 16:30 19:00 WBC 11.2 H RBC 4.52 Hgb 11.8 L Hct 36.7 MCV 81.2 MCH 26.0 MCHC 32.0 RDW 18.5 H Plt Count 474 H Neut % (Auto) 69.6 Lymph % (Auto) 22.7 L [place] % (Auto) 7.6 Eos % (Auto) 0.0 L Baso % (Auto) 0.1 Neut # (Auto) 7800 H Lymph # (Auto) 2500 [place] # (Auto) 800 Eos # (Auto) 0 Baso # (Auto) 0 PT 12.4 INR 1.1 APTT 50 H Sodium 143 Potassium 3.6 Chloride 110 H Carbon Dioxide 22 BUN 20 H Creatinine 0.73 Estimated GFR > 60 BUN/Creatinine Ratio 27.4 H Glucose 101 Lactate 1.7 Calcium 9.8 Total Bilirubin 1.0 AST 30 ALT 17 Alkaline Phosphatase 126 Total Creatine Kinase 62 Troponin I < 0.012 Total Protein 8.1 Albumin 4.5 Globulin 3.6 Albumin/Globulin Ratio 1.3 Procalcitonin 0.034 TSH 0.333 L Urine Color Yellow Urine Appearance Clear Urine pH 7.0 Ur Specific [place] 1.015 Urine Protein Negative Urine Glucose (UA) Negative Urine Ketones 2+ H Urine Occult Blood Negative Urine Nitrate Negative Urine Bilirubin Negative Urine Urobilinogen 1.0 Ur Leukocyte Esterase Trace H Urine RBC None seen Urine WBC 5-10/hpf H Ur Squamous Epith Cells None seen Amorphous Sediment 2+ Urine Bacteria Few (2-10) H Ur Culture Indicated? Specimen cultured Vol Urine Centrifuged 10ml (spun) Stl C. cayetanensis PCR Not detected Stool Rotavirus (PCR) Not detected Stool Adenovirus (PCR) Not detected Stool Astrovirus (PCR) Not detected Stool Cryptosporidium PCR Not detected Stl E.coli Shiga Tox PCR Not detected St Sh/Enteroin Ecoli PCR Not detected Stl Enterotoxigenic E PCR Not detected Stool EPEC (PCR) Not detected Stl E. histolytica PCR Not detected Stool Giardia Lamblia PCR Not detected Stool Sapovirus (PCR) Not detected Stl P. shigelloides PCR Not detected St Y.enterocolitica PCR Not detected Stool Vibrio (PCR) Not detected Stl Vibrio cholerae PCR Not detected Stl Enteroaggr Ecoli PCR Not detected Stl Norovirus GI/GII PCR Not detected Salicylates < 1.0 U Opiates 300ng/mL cut Negative Ur Oxycodone Screen Negative Urine Methadone Screen Negative Acetaminophen < 10 Ur Barbiturates Screen Negative U Tricyclic Antidepress Negative Ur Phencyclidine Scrn Negative Ur Amphetamines Screen Negative U Methamphetamines Scrn Negative Ur MDMA Scrn (Ecstasy) Negative U Benzodiazepines Scrn Negative Urine Cocaine Screen Negative U Marijuana (THC) Screen Negative Urine Specific [place] Ethyl Alcohol < 10 Ur Creatinine Chlamy pneumoniae PCR Adenovirus (PCR) B. pertussis DNA (PCR) B.parapertussis DNA PCR Campylobacter (PCR) Not detected C. difficile Tox (PCR) Detected H Coronavirus OC43 (PCR) Coronavirus HKU1 (PCR) Coronavirus 229E (PCR) SARS-CoV-2 (PCR) Coronavirus NL63 (PCR) Human Metapneumovir PCR Influenza Type A (PCR) Influenza Type B (PCR) M. pneumoniae (PCR) Parainfluenza 1 (PCR) Parainfluenza 2 (PCR) Parainfluenza 3 (PCR) Parainfluenza 4 (PCR) RSV (PCR) Entero/Rhino (PCR) Salmonella (PCR) Not detected 03/28/24 19:00 WBC RBC Hgb Hct MCV MCH MCHC RDW Plt Count Neut % (Auto) Lymph % (Auto) [place] % (Auto) Eos % (Auto) Baso % (Auto) Neut # (Auto) Lymph # (Auto) [place] # (Auto) Eos # (Auto) Baso # (Auto) PT INR APTT Sodium Potassium Chloride Carbon Dioxide BUN Creatinine Estimated GFR BUN/Creatinine Ratio Glucose Lactate Calcium Total Bilirubin AST ALT Alkaline Phosphatase Total Creatine Kinase Troponin I Total Protein Albumin Globulin Albumin/Globulin Ratio Procalcitonin TSH Urine Color Urine Appearance Urine pH Normal Ur Specific [place] Urine Protein Urine Glucose (UA) Urine Ketones Urine Occult Blood Urine Nitrate Urine Bilirubin Urine Urobilinogen Ur Leukocyte Esterase Urine RBC Urine WBC Ur Squamous Epith Cells Amorphous Sediment Urine Bacteria Ur Culture Indicated? Vol Urine Centrifuged Stl C. cayetanensis PCR Stool Rotavirus (PCR) Stool Adenovirus (PCR) Stool Astrovirus (PCR) Stool Cryptosporidium PCR Stl E.coli Shiga Tox PCR St Sh/Enteroin Ecoli PCR Stl Enterotoxigenic E PCR Stool EPEC (PCR) Stl E. histolytica PCR Stool Giardia Lamblia PCR Stool Sapovirus (PCR) Stl P. shigelloides PCR St Y.enterocolitica PCR Stool Vibrio (PCR) Stl Vibrio cholerae PCR Stl Enteroaggr Ecoli PCR Stl Norovirus GI/GII PCR Salicylates U Opiates 300ng/mL cut Ur Oxycodone Screen Urine Methadone Screen Acetaminophen Ur Barbiturates Screen U Tricyclic Antidepress Ur Phencyclidine Scrn Ur Amphetamines Screen U Methamphetamines Scrn Ur MDMA Scrn (Ecstasy) U Benzodiazepines Scrn Urine Cocaine Screen U Marijuana (THC) Screen Urine Specific [place] Normal Ethyl Alcohol Ur Creatinine Normal Chlamy pneumoniae PCR Not detected Adenovirus (PCR) Not detected B. pertussis DNA (PCR) Not detected B.parapertussis DNA PCR Not detected Campylobacter (PCR) C. difficile Tox (PCR) Coronavirus OC43 (PCR) Not detected Coronavirus HKU1 (PCR) Not detected Coronavirus 229E (PCR) Not detected SARS-CoV-2 (PCR) Detected H Coronavirus NL63 (PCR) Not detected Human Metapneumovir PCR Not detected Influenza Type A (PCR) Not detected Influenza Type B (PCR) Not detected M. pneumoniae (PCR) Not detected Parainfluenza 1 (PCR) Not detected Parainfluenza 2 (PCR) Not detected Parainfluenza 3 (PCR) Not detected Parainfluenza 4 (PCR) Not detected RSV (PCR) Not detected Entero/Rhino (PCR) Not detected Salmonella (PCR) Assessment & Plan Assessment & Plan narrative: Acute encephalopathy. Admit the patient to medical telemetry as inpatient. Of note, CT head is negative. It is unclear at this point but possibly her mental status change could be related to COVID infection as well as c diff infection. We will treat underlying cause and hydrate the patient. Monitor patients mental status . C diff diarrhea. Will continue oral vancomycin with IV fluid hydration . COVID infection. Chest x-ray is clear and patient saturating well in room air. Monitor for now. Dehydration. IV fluid . Depression hold home antidepressant for now until mental status improved . DVT prophylaxis hep sub q.? Code status full code will need to confirm with patient tomorrow . Disposition likely home in two days . Time-Based Coding :: [TOTAL MINUTES] spent with patient and on the chart (including review of chart, obtaining history, exam, reviewing outside data, placing orders, documenting exam and treatment plan, and counseling patient) on [DATE]. Quality VTE Deep Vein Thrombosis/Pulmonary Embolism Present on Admission: No
[2024-03-29 06:05] LABS: Add Manual Diff / Slide Review NO; Basophils Absolute Auto 0 /uL (0-100); Basophils Percent Auto 0.2 % (0-2); Eosinophils Absolute Auto 0 /uL (0-450); Hematocrit 33.3 % (36-46); Lymphocytes Absolute Auto 2500 /uL (1100-4500); Lymphocytes Percent Auto 30.8 % (25-40); Mean Corpuscular HGB Conc 32.9 % (30-36); Mean Corpuscular Hemoglobin 26.5 PG (26-34); Mean Corpuscular Volume 80.4 fL (80-100); Monocytes Absolute Auto 700 /uL (0-900); Monocytes Percent Auto 8.9 % (3-14); Neutrophils Absolute Auto 4900 /uL (1500-7000); Neutrophils Percent Auto 60.1 % (50-75); Platelet Count 398 X10^3/uL (150-400); Red Blood Cell Count 4.15 X10^6/uL (4.0-5.2); Red Cell Distribution Width 18.3 % (11.6-14.8); White Blood Cell Count 8.2 X10^3/uL (4.5-11.0)
[2024-03-29 06:13] LABS: BUN Creatinine Ratio 27.9 (6-22); Blood Urea Nitrogen 17 mg/dL (7-17); Calcium 8.8 mg/dL (8.4-10.2); Carbon Dioxide 18 mmol/L (22-32); Chloride 113 mmol/L (98-107); Estimated Glomerular Filt Rate > 60 mL/min (>60); Glucose 98 mg/dL (80-110); HEMOLYSIS < 15 (0-50); Potassium 3.2 mmol/L (3.4-5.1); Sodium 139 mmol/L (137-145)
[2024-03-29] MEDS: VANCOMYCIN 125 MG CAPSULE PO ×3 (06:15→18:08)
[2024-03-29 08:00] VITALS: BP 138/87; PULSE 67; RESP 21; TEMP 36.5; O2SAT 99
[2024-03-29] MEDS: HEPARIN 5,000 UNIT/ML VIAL 5000 UNIT SUBCUT (08:38)
[2024-03-29] MEDS: POTASSIUM CHLORIDE 20 MEQ TAB PO ×2 (08:39→10:18)
[2024-03-29] MEDS: PANTOPRAZOLE DR 20 MG TABLET PO (08:39)
[2024-03-29] MEDS: SODIUM CHLORIDE 0.9% 1,000 ML 100 ML IV ×2 (08:41→18:11)
--- NOTE | 2024-03-29 09:40 | PT.IIE ---
Current Diagnoses COVID-19 (03/28/24) Physical Therapy Inpatient Evaluation/Re-Eval M1 PT/OT-IP Prior Functional Status Start: 03/29/24 10:52 Freq: NEEDED Status: Active Protocol: Document 03/29/24 09:40 AB (Rec: 03/29/24 11:08 AB [id number]) Medical Review Prior Functional Status Medical History Reviewed Yes Communication able to make needs known Mobility and Gait pt stated that she was independent with all mobilities and ambulation without AD Social History Household Members children Living Arrangements House Number of Floors (Floors) Two Floors Number of Stairs To Enter/Railing? pt stays on main level of the house no steps to enter Home Environment Standard Height Toilet,Walk in Shower Home Equipment Shower Seat with Backrest,Hand Held Shower,Grab Bars Near Toilet,Grab Bars In Shower Additional Social History Comment pt lives with her son who can assist her if needed pt has an adjustable bed with B rails M2 PT-IP Current Condition Start: 03/29/24 10:52 Freq: NEEDED Status: Active Protocol: Document 03/29/24 09:40 AB (Rec: 03/29/24 11:08 AB [id number]) Physical Therapy Current Condition Current Condition Evaluation Date 03/29/24 Treatment Diagnosis Covid; C-diff infection; difficulty in walking Onset Date 03/28/24 M3 PT-IP Subjective Start: 03/29/24 10:52 Freq: NEEDED Status: Active Protocol: Document 03/29/24 09:40 AB (Rec: 03/29/24 11:08 AB [id number]) Subjective Physical Therapy Visit Type Type Initial Evaluation Visit Start Time 09:40 Visit Stop Time 10:15 Number of DELIVERY TABLE OPERATOR Visits 0 Physical Therapy Visit Comments Patient Comments agreeable to do PT M4 PT-IP Mobility and Gait Start: 03/29/24 10:52 Freq: NEEDED Status: Active Protocol: Document 03/29/24 09:40 AB (Rec: 03/29/24 11:08 AB [id number]) PT-Bed Mobility Assessment Supine to Sit Supine to Sit Independent Sit to Supine Sit to Supine Independent PT-Transfer Assessment Sit to and From Stand Sit to and from Stand Standby Assistance Equipment Transfer Assistive Device None,Gait Belt Comments Mobility Comments pt supine in bed and agreeable to do PT. obtained PLOF and home set up. pt with word finding difficulty but better per pt. pt completed supine to sit mod I. sit to stand SBA and ambulated in room without AD ~ 40 ft SBA. No LOB. pt requested to go back to bed. sit to supine mod I. positioned pt in bed. call light and table placed within reach. informed pt that no further PT intervention needed at this time and pt agreed. informed nurse and nursing staff to mobilize and ambulate pt. Gait Assessment Gait Gait Assistance Required: Standby Assistance Distance (Feet) 40 Able to Maintain Weight Bearing Status Yes During Gait Assistive Devices Assistive Device None,Gait Belt Orthotic/Prosthetic Devices or Brace: No Factors Limiting Gait Function Factors Limiting Gait Function Poor Safety Awareness PT-Balance Assessment Sitting Balance and Reactions Static Sitting Balance Ability Normal Dynamic Sitting Balance Ability Normal Standing Balance and Reactions Static Standing Balance Ability Good Dynamic Standing Balance Ability Good Device Used without AD M5 PT-IP Objective Assessments Start: 03/29/24 10:52 Freq: NEEDED Status: Active Protocol: Document 03/29/24 09:40 AB (Rec: 03/29/24 11:08 AB [id number]) Orientation Orientation/Cognition Level of Alertness Alert Orientation Name Safety Awareness Decreased Safety Awareness Comments slight confusion Gross Range of Motion Lower Extremity ROM Assessment Within Functional Limits Strength Lower Extremity Strength Assessment Within Functional Limits Sensation Assessment Sensation Gross Sensation WNL Muscle Tone Muscle Tone WNL Yes M6 PT-IP Treatment Start: 03/29/24 10:52 Freq: NEEDED Status: Active Protocol: Document 03/29/24 09:40 AB (Rec: 03/29/24 11:08 AB [id number]) Physical Therapy Treatment Education Education Provided Safety M7 PT-IP Assessment and Plan Start: 03/29/24 10:52 Freq: NEEDED Status: Active Protocol: Document 03/29/24 09:40 AB (Rec: 03/29/24 11:08 AB [id number]) PT Summary Assessment and Plan Potential Rehabilitation Potential Good Status of Condition at Evaluation Stable Summary Impairments Pain,ROM,Strength,Balance, Coordination,Sensation,Tone, Cognition,Bed Mobility, Transfers,Gait,Activity Tolerance Assessment Summary pt is a 68 y/o F who presented to the ED with confusion and is admitted for Covid + and C -diff infection. pt is modified independent with bed mobility, SBA for transfers and ambulation without AD. SBA provided for safety. pt ambulated in room without AD without LOB. pt lives with her son who can assist her if needed. no further PT needs at this time. informed nurse. Frequency of Treatment Frequency Of Treatment Discharge Recommendations To Nursing Amount of Assist Needed Standby Assistance Discharge Recommendations PT Discharge Recommendations Home with Assistance Transportation Needs at Discharge Private Vehicle
--- NOTE | 2024-03-29 11:43 | DIET.CONS ---
Dietary Consultation Note Admission Date: 03/28/2024 21:07 Assessment: 68 y F presenting with altered mental status. Nutrition consulted for weight loss and severe drop in eating. Met w/ pt at bedside. Reports a decrease in appetite for 2 months. Unable to provide usual body weight, but notes her clothes have gotten looser. Limited weight hx per EMR. Unable to provide diet recall, besides sometimes having sorbet. Lunch tray off to side, untouched. When tray lid opened, she denied meal. Notes she would like Ensure at meals, vanilla. Nutrition focused physical exam, limited: -mild loss temples -mild loss buccal and orbital fat pads Ht: 165.1 cm Wt: 63.957 kg BMI: 23.4 UBW: 06/20/23 65.317 kg Last BM: 03/29/24 (03/29/24 09:55) MNA: 8 Evelio Score: 21 Diet: 03/28/24 Breakfast Heart Healthy Diet Diet Modifications: Nutrition Percent Meal Consumed 0% 03/29/24 09:59 Labs: RBC 4.15 X10^6/uL (4.0-5.2) 03/29/24 04:30 Hgb 11.0 g/dL (12.0-16.0) L 03/29/24 04:30 Hct 33.3 % (36-46) L 03/29/24 04:30 Creatinine 0.61 mg/dL (0.52-1.04) 03/29/24 04:30 Lactate 1.7 mmol/L (0.7-2.1) 03/28/24 15:10 Nutrition Diagnosis: Inadequate oral intake r/t decreased appetite aeb report of 2 months of decreased intakes, mild muscle wasting temples, mild subcutaneous fat loss buccal and orbital fat pads Interventions: Ensure Enlive TID, vanilla EER: [id number] kcals (25-30 kcals/kg, per BMI) 60-70 g protein (1g/kg per age) Monitoring/Evaluations: Electronically Signed by: Rosario Dejesus 03/29/24 11:43 Clinical Dietitian [address] [address]
[2024-03-29 12:00] VITALS: BP 134/86; PULSE 77; RESP 15; TEMP 36.8; O2SAT 99
--- NOTE | 2024-03-29 13:32 | P.PN_ITS ---
Subjective Subjective Date Patient Seen: 03/29/24 Time Patient Seen: 08:45 Interval history: 68-year-old female with past medical history of depression presents with uAltered mental status. Of note, patient presents previous admission with similar presentation where she was found to have a UTI as well as taking her 's to temazepam muscle relaxant. However today it was noted that the patient was more confused and have watery diarrhea. Per the patient's son the patient was confused as well as having difficulty with some word finding. There's no report of any focal weakness or slur speech. The patient is a poor historian and unable to give much of a history though she is oriented to herself and does follow command.? In our emergency room, the patient was found to be positive for c diff as well as COVID infection. Chest x-ray however was clear and patient was saturating well on room air. There's no sign of sepsis. The patient was given IV fluid as well as oral vancomycin. Of note CT scan of the patient's head was negative.?' Interval history: She is persistently mildly confused. She denies respiratory symptoms. She has been having formed bowel movements. She states she has not been on antibiotics recently and denies recent covert contacts. Exam Vital Signs (past 8 hours): - 03/29/24 08:00 03/29/24 12:00 Temperature 97.7 F 98.2 F Pulse Rate 67 77 Respiratory Rate 21 15 Blood Pressure 138/87 134/86 Pulse Oximetry 99 99 Oxygen Flow Rate 0 0 Oxygen Delivery Method Room Air Oxygen Flow Rate 0 Narrative Exam Narrative: GENERAL: The patient is no acute distressed. Awake and alert. HEENT: Nonicteric sclerae, PERRLA, EOMI. Oropharynx clear. Moist mucous membranes. Conjunctivae appear well perfused. HEART: Regular rate and rhythm without murmurs. No lower extremities edema. LUNGS: Clear to auscultation bilaterally. No wheezing, crackles or rhonchi ABDOMEN: Soft, positive bowel sounds, nontender. SKIN: No rash, no excessive bruising, petechiae, or purpura. NEUROLOGIC: AxO x 2 person, uncertain of day, month or year. She is able to name the president. She is unsure of why she is here exactly. Cranial nerves II-XII intact without motor/sensory deficit. Objective Labs 03/29/24 04:30 03/29/24 04:30 Labs: Laboratory Results - last 24 hr 03/28/24 03/28/24 03/28/24 15:10 16:30 19:00 WBC 11.2 H RBC 4.52 Hgb 11.8 L Hct 36.7 MCV 81.2 MCH 26.0 MCHC 32.0 RDW 18.5 H Plt Count 474 H Neut % (Auto) 69.6 Lymph % (Auto) 22.7 L [place] % (Auto) 7.6 Eos % (Auto) 0.0 L Baso % (Auto) 0.1 Neut # (Auto) 7800 H Lymph # (Auto) 2500 [place] # (Auto) 800 Eos # (Auto) 0 Baso # (Auto) 0 PT 12.4 INR 1.1 APTT 50 H Sodium 143 Potassium 3.6 Chloride 110 H Carbon Dioxide 22 BUN 20 H Creatinine 0.73 Estimated GFR > 60 BUN/Creatinine Ratio 27.4 H Glucose 101 Lactate 1.7 Calcium 9.8 Total Bilirubin 1.0 AST 30 ALT 17 Alkaline Phosphatase 126 Total Creatine Kinase 62 Troponin I < 0.012 Total Protein 8.1 Albumin 4.5 Globulin 3.6 Albumin/Globulin Ratio 1.3 Procalcitonin 0.034 TSH 0.333 L Thyroxine (T4) Urine Color Yellow Urine Appearance Clear Urine pH 7.0 Ur Specific [place] 1.015 Urine Protein Negative Urine Glucose (UA) Negative Urine Ketones 2+ H Urine Occult Blood Negative Urine Nitrate Negative Urine Bilirubin Negative Urine Urobilinogen 1.0 Ur Leukocyte Esterase Trace H Urine RBC None seen Urine WBC 5-10/hpf H Ur Squamous Epith Cells None seen Amorphous Sediment 2+ Urine Bacteria Few (2-10) H Ur Culture Indicated? Specimen cultured Vol Urine Centrifuged 10ml (spun) Stl C. cayetanensis PCR Not detected Stool Rotavirus (PCR) Not detected Stool Adenovirus (PCR) Not detected Stool Astrovirus (PCR) Not detected Stool Cryptosporidium PCR Not detected Stl E.coli Shiga Tox PCR Not detected St Sh/Enteroin Ecoli PCR Not detected Stl Enterotoxigenic E PCR Not detected Stool EPEC (PCR) Not detected Stl E. histolytica PCR Not detected Stool Giardia Lamblia PCR Not detected Stool Sapovirus (PCR) Not detected Stl P. shigelloides PCR Not detected St Y.enterocolitica PCR Not detected Stool Vibrio (PCR) Not detected Stl Vibrio cholerae PCR Not detected Stl Enteroaggr Ecoli PCR Not detected Stl Norovirus GI/GII PCR Not detected Salicylates < 1.0 U Opiates 300ng/mL cut Negative Ur Oxycodone Screen Negative Urine Methadone Screen Negative Acetaminophen < 10 Ur Barbiturates Screen Negative U Tricyclic Antidepress Negative Ur Phencyclidine Scrn Negative Ur Amphetamines Screen Negative U Methamphetamines Scrn Negative Ur MDMA Scrn (Ecstasy) Negative U Benzodiazepines Scrn Negative Urine Cocaine Screen Negative U Marijuana (THC) Screen Negative Urine Specific [place] Ethyl Alcohol < 10 Ur Creatinine Chlamy pneumoniae PCR Adenovirus (PCR) B. pertussis DNA (PCR) B.parapertussis DNA PCR Campylobacter (PCR) Not detected C. difficile Tox (PCR) Detected H Coronavirus OC43 (PCR) Coronavirus HKU1 (PCR) Coronavirus 229E (PCR) SARS-CoV-2 (PCR) Coronavirus NL63 (PCR) Human Metapneumovir PCR Influenza Type A (PCR) Influenza Type B (PCR) M. pneumoniae (PCR) Parainfluenza 1 (PCR) Parainfluenza 2 (PCR) Parainfluenza 3 (PCR) Parainfluenza 4 (PCR) RSV (PCR) Entero/Rhino (PCR) Salmonella (PCR) Not detected 03/28/24 03/29/24 19:00 04:30 WBC 8.2 RBC 4.15 Hgb 11.0 L Hct 33.3 L MCV 80.4 MCH 26.5 MCHC 32.9 RDW 18.3 H Plt Count 398 Neut % (Auto) 60.1 Lymph % (Auto) 30.8 [place] % (Auto) 8.9 Eos % (Auto) 0.0 L Baso % (Auto) 0.2 Neut # (Auto) 4900 Lymph # (Auto) 2500 [place] # (Auto) 700 Eos # (Auto) 0 Baso # (Auto) 0 PT INR APTT Sodium 139 Potassium 3.2 L Chloride 113 H Carbon Dioxide 18 L BUN 17 Creatinine 0.61 Estimated GFR > 60 BUN/Creatinine Ratio 27.9 H Glucose 98 Lactate Calcium 8.8 Total Bilirubin AST ALT Alkaline Phosphatase Total Creatine Kinase Troponin I Total Protein Albumin Globulin Albumin/Globulin Ratio Procalcitonin TSH Thyroxine (T4) 8.50 Urine Color Urine Appearance Urine pH Normal Ur Specific [place] Urine Protein Urine Glucose (UA) Urine Ketones Urine Occult Blood Urine Nitrate Urine Bilirubin Urine Urobilinogen Ur Leukocyte Esterase Urine RBC Urine WBC Ur Squamous Epith Cells Amorphous Sediment Urine Bacteria Ur Culture Indicated? Vol Urine Centrifuged Stl C. cayetanensis PCR Stool Rotavirus (PCR) Stool Adenovirus (PCR) Stool Astrovirus (PCR) Stool Cryptosporidium PCR Stl E.coli Shiga Tox PCR St Sh/Enteroin Ecoli PCR Stl Enterotoxigenic E PCR Stool EPEC (PCR) Stl E. histolytica PCR Stool Giardia Lamblia PCR Stool Sapovirus (PCR) Stl P. shigelloides PCR St Y.enterocolitica PCR Stool Vibrio (PCR) Stl Vibrio cholerae PCR Stl Enteroaggr Ecoli PCR Stl Norovirus GI/GII PCR Salicylates U Opiates 300ng/mL cut Ur Oxycodone Screen Urine Methadone Screen Acetaminophen Ur Barbiturates Screen U Tricyclic Antidepress Ur Phencyclidine Scrn Ur Amphetamines Screen U Methamphetamines Scrn Ur MDMA Scrn (Ecstasy) U Benzodiazepines Scrn Urine Cocaine Screen U Marijuana (THC) Screen Urine Specific [place] Normal Ethyl Alcohol Ur Creatinine Normal Chlamy pneumoniae PCR Not detected Adenovirus (PCR) Not detected B. pertussis DNA (PCR) Not detected B.parapertussis DNA PCR Not detected Campylobacter (PCR) C. difficile Tox (PCR) Coronavirus OC43 (PCR) Not detected Coronavirus HKU1 (PCR) Not detected Coronavirus 229E (PCR) Not detected SARS-CoV-2 (PCR) Detected H Coronavirus NL63 (PCR) Not detected Human Metapneumovir PCR Not detected Influenza Type A (PCR) Not detected Influenza Type B (PCR) Not detected M. pneumoniae (PCR) Not detected Parainfluenza 1 (PCR) Not detected Parainfluenza 2 (PCR) Not detected Parainfluenza 3 (PCR) Not detected Parainfluenza 4 (PCR) Not detected RSV (PCR) Not detected Entero/Rhino (PCR) Not detected Salmonella (PCR) [facility] Social History household members: children Smoking Status: Former smoker alcohol intake: never Assessment & Plan Assessment & Plan narrative: 1. Acute metabolic encephalopathy. Likely due to C diff and covert infections. She has a prior similar history. Continue to monitor. Admit the patient to medical telemetry as inpatient. Of note, CT head is negative. It is unclear at this point but possibly her mental status change could be related to COVID infection as well as c diff infection. We will treat underlying cause and hydrate the patient. Monitor patients mental status . 2. C diff diarrhea. Will continue oral vancomycin with IV fluid hydration . 3. COVID infection. Chest x-ray is clear and patient saturating well in room air. Monitor for now. 4. Dehydration. IV fluid . 5. Depression hold home antidepressant for now until mental status improved . 6. DVT prophylaxis hep sub q.? Code status full code will need to confirm with patient tomorrow . Disposition likely home in two days . Time-Based Coding :: [TOTAL MINUTES] spent with patient and on the chart (including review of chart, obtaining history, exam, reviewing outside data, placing orders, documenting exam and treatment plan, and counseling patient) on [DATE]. Quality VTE Deep Vein Thrombosis/Pulmonary Embolism Present on Admission: No IH PROFEE Charge codes Subsequent inpatient/observation care: [id number]
--- NOTE | 2024-03-29 13:50 | OT.IP.EVAL ---
Current Diagnoses COVID-19 (03/28/24) Occupational Therapy Inpatient Evaluation/Re-Eval M1 PT/OT-IP Prior Functional Status Start: 03/29/24 10:52 Freq: NEEDED Status: Active Protocol: Document 03/29/24 14:00 [facility] (Rec: 03/29/24 14:23 [facility] [id number]) Medical Review Prior Functional Status Medical History Reviewed Yes Communication able to make needs known Mobility and Gait pt stated that she was independent with all mobilities and ambulation without AD Activities of Daily Living and IADL's Completely independent with all ADL,IADL and drives. Social History Household Members children Living Arrangements House Number of Floors (Floors) Two Floors Number of Stairs To Enter/Railing? NO steps to enter. Home Environment High Toilet,Walk in Shower Home Equipment Hand Held Shower,Grab Bars Near Toilet,Grab Bars In Shower Additional Social History Comment Pt has an adjustable bed. M2 OT-IP Current Condition Start: 03/29/24 13:59 Freq: Status: Active Protocol: Document 03/29/24 14:00 [facility] (Rec: 03/29/24 14:23 [facility] [id number]) Occupational Therapy Current Condition Current Condition Evaluation Date 03/29/24 Treatment Diagnosis Acute encephalopathy, UIT, C- diff, COVID+ Diagnosis Onset Date 03/28/24 M3 OT- IP Subjective and Pain Start: 03/29/24 13:59 Freq: Status: Active Protocol: Document 03/29/24 14:00 [facility] (Rec: 03/29/24 14:23 [facility] [id number]) OT- Subjective Occupational Therapy Visit Type Type Initial Evaluation Visit Start Time 13:10 Visit Stop Time 13:50 Occupational Therapy Visit Comments Patient Comments Pt agreed to do OT eval. Patient/Caregiver Goals TO go home. OT Pain Assessment Pain When Pain Assessed At Rest Pain Present Pain Present Denied Pain M4 OT- IP ADL's Start: 03/29/24 13:59 Freq: Status: Active Protocol: Document 03/29/24 14:00 [facility] (Rec: 03/29/24 14:23 [facility] [id number]) OT [id number] Comments OT Self-Feeding Comments Not at meal time. OT ADL-Grooming Comments OT Grooming Comments Pt refused. OT ADL-Oral Care Comments Oral Care Comments Pt refused. OT ADL-Dressing Comments OT Dressing Comments NOt performed. OT ADL-Toileting Comments OT Toileting Comments Pt states used the toilet earlier with nursing. OT ADL-Bathing Comments OT Bathing Comments Pt may benefit from supervision for showering as a little confused at this time. M5 OT- IP IADL's Start: 03/29/24 13:59 Freq: Status: Active Protocol: Document 03/29/24 14:00 [facility] (Rec: 03/29/24 14:23 [facility] [id number]) OT-Instrumental Activities of Daily Living Home Safety Awareness Home Safety Comments Increased time to answer home safety questions. Pt a little slow to respond to answer questions. Medication Management Medication Management Comments Pt will need assist. Money Management Money Management Comments Pt will need assist at this time. Meal Preparation Meal Preparation Comments Pt will benefit from assist. Ladies' Hat Trimmer Ladies' Hat Trimmer Comments Pt will benefit from assist. Driving Driving Concerns Identified Regarding Safety M6 OT- IP Functional Cognition Start: 03/29/24 13:59 Freq: Status: Active Protocol: Document 03/29/24 14:00 [facility] (Rec: 03/29/24 14:23 [facility] [id number]) Cognitive Factors Limiting Selfcare Function Cognitive Ability Level of Alertness Alert,Confusional State Patient Orientation Name,Age,Birthday,Year,Place Attention Span Ability Capable of Focused Attention, Unable to Sustain Attention Ability to Follow Commands Able to Follow One Step Commands with Increased Time, Able to Follow One Step Commands with Repetition Memory Description Short Term Impaired,Working Impaired Executive Function Ability Unable to Remember Details Cognitive Tests SLUMS Pt scored 12/30 not able to states the day of the week, not able to subtract 100-23, able to states 14 animals in one minute, able to recall 2/5 objects after time passed, not able to recall 4 digit number backwards, not able to draw the numbers on the clock in symmetry and able to draw the hour hands correctly after time given, and pt just able to answer 1/4 questions right after paragraph read. Pt realizes that she is not thinking well and at times now not able to get the words out . Pt scored implies dementia- however pt has an UTI, c-diff , and COVID+ which is probably affecting her thinking. Cognitive Comments Cognitive Assessment Comments Pt for the past few days not thinking well or getting her words out. Pt feels that it has improved since being in the hospital and being treated. Pt still confused as when OT walked in to see the pt, pt could not find her remote and ended up she was lying on top on it and did not realize that it was there. It will be beneficial to reassess pt's cognition again when able to get clearer mentally. OT- Vision and Hearing OT- Hearing Assessment OT- Hearing Assessment WFL OT- Vision Assessment Visual Acuity Glasses All The Time Visual Attentiveness WFL Occular Pursuits WFL Visual Convergence WFL Visual [place] WFL M7 OT- IP Mobility and Balance Start: 03/29/24 13:59 Freq: Status: Active Protocol: Document 03/29/24 14:00 [facility] (Rec: 03/29/24 14:23 [facility] [id number]) OT- Bed Mobility Assessment Rolling Level of Assistance Independent Supine to Sit Supine to Sit Assist Independent Sit to Supine Sit to Supine Assist Independent Scooting Scooting to Edge of Bed Independent OT-Transfer Assessment Sit to and From Stand Sit to and from Stand Independent Technique Transfer Destination Bed Comments Mobility Comments Pt able to independently get out of bed and take side steps to the head of the bed. OT- Balance Assessment Sitting Balance and Reactions Static Sitting Balance Ability Normal Dynamic Sitting Balance Ability Normal Standing Balance and Reactions Static Standing Balance Ability Good Dynamic Standing Balance Ability Good M8 OT- IP Objective Assessments Start: 03/29/24 13:59 Freq: Status: Active Protocol: Document 03/29/24 14:00 [facility] (Rec: 03/29/24 14:23 [facility] [id number]) OT Gross Range of Motion Upper Extremity Range of Motion Assessment Within Functional Limits OT Strength Upper Extremity Strength Assessment Within Functional Limits OT- Coordination Assessment Upper Extremity Finger to Nose Test Within Functional Limits M9 OT- IP Assessment and Plan Start: 03/29/24 13:59 Freq: Status: Active Protocol: Document 03/29/24 14:00 [facility] (Rec: 03/29/24 14:23 [facility] [id number]) OT Summary Assessment and Plan Potential Rehabilitation Potential Excellent Analytic Complexity at Evaluation Moderate Summary OT Impairments Functional Cognition,Dressing, Toileting,Bathing,Toilet Transfers,Shower Transfers Progress Towards Goals Slow Progress due to Medical Issues Assessment Summary Pt MOD complexity and main barriers are decreased functional cognition, slow to process, decreased short term and working memory at this time. Pt has UTI,COVID+, C- diff which probably all affecting her cognition at this time. Pt to go home with her son when medically stable. Pt will benefit from 24/7 assist due to her decreased mentation at this time. Pt scored 12/30 on the SLUMS. Pt will benefit from redoing the SLUMS when more medically stable and thinking clearer. Goals Dressing Goal Independent Toileting Goal Independent Bathing Goal Independent Toilet Transfer Goal Independent Shower Transfer Goal Independent Days to Meet Goals 7 Frequency of Treatment Other frequency 5x/week Treatment Plan OT Treatment Plan ADL Training,Functional Cognition Training,Functional Mobility,Patient/Family Education,Discharge Planning Other Treatment Recommendations and Next Shower Treatment Focus Discharge Recommendations OT Discharge Recommendations Home with 24/7 Assist Available Home Equipment Needs Shower chair Transportation Needs at Discharge Private Vehicle
--- NOTE | 2024-03-29 13:59 | CM.DANOTE ---
Initial DCP Assessment Note Pt is a 68 yo female, resident of [place], arrives with altered mental status. PCP: Nito Coburn Payer: ALICE ESCOBEDO Reviewed chart, pt discussed in multidisciplinary rounds this morning. Patient found to be COVID+, CDiff+ and UTI+ Therapies ordered and OT reporting patient is scoring 12/30 SLUMS currently, typically alert and oriented at baseline. PT has seen, cleared for home when medically stable to do so. Anticipate patient will discharge home with son once cognition improves. Patient may benefit from referral to services. CM team will plan to follow clinical course closely. Review discharge plan with patient and son once cognition improves. JOLIE Jovel Discharge Planning/Care Management CM Discharge Assessment Start: 03/29/24 13:51 Freq: Status: Active Protocol: Document 03/29/24 13:51 CINDY (Rec: 03/29/24 13:59 CINDY [id number]) Discharge Planning Assessment Assigned Tip Stretcher JOLIE Snider DPOA/Assigned Designee Name aranza Spangler Contact Information [phone] Advance Directives? Yes Advance Directives on File No History Provided By Family Member,Medical Record Prior Living Arrangements House Comment Patient lives with son in [place] Household Members children Type of transporation used prior to Drives own vehicle admit Independent with ADL's Yes Is patient alert and oriented? Yes Comment According to previous assessment 2022: Patient has struggled with depression and anxiety most of her life per son. PMH 2008 suicidal ideation. Patient on home med Lexapro. Patient/Family Preference Home with Home Health Comment Home w/son upon discharge, may benefit from HH services Discharge Plan Home Transportation Arrangement son Additional Comment May benefit from services
[2024-03-29 15:25] LABS: Acinetobacter calcoa-baumannii Not Detected (Not Detect); Bacteroides fragilis Not Detected (Not Detect); Candida albicans Not Detected (Not Detect); Candida auris Not Detected (Not Detect); Candida glabrata Not Detected (Not Detect); Candida krusei Not Detected (Not Detect); Candida parapsilosis Not Detected (Not Detect); Candida tropicalis Not Detected (Not Detect); Cryptococcus neoformans/gatti Not Detected (Not Detect); Enterobacter cloacae complex Not Detected (Not Detect); Enterobacterales Not Detected (Not Detect); Enterococcus faecalis Not Detected (Not Detect); Enterococcus faecium Not Detected (Not Detect); Haemophilus influenzae Not Detected (Not Detect); Klebsiella aerogenes Not Detected (Not Detect); Listeria monocytogenes Not Detected (Not Detect); Neisseria meningitidis Not Detected (Not Detect); Proteus species Not Detected (Not Detect); Pseudomonas aeruginosa Not Detected (Not Detect); Salmonella species Not Detected (Not Detect); Serratia marcescens Not Detected (Not Detect); Staphylococcus epidermidis Not Detected (Not Detect); Staphylococcus lugdunensis Not Detected (Not Detect); Staphylococcus species Detected (Not Detect); Stenotrophomonas maltophilia Not Detected (Not Detect); Streptococcus agalactiae (Gr B Not Detected (Not Detect); Streptococcus pneumonia Not Detected (Not Detect); Streptococcus pyogenes (Gr A) Not Detected (Not Detect); Streptococcus species Not Detected (Not Detect)
[2024-03-29 18:00] VITALS: BP 163/101; PULSE 65; RESP 15; TEMP 37.2; O2SAT 99
[2024-03-29] MEDS: POTASSIUM CHLORIDE 20 MEQ TAB 40 MEQ PO (18:08)
[2024-03-29 20:00] VITALS: BP 165/88; PULSE 60; RESP 18; TEMP 37.7; O2SAT 98
[2024-03-29 21:32] VITALS: TEMP 37.1
[2024-03-30] MEDS: VANCOMYCIN 125 MG CAPSULE PO ×3 (00:39→12:09)
[2024-03-30 01:00] VITALS: BP 143/85; PULSE 64; RESP 18; TEMP 37.4; O2SAT 97
[2024-03-30 04:49] LABS: Appearance Urine UA CLEAR; Bilirubin Urine UA NEGATIVE (NEGATIVE); Color Urine UA YELLOW; Glucose Urine UA NEGATIVE (Negative); Ketones Urine UA TRACE (NEGATIVE); Leukocyte Esterase Urine UA NEGATIVE (NEGATIVE); Nitrite Urine UA NEGATIVE (Negative); Occult Blood Urine UA TRACE-INTACT (Negative); Protein Urine UA NEGATIVE (Negative); Urobilinogen Urine UA 0.2 E.U./dL (0.2); pH Urine UA 6.5 (4.5-8.0)
[2024-03-30 04:50] LABS: Bacteria Urine Many (>30); Squamous Epithelial Cell Urine 0-1 /HPF (0-5/HPF); Urine Volume 10mL (spun)
[2024-03-30 04:51] LABS: Culture Indicated Urine Cult Not Indicated; RBC Urine 1-5/HPF (0-5/HPF); WBC Urine 0-1/HPF (0-5/HPF)
--- NOTE | 2024-03-30 09:01 | PM.PN.1 ---
Subjective Subjective Date Patient Seen: 03/30/24 Time Patient Seen: 08:15 Interval history: 68-year-old female with past medical history of depression presents with uAltered mental status. Of note, patient presents previous admission with similar presentation where she was found to have a UTI as well as taking her 's to temazepam muscle relaxant. However today it was noted that the patient was more confused and have watery diarrhea. Per the patient's son the patient was confused as well as having difficulty with some word finding. There's no report of any focal weakness or slur speech. The patient is a poor historian and unable to give much of a history though she is oriented to herself and does follow command.? In our emergency room, the patient was found to be positive for c diff as well as COVID infection. Chest x-ray however was clear and patient was saturating well on room air. There's no sign of sepsis. The patient was given IV fluid as well as oral vancomycin. Of note CT scan of the patient's head was negative.?' Interval history: She is persistently mildly confused. She denies respiratory symptoms. She had five diarrhea episodes yesterday but none today. She has no appetite she states. Exam Vital Signs (past 8 hours): Oxygen Delivery Method Room Air Oxygen Flow Rate 0 03/30/24 01:00 BP 143/85 mmHg H (90/60 - 140/90) 03/30/24 01:00 Pulse 64 beats/min (60 - 90) 03/30/24 01:00 Resp Rate 18 breaths/min (12 - 24) 03/30/24 01:00 O2 Sat 97 % (91 - 100) 03/30/24 01:00 O2 Rate 0 L/min 03/30/24 01:00 Height 5 ft 5 in 03/28/24 22:14 Weight 141 lb 03/28/24 22:14 BMI 23.4 03/28/24 22:14 Weight Weight 141 lb Narrative Exam Narrative: GENERAL: The patient is no acute distressed. Awake and alert. HEENT: Nonicteric sclerae, PERRLA, EOMI. Oropharynx clear. Moist mucous membranes. Conjunctivae appear well perfused. HEART: Regular rate and rhythm without murmurs. No lower extremities edema. LUNGS: Clear to auscultation bilaterally. No wheezing, crackles or rhonchi ABDOMEN: Soft, positive bowel sounds, nontender. SKIN: No rash, no excessive bruising, petechiae, or purpura. NEUROLOGIC: AxO x 2 person, uncertain of day, month or year. She is able to name the president. She is unsure of why she is here exactly. Cranial nerves II-XII intact without motor/sensory deficit. Objective Labs 03/29/24 04:30 03/29/24 04:30 Labs: Laboratory Results - last 24 hr 03/28/24 03/30/24 15:57 01:20 Urine Color Yellow Urine Appearance Clear Urine pH 6.5 Ur Specific [place] 1.010 Urine Protein Negative Urine Glucose (UA) Negative Urine Ketones Trace H Urine Occult Blood Trace-intact Urine Nitrate Negative Urine Bilirubin Negative Urine Urobilinogen 0.2 Ur Leukocyte Esterase Negative Urine RBC 1-5/hpf Urine WBC 0-1/hpf Ur Squamous Epith Cells 0-1 /hpf Urine Bacteria Many (>30) H Ur Culture Indicated? Cult not indicated Vol Urine Centrifuged 10ml (spun) A.calcoaceticus-baumannii cmplx PCR Not detected Bacteroides fragilis Not detected Debo albicans (PCR) Not detected Deob auris (PCR) Not detected C. glabrata (PCR) Not detected C. krusei (PCR) Not detected C. parapsilosis (PCR) Not detected C. tropicalis (PCR) Not detected C. neoform/gattii (PCR) Not detected Enterobacterales (PCR) Not detected E. cloacae complex PCR Not detected Enterococc faecalis PCR Not detected Enterococc faecium PCR Not detected E. coli (PCR) Not detected H. influenzae (PCR) Not detected Klebsiella aerogenes (PCR) Not detected Klebsiella oxytoca PCR Not detected Klebsiella pneumoniae Not detected List. monocytogenes PCR Not detected N. meningitidis (PCR) Not detected Proteus species (PCR) Not detected Salmonella spp. (PCR) Not detected Serratia marcescens PCR Not detected Staphylococcus sp PCR Detected Staph aureus (PCR) Not detected mecA/C & MREJ Resist Gene Not applicable mecA/C-Methicil Resis Gene Not applicable mcr-1 Colistin Res Gene PCR Not applicable Staph epidermidis (PCR) Not detected Staph lugdunensis PCR Not detected S. maltophilia (PCR) Not detected Streptococcus sp PCR Not detected Group A Strep (PCR) Not detected Strep agalactiae (PCR) Not detected Strep pneumoniae (PCR) Not detected P. aeruginosa (PCR) Not detected Shyam/B-Vanco Res Genes Not applicable blaIMP Car res Gene PCR Not applicable KPC-Carbap Res Gene PCR Not applicable blaNDM Car Res Gene PCR Not applicable OXA-48 Carbapenem Resis Gene (PCR) Not applicable blaVIM Car Res Gene PCR Not applicable CTX-M Gene Resistance (PCR) Not applicable PFSH Social History household members: children Smoking Status: Former smoker alcohol intake: never Assessment & Plan Assessment & Plan narrative: 1. Acute metabolic encephalopathy. Persistent but improving. Likely due to C diff and covert infections. Continue to monitor. CT head is negative. It is unclear at this point but possibly her mental status change could be related to COVID infection as well as c diff infection. We will treat underlying cause and hydrate the patient. Monitor patients mental status . 2. C diff diarrhea. Will continue oral vancomycin with IV fluid hydration . 3. COVID infection. Chest x-ray is clear and patient saturating well in room air. Monitor for now. 4. Dehydration. IV fluid . 5. Depression hold home antidepressant for now until mental status improved . 6. DVT prophylaxis hep sub q.? Code status full code Disposition likely home in one to two days when cleared. Time-Based Coding :: [TOTAL MINUTES] spent with patient and on the chart (including review of chart, obtaining history, exam, reviewing outside data, placing orders, documenting exam and treatment plan, and counseling patient) on [DATE]. Quality VTE Deep Vein Thrombosis/Pulmonary Embolism Present on Admission: No IH PROFEE Charge codes Subsequent inpatient/observation care: [id number]
[2024-03-30] MEDS: POTASSIUM CHLORIDE 20 MEQ TAB PO (09:56)
[2024-03-30] MEDS: HEPARIN 5,000 UNIT/ML VIAL 5000 UNIT SUBCUT (09:56)
[2024-03-30] MEDS: PANTOPRAZOLE DR 20 MG TABLET PO (09:56)
[2024-03-30 11:45] VITALS: BP 136/96; PULSE 67; RESP 14; TEMP 36.7; O2SAT 97
[2024-03-30] MEDS: SODIUM CHLORIDE 0.9% 1,000 ML 100 ML IV (13:05)
[2024-03-30 14:38] LABS: C difficie Toxins A and B, EIA Negative (Negative)
--- NOTE | 2024-03-30 17:25 | PM.DS.1 ---
History of Present Illness History of Present Illness Date Patient Seen: 03/30/24 Time Patient Seen: 08:15 Date of Onset of Symptoms: 03/28/24 Chief complaint: Altered Mental Status Narrative: 68-year-old female with past medical history of depression presents with uAltered mental status. Of note, patient presents previous admission with similar presentation where she was found to have a UTI as well as taking her 's to temazepam muscle relaxant. However today it was noted that the patient was more confused and have watery diarrhea. Per the patient's son the patient was confused as well as having difficulty with some word finding. There's no report of any focal weakness or slur speech. The patient is a poor historian and unable to give much of a history though she is oriented to herself and does follow command.? In our emergency room, the patient was found to be positive for c diff as well as COVID infection. Chest x-ray however was clear and patient was saturating well on room air. There's no sign of sepsis. The patient was given IV fluid as well as oral vancomycin. Of note CT scan of the patient's head was negative.?' Discharge Providers Provider Date of admission: 03/28/24 21:07 Discharge Date: 03/30/24 Primary care physician: CHRISTINE Berger Consults: 03/28/24 21:08 Consult to Occupational Therapy Evaluate & Treat Comment: Physician Instructions: Evaluate and treat Consult to Physical Therapy Evaluate & Treat Comment: Physician Instructions: Evaluate and Treat 03/28/24 22:49 Consult to Dietitian, Adult Routine Comment: Reason For Exam: Weight loss >6 lbs. and severe drop in eating Discharge provider: Sushant Villatoro MD Summary Hospital Course Discharge Diagnosis: 1. Acute metabolic encephalopathy. 2. C diff diarrhea. 3. COVID infection. 4. Dehydration. 5. Depression Hospital Course: 68-year-old woman under the primary care of CHRISTINE Penaloza of [facility] was diagnosed with Clostridium difficile diarrhea and COVID 19 asymptomatic infection, admitted and treated with IV hydration, oral vancomycin and placed on isolation precautions. She was confused the 1st 48 hours of her hospitalization, improving significantly, but initially unable to state why she was in the hospital, the day, date month or year. It was noted by the patient's son that she had a similar presentation with a urinary infection last year. There appeared to be no risk factors for Clostridium difficile diarrhea and diarrhea resolved within 24 hours on treatment. She had a normal urinalysis despite mild urinary frequency and dysuria, with culture negative at the time of discharge. one of 2 blood cultures grew bacteria (Gram-positive cocci) but this was felt to be a contaminant. By her 3rd hospital day she was feeling much improved in the afternoon and oriented to person time and place, not interested in discharge home. Her son felt that she was at baseline as well. No other issues arose. Close outpatient follow-up is recommended, with consideration of further evaluation given the 2nd presentation of metabolic encephalopathy associated with infection. Status at Discharge Cognitive/behavioral status at discharge: oriented Functional status at discharge: independent ambulation Overall status at discharge: patient is back to baseline Time Spent with Patient Time spent: Greater than 30 minutes Exam Vital Signs (past 8 hours): - 03/30/24 11:45 Temperature 98.1 F Pulse Rate 67 Respiratory Rate 14 Blood Pressure 136/96 H Pulse Oximetry 97 Oxygen Flow Rate 0 Oxygen Delivery Method Room Air Oxygen Flow Rate 0 Narrative Exam Narrative: GENERAL: The patient is no acute distressed. Awake and alert. HEENT: Nonicteric sclerae, PERRLA, EOMI. Oropharynx clear. Moist mucous membranes. Conjunctivae appear well perfused. HEART: Regular rate and rhythm without murmurs. No lower extremities edema. LUNGS: Clear to auscultation bilaterally. No wheezing, crackles or rhonchi ABDOMEN: Soft, positive bowel sounds, nontender. SKIN: No rash, no excessive bruising, petechiae, or purpura. NEUROLOGIC: AxO x 3. Cranial nerves II-XII intact without motor/sensory deficit. Objective Imaging *: Radiologist's impression: Head CT 03/28/2024: No acute intracranial pathology. Stable from prior. Chest x-ray 03/28/2024: No acute cardiopulmonary abnormality is seen. Labs 03/29/24 04:30 03/29/24 04:30 Labs: Laboratory Results - last 24 hr 03/28/24 03/28/24 03/30/24 15:57 16:30 01:20 Urine Color Yellow Urine Appearance Clear Urine pH 6.5 Ur Specific [place] 1.010 Urine Protein Negative Urine Glucose (UA) Negative Urine Ketones Trace H Urine Occult Blood Trace-intact Urine Nitrate Negative Urine Bilirubin Negative Urine Urobilinogen 0.2 Ur Leukocyte Esterase Negative Urine RBC 1-5/hpf Urine WBC 0-1/hpf Ur Squamous Epith Cells 0-1 /hpf Urine Bacteria Many (>30) H Ur Culture Indicated? Cult not indicated Vol Urine Centrifuged 10ml (spun) A.calcoaceticus-baumannii cmplx PCR Not detected Bacteroides fragilis Not detected Debo albicans (PCR) Not detected Debo auris (PCR) Not detected C. glabrata (PCR) Not detected C. krusei (PCR) Not detected C. parapsilosis (PCR) Not detected C. tropicalis (PCR) Not detected C. diff Toxin A&B (EIA) Negative C. neoform/gattii (PCR) Not detected Enterobacterales (PCR) Not detected E. cloacae complex PCR Not detected Enterococc faecalis PCR Not detected Enterococc faecium PCR Not detected E. coli (PCR) Not detected H. influenzae (PCR) Not detected Klebsiella aerogenes (PCR) Not detected Klebsiella oxytoca PCR Not detected Klebsiella pneumoniae Not detected List. monocytogenes PCR Not detected N. meningitidis (PCR) Not detected Proteus species (PCR) Not detected Salmonella spp. (PCR) Not detected Serratia marcescens PCR Not detected Staphylococcus sp PCR Detected Staph aureus (PCR) Not detected mecA/C & MREJ Resist Gene Not applicable mecA/C-Methicil Resis Gene Not applicable mcr-1 Colistin Res Gene PCR Not applicable Staph epidermidis (PCR) Not detected Staph lugdunensis PCR Not detected S. maltophilia (PCR) Not detected Streptococcus sp PCR Not detected Group A Strep (PCR) Not detected Strep agalactiae (PCR) Not detected Strep pneumoniae (PCR) Not detected P. aeruginosa (PCR) Not detected Shyam/B-Vanco Res Genes Not applicable blaIMP Car res Gene PCR Not applicable KPC-Carbap Res Gene PCR Not applicable blaNDM Car Res Gene PCR Not applicable OXA-48 Carbapenem Resis Gene (PCR) Not applicable blaVIM Car Res Gene PCR Not applicable CTX-M Gene Resistance (PCR) Not applicable PFSH Social History household members: children Smoking Status: Former smoker alcohol intake: never Discharge Plan Discharge Plan Patient Disposition: Home Provider Discharge Comment: Followup with CHRISTINE Penaloza this week Discharge orders & Medications Prescriptions: New vancomycin 125 mg Capsule 125 mg PO QID Qty: 32 0RF Continued escitalopram oxalate 10 mg tablet 10 mg PO DAILY omeprazole 20 mg capsule,delayed release(DR/EC) 20 mg PO DAILY potassium chloride 20 mEq tablet extended release 20 meq PO DAILY Qty: 30 0RF ondansetron 4 mg tablet,disintegrating 4 mg PO Q6H PRN (Reason: nausea and vomiting) Qty: 14 0RF ondansetron 4 mg tablet,disintegrating 4 mg PO Q8H PRN (Reason: nausea and vomiting) Qty: 30 0RF promethazine 25 mg suppository 25 mg OR Q6H PRN (Reason: vomiting) Qty: 12 0RF Follow up/Referrals: Nito Coburn ARNP [Primary Care Provider] - Diet/Activity/Treatments Diet: Diet as Tolerated Visit Report/Discharge Packet Instructions: Antibiotic-associated Colitis -- C difficile, DI for COVID-19 (Suspected or Confirmed ) Stand Alone Forms: Patient Portal/API, Stroke Signs & Symptoms Discharge Data Primary Care Provider: Nito Coburn Quality VTE Deep Vein Thrombosis/Pulmonary Embolism Present on Admission: No MIPS - Admit I confirm the patient?s Advance Care Plan is present, Code status is documented, Surrogate decision maker is in patient?s record [If Yes, STOP here]: Yes MIPS - Meds 'Current medications' to include all prescriptions, [id number] products, herbals, cannabis/cannabidiol products, and vitamin/mineral/dietary (nutritional) supplements. I have utilized all available resources to obtain, update, or review the patient?s current medications. [If Yes, STOP here]: Yes MIPS - DC The patient has a history of heart transplant or Left Ventricular Assist Device (LVAD). If yes, STOP here.: No The patient has current or prior documentation of left ventricular ejection fraction (LVEF) less than or equal to 40%, or moderate or severely depressed left ventricular systolic function.: No A. The patient was prescribed or already taking an Angiotensin-Converting Enzyme (THEODORE) Inhibitor, or Angiotensin Receptor Tri (ARB).: No B. The patient was prescribed or already taking a beta-tri. [If Yes to Both A & B, STOP here]: No Patient not prescribed/taking THEODORE or ARB, no reason given.: No Patient not prescribed/taking beta-tri, no reason given.: No PROFEE Charge Codes Discharge inpatient/observation: [id number]
== END 2024-03-30 17:42 | disposition home or self-care (01) | DRG 177 ==
LOC: ED 21:08 → AC 03-29 07:47
PROVIDERS: Emergency Medicine; Admitting Provider Internal Medicine; Emergency Provider Emergency Medicine; PCP Nurse Practitioner Family; Referring Provider Emergency Medicine; Visit Provider Internal Medicine
DX: U07.1 COVID-19 (principal); G93.41 Metabolic encephalopathy; A04.72 Enterocolitis due to Clostridium difficile, not specified as recurrent; E86.0 Dehydration; F32.A Depression, unspecified; Z87.891 Personal history of nicotine dependence
CPT/HCPCS: 36415; 70450; 71045; 80048; 80053; 80305; 80320; 80329; 81001; 82550; 83605; 84145; 84436; 84443; 84484; 85025; 85610; 85730; 87040; 87077; 87086; 87147; 87154; 87324; 87507; 87633; 93005; 93010; 96360; 96361; 96372; 97161; 97166; 99284; 99285; G0378; G0480; J1644

== ENCOUNTER 2024-09-16 08:32 | Emergency (ER) | payer MEDICARE, SELFPAY ==
[2024-03-28 22:14] VITALS: BMI 23.4
[2024-09-16] VITALS (146 sets, daily range): BP systolic 70–130; BP diastolic 40–70; PULSE 80–105; RESP 8–21; TEMP 36–37.4; O2SAT 60–100; BMI 22.3
--- NOTE | 2024-09-16 08:43 | ED.GENADULT ---
HPI - General Adult General Chief complaint: Trauma Stated complaint: Fall down 5 stairs Time Seen by Provider: 09/16/24 08:43 History of Present Illness HPI narrative: 68yo female fell down multiple stairs this morning about 0600, not witnessed, EMS transport in collar/longboard immobilization, with complaint of posterior neck pain, nose cut, nose swelling. Also complains of right thigh pain. Also complains of right arm pain, unable to move her right arm. Does not take blood thinner medications. Related Data Home Medications Medication Instructions Recorded Confirmed gabapentin 300 mg capsule 300 mg PO ONCE PM 09/16/24 09/16/24 venlafaxine 37.5 mg 37.5 mg PO DAILY 09/16/24 09/16/24 capsule,extended release 24 hr Allergies Allergy/AdvReac Type Severity Reaction Status Date / Time No Known Drug Allergies Allergy Verified 09/16/24 14:36 Patient History Social History household members: children Smoking Status: Former smoker alcohol intake: never Smoking Status: Former smoker alcohol intake frequency: other Exam Narrative Exam Narrative: GENERAL: Well-developed patient, in mild distress. HEAD: Atraumatic. Normocephalic. EYES: Pupils equal round and reactive. Extraocular motions intact. No scleral icterus. No injection or drainage. ENT: Nose without bleeding, purulent drainage. Throat without erythema, tonsillar hypertrophy or exudate. Airway patent. Horizontal laceration over bridge of nose. No active nosebleed. NECK: Trachea midline. Non tender CARDIOVASCULAR: Regular rate and rhythm without murmurs, gallops, or rubs. RESPIRATORY: Clear to auscultation. Breath sounds equal bilaterally. No wheezes, rales, or rhonchi. GASTROINTESTINAL: Abdomen soft, non-tender, nondistended. EXTREMITIES: No edema or joint tenderness. No discrete areas of tenderness or swelling or gross deformity to right mid distal humerus, elbow, forearm, wrist, hand, fingers. BACK: Nontender without deformity or crepitance. No flank tenderness. NEURO: AOx3. Weakness to right upper extremity, versus pain and guarding. No discrete wincing on palpation to right humerus, elbow, forearm, wrist, hand, fingers. Suspected right arm weakness, when asked to raise her right arm she quivers in her fingers as if she is trying to lift up, but unable to do so. She seems to be making a reasonable effort to do so. She seems to have intact to light touch sensation to right upper extremity, including discriminatory zones right 1st dorsal webspace of the hand, and lateral aspect pinky finger. SKIN: No rash or erythema of visible areas Initial Vital Signs Initial Vital Signs: Vital Signs Pulse Rate 85 09/16/24 08:35 Pulse Oximetry 60 L 09/16/24 08:35 Course Orders Ordered: Discontinued Medications Diphtheria/Tetanus/Acell Pertussis (Tet,Diph,Pertuss(Acell),Vac/Pf 0.5 Ml Syringe) 0.5 ml IM .ONCE ONE Stop: 09/16/24 08:45 Last Admin: 09/16/24 09:38 Dose: 0.5 ml Documented By: MICHELL Hydromorphone HCl (Hydromorphone 0.5 Mg Inj) 0.5 mg IV NOW ONE Stop: 09/16/24 09:18 Last Admin: 09/16/24 09:38 Dose: 0.5 mg Documented By: MICHELL Hydromorphone HCl (Hydromorphone 0.5 Mg Inj) 0.5 mg IV NOW ONE Stop: 09/16/24 10:31 Last Admin: 09/16/24 10:33 Dose: 0.5 mg Documented By: MARIE Hydromorphone HCl (Hydromorphone 0.5 Mg Inj) 0.5 mg IV NOW ONE Stop: 09/16/24 13:47 Last Admin: 09/16/24 14:02 Dose: 0.5 mg Documented By: BRYCE Lactated Ringer's (Lactated Ringers) 1,000 mls @ 1,000 mls/hr IV BOLUS ONE Stop: 09/16/24 09:44 Last Infusion: 09/16/24 10:38 Dose: Infused Documented By: Admin: 09/16/24 09:34 Dose: 1,000 mls/hr Documented By: MARIE Lactated Ringer's (Lactated Ringers) 1,000 mls @ 125 mls/hr IV CONT FILOMENA Last Infusion: 09/16/24 15:17 Dose: Infused Documented By: Infusion: 09/16/24 14:54 Dose: 125 mls/hr Documented By: Infusion: 09/16/24 14:27 Dose: 999 mls/hr Documented By: Admin: 09/16/24 10:42 Dose: 125 mls/hr Documented By: MARIE NOREPINEPHRINE BITARTRATE/D5W (Levophed) 4 mg in 250 mls @ 22.113 mls/hr IV TITRATE FILOMENA; Protocol Last Titration: 09/16/24 15:17 Dose: 0.1 mcg/kg/min, 22.113 mls/hr Documented By: Admin: 09/16/24 14:53 Dose: 0.1 mcg/kg/min, 22.113 mls/hr Documented By: MICHELL Metoclopramide HCl (Metoclopramide 10 Mg/2 Ml Inj) 10 mg IV NOW ONE Stop: 09/16/24 13:48 Last Admin: 09/16/24 13:59 Dose: 10 mg Documented By: BRYCE Ondansetron HCl (Ondansetron 4 Mg/2 Ml Inj) 4 mg IV NOW ONE Stop: 09/16/24 09:43 Last Admin: 09/16/24 10:00 Dose: 4 mg Documented By: MARIE Vital Signs Vital signs: Vital Signs - 8 hr 09/16/24 13:56 09/16/24 13:58 09/16/24 14:00 Temperature 99.1 F 99.1 F 99.1 F Pulse Rate 97 H 98 H 97 H Respiratory Rate 9 L 11 L 8 L Blood Pressure Pulse Oximetry 98 95 96 Oxygen Delivery Method Oxygen Flow Rate 09/16/24 14:00 09/16/24 14:02 09/16/24 14:04 Temperature 99.1 F 99.1 F Pulse Rate 99 H 101 H Respiratory Rate 9 L 11 L Blood Pressure 94/59 L Pulse Oximetry 94 97 Oxygen Delivery Method Oxygen Flow Rate 09/16/24 14:06 09/16/24 14:08 09/16/24 14:10 Temperature 99.1 F 99.1 F 99.1 F Pulse Rate 99 H 101 H 100 H Respiratory Rate 9 L 13 11 L Blood Pressure Pulse Oximetry 95 94 96 Oxygen Delivery Method Oxygen Flow Rate 09/16/24 14:12 09/16/24 14:14 09/16/24 14:16 Temperature 99.1 F 99.1 F 99.1 F Pulse Rate 101 H 103 H 100 H Respiratory Rate 11 L 15 9 L Blood Pressure Pulse Oximetry 94 97 96 Oxygen Delivery Method Oxygen Flow Rate 09/16/24 14:18 09/16/24 14:20 09/16/24 14:22 Temperature 99.1 F 99.1 F Pulse Rate 99 H 98 H Respiratory Rate 14 12 Blood Pressure 70/47 L Pulse Oximetry 96 90 L Oxygen Delivery Method Room Air Oxygen Flow Rate 09/16/24 14:22 09/16/24 14:23 09/16/24 14:23 Temperature 99.1 F 99.1 F Pulse Rate 99 H 100 H Respiratory Rate 14 10 L Blood Pressure 73/49 L Pulse Oximetry 88 L 89 L Oxygen Delivery Method Room Air Oxygen Flow Rate 09/16/24 14:24 09/16/24 14:25 09/16/24 14:25 Temperature 99.1 F 99.1 F Pulse Rate 97 H 97 H Respiratory Rate 11 L 17 Blood Pressure 77/50 L Pulse Oximetry 94 97 Oxygen Delivery Method Oxygen Flow Rate 09/16/24 14:26 09/16/24 14:27 09/16/24 14:27 Temperature 99.1 F 99.1 F Pulse Rate 97 H 96 H Respiratory Rate 16 11 L Blood Pressure 83/50 L Pulse Oximetry 99 99 Oxygen Delivery Method Oxygen Flow Rate 09/16/24 14:28 09/16/24 14:30 09/16/24 14:30 Temperature 99.1 F 99.1 F Pulse Rate 96 H 96 H Respiratory Rate 11 L 14 Blood Pressure 79/53 L Pulse Oximetry 99 99 Oxygen Delivery Method Oxygen Flow Rate 09/16/24 14:32 09/16/24 14:33 09/16/24 14:33 Temperature 99.1 F 99.3 F Pulse Rate 97 H 97 H Respiratory Rate 11 L 12 Blood Pressure 83/51 L Pulse Oximetry 100 100 Oxygen Delivery Method Oxygen Flow Rate 09/16/24 14:34 09/16/24 14:35 09/16/24 14:35 Temperature 99.1 F 99.1 F Pulse Rate 96 H 96 H Respiratory Rate 12 11 L Blood Pressure 85/52 L Pulse Oximetry 99 99 Oxygen Delivery Method Oxygen Flow Rate 09/16/24 14:36 09/16/24 14:38 09/16/24 14:40 Temperature 99.1 F 99.1 F Pulse Rate 97 H 97 H Respiratory Rate 11 L 12 Blood Pressure 84/51 L Pulse Oximetry 99 99 Oxygen Delivery Method Nasal Cannula Oxygen Flow Rate 2 09/16/24 14:40 09/16/24 14:42 09/16/24 14:44 Temperature 99.1 F 99.1 F 99.1 F Pulse Rate 97 H 98 H 98 H Respiratory Rate 11 L 12 13 Blood Pressure Pulse Oximetry 98 97 98 Oxygen Delivery Method Oxygen Flow Rate 09/16/24 14:45 09/16/24 14:45 09/16/24 14:46 Temperature 99.1 F 99.1 F Pulse Rate 98 H 98 H Respiratory Rate 11 L 12 Blood Pressure 90/53 L Pulse Oximetry 97 97 Oxygen Delivery Method Room Air Oxygen Flow Rate 2 09/16/24 14:48 09/16/24 14:50 09/16/24 14:50 Temperature 99.1 F 99.1 F Pulse Rate 99 H 100 H Respiratory Rate 10 L 12 Blood Pressure 84/52 L Pulse Oximetry 96 96 Oxygen Delivery Method Nasal Cannula Oxygen Flow Rate 2 09/16/24 14:52 09/16/24 14:54 09/16/24 14:56 Temperature 99.1 F 99.1 F 99.1 F Pulse Rate 99 H 99 H 100 H Respiratory Rate 14 14 14 Blood Pressure Pulse Oximetry 96 97 97 Oxygen Delivery Method Oxygen Flow Rate 09/16/24 14:58 09/16/24 15:00 09/16/24 15:18 Temperature 99.1 F 99.1 F Pulse Rate 100 H 105 H 102 H Respiratory Rate 18 17 11 L Blood Pressure 118/70 Pulse Oximetry 96 97 98 Oxygen Delivery Method Nasal Cannula Nasal Cannula Oxygen Flow Rate 2 2 Medical Decision Making Lab Data Lab results reviewed: Yes I reviewed the patient's lab results. Lab results narrative: POC glucose 127. White blood cell count 02561, hemoglobin 11.5, platelets 437,000 adequate. Glucose 112. BUN 20 with creatinine 1.64. Serum CO2 19 decreased. Sodium 136, potassium 4.7. Serum chloride 104. CPK 598, troponin negative. AST 83 mild elevation, other liver functions normal. Lipase normal. Ethanol negative. Urinalysis negative. UDS negative. 09/16/24 09:10 09/16/24 09:10 Labs: Lab Results 09/16/24 09/16/24 09/16/24 Range/Units 09:10 09:10 09:57 WBC 14.4 H (4.5-11.0) X10^3/uL RBC 4.42 (4.0-5.2) X10^6/uL Hgb 11.5 L (12.0-16.0) g/dL Hct 35.7 L (36-46) % MCV 80.8 (80-100) fL MCH 26.1 (26-34) PG MCHC 32.2 (30-36) % RDW 20.0 H (11.6-14.8) % Plt Count 437 H (150-400) X10^3/uL Neut % (Auto) 86.3 H (50-75) % Lymph % (Auto) 8.6 L (25-40) % [place] % (Auto) 4.7 (3-14) % Eos % (Auto) 0.0 L (2-4) % Baso % (Auto) 0.4 (0-2) % Neut # (Auto) 33818 H (1357-8142) /uL Lymph # (Auto) 1200 (4778-2194) /uL [place] # (Auto) 700 (0-900) /uL Eos # (Auto) 0 (0-450) /uL Baso # (Auto) 100 (0-100) /uL PT (9.4-12.5) SECONDS INR (0.9-1.3) APTT (25.1-36.5) SECONDS Sodium 136 L (137-145) mmol/L Potassium 4.7 (3.4-5.1) mmol/L Chloride 104 (98-107) mmol/L Carbon Dioxide 19 L (22-32) mmol/L BUN 20 H (7-17) mg/dL Creatinine 1.64 H (0.52-1.04) mg/dL Estimated GFR 34 L (>60) mL/min BUN/Creatinine Ratio 12.2 (6-22) Glucose 122 H (80-110) mg/dL Lactate (0.7-2.1) mmol/L Calcium 9.6 (8.4-10.2) mg/dL Total Bilirubin 0.8 (0.2-1.3) mg/dL AST 63 H (14-36) IU/L ALT 26 (<35) IU/L Alkaline Phosphatase 92 (38-126) U/L Total Creatine Kinase Cancelled 598 H Troponin I < 0.012 (0.01-0.034) ng/mL Total Protein 8.0 (6.3-8.2) g/dL Albumin 4.4 (3.5-5.0) g/dL Globulin 3.6 (1.7-4.1) g/dL Albumin/Globulin Ratio 1.2 (1.0-2.8) Lipase 35 (23-300) U/L Urine Color Yellow Urine Appearance Clear Urine pH 5.5 (4.5-8.0) Ur Specific [place] >=1.030 H (1.000-1.035) Urine Protein Negative (Negative) Urine Glucose (UA) Negative (Negative) g/dL Urine Ketones Negative (NEGATIVE) Urine Occult Blood Trace-intact (Negative) Urine Nitrate Negative (Negative) Urine Bilirubin Negative (NEGATIVE) Urine Urobilinogen 0.2 (0.2) E.U./dL Ur Leukocyte Esterase Negative (NEGATIVE) Urine RBC 1-5/hpf (0-5/HPF) Urine WBC None seen (0-5/HPF) Ur Squamous Epith Cells None seen (0-5/HPF) Urine Bacteria None seen (None) Ur Culture Indicated? Cult not indicated Vol Urine Centrifuged 10ml (spun) Salicylates < 1.0 (<20) mg/dL U Opiates 300ng/mL cut Negative (Negative) Ur Oxycodone Screen Negative (Negative) Urine Methadone Screen Negative (Negative) Acetaminophen < 10 (10-30) ug/mL Ur Barbiturates Screen Negative (Negative) U Tricyclic Antidepress Negative (Negative) Ur Phencyclidine Scrn Negative (Negative) Ur Amphetamines Screen Negative (Negative) U Methamphetamines Scrn Negative (Negative) Ur MDMA Scrn (Ecstasy) Negative (Negative) U Benzodiazepines Scrn Negative (Negative) Urine Cocaine Screen Negative (Negative) U Marijuana (THC) Screen Negative (Negative) Urine Specific [place] (Normal) Ethyl Alcohol < 10 ( - 10) mg/dL Ur Creatinine (Normal) 09/16/24 09/16/24 Range/Units 09:57 11:40 WBC (4.5-11.0) X10^3/uL RBC (4.0-5.2) X10^6/uL Hgb (12.0-16.0) g/dL Hct (36-46) % MCV (80-100) fL MCH (26-34) PG MCHC (30-36) % RDW (11.6-14.8) % Plt Count (150-400) X10^3/uL Neut % (Auto) (50-75) % Lymph % (Auto) (25-40) % [place] % (Auto) (3-14) % Eos % (Auto) (2-4) % Baso % (Auto) (0-2) % Neut # (Auto) (2817-6611) /uL Lymph # (Auto) (3364-0932) /uL [place] # (Auto) (0-900) /uL Eos # (Auto) (0-450) /uL Baso # (Auto) (0-100) /uL PT 11.9 (9.4-12.5) SECONDS INR 1.1 (0.9-1.3) APTT 24 L (25.1-36.5) SECONDS Sodium (137-145) mmol/L Potassium (3.4-5.1) mmol/L Chloride (98-107) mmol/L Carbon Dioxide (22-32) mmol/L BUN (7-17) mg/dL Creatinine (0.52-1.04) mg/dL Estimated GFR (>60) mL/min BUN/Creatinine Ratio (6-22) Glucose (80-110) mg/dL Lactate 1.8 (0.7-2.1) mmol/L Calcium (8.4-10.2) mg/dL Total Bilirubin (0.2-1.3) mg/dL AST (14-36) IU/L ALT (<35) IU/L Alkaline Phosphatase (38-126) U/L Total Creatine Kinase Troponin I (0.01-0.034) ng/mL Total Protein (6.3-8.2) g/dL Albumin (3.5-5.0) g/dL Globulin (1.7-4.1) g/dL Albumin/Globulin Ratio (1.0-2.8) Lipase (23-300) U/L Urine Color Urine Appearance Urine pH Normal (4.5-8.0) Ur Specific [place] (1.000-1.035) Urine Protein (Negative) Urine Glucose (UA) (Negative) g/dL Urine Ketones (NEGATIVE) Urine Occult Blood (Negative) Urine Nitrate (Negative) Urine Bilirubin (NEGATIVE) Urine Urobilinogen (0.2) E.U./dL Ur Leukocyte Esterase (NEGATIVE) Urine RBC (0-5/HPF) Urine WBC (0-5/HPF) Ur Squamous Epith Cells (0-5/HPF) Urine Bacteria (None) Ur Culture Indicated? Vol Urine Centrifuged Salicylates (<20) mg/dL U Opiates 300ng/mL cut (Negative) Ur Oxycodone Screen (Negative) Urine Methadone Screen (Negative) Acetaminophen (10-30) ug/mL Ur Barbiturates Screen (Negative) U Tricyclic Antidepress (Negative) Ur Phencyclidine Scrn (Negative) Ur Amphetamines Screen (Negative) U Methamphetamines Scrn (Negative) Ur MDMA Scrn (Ecstasy) (Negative) U Benzodiazepines Scrn (Negative) Urine Cocaine Screen (Negative) U Marijuana (THC) Screen (Negative) Urine Specific [place] Normal (Normal) Ethyl Alcohol ( - 10) mg/dL Ur Creatinine Normal (Normal) Point of Care Testing Glucose POC 127 Point of care testing: Point of Care Testing Glucose POC 127 Imaging Data Chest x-ray: Radiologist's Impression: [address] [address] XRay Report Signed Patient: Dee Khanna MR#: [id number] : 1955 Acct:[id number] Age/Sex: 68 / F Date of Service: 09/16/24 Loc: ED Accession Number: [id number] Procedure: XR chest 1V Ordering Provider: Jordi Marquez MD PROCEDURE: XR CHEST 1V INDICATIONS: trauma TECHNIQUE: One view of the chest was acquired. COMPARISON: [facility], CR, XR CHEST 1V, 03/28/2024, 14:01. [facility], TARIK, XR CHEST FOR PICC 1V, 02/14/2023, 11:11. FINDINGS: Surgical changes and devices: None. Lungs and pleura: Lungs are clear. No pleural effusions or pneumothorax. Mediastinum: Mediastinal contours appear normal. Heart size is normal. Bones and chest wall: No suspicious bony lesions. Overlying soft tissues appear unremarkable. IMPRESSION: No acute cardiopulmonary abnormality is seen. Dictated by: Paul Herring M.D. on 09/16/2024 at 9:12 Approved by: Paul Herring M.D. on 09/16/2024 at 9:13 Pelvis x-ray: Radiologist's Impression: [address] [place] [address] XRay Report Signed Patient: Dee Khanna MR#: [id number] : 1955 Acct:[id number] Age/Sex: 68 / F Date of Service: 09/16/24 Loc: ED Accession Number: [id number] Procedure: XR pelvis 1-2V Ordering Provider: Jordi Marquez MD PROCEDURE: XR PELVIS 1-2V INDICATIONS: trauma TECHNIQUE: 1 view(s) of the pelvis acquired. COMPARISON: None. FINDINGS: Bones: No fractures or dislocations. No suspicious bony lesions. Soft tissues: Visualized bowel gas pattern is normal. No suspicious soft tissue calcifications. IMPRESSION: No displaced fracture. If there remains a high clinical concern or the patient cannot bear weight, consider cross-sectional imaging to exclude an occult fracture. Dictated by: Paul Herring M.D. on 09/16/2024 at 9:33 Approved by: Paul Herring M.D. on 09/16/2024 at 9:36 CT scan - head: Radiologist's Impression: [address] [address] [address] Scan Report Signed Patient: Dee Khanna MR#: [id number] : 1955 Acct:[id number] Age/Sex: 68 / F Date of Service: 09/16/24 Loc: ED Accession Number: [id number] Procedure: CT head/brain wo con Ordering Provider: Jordi Marquez MD PROCEDURE: CT HEAD/BRAIN WO CON INDICATIONS: Trauma TECHNIQUE: Noncontrast 4.5 mm thick angled axial sections acquired from the foramen magnum to the vertex, with coronal and sagittal reformats. For radiation dose reduction, the following was used: automated exposure control, adjustment of mA and/or kV according to patient size. COMPARISON: [facility], CT, CT HEAD/BRAIN WO CON, 03/28/2024, 16:07. FINDINGS: Image quality: Diagnostic. Beam hardening artifact. CSF spaces: Basal cisterns are patent. No extra-axial fluid collections. Ventricles are normal in size and shape. Brain: No midline shift. No intracranial masses or hemorrhage. [place]-white matter interface is within normal limits. Skull and face: Calvarium is intact, without suspicious lesions. Nasal bone fracture. Please see separately dictated maxillofacial CT. Sinuses: Visualized sinuses and mastoids are clear. IMPRESSION: No acute intracranial hemorrhage. Nasal bone fracture. Please see separately dictated maxillofacial CT. Dictated by: Andrews Castro M.D. on 09/16/2024 at 8:53 Approved by: Andrews Castro M.D. on 09/16/2024 at 8:57 CT - cervical spine: Radiologist's Impression: Close Femur X-Ray 09/16/[address] 09/16/[address] (Signed) Paul Herring - 09/16/24 Chest X-Ray (Signed) Paul Herring - 09/16/[address] (Signed) Andrews Castro - 09/16/24 Pelvis X-Ray (Signed) Paul eHrring - 09/16/24 Chest/Abdomen/Pelvis CT 09/16/24 Launch?Image [address] [address] [address] Scan Report Signed Patient: Dee Khanna MR#: [id number] : 1955 Acct:[id number] Age/Sex: 68 / F Date of Service: 09/16/24 Loc: ED Accession Number: [id number] Procedure: CT cervical spine wo con Ordering Provider: Jordi Marquez MD PROCEDURE: CT CERVICAL SPINE WO CON INDICATIONS: Trauma TECHNIQUE: Noncontrast 3 mm thick sections acquired from the skull base to the T4 level. Sagittal and coronal reformats were then constructed. For radiation dose reduction, the following was used: automated exposure control, adjustment of mA and/or kV according to patient size. COMPARISON: None. FINDINGS: Image quality: Excellent. Bones: No fractures or dislocations. Visualized superior ribs are intact. Soft tissues: Prevertebral soft tissues are normal in thickness. No paravertebral hematomas. No apical pneumothoraces. IMPRESSION: No displaced fracture or traumatic subluxation. Dictated by: Paul Herring M.D. on 09/16/2024 at 9:58 Approved by: Paul Herring M.D. on 09/16/2024 at 10:00 CT maxillofacial bones noncontrast: Radiologist's Impression: [address] [address] [address] Scan Report Signed Patient: Dee Khanna MR#: [id number] : 1955 Acct:[id number] Age/Sex: 68 / F Date of Service: 09/16/24 Loc: ED Accession Number: [id number] Procedure: CT facial bones wo con Ordering Provider: Jordi Marquez MD PROCEDURE: CT FACIAL BONES WO CON INDICATIONS: fell down stairs TECHNIQUE: Noncontrast 2.5 mm thick axial images acquired from the mandible through the frontal sinuses, with coronal and sagittal reformatting. For radiation dose reduction, the following was used: automated exposure control, adjustment of mA and/or kV according to patient size. COMPARISON: None. FINDINGS: Image quality: Excellent. Bones and teeth: Comminuted, mildly displaced fracture the nasal bones. Remaining sinuses are clear. Orbital rim is intact. Sinuses: Paranasal sinuses are aerated, without fluid levels, mucosal thickening, or mucoceles. Mastoid air cells are aerated. Soft tissues: No edema, masses, or fluid collections. No enlarged lymph nodes. No soft tissue lacerations or debris. Vascular: Visualized vascular structures appear normal in the absence of contrast. Bony vascular foramina and canals are intact. IMPRESSION: Comminuted nasal bone fractures. Dictated by: Paul Herring M.D. on 09/16/2024 at 10:00 Approved by: Paul Herring M.D. on 09/16/2024 at 10:04 CT chest abdomen and pelvis trauma protocol.: Radiologist's Impression: Close Femur X-Ray (Signed) Paul Herring - 09/16/[address] (Signed) Paul Herring - 09/16/[address] (Signed) Paul Herring - 09/16/24 Chest X-Ray (Signed) Paul Herring - 09/16/[address] (Signed) Call,Andrews - 09/16/24 Pelvis X-Ray (Signed) Paul Herring - 09/16/24 Chest/Abdomen/Pelvis CT (Signed) Call,Andrews - 09/16/[address] [place] [id number] Scan Report Signed Patient: Dee Khanna MR#: [id number] : 1955 Acct:[id number] Age/Sex: 68 / F Date of Service: 09/16/24 Loc: ED Accession Number: [id number] Procedure: CT Trauma Chest Abdomen Pelvis Ordering Provider: Jordi Marquez MD PROCEDURE: CT TRAUMA CHEST ABDOMEN PELVIS INDICATIONS: trauma. fall down multiple stairs. TECHNIQUE: MDCT axial chest images were obtained with IV contrast in the arterial phase. Maximum intensity projections and multiplanar reformats were obtained. MDCT axial abdomen and pelvis images were obtained with IV contrast in the portal venous phase. Multiplanar reformats were obtained. Optional delayed phase scanning may also be obtained Advanced techniques were used to lower patient radiation exposure. COMPARISON: [facility], CT, CT ABDOMEN PELVIS W CON, 02/20/2023, 13:14. [facility], CR, XR FEMUR RT MIN 2V, 09/16/2024, 9:36. FINDINGS Image Quality: Diagnostic. Chest: Lungs and pleura: No pneumothorax or hemothorax. No pulmonary contusions or lacerations. No solid pulmonary nodule requiring follow-up. Dependent atelectasis. Vascular: No dissection or pseudoaneurysm. No incidental central pulmonary embolism. No hemopericardium. Mediastinum: No mediastinum hematoma. No suspicious mass or lymph nodes. No actionable thyroid nodules. Large hiatal hernia. Asymmetric elevation of the right hemidiaphragm. Chest wall: Intact clavicles, scapula, and glenohumeral joint. No displaced rib fractures. Thoracic spine: No acute fracture or traumatic subluxation. ABDOMEN and PELVIS: Liver: No laceration or capsular hematoma. Gallbladder: Unremarkable. Biliary system: Non-dilated. Pancreas: Unremarkable. Spleen: No laceration or capsular hematoma. Small splenule. Adrenals: No suspicious nodules. Kidneys: No contrast extravasation or hydronephrosis. No solid masses. Vessels and lymph nodes: No pathology lymph nodes by size criteria. No dissection or aneurysm. No retroperitoneal hematoma. Bowel and peritoneum: No suspicious region of mesenteric hemorrhage or hemoperitoneum. No bowel obstruction. The appendix is not dilated. Pelvis: Distended urinary bladder. Uterus is absent. No free fluid. Pelvic ring and femurs: No pelvic ring disruption. No hip fractures. Lumbar spine: No acute fracture or traumatic subluxation. DDD most pronounced at L5-S1. Abdominal wall: No drainable fluid collection or hematoma. IMPRESSION: 1. No acute traumatic injury to the chest, abdomen, or pelvis. No fracture demonstrated. 2. Large hiatal hernia. Dictated by: Andrews Call, M.D. on 09/16/2024 at 8:57 Approved by: Andrews Castro M.D. on 09/16/2024 at 9:07 X-ray right hand: Radiologist's Impression: [address] [address] XRay Report Signed Patient: Dee Khanna MR#: [id number] : 1955 Acct:[id number] Age/Sex: 68 / F Date of Service: 09/16/24 Loc: ED Accession Number: [id number] Procedure: XR hand RT min 3V Ordering Provider: Jordi Marquez MD PROCEDURE: XR HAND RT MIN 3V INDICATIONS: ?hand injury TECHNIQUE: 3 views of the hand(s) acquired. COMPARISON: None. FINDINGS: Bones: No fractures or dislocations. Carpal bones are normally aligned. No suspicious bony lesions. Soft tissues: No suspicious soft tissue calcifications. IMPRESSION: No acute bony abnormality. Dictated by: Paul Herring M.D. on 09/16/2024 at 11:59 Approved by: Paul Herring M.D. on 09/16/2024 at 12:00 Right forearm x-ray series: Radiologist's Impression: [address] [address] XRay Report Signed Patient: Dee Khanna MR#: [id number] : 1955 Acct:[id number] Age/Sex: 68 / F Date of Service: 09/16/24 Loc: ED Accession Number: [id number] Procedure: XR forearm RT 2V Ordering Provider: Jordi Marquez MD PROCEDURE: XR FOREARM RT 2V INDICATIONS: ?pain TECHNIQUE: 2 views of the forearm were acquired. COMPARISON: None. FINDINGS: Bones: No fractures or dislocations. No suspicious bony lesions. Soft tissues: No suspicious soft tissue calcifications or masses. IMPRESSION: No acute bony abnormality. Dictated by: Paul Herring M.D. on 09/16/2024 at 11:56 Approved by: Paul Herring M.D. on 09/16/2024 at 11:56 MRI cervical spine: Radiologist's Impression: [address] [address] Magnetic Resonance Report Signed Patient: Dee Khanna MR#: [id number] : 1955 Acct:[id number] Age/Sex: 68 / F Date of Service: 09/16/24 Loc: ED Accession Number: [id number] Procedure: MR cervical spine wo con Ordering Provider: Jordi Marquez MD PROCEDURE: MR CERVICAL SPINE WO CON INDICATIONS: Concern for C3 region injury on CT images, per Radiology TECHNIQUE: Noncontrast sagittal T1 spin echo and T2 fast spin echo, sagittal STIR, foraminal oblique sagittal T2 fast spin echo, and axial gradient echo or T2 fast spin echo through the cervical spine. COMPARISON: None. FINDINGS: Image quality: Excellent. Alignment and Curvature: There is normal bony alignment. Bone Marrow: There is a small amount of edema of the inferior , anterior endplate of C3. Spinal Cord: Visualized spinal cord has normal size. There is trace hyperintense signal within the right side of the spinal cord at C3-4. Paraspinous Soft Tissues: No paravertebral masses. Prevertebral fluid is present. There is edema along the right side of the facets at C3-4. C2-C3: Normal appearance. C3-C4: Right-sided uncovertebral hypertrophy resulting in moderate right-sided spinal canal narrowing. C4-C5: Uncovertebral hypertrophy causing moderate to severe spinal canal narrowing. C5-C6: Uncovertebral hypertrophy causing moderate to severe spinal canal narrowing. C6-C7: Normal appearance. C7-T1: Normal appearance. IMPRESSION: There is a small fracture of the anterior, inferior endplate of C3, associated prevertebral soft tissue swelling. Edema at the right side of the facets at C3-4 may indicate hyperflexion injury. No ligamentous injury is appreciated. There is a small focus of signal abnormality in the right side of the C3-4 spinal cord, which could be acute or related to myelomalacia from superimposed right-sided uncovertebral hypertrophy. Findings discussed with Dr. Marquez at 11:52 a.m. On 09/16/2024. Dictated by: Paul Herring M.D. on 09/16/2024 at 11:50 Approved by: Paul Herring M.D. on 09/16/2024 at 11:55 ECG Data Attestation: I personally reviewed and interpreted this ECG as follows: Interpretation: Normal sinus rhythm with rate of 87, no obvious ST segment elevation or depression changes. KY 190, QRS 86, QTC 447. MDM Narrative Medical decision making narrative: 68-year-old female had fall down multiple steps early this morning, was found lying down position unable to get up. Right arm weakness versus pain, unable to move. Arrived by EMS in cervical collar on long board. Primary survey: Airway intact, breathing normal, circulation labile blood pressures noted, no obvious external bleeding. GCS 15. Secondary survey: See physical exam sections, remarkable for right upper extremity weakness versus guarding due to pain. Right femur discomfort as well. No limb length discrepancy. Fast exam pocus: No obvious fluid right upper quadrant abdomen, left upper quadrant abdomen, pelvis, subxiphoid cardiac window view. [place] without lesions or tenderness to midline T-spine or lumbar spine. General surgery Dr. Jeffery saw patient and reviewed CT findings, given patient transient hypotension and possible mechanism of injury, did not appreciate any pneumothorax/hemothorax, nor any intra-abdominal injuries. CT head, face, chest, abdomen, pelvis. Radiographs requested for right femur. CT head and cervical spine negative. CT face comminuted nasal bone fractures. See radiology reports. 1015, call back from Radiology Dr. Herring, has concerns about C3 on cervical spine, requests MRI cervical spine. Remainder of T-spine L-spine looks okay to him. See radiology report. Screening labs: POC glucose 127. White blood cell count 98089, hemoglobin 11.5, platelets 437,000 adequate. Glucose 112. BUN 20 with creatinine 1.64. Serum CO2 19 decreased. Sodium 136, potassium 4.7. Serum chloride 104. CPK 598, troponin negative. AST 83 mild elevation, other liver functions normal. Lipase normal. Ethanol negative. Urinalysis negative. UDS negative. CT chest abdomen and pelvis no acute changes. See radiology reports. Plain radiographs right femur negative. See radiology report. 1030, last systolic blood pressure 115, patient would like medication for neck pain, IV Dilaudid. Keep in cervical collar. Keep NPO. MRI cervical spine imaging ordered, to be performed. Add XR right humerus, forearm, hand. 1110, X-ray right humerus forearm hand series, no acute changes. See radiology reports. Patient over in MRI scanner. 1130, last blood pressure 129/64, heart rate 91. Back in exam room on gurney from MRI. Awaiting MRI report. Multiple requests for MRI report. Printed copy walked over from Radiology while IT is working on transmission problems. MRI cervical spine. Impressions: ?There is a small fracture of the anterior inferior endplate of C3, associated prevertebral soft tissue swelling. Edema at the right side of the facets at C3-C4 may indicate hyperflexion injury. No ligamentous injury is appreciated. There is a small focus of signal abnormality in the right side of the C3-4 spinal cord, which could be acute or related to myelomalacia from superimposed right-sided uncovertebral hypertrophy. ?See printed report. 1330, call back from [facility], discussed case with Neurosurgery Dr. David, accepts patient for transfer ED to ED, likely cervical spine stabilization procedure. Keep NPO. Keep in cervical collar. Air ambulance transport Critical Care Time Critical Care Time Critical Care Time: Yes Total Critical Care Time: 45 Attestation: The high probability of a clinically significant, sudden or life threatening deterioration of the [central nervous system, spinal vertebral, spinal cord, musculoskeletal, abdominopelvic, cardiopulmonary] system(s) required my full and direct attention, intervention and personal management. The aggregate critical care time was [45] minutes. This time is in addition to time spent performing reported procedures but includes the following: [x] Data Review and interpretation [x] Patient assessment and monitoring of vital signs [x] Documentation [x] Medication orders and management Discharge Plan Departure Patient Disposition: [facility] Clinical Impression: Fall down stairs, Nasal bone fractures, Cervical spine fracture, Cervical spinal cord injury, Laceration of nose, Right arm weakness, Right arm pain Prescriptions: No Action venlafaxine 37.5 mg capsule,extended release 24hr 37.5 mg PO DAILY gabapentin 300 mg capsule 300 mg PO ONCE PM Referrals: Nito Coburn ARNP [Primary Care Provider] -
--- NOTE | 2024-09-16 08:44 | DI.RAD.S_ITS ---
PROCEDURE: XR CHEST 1V INDICATIONS: trauma TECHNIQUE: One view of the chest was acquired. COMPARISON: [facility], TARIK, XR CHEST 1V, 03/28/2024, 14:01. [facility], CR, XR CHEST FOR PICC 1V, 02/14/2023, 11:11. FINDINGS: Surgical changes and devices: None. Lungs and pleura: Lungs are clear. No pleural effusions or pneumothorax. Mediastinum: Mediastinal contours appear normal. Heart size is normal. Bones and chest wall: No suspicious bony lesions. Overlying soft tissues appear unremarkable. IMPRESSION: No acute cardiopulmonary abnormality is seen. Dictated by: Paul Herring M.D. on 09/16/2024 at 9:12 Approved by: Paul Herring M.D. on 09/16/2024 at 9:13
--- NOTE | 2024-09-16 08:44 | EKG_ITS ---
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
--- NOTE | 2024-09-16 08:46 | DI.CT.S_ITS ---
PROCEDURE: CT FACIAL BONES WO CON INDICATIONS: fell down stairs TECHNIQUE: Noncontrast 2.5 mm thick axial images acquired from the mandible through the frontal sinuses, with coronal and sagittal reformatting. For radiation dose reduction, the following was used: automated exposure control, adjustment of mA and/or kV according to patient size. COMPARISON: None. FINDINGS: Image quality: Excellent. Bones and teeth: Comminuted, mildly displaced fracture the nasal bones. Remaining sinuses are clear. Orbital rim is intact. Sinuses: Paranasal sinuses are aerated, without fluid levels, mucosal thickening, or mucoceles. Mastoid air cells are aerated. Soft tissues: No edema, masses, or fluid collections. No enlarged lymph nodes. No soft tissue lacerations or debris. Vascular: Visualized vascular structures appear normal in the absence of contrast. Bony vascular foramina and canals are intact. IMPRESSION: Comminuted nasal bone fractures. Dictated by: Paul Herring M.D. on 09/16/2024 at 10:00 Approved by: Paul Herring M.D. on 09/16/2024 at 10:04
--- NOTE | 2024-09-16 08:52 | DI.RAD.S_ITS ---
PROCEDURE: XR FEMUR RT MIN 2V INDICATIONS: fell down stairs, R thigh pain TECHNIQUE: 2 views of the femur were acquired. COMPARISON: None. FINDINGS: Bones: No fractures or dislocations. No suspicious bony lesions. Soft tissues: No suspicious soft tissue calcifications or masses. IMPRESSION: No acute bony abnormality. Dictated by: Paul Herring M.D. on 09/16/2024 at 10:04 Approved by: Paul Herring M.D. on 09/16/2024 at 10:05
[2024-09-16 09:24] LABS: Add Manual Diff / Slide Review NO; Basophils Absolute Auto 100 /uL (0-100); Basophils Percent Auto 0.4 % (0-2); Eosinophils Absolute Auto 0 /uL (0-450); Hematocrit 35.7 % (36-46); Hemoglobin 11.5 g/dL (12.0-16.0); Lymphocytes Absolute Auto 1200 /uL (1100-4500); Lymphocytes Percent Auto 8.6 % (25-40); Mean Corpuscular HGB Conc 32.2 % (30-36); Mean Corpuscular Hemoglobin 26.1 PG (26-34); Mean Corpuscular Volume 80.8 fL (80-100); Monocytes Absolute Auto 700 /uL (0-900); Monocytes Percent Auto 4.7 % (3-14); Neutrophils Absolute Auto 12400 /uL (1500-7000); Neutrophils Percent Auto 86.3 % (50-75); Platelet Count 437 X10^3/uL (150-400); Red Blood Cell Count 4.42 X10^6/uL (4.0-5.2); White Blood Cell Count 14.4 X10^3/uL (4.5-11.0)
[2024-09-16] MEDS: LACTATED RINGERS 1,000 ML 1000 ML IV (09:34)
[2024-09-16 09:35] LABS: Acetaminophen < 10 ug/mL (10-30); Alanine Aminotransferase 26 IU/L (<35); Albumin 4.4 g/dL (3.5-5.0); Albumin Globulin Ratio 1.2 (1.0-2.8); Alkaline Phosphatase 92 U/L (38-126); Aspartate Aminotransferase 63 IU/L (14-36); BUN Creatinine Ratio 12.2 (6-22); Bilirubin Total 0.8 mg/dL (0.2-1.3); Blood Urea Nitrogen 20 mg/dL (7-17); Calcium 9.6 mg/dL (8.4-10.2); Carbon Dioxide 19 mmol/L (22-32); Chloride 104 mmol/L (98-107); Estimated Glomerular Filt Rate 34 mL/min (>60); Ethanol (ETOH) < 10 mg/dL; Globulin 3.6 g/dL (1.7-4.1); Glucose 122 mg/dL (80-110); HEMOLYSIS 74 (0-50); Lipase 35 U/L (23-300); Potassium 4.7 mmol/L (3.4-5.1); Salicylate < 1.0 mg/dL (<20); Sodium 136 mmol/L (137-145)
--- NOTE | 2024-09-16 09:37 | PC.NURSE ---
This RN called modified trauma at 08:16 prior to patient arrival due to EMS report of patient falling down 5+ stairs with bilateral arm and right thigh pain. Upon arrival this RN with Charge nurse, blood bank laboratory technologist x2, TRANSIT BUS DRIVER, and ED physician performed full body assessment with the use of log roll while charge nurse held c-spine. Patient arrived in c-collar. Provider palpated patient spine and conducted assessment. Full trauma called at 09:04am by digital account coordinator due to patient have a systolic blood pressure below 90 and provider order. Surgeon arrived along with respiratory therapy, in house calls nurse practitioner, power equipment technology instructor, X-ray tech, and additional TECHNICIAN PLANT AND MAINTENANCE from up stairs. Multiple RN attempted to place lines in bilateral upper arms without success. hat mender placed 18G left AC using ultrasound guidance. This RN was with patient during entire time at CT and since arrival. This RN held c-spine to transfer to CT table and back to ED stretcher.
[2024-09-16] MEDS: HYDROMORPHONE 0.5 MG INJ IV ×3 (09:38→14:02)
[2024-09-16] MEDS: TET,DIPH,PERTUSS(ACELL),VAC/PF 0.5 ML SYRINGE IM (09:38)
[2024-09-16 09:41] LABS: Creatine Kinase 598 U/L (30-135)
[2024-09-16] MEDS: ONDANSETRON 4 MG/2 ML INJ IV (10:00)
[2024-09-16 10:01] LABS: Troponin I < 0.012 ng/mL (0.01-0.034)
--- NOTE | 2024-09-16 10:10 | PC.NURSE ---
Patient was trialed on room air and successfully was able to keep her saturation up for awhile but patient has become more sleepy and pulse oxygenation was 87-90% and this RN replaced oxy mask on patient at 2L. Provider informed.
[2024-09-16 10:13] LABS: Appearance Urine UA CLEAR; Bilirubin Urine UA NEGATIVE (NEGATIVE); Color Urine UA YELLOW; Glucose Urine UA NEGATIVE (Negative); Ketones Urine UA NEGATIVE (NEGATIVE); Leukocyte Esterase Urine UA NEGATIVE (NEGATIVE); Nitrite Urine UA NEGATIVE (Negative); Occult Blood Urine UA TRACE-INTACT (Negative); Protein Urine UA NEGATIVE (Negative); Specific Gravity Urine UA >=1.030 (1.000-1.035); Urobilinogen Urine UA 0.2 E.U./dL (0.2)
[2024-09-16 10:15] LABS: pH Urine UA 5.5 (4.5-8.0)
[2024-09-16 10:16] LABS: Ur Creatinine Normal (Normal); Ur Specific Gravity Normal (Normal); Urine Amphetamines Negative (Negative); Urine Barbiturates Negative (Negative); Urine Benzodiazepines Negative (Negative); Urine Cocaine Negative (Negative); Urine MDMA Negative (Negative); Urine Methadone Negative (Negative); Urine Methamphetamines Negative (Negative); Urine Opiates Negative (Negative); Urine Oxycodone Negative (Negative); Urine Phencyclidine Negative (Negative); Urine THC Negative (Negative); Urine Tricyclic Antidepressant Negative (Negative); Urine pH Normal (Normal)
[2024-09-16 10:17] LABS: Urine Volume 10mL (spun)
[2024-09-16 10:18] LABS: Bacteria Urine None Seen; Culture Indicated Urine Cult Not Indicated; RBC Urine 1-5/HPF (0-5/HPF); Squamous Epithelial Cell Urine None Seen (0-5/HPF); WBC Urine None Seen (0-5/HPF)
--- NOTE | 2024-09-16 10:21 | DI.MRI.S_ITS ---
PROCEDURE: MR CERVICAL SPINE WO CON INDICATIONS: Concern for C3 region injury on CT images, per Radiology TECHNIQUE: Noncontrast sagittal T1 spin echo and T2 fast spin echo, sagittal STIR, foraminal oblique sagittal T2 fast spin echo, and axial gradient echo or T2 fast spin echo through the cervical spine. COMPARISON: None. FINDINGS: Image quality: Excellent. Alignment and Curvature: There is normal bony alignment. Bone Marrow: There is a small amount of edema of the inferior , anterior endplate of C3. Spinal Cord: Visualized spinal cord has normal size. There is trace hyperintense signal within the right side of the spinal cord at C3-4. Paraspinous Soft Tissues: No paravertebral masses. Prevertebral fluid is present. There is edema along the right side of the facets at C3-4. C2-C3: Normal appearance. C3-C4: Right-sided uncovertebral hypertrophy resulting in moderate right-sided spinal canal narrowing. C4-C5: Uncovertebral hypertrophy causing moderate to severe spinal canal narrowing. C5-C6: Uncovertebral hypertrophy causing moderate to severe spinal canal narrowing. C6-C7: Normal appearance. C7-T1: Normal appearance. IMPRESSION: There is a small fracture of the anterior, inferior endplate of C3, associated prevertebral soft tissue swelling. Edema at the right side of the facets at C3-4 may indicate hyperflexion injury. No ligamentous injury is appreciated. There is a small focus of signal abnormality in the right side of the C3-4 spinal cord, which could be acute or related to myelomalacia from superimposed right-sided uncovertebral hypertrophy. Findings discussed with Dr. Marquez at 11:52 a.m. On 09/16/2024. Dictated by: Paul Herring M.D. on 09/16/2024 at 11:50 Approved by: Paul Herring M.D. on 09/16/2024 at 11:55
--- NOTE | 2024-09-16 10:35 | PC.NURSE ---
This RN placed patient silver colored cubic zirconium per patient ring, bronze and green fashion bracelet, half of a bracelet that appears to connect to a watch with red cords and ankur gold hearts and vape in biohazard bag and labeled with patient sticker and placed in patient belonging bag with her other belongings.
--- NOTE | 2024-09-16 10:40 | DI.RAD.S_ITS ---
PROCEDURE: XR HUMERUS RT 2V INDICATIONS: ?pain right arm, ?weakness TECHNIQUE: 2 views of the humerus were acquired. COMPARISON: None. FINDINGS: Bones: No fractures or dislocations. No suspicious bony lesions. Soft tissues: No suspicious soft tissue calcifications. IMPRESSION: No acute right humeral fracture or dislocation. No gross soft tissue abnormalities. Dictated by: Wallace Bran M.D. on 09/16/2024 at 10:56 Approved by: Wallace Bran M.D. on 09/16/2024 at 10:58
[2024-09-16] MEDS: LACTATED RINGERS 1,000 ML 125 ML IV (10:42)
--- NOTE | 2024-09-16 11:20 | PC.NURSE ---
building tech arrived to take patient or imaging. There was concerns about temp sensing adam. hospice office coordinator looked up on website for denisse and it states conditionally MRI compatible. MRI states that he needs to do further research. building tech returns and states the connection unit must be in straight line and the connection unit cannot be touching skin. building tech uses washcloth and tapes connector to washcloth and places that in a straight line. Charge nurse to report from this RN during this process and accepted the patient. Patient still on ED stretcher when this RN left patient room.
--- NOTE | 2024-09-16 11:39 | DI.RAD.S_ITS ---
PROCEDURE: XR FOREARM RT 2V INDICATIONS: ?pain TECHNIQUE: 2 views of the forearm were acquired. COMPARISON: None. FINDINGS: Bones: No fractures or dislocations. No suspicious bony lesions. Soft tissues: No suspicious soft tissue calcifications or masses. IMPRESSION: No acute bony abnormality. Dictated by: Paul Herring M.D. on 09/16/2024 at 11:56 Approved by: Paul Herring M.D. on 09/16/2024 at 11:56
--- NOTE | 2024-09-16 11:41 | DI.RAD.S_ITS ---
PROCEDURE: XR HAND RT MIN 3V INDICATIONS: ?hand injury TECHNIQUE: 3 views of the hand(s) acquired. COMPARISON: None. FINDINGS: Bones: No fractures or dislocations. Carpal bones are normally aligned. No suspicious bony lesions. Soft tissues: No suspicious soft tissue calcifications. IMPRESSION: No acute bony abnormality. Dictated by: Paul Herring M.D. on 09/16/2024 at 11:59 Approved by: Paul Herring M.D. on 09/16/2024 at 12:00
[2024-09-16 12:00] LABS: INR 1.1 (0.9-1.3); Prothrombin Time 11.9 SECONDS (9.4-12.5)
[2024-09-16 12:02] LABS: PTT Partial Thromboplastin Tim 24 SECONDS (25.1-36.5)
[2024-09-16 12:05] LABS: Lactate (Lactic Acid) 1.8 mmol/L (0.7-2.1)
[2024-09-16] MEDS: METOCLOPRAMIDE 10 MG/2 ML INJ IV (13:59)
--- NOTE | 2024-09-16 14:00 | PC.NURSE ---
DIGITAL ASSOCIATE MEDIA DIRECTOR Note: Consult with Mario/Surg and possible transfer started with HV at 1202. Facesheet and images pushed. All images pushed. All CT reports faxed. 1211 [facility] called back and spoke with Dr. Marquez. Delay in faxing MRI report due to system down, faxed at 1305. 1319 [facility] accepted patient for transfer, ED to ED, Dr. David. 1330 [facility] transported arranged, ETA 1600. Advised [facility] of ETA at 1357.
--- NOTE | 2024-09-16 14:38 | PC.NURSE ---
AMMONIA NITRATE OPERATOR Note: Canceled [facility] 1425. Contacted [facility] for transport. [facility] accepted at 1428, ETA 1450. Notified [facility] of change of transport and ETA at 1437.
[2024-09-16] MEDS: NOREPINEPHRINE BITARTRATE/D5W 4 MG/250 ML PLAST..BAG 22.113 MG IV (14:53)
== END 2024-09-16 15:20 | disposition short-term general hospital (02) ==
PROVIDERS: Emergency Provider Emergency Medicine; PCP Nurse Practitioner Family
DX: S02.2XXA Fracture of nasal bones, initial encounter for closed fracture (principal); S12.200A Unspecified displaced fracture of third cervical vertebra, initial encounter for closed fracture; S14.109A Unspecified injury at unspecified level of cervical spinal cord, initial encounter; S01.21XA Laceration without foreign body of nose, initial encounter; M62.81 Muscle weakness (generalized); M79.601 Pain in right arm; W10.8XXA Fall (on) (from) other stairs and steps, initial encounter; Z23 Encounter for immunization; K44.9 Diaphragmatic hernia without obstruction or gangrene; S14.0XXA Concussion and edema of cervical spinal cord, initial encounter
CPT/HCPCS: 36415; 70450; 70486; 71045; 71275; 72125; 72141; 72170; 73060; 73090; 73130; 73552; 74177; 80053; 80305; 80320; 80329; 81001; 82550; 82962; 83605; 83690; 84484; 85025; 85610; 85730; 90471; 93005; 93010; 96361; 96365; 96375; 96376; 99285; 99291; 90715; G0390; G0480; J1171; J2405; J2765; Q9967

== ENCOUNTER 2025-05-05 11:00 | Inpatient (IN) | payer MEDICARE, SELFPAY ==
[2024-03-28 22:14] VITALS: BMI 23.4
[2025-05-05] VITALS (60 sets, daily range): BP systolic 72–200; BP diastolic 32–88; PULSE 105–122; RESP 7–25; TEMP 36.6–37.4; O2SAT 50–99; BMI 21.5
--- NOTE | 2025-05-05 11:21 | DI.CT.S_ITS ---
PROCEDURE: CT HEAD/BRAIN WO CON
--- NOTE | 2025-05-05 11:21 | DI.RAD.S_ITS ---
PROCEDURE: XR CHEST 1V
--- NOTE | 2025-05-05 11:21 | DI.CT.S_ITS ---
PROCEDURE: CT CERVICAL SPINE WO CON
--- NOTE | 2025-05-05 11:22 | DI.CT.S_ITS ---
PROCEDURE: CT CHEST ABD PEL W CON
--- NOTE | 2025-05-05 11:23 | ED_ITS ---
HPI - Altered Mental Status
--- NOTE | 2025-05-05 11:23 | ED.AMS ---
HPI - Altered Mental Status General Chief Complaint: Altered Mental Status Stated Complaint: confusion, weak . had UTI 3 weeks ago. Time Seen by Provider: 05/05/25 11:21 Source: patient, family (son), RN notes reviewed and old records reviewed Mode of arrival: Ambulatory Limitations: no limitations History of Present Illness HPI narrative: 69-year-old female cervical fusion, depression with her son for altered mental status, weakness with multiple falls and recent UTI 3 weeks prior. Patient's son notes she has also had frequent diarrhea. Patient over the last several days has been increasingly altered according to her son. Patient has not had any nausea or vomiting. No fevers reported. Patient has had multiple falls with increasing weakness according to the son. She has had urinary incontinence and had difficulty getting to the bathroom. Patient denies any chest pain or shortness of breath or abdominal pain currently that has very slow to answer questions. Son does note she took 40 mg of her oxycodone this morning, he states that she takes it either 4 times daily as a 10 mg dose or sometimes all 40 mg at once. He also notes that she takes midodrine, she had a single dose this morning but has not had any additional dose today. He denies any medications for hypertension or dyslipidemia no known strokes or heart attacks in the past she has had C diff colitis in the past he states she had a similar presentation has today. He notes in addition to oxycodone, she takes Lyrica, 1 antidepressant. She has had prior cervical fusion in August of 2024 for fall that resulted in an injury and 6 week hospitalization at [facility]. No known drug allergies. No tobacco, alcohol or recreational drugs. Son states he was giving her medications the last several days because she seemed to confused to remember. Patient's primary care is at [facility]. Related Data Home Medications ?Medication ?Instructions ?Recorded ?Confirmed gabapentin 300 mg capsule 300 mg PO ONCE PM 09/16/24 09/16/24 venlafaxine 37.5 mg 37.5 mg PO DAILY 09/16/24 09/16/24 capsule,extended release 24 hr Allergies Allergy/AdvReac Type Severity Reaction Status Date / Time No Known Drug Allergies Allergy Verified 05/05/25 11:17 Review of Systems Review of Systems ROS Unobtainable: All systems reviewed & are unremarkable except as noted in HPI and below Patient History Social History household members: children alcohol intake: never tobacco type: vaping alcohol intake frequency: other Exam Narrative Exam Narrative: GEN: Pale female, alert and oriented x 2 self and location, patient is very slow to answer, patient appears to be in moderate to severe distress. HEENT: Atraumatic, pupils are pinpoint bilaterally extraocular movements are intact, nares are clear, TMs are clear with no fluid, there is conjunctival pallor. Throat is clear without any exudates, erythema, tonsillar enlargement or uvular deviation, dry mucous membranes. HEART: Tachycardic but regular rate and rhythm without murmur, clicks, rubs. No edema bilateral lower extremities. Patient has 2+ pulses upper and lower extremities. LUNGS:Lungs clear to auscultation, no wheezes, rales, crackles, chest moves symmetrically, no tachypnea or accessory muscle use ABD:bowel sounds normal, soft, non-tender, no guarding, rebound, rigidity, no masses noted, no hepatosplenomegaly :No CVA tenderness MSCL: Non-tender, full range of motion, normal gait NEURO:CN 2-12 intact, sensation normal SKIN: No rash, erythema or other skin changes noted Initial Vital Signs Initial Vital Signs: Vital Signs Temperature 97.9 F 05/05/25 11:04 Pulse Rate 115 H 05/05/25 11:04 Respiratory Rate 14 05/05/25 11:04 Blood Pressure 72/32 L 05/05/25 11:04 Pulse Oximetry 95 05/05/25 11:04 Oxygen Delivery Method Room Air 05/05/25 11:04 Course Orders Ordered: ED Orders 05/05/25 11:20 EKG-12 Lead Stat 05/05/25 11:21 CT cervical spine wo con Stat CT head/brain wo con Stat XR chest 1V Stat Urinalysis and Microscopic Stat Arterial Blood Gas STAT EKG-12 Lead Stat 05/05/25 11:22 CT chest abd pel w con Stat GI Panel (Film Array) Stat 05/05/25 11:43 Acetaminophen Stat Complete Blood Count AUTO DIFF Stat Comprehensive Metabolic Panel Stat Covid-19 + FLU A/B + RSV - PCR Stat Lactate (Lactic Acid) Stat NT-proBNP (BNP-Adult 18+) Stat PTT Partial Thromboplastin Dexter Stat Procalcitonin Stat Prothrombin Time INR Stat Salicylate Stat Troponin & CK Cardiac Panel Stat 05/05/25 12:16 Ammonia (NH3) Stat Blood Culture Stat 05/05/25 12:25 PRBC [Packed Cells] Stat Type and Screen Stat Discontinued Medications Sodium Chloride (Normal Saline 0.9%) 1,762.2 mls @ 587.4 mls/hr 30 ml/kg infuse over 3 hr (1762.2 ml) IV NOW ONE Stop: 05/05/25 14:20 Last Infusion: 05/05/25 13:25 Dose: Infused Documented By: Infusion: 05/05/25 13:24 Dose: 0 mls/hr Documented By: Admin: 05/05/25 11:30 Dose: 587.4 mls/hr Documented By: LISAF Naloxone HCl (Naloxone 1 Mg/Ml Syringe) 1 mg NASAL NOW ONE Stop: 05/05/25 11:22 Last Admin: 05/05/25 11:25 Dose: 1 mg Documented By: PRABHJOT Pantoprazole Sodium (Pantoprazole 40 Mg Vial) 80 mg IV NOW ONE Stop: 05/05/25 14:46 Last Admin: 05/05/25 14:50 Dose: 80 mg Vital Signs Vital signs: Vital Signs - 8 hr 05/05/25 11:04 05/05/25 11:18 05/05/25 11:20 Temperature 97.9 F Pulse Rate 115 H 113 H 112 H Respiratory Rate 14 10 L 7 L Blood Pressure 72/32 L Pulse Oximetry 95 Oxygen Delivery Method Room Air 05/05/25 11:20 05/05/25 11:30 05/05/25 11:30 Temperature Pulse Rate 111 H Respiratory Rate 12 Blood Pressure 93/50 L 104/58 L Pulse Oximetry 89 L Oxygen Delivery Method 05/05/25 11:36 05/05/25 11:36 05/05/25 11:39 Temperature Pulse Rate 110 H 107 H Respiratory Rate 8 L 10 L Blood Pressure 82/53 L Pulse Oximetry 83 L 94 Oxygen Delivery Method 05/05/25 11:39 05/05/25 11:40 05/05/25 11:40 Temperature Pulse Rate 105 H Respiratory Rate 9 L Blood Pressure 90/57 L 99/60 Pulse Oximetry 98 Oxygen Delivery Method 05/05/25 11:45 05/05/25 11:45 05/05/25 11:50 Temperature Pulse Rate 111 H 118 H Respiratory Rate 10 L 13 Blood Pressure 118/65 Pulse Oximetry 99 90 L Oxygen Delivery Method 05/05/25 11:50 05/05/25 11:55 05/05/25 11:55 Temperature Pulse Rate 122 H Respiratory Rate 22 Blood Pressure 112/63 113/57 L Pulse Oximetry 98 Oxygen Delivery Method 05/05/25 12:00 05/05/25 12:00 05/05/25 12:15 Temperature Pulse Rate 122 H 116 H Respiratory Rate 23 12 Blood Pressure 121/67 Pulse Oximetry 97 91 Oxygen Delivery Method 05/05/25 12:15 05/05/25 12:16 05/05/25 12:16 Temperature Pulse Rate 118 H Respiratory Rate 14 Blood Pressure 157/60 H 200/72 H Pulse Oximetry 97 Oxygen Delivery Method 05/05/25 12:20 05/05/25 12:20 05/05/25 12:25 Temperature Pulse Rate 121 H 120 H Respiratory Rate 17 18 Blood Pressure 135/62 Pulse Oximetry 99 94 Oxygen Delivery Method 05/05/25 12:25 05/05/25 12:30 05/05/25 12:31 Temperature Pulse Rate 118 H 118 H Respiratory Rate 16 20 Blood Pressure 126/59 L Pulse Oximetry 98 97 Oxygen Delivery Method 05/05/25 12:31 05/05/25 12:35 05/05/25 12:35 Temperature Pulse Rate 119 H Respiratory Rate 13 Blood Pressure 80/52 L 120/60 Pulse Oximetry 94 Oxygen Delivery Method 05/05/25 12:40 05/05/25 12:40 05/05/25 12:45 Temperature Pulse Rate 115 H 117 H Respiratory Rate 19 17 Blood Pressure 108/58 L Pulse Oximetry 95 93 Oxygen Delivery Method 05/05/25 12:45 05/05/25 13:15 05/05/25 13:16 Temperature Pulse Rate 119 H 118 H Respiratory Rate 9 L 12 Blood Pressure 120/66 Pulse Oximetry 50 L 94 Oxygen Delivery Method 05/05/25 13:16 05/05/25 13:22 05/05/25 13:22 Temperature Pulse Rate 117 H Respiratory Rate 10 L Blood Pressure 103/62 121/68 Pulse Oximetry 96 Oxygen Delivery Method 05/05/25 13:25 05/05/25 13:25 05/05/25 13:30 Temperature Pulse Rate 116 H 116 H Respiratory Rate 8 L 10 L Blood Pressure 110/59 L Pulse Oximetry 98 73 L Oxygen Delivery Method 05/05/25 13:30 05/05/25 13:36 05/05/25 13:36 Temperature Pulse Rate 118 H Respiratory Rate 15 Blood Pressure 106/58 L 110/73 Pulse Oximetry 65 L Oxygen Delivery Method 05/05/25 13:40 05/05/25 13:40 05/05/25 13:45 Temperature Pulse Rate 116 H 116 H Respiratory Rate 11 L 18 Blood Pressure 104/61 Pulse Oximetry 83 L 93 Oxygen Delivery Method 05/05/25 13:45 05/05/25 13:50 05/05/25 13:50 Temperature Pulse Rate 115 H Respiratory Rate 11 L Blood Pressure 102/59 L 97/58 L Pulse Oximetry 93 Oxygen Delivery Method 05/05/25 13:56 05/05/25 13:56 05/05/25 14:00 Temperature Pulse Rate 118 H 117 H Respiratory Rate 25 H 17 Blood Pressure 108/58 L Pulse Oximetry 96 93 Oxygen Delivery Method 05/05/25 14:00 05/05/25 14:05 05/05/25 14:05 Temperature Pulse Rate 120 H Respiratory Rate 21 Blood Pressure 112/52 L 85/52 L Pulse Oximetry 94 Oxygen Delivery Method 05/05/25 14:11 05/05/25 14:11 05/05/25 14:15 Temperature Pulse Rate 118 H Respiratory Rate 20 Blood Pressure 106/60 99/52 L Pulse Oximetry 95 Oxygen Delivery Method 05/05/25 14:15 05/05/25 14:20 05/05/25 14:20 Temperature Pulse Rate 121 H 118 H Respiratory Rate 21 17 Blood Pressure 96/54 L Pulse Oximetry 95 96 Oxygen Delivery Method 05/05/25 14:25 05/05/25 14:25 05/05/25 14:30 Temperature Pulse Rate 118 H Respiratory Rate 17 Blood Pressure 94/55 L 99/55 L Pulse Oximetry 95 Oxygen Delivery Method 05/05/25 14:30 05/05/25 14:35 05/05/25 14:35 Temperature Pulse Rate 114 H 115 H Respiratory Rate 11 L 23 Blood Pressure 103/60 Pulse Oximetry 96 96 Oxygen Delivery Method 05/05/25 14:40 05/05/25 14:40 05/05/25 14:45 Temperature 98.4 F Pulse Rate 114 H 113 H Respiratory Rate 16 18 Blood Pressure 104/63 108/63 Pulse Oximetry 95 Oxygen Delivery Method 05/05/25 14:45 05/05/25 14:45 05/05/25 15:00 Temperature Pulse Rate 113 H 113 H Respiratory Rate 12 8 L Blood Pressure 108/63 Pulse Oximetry 95 93 Oxygen Delivery Method 05/05/25 15:00 05/05/25 15:02 05/05/25 15:15 Temperature 98.4 F Pulse Rate Respiratory Rate Blood Pressure 97/53 L 99/60 Pulse Oximetry Oxygen Delivery Method 05/05/25 15:15 Temperature Pulse Rate 116 H Respiratory Rate 13 Blood Pressure Pulse Oximetry 95 Oxygen Delivery Method MDM - Altered Mental Status Lab Data 05/05/25 11:43 05/05/25 11:43 Labs: Lab Results 05/05/25 05/05/25 05/05/25 Range/Units 11:43 12:16 12:25 WBC 4.6 (4.5-11.0) X10^3/uL RBC 2.76 L (4.0-5.2) X10^6/uL Hgb 6.4 L* (12.0-16.0) g/dL Hct 21.4 L (36-46) % MCV 77.6 L (80-100) fL MCH 23.3 L (26-34) PG MCHC 30.0 (30-36) % RDW 19.6 H (11.6-14.8) % Plt Count 477 H (150-400) X10^3/uL Neut % (Auto) 75.9 H (50-75) % Lymph % (Auto) 12.1 L (25-40) % Glynn % (Auto) 11.3 (3-14) % Eos % (Auto) 0.5 L (2-4) % Baso % (Auto) 0.2 (0-2) % Neut # (Auto) 3500 (0217-4786) /uL Lymph # (Auto) 600 L (7251-7555) /uL Glynn # (Auto) 500 (0-900) /uL Eos # (Auto) 0 (0-450) /uL Baso # (Auto) 0 (0-100) /uL PT 10.8 (9.4-12.5) SECONDS INR 1.0 (0.9-1.3) APTT 22 L (25.1-36.5) SECONDS ABG pH 7.26 L* 7.34 L (7.35-7.45) ABG pCO2 45.9 H 35.2 (35-45) mmHg ABG pO2 20 L* 86 (80-100) mmHg ABG HCO3 20 L 19 L (23-27) mmol/L ABG Total CO2 20 L 18 L (23-27) mmol/L ABG O2 Saturation 25 L* 96 (95-100) % ABG Base Excess -6.3 L -6.1 L (-2-3) mmol/L Lee Test Positive Positive Sodium 134 L (137-145) mmol/L Potassium 4.6 (3.4-5.1) mmol/L Chloride 103 (98-107) mmol/L Carbon Dioxide 17 L (22-32) mmol/L BUN 38 H (7-17) mg/dL Creatinine 1.20 H (0.52-1.04) mg/dL Estimated GFR 49 L (>60) mL/min BUN/Creatinine Ratio 31.7 H (6-22) Glucose 107 H (70-99) mg/dL Lactate 3.9 H (0.7-2.1) mmol/L Calcium 9.3 (8.4-10.2) mg/dL Total Bilirubin 0.6 (0.2-1.3) mg/dL AST 45 H (14-36) IU/L ALT 25 (<35) IU/L Alkaline Phosphatase 131 H (38-126) U/L Ammonia < 9 L (9-30) umol/L Total Creatine Kinase 94 (30-135) U/L Troponin I < 0.012 (0.01-0.034) ng/mL NT-Pro-B Natriuret Pep 221 H (<125) pg/mL Total Protein 7.3 (6.3-8.2) g/dL Albumin 4.1 (3.5-5.0) g/dL Globulin 3.2 (1.7-4.1) g/dL Albumin/Globulin Ratio 1.3 (1.0-2.8) Procalcitonin 2.01 H (<0.5) ng/mL Salicylates < 1.0 (<20) mg/dL Acetaminophen 17 (10-30) ug/mL SARS-CoV-2 (PCR) Negative (Negative) Influenza A (RT-PCR) Flu a negative (NEGATIVE) Influenza B (RT-PCR) Flu b negative (NEGATIVE) RSV (PCR) Negative (Negative) Blood Type O Positive Antibody Screen Negative Crossmatch See Detail 05/05/25 Range/Units 13:34 WBC (4.5-11.0) X10^3/uL RBC (4.0-5.2) X10^6/uL Hgb (12.0-16.0) g/dL Hct (36-46) % MCV (80-100) fL MCH (26-34) PG MCHC (30-36) % RDW (11.6-14.8) % Plt Count (150-400) X10^3/uL Neut % (Auto) (50-75) % Lymph % (Auto) (25-40) % Glynn % (Auto) (3-14) % Eos % (Auto) (2-4) % Baso % (Auto) (0-2) % Neut # (Auto) (1843-8497) /uL Lymph # (Auto) (1683-4801) /uL Glynn # (Auto) (0-900) /uL Eos # (Auto) (0-450) /uL Baso # (Auto) (0-100) /uL PT (9.4-12.5) SECONDS INR (0.9-1.3) APTT (25.1-36.5) SECONDS ABG pH (7.35-7.45) ABG pCO2 (35-45) mmHg ABG pO2 (80-100) mmHg ABG HCO3 (23-27) mmol/L ABG Total CO2 (23-27) mmol/L ABG O2 Saturation (95-100) % ABG Base Excess (-2-3) mmol/L Lee Test Sodium (137-145) mmol/L Potassium (3.4-5.1) mmol/L Chloride (98-107) mmol/L Carbon Dioxide (22-32) mmol/L BUN (7-17) mg/dL Creatinine (0.52-1.04) mg/dL Estimated GFR (>60) mL/min BUN/Creatinine Ratio (6-22) Glucose (70-99) mg/dL Lactate 1.5 (0.7-2.1) mmol/L Calcium (8.4-10.2) mg/dL Total Bilirubin (0.2-1.3) mg/dL AST (14-36) IU/L ALT (<35) IU/L Alkaline Phosphatase (38-126) U/L Ammonia (9-30) umol/L Total Creatine Kinase (30-135) U/L Troponin I (0.01-0.034) ng/mL NT-Pro-B Natriuret Pep (<125) pg/mL Total Protein (6.3-8.2) g/dL Albumin (3.5-5.0) g/dL Globulin (1.7-4.1) g/dL Albumin/Globulin Ratio (1.0-2.8) Procalcitonin (<0.5) ng/mL Salicylates (<20) mg/dL Acetaminophen (10-30) ug/mL SARS-CoV-2 (PCR) (Negative) Influenza A (RT-PCR) (NEGATIVE) Influenza B (RT-PCR) (NEGATIVE) RSV (PCR) (Negative) Blood Type Antibody Screen Crossmatch ECG Data Attestation: I personally reviewed and interpreted this ECG as follows: Prior ECG tracings: available for review Interpretation: Sinus tachycardia rate of 111 NE 154 QRS 80 QTC of [address]-elevation depression noted. Patient has prior from 09/16/2024. Appears similar to today's EKG. [facility] Narrative Medical decision making narrative: EKG sinus tachycardia, nonspecific change. Labs show white count of 4.6 hemoglobin is 6.4, microcytic with the platelets are 477, coags show an INR 1 PTT of 22. Patient's electrolytes show a creatinine of 1.2 was 1.6 in August of 2024 BUN 38 CO2 17 with a sodium 134 glucose is 107 lactate is 3.9 with a repeat of 1.5 with a ALT of 45, ALT bilirubin are normal. Troponin is less than 0.012 with a BNP of 221. Procalcitonin is positive at 2.01 with a pneumonia of less than 9. Tylenol and salicylates are normal. ABG shows a pH is 7.34 pCO2 of 35, PO2 86 with a bicarb of 19 this is on room air after patient received Narcan. Retrocardiac opacity maybe secondary hiatal hernia and left basilar opacity linear scarring or lack LEs is of the right mid lung zone. Head CT no acute intracranial pathology CT cervical spine no fracture or dislocation interval healing prednisolone and anterior inferior C3 endplate fracture. Stable post interval posterior decompression and fusion at C2 through 6 no gross hardware loosening or failure [id number] spondylitic changes are noted throughout cervical spine. CT chest and abdomen pelvis diffuse bowel wall thickening of the colon erections suspicious for pain cheilitis no acute traumatic findings, large hiatal hernia. Patient's hemoglobin was found to be 6.4 significant change from priors in August plan to transfuse. Patient received 30 cc/kilos bolus, she also received Narcan as she has pinpoint pupils hypotension tachycardia with a occasional low O2 and noted to have taken 40mg oxycodone prior to arrival, which she takes intermittently. Patient did meet septic criteria but has had known C diff in the past with frequent diarrhea currently so antibiotics were not given she has a high potential for C diff colitis. On rechecked after Narcan patient is much more conversant and after some fluids rechecked again she appears much improved. Still tachycardic. She is agreeable to transfusion. She does note her stools has been black recently with frequent diarrhea and appears to have pancolitis. Has not obtain a stool sample yet to evaluate for C diff as she has had this in the past. Patient also notes that she has been having a lot of ibuprofen for pain recently. Hospitalist paged Plan for admission to hospitalist for colitis, dehydration, symptomatic anemia, GI bleed. Spoke with Dr. Correa @ [phone] accepts for inpatient admission. Discussed possibility of GI bleed but also possibility of C diff. He would like to obtain C diff testing before consultation with General surgery. Critical Care Time Critical Care Time Critical Care Time: Yes Total Critical Care Time: 35 Attestation: The high probability of a clinically significant, sudden or life threatening deterioration of the cardiac/pulmonary system(s) required my full and direct attention, intervention and personal management. The aggregate critical care time was [--] minutes. This time is in addition to time spent performing reported procedures but includes the following: [x] Data Review and interpretation [x] Patient assessment and monitoring of vital signs [x] Documentation [x] Medication orders and management Discharge Plan Departure Patient Disposition: Admitted As Inpatient Clinical Impression: Symptomatic anemia, Pancolitis, GI bleed Admit Date/Time: 05/05/25 15:28 Admit Provider: Josemanuel Correa
[2025-05-05] MEDS: NALOXONE 1 MG/ML SYRINGE NASAL (11:25)
--- NOTE | 2025-05-05 11:25 | EKG_ITS ---
[facility]
[2025-05-05] MEDS: SODIUM CHLORIDE 0.9% 587.4 ML IV (11:30)
[2025-05-05 11:59] LABS: INR 1.0 (0.9-1.3); Prothrombin Time 10.8 SECONDS (9.4-12.5)
[2025-05-05 12:02] LABS: PTT Partial Thromboplastin Tim 22 SECONDS (25.1-36.5)
[2025-05-05 12:04] LABS: Acetaminophen 17 ug/mL (10-30); Add Manual Diff / Slide Review NO; Alanine Aminotransferase 25 IU/L (<35); Albumin 4.1 g/dL (3.5-5.0); Albumin Globulin Ratio 1.3 (1.0-2.8); Alkaline Phosphatase 131 U/L (38-126); Blood Urea Nitrogen 38 mg/dL (7-17); Calcium 9.3 mg/dL (8.4-10.2); Carbon Dioxide 17 mmol/L (22-32); Chloride 103 mmol/L (98-107); Creatine Kinase 94 U/L (30-135); Estimated Glomerular Filt Rate 49 mL/min (>60); Globulin 3.2 g/dL (1.7-4.1); Glucose 107 mg/dL (70-99); HEMOLYSIS < 15 (0-50); Hematocrit 21.4 % (36-46); Lymphocytes Absolute Auto 600 /uL (1100-4500); Mean Corpuscular HGB Conc 30.0 % (30-36); Mean Corpuscular Hemoglobin 23.3 PG (26-34); Mean Corpuscular Volume 77.6 fL (80-100); Platelet Count 477 X10^3/uL (150-400); Potassium 4.6 mmol/L (3.4-5.1); Salicylate < 1.0 mg/dL (<20); Sodium 134 mmol/L (137-145); Total Protein 7.3 g/dL (6.3-8.2)
[2025-05-05 12:05] LABS: Lactate (Lactic Acid) 3.9 mmol/L (0.7-2.1)
[2025-05-05 12:10] LABS: Hemoglobin 6.4 g/dL (12.0-16.0)
[2025-05-05 12:16] LABS: NT-proBNP (BNP-Adult 18+) 221 pg/mL (<125); Troponin I < 0.012 ng/mL (0.01-0.034)
[2025-05-05 12:20] LABS: Procalcitonin 2.01 ng/mL (<0.5)
[2025-05-05 12:20] LABS: Allen Test for ABG Passed? Positive; HCO3 ABG 20 mmol/L (23-27); Oxygen Saturation ABG 25 % (95-100); PCO2 ABG 45.9 mmHg (35-45); PO2 ABG 20 mmHg (80-100); TCO2 ABG 20 mmol/L (23-27)
--- NOTE | 2025-05-05 12:29 | PC.NURSE ---
upon arrival patient slow to respond staring at ceiling and pinpoint pupils, periods of apnea and hypotensive - pt was given intranasal narcan and is now alert and oriented, resps even and oxygenating well on room air. 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
[2025-05-05 12:31] LABS: Allen Test for ABG Passed? Positive; HCO3 ABG 19 mmol/L (23-27); Oxygen Saturation ABG 96 % (95-100); PCO2 ABG 35.2 mmHg (35-45); PO2 ABG 86 mmHg (80-100); TCO2 ABG 18 mmol/L (23-27)
[2025-05-05 12:43] LABS: Ammonia (NH3) < 9 umol/L (9-30)
--- NOTE | 2025-05-05 13:09 | PC.NURSE ---
call from di states line in rac blew when contrast was infusing di states they removed the line
[2025-05-05 13:24] LABS: Reflexed Lactate in 2 Hours Y
[2025-05-05 14:06] LABS: Lactate 2HR (Lactic Acid Rflx) 1.5 mmol/L (0.7-2.1)
[2025-05-05 14:20] LABS: Influenza A - CEPHEID Flu A NEGATIVE (NEGATIVE); Influenza B - CEPHEID Flu B NEGATIVE (NEGATIVE)
[2025-05-05 14:21] LABS: COVID-19 CEPHEID 4-PLEX PCR Negative (Negative)
[2025-05-05] MEDS: PANTOPRAZOLE 40 MG VIAL 80 MG IV (14:50)
--- NOTE | 2025-05-05 16:09 | CM.DANOTE ---
DCP Assessment Note: Pt is a 69yo female, resident of [place], is admitted for GI bleed, colitis, dehydration. Pt lives in a house with her son, Chinedu Khanna. Pt's Primary Care Provider is CHRISTINE Vasquez (Kat[place]) and insurance is [facility]. Reviewed chart and discussed with multidisciplinary team pt's medical status and initial discharge needs. Per ED Provider, pt to be admitted to treat anemia and GI bleed. DCP met w/patient at bedside; introduced self and role. Patient was found in bed, alert and oriented, cooperative with assessment. Pt confirmed living situation and good support in son, states she has been in bad shape the past few days. Pt expressed preference in discharge home with home health when cleared, stated she would be open to SNF Rehab if necessary but would much prefer to return home. Pt has no history of SNF Rehab or home health. Plan: Anticipating discharge home with home health when medically cleared, son will transport home. CM team will follow closely for coordination of discharge plans. BUBBA Peterson Discharge Planning/Care Management CM Discharge Assessment Start: 05/05/25 15:30 Freq: Status: Active Protocol: Document 05/05/25 15:53 MW (Rec: 05/05/25 16:09 MW [id number]) Discharge Planning Assessment Assigned Discharge JOLIE Sheppard Senior Microstrategy Developer Provider CHRISTINE Vasquez (Katiana) Insurance [facility] DPOA/Assigned Jesus Che Designee Name Contact Information [phone] Advance Directives? Yes Advance Directives No on File History Provided By Family Member,Medical Record Has Patient been No admitted in last 30 days? Prior Living House Arrangements Comment [place] Household Members children Type of Relies on Others transporation used prior to admit Independent with ADL No 's Is patient alert and Yes oriented? DME Already Rented / FWW / Walker Owned Patient/Family Home with Home Health Preference Discharge Plan Home Transportation son Arrangement Review Status In Process Please Provide Date 05/05/25 Initial DC Assessment Was Performed Next Review Type Continued Stay Review
[2025-05-05] MEDS: DEXTROSE 5%-0.9% NS 1,000 ML 150 ML IV ×2 (16:56→23:00)
--- NOTE | 2025-05-05 18:03 | P.HP_ITS ---
History of Present Illness
--- NOTE | 2025-05-05 18:03 | PM.HP.1 ---
History of Present Illness <Libby Dumont - Last Filed: 05/05/25 18:04> History of Present Illness Date Patient Seen: 05/05/25 Time Patient Seen: 18:03 Chief complaint: confusion, weak . had UTI 3 weeks ago. Narrative: Chief Complaint: Altered mental status. ? History of Present Illness: 69-year-old female brought in by her son, Chinedu, due to abnormal behavior that began last night after taking her medication. He reports she was acting confused and not herself. The patient reports a current prescription for oxycodone and denies hallucinations. She reports new right shoulder pain since admission but denies other pain, shortness of breath, or chest pain. She endorses shaking of her arms and legs, which she attributes to a prior spinal surgery for C2 and C4 fractures sustained after a fall down stairs. She also reports diarrhea for two days, describing it as black and watery. On evaluation, she was intermittently coherent, sometimes conversing appropriately about past and present events, and other times speaking nonsensically about the man or the sample in the corner. In the emergency department, the patient was treated with naloxone and is showing incomplete improvement in her mental status. ? Past Medical History: Chronic tremor Osteoarthritis Alcohol use disorder Nicotine addiction ? Surgical History: Cervical spine surgery for C2?C4 fractures (August 2024) Possible recent prior abdominal surgery (took a baby out, not a , uncertain details) ? Family History: Father: of heart disease at age 70 Mother: of heart disease at age 75 ? Social History: Lived alone until recently, son now lives with her. 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 Former marijuana user but quit prior to 2013. Currently vapes nicotine all the time. Has one dog. ? Medications: Patient reported: Ibuprofen, Tylenol, Oxycodone ? Physical Exam: General: Patient appears anxious and is intermittently coherent, alternating between lucid conversation and nonsensical statements. HEENT: NC/AT. Mucous membranes dry. EOMI, PERRL, mild peripheral conjunctivitis. Neck: Not LAD, thyroid non-enlarged and non-tender. Cardiac: Regular rate and rhythm. No murmer. Pulmonary: Clear to auscultation bilaterally. No increased work of breathing. Abdomen: Soft, nondistended. Tenderness to palpation in RLQ. No rebound or guarding. Hyperactive bowel sounds. Extremities: No edema or deformities. Peripheral pulses intact and symmetric. Skin: Normal color and turgor on exposed areas and abdomen. No rashes or lesions observed. Neurological: Tremor in right arm at rest and with [id number] testing. Cranial nerves 2-12 appear intact. No lateralizing deficit of the extremities. ? Labs reviewed and notable for: -Hematology: Hgb 6.4 g/dL, Hct 21.4 %, RBC 2.76 M/?L, MCV 77.6 fL, and RDW 19.6 %. Platelets 477 K/?L. WBC 4.6 K/?L with neutrophil predominance (75.9 %) and relative lymphopenia (12.1 %). -Renal / Electrolytes: Sodium 134 mmol/L, CO? 17 mmol/L, BUN 38 mg/dL, Creatinine 1.20 mg/dL, BUN/Cr ratio 31.7, eGFR 49 mL/min. -Liver Function: AST 45 U/L, ALT 131 U/L, alkaline phosphatase 131 U/L. Albumin 4.1 g/dL. -Cardiac / Inflammatory: NT-proBNP 221 pg/mL, Procalcitonin 2.01 ng/mL, Troponin I < 0.012 ng/mL. -Arterial Blood Gas: pH 7.34, pCO? 35 mmHg, HCO?? 19 mmol/L, base excess ?6.1 mmol/L -Toxicology: Acetaminophen < 10 ?g/mL and salicylate < 0.3 mg/dL, both below toxic thresholds. ? Imaging reviewed and notable for: Chest X-Ray Impression: Retrocardiac opacity may be secondary to hiatal hernia and/or left basilar opacity. Linear scarring or atelectasis at the right mid lung zone. ? Head CT Impression: No acute intracranial pathology ? Cervical Spine CT Impression: 1. No acute fracture or dislocation. Interval healing of previously noted anterior inferior C3 endplate fracture. 2. Stable post interval posterior decompression and fusion at C2 through C6 levels. No gross hardware loosening or failure. 3. Amdc-[id number] spondylitic changes are noted throughout cervical spine. ? CT Chest/Abdomen/Pelvis with contrast Impression: 1. Diffuse bowel wall thickening in the colon and rectum is suspicious for a pancolitis.? 2. No acute traumatic findings.? 3. Large hiatal hernia. ? EKG Interpretation: Sinus tachycardia. Nonspecific ST and T wave abnormality ? Assessment and Plan 69-year-old female with altered mental status, black watery stools, severe microcytic anemia, VALERIE, and mild metabolic acidosis, most consistent with acute blood loss anemia secondary to gastrointestinal bleeding, leading to decreased perfusion and metabolic encephalopathy. ? # Severe Microcytic Anemia (Hgb 6.4 g/dL, MCV 77.6 fL) Likely etiology: Suspect blood loss from upper GI tract related to NSAID use. -Type and crossmatch -Iron studies -Transfuse PRBCs to maintain Hgb > 7 g/dL ? # Altered Mental Status Likely etiology: metabolic encephalopathy from severe anemia and possible hypovolemia. -Monitor BMP -Repeat ABG -Neuro checks -Consider MR head if mental status fails to improve post-transfusion and resuscitation -Maintain hemodynamic stability -Blood culture ? # Suspected Upper GI Bleed Melena and anemia suggest upper GI source, stabilization before endoscopy -CBC at midnight and in AM -Stool occult blood -Surgical consult for endoscopy (NPO) -Hold NSAIDs and anticoagulants -IV pantoprazole -Consider octreotide if variceal bleed identified ? # Acute Kidney Injury (Cr 1.2, BUN/Cr > 30) Likely etiology: prerenal azotemia due to dehydration and volume loss. -Repeat BMP after fluid resuscitation -Strict I&O -Monitor urine output -Isotonic IV fluids -Avoid nephrotoxic meds -Reassess renal function post-transfusion ? # Mild Transaminitis (AST 45, ALT 131) Likely etiology: hepatic hypoperfusion or medication effect. -Review medication use -Repeat LFTs in 24?48 h -Discontinue acetaminophen and NSAIDs ? # Metabolic Acidosis (pH 7.34, HCO? 19, BE ?6.1) Likely etiology: lactic acidosis from hypoperfusion and renal dysfunction. -Correct underlying cause (fluids, transfusion) -Monitor ABG and lactate ? # Elevated Procalcitonin (2.01 ng/mL) -May reflect systemic inflammatory response rather than active infection. -Monitor vitals and temperature -No antibiotics unless infection source identified ? # Right Shoulder Pain -IV infiltration with contrast dye ? # Tremor -Patient attributes to c-spine surgery -Likely need outpatient neuro consult, rule out MSA, essential tremor or other causes -Hold pregabalin ? # DVT Prophylaxis None due to suspected GI bleed ? # Code Status Full code ? # Disposition Unknown at this time, endoscopy likely tomorrow <H Angel Correa MD - Last Filed: 05/05/25 18:16> History of Present Illness Narrative: Chief Complaint: Altered mental status. ? History of Present Illness: 69-year-old female brought in by her son, Chinedu, due to abnormal behavior that began last night after taking her medication. He reports she was acting confused and not herself. The patient reports a current prescription for oxycodone and denies hallucinations. She reports new right shoulder pain since admission but denies other pain, shortness of breath, or chest pain. She endorses shaking of her arms and legs, which she attributes to a prior spinal surgery for C2 and C4 fractures sustained after a fall down stairs. She also reports diarrhea for two days, describing it as black and watery. On evaluation, she was intermittently coherent, sometimes conversing appropriately about past and present events, and other times speaking nonsensically about the man or the sample in the corner. In the emergency department, the patient was treated with naloxone and is showing incomplete improvement in her mental status. Hgb at admit 6.4. ? Past Medical History: Chronic tremor Osteoarthritis Alcohol use disorder Nicotine addiction ? Surgical History: Cervical spine surgery for C2?C4 fractures (August 2024) Possible recent prior abdominal surgery (took a baby out, not a , uncertain details) ? Family History: Father: of heart disease at age 70 Mother: of heart disease at age 75 ? Social History: Lived alone until recently, son now lives with her. 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 Former marijuana user but quit prior to 2013. Currently vapes nicotine all the time. Has one dog. ? Medications: Patient reported: Ibuprofen, Tylenol, Oxycodone, pregabalin ? Physical Exam: General: Patient appears anxious and is intermittently coherent, alternating between lucid conversation and nonsensical statements. HEENT: NC/AT. Mucous membranes dry. EOMI, PERRL, mild peripheral conjunctivitis. Neck: Not LAD, thyroid non-enlarged and non-tender. Cardiac: Regular rate and rhythm. No murmer. Pulmonary: Clear to auscultation bilaterally. No increased work of breathing. Abdomen: Soft, nondistended. Tenderness to palpation in RLQ. No rebound or guarding. Hyperactive bowel sounds. Extremities: No edema or deformities. Peripheral pulses intact and symmetric. Skin: Normal color and turgor on exposed areas and abdomen. No rashes or lesions observed. Neurological: Tremor in right arm at rest and with [id number] testing. Cranial nerves 2-12 appear intact. No lateralizing deficit of the extremities. ? Labs reviewed and notable for: -Hematology: Hgb 6.4 g/dL, Hct 21.4 %, RBC 2.76 M/?L, MCV 77.6 fL, and RDW 19.6 %. Platelets 477 K/?L. WBC 4.6 K/?L with neutrophil predominance (75.9 %) and relative lymphopenia (12.1 %). -Renal / Electrolytes: Sodium 134 mmol/L, CO? 17 mmol/L, BUN 38 mg/dL, Creatinine 1.20 mg/dL, BUN/Cr ratio 31.7, eGFR 49 mL/min. -Liver Function: AST 45 U/L, ALT 131 U/L, alkaline phosphatase 131 U/L. Albumin 4.1 g/dL. -Cardiac / Inflammatory: NT-proBNP 221 pg/mL, Procalcitonin 2.01 ng/mL, Troponin I < 0.012 ng/mL. -Arterial Blood Gas: pH 7.34, pCO? 35 mmHg, HCO?? 19 mmol/L, base excess ?6.1 mmol/L -Toxicology: Acetaminophen < 10 ?g/mL and salicylate < 0.3 mg/dL, both below toxic thresholds. ? Imaging reviewed and notable for: Chest X-Ray Impression: Retrocardiac opacity may be secondary to hiatal hernia and/or left basilar opacity. Linear scarring or atelectasis at the right mid lung zone. ? Head CT Impression: No acute intracranial pathology ? Cervical Spine CT Impression: 1. No acute fracture or dislocation. Interval healing of previously noted anterior inferior C3 endplate fracture. 2. Stable post interval posterior decompression and fusion at C2 through C6 levels. No gross hardware loosening or failure. 3. Klcc-ea-ocfargkn spondylitic changes are noted throughout cervical spine. ? CT Chest/Abdomen/Pelvis with contrast Impression: 1. Diffuse bowel wall thickening in the colon and rectum is suspicious for a pancolitis.? 2. No acute traumatic findings.? 3. Large hiatal hernia. ? EKG Interpretation: Sinus tachycardia. Nonspecific ST and T wave abnormality ? Assessment and Plan 69-year-old female with altered mental status, black watery stools, severe microcytic anemia, VALERIE, and mild metabolic acidosis, most consistent with acute blood loss anemia secondary to gastrointestinal bleeding, leading to decreased perfusion and metabolic encephalopathy. ? # Severe Microcytic Anemia (Hgb 6.4 g/dL, MCV 77.6 fL) Likely etiology: Suspect blood loss from upper GI tract related to NSAID use. -Type and crossmatch -Iron studies -Transfuse PRBCs to maintain Hgb > 7 g/dL ? # Altered Mental Status Likely etiology: metabolic encephalopathy from severe anemia and possible hypovolemia. -Monitor BMP -Repeat ABG -Neuro checks -Consider MR head if mental status fails to improve post-transfusion and resuscitation -Maintain hemodynamic stability -Blood culture ? # Suspected Upper GI Bleed Melena and anemia suggest upper GI source, stabilization before endoscopy -CBC at midnight and in AM -Stool occult blood -Surgical consult for endoscopy (NPO) -Hold NSAIDs and anticoagulants -IV pantoprazole -Consider octreotide if variceal bleed identified ? # Acute Kidney Injury (Cr 1.2, BUN/Cr > 30) Likely etiology: prerenal azotemia due to dehydration and volume loss. -Repeat BMP after fluid resuscitation -Strict I&O -Monitor urine output -Isotonic IV fluids -Avoid nephrotoxic meds -Reassess renal function post-transfusion ? # Mild Transaminitis (AST 45, ALT 131) Likely etiology: hepatic hypoperfusion or medication effect. -Review medication use -Repeat LFTs in 24?48 h -Discontinue acetaminophen and NSAIDs ? # Metabolic Acidosis (pH 7.34, HCO? 19, BE ?6.1) Likely etiology: lactic acidosis from hypoperfusion and renal dysfunction. -Correct underlying cause (fluids, transfusion) -Monitor ABG and lactate ? # Elevated Procalcitonin (2.01 ng/mL) -May reflect systemic inflammatory response rather than active infection. -Monitor vitals and temperature -No antibiotics unless infection source identified ? # Right Shoulder Pain -IV infiltration with contrast dye ? # Tremor -Patient attributes to c-spine surgery -Likely need outpatient neuro consult, rule out MSA, essential tremor, or other causes -Hold pregabalin ? # DVT Prophylaxis None due to suspected GI bleed ? # Code Status Full code ? # Disposition Unknown at this time, endoscopy likely tomorrow Proxy is her son, Chinedu CLANCY <Libby Dumont - Last Filed: 05/05/25 18:04> Medical History (Updated 05/05/25 @ 18:11 by Josemanuel Correa MD) Nicotine dependence Alcohol use disorder in remission Tremor Osteoarthritis Surgical History (Updated 05/05/25 @ 18:11 by Josemanuel Correa MD) H/O cervical spine surgery Family History (Updated 05/05/25 @ 18:13 by Josemanuel Correa MD) Father Heart disease Mother Heart disease Social History (Updated 05/05/25 @ 18:14 by Josemanuel Correa MD) marital status: number of children: 1 household members: children lives independently: No caregiver/support person: Yes pets and animals: Yes Smokeless tobacco user: other alcohol intake: former substance use type: marijuana <Josemanuel Correa MD - Last Filed: 05/05/25 18:16> Comment: Past marijuana use (quit 2013). Nicotine is from vaping Meds <Libby Dumont - Last Filed: 05/05/25 18:04> Home Medications and Allergies Home Medications ?Medication ?Instructions ?Recorded ?Confirmed ?Type gabapentin 300 mg capsule 300 mg PO ONCE PM 09/16/24 09/16/24 History venlafaxine 37.5 mg 37.5 mg PO DAILY 09/16/24 09/16/24 History capsule,extended release 24 hr Allergies Allergy/AdvReac Type Severity Reaction Status Date / Time No Known Drug Allergies Allergy Verified 05/05/25 11:17 Exam <Libby Dumont - Last Filed: 05/05/25 18:04> Vital Signs (past 8 hours): - 05/05/25 11:04 05/05/25 11:18 05/05/25 11:20 Temperature 97.9 F Pulse Rate 115 H 113 H 112 H Respiratory Rate 14 10 L 7 L Blood Pressure 72/32 L Pulse Oximetry 95 Oxygen Delivery Method Room Air 05/05/25 11:20 05/05/25 11:30 05/05/25 11:30 Temperature Pulse Rate 111 H Respiratory Rate 12 Blood Pressure 93/50 L 104/58 L Pulse Oximetry 89 L Oxygen Delivery Method 05/05/25 11:36 05/05/25 11:36 05/05/25 11:39 Temperature Pulse Rate 110 H 107 H Respiratory Rate 8 L 10 L Blood Pressure 82/53 L Pulse Oximetry 83 L 94 Oxygen Delivery Method 05/05/25 11:39 05/05/25 11:40 05/05/25 11:40 Temperature Pulse Rate 105 H Respiratory Rate 9 L Blood Pressure 90/57 L 99/60 Pulse Oximetry 98 Oxygen Delivery Method 05/05/25 11:45 05/05/25 11:45 05/05/25 11:50 Temperature Pulse Rate 111 H 118 H Respiratory Rate 10 L 13 Blood Pressure 118/65 Pulse Oximetry 99 90 L Oxygen Delivery Method 05/05/25 11:50 05/05/25 11:55 05/05/25 11:55 Temperature Pulse Rate 122 H Respiratory Rate 22 Blood Pressure 112/63 113/57 L Pulse Oximetry 98 Oxygen Delivery Method 05/05/25 12:00 05/05/25 12:00 05/05/25 12:15 Temperature Pulse Rate 122 H 116 H Respiratory Rate 23 12 Blood Pressure 121/67 Pulse Oximetry 97 91 Oxygen Delivery Method 05/05/25 12:15 05/05/25 12:16 05/05/25 12:16 Temperature Pulse Rate 118 H Respiratory Rate 14 Blood Pressure 157/60 H 200/72 H Pulse Oximetry 97 Oxygen Delivery Method 05/05/25 12:20 05/05/25 12:20 05/05/25 12:25 Temperature Pulse Rate 121 H 120 H Respiratory Rate 17 18 Blood Pressure 135/62 Pulse Oximetry 99 94 Oxygen Delivery Method 05/05/25 12:25 05/05/25 12:30 05/05/25 12:31 Temperature Pulse Rate 118 H 118 H Respiratory Rate 16 20 Blood Pressure 126/59 L Pulse Oximetry 98 97 Oxygen Delivery Method 05/05/25 12:31 05/05/25 12:35 05/05/25 12:35 Temperature Pulse Rate 119 H Respiratory Rate 13 Blood Pressure 80/52 L 120/60 Pulse Oximetry 94 Oxygen Delivery Method 05/05/25 12:40 05/05/25 12:40 05/05/25 12:45 Temperature Pulse Rate 115 H 117 H Respiratory Rate 19 17 Blood Pressure 108/58 L Pulse Oximetry 95 93 Oxygen Delivery Method 05/05/25 12:45 05/05/25 13:15 05/05/25 13:16 Temperature Pulse Rate 119 H 118 H Respiratory Rate 9 L 12 Blood Pressure 120/66 Pulse Oximetry 50 L 94 Oxygen Delivery Method 05/05/25 13:16 05/05/25 13:22 05/05/25 13:22 Temperature Pulse Rate 117 H Respiratory Rate 10 L Blood Pressure 103/62 121/68 Pulse Oximetry 96 Oxygen Delivery Method 05/05/25 13:25 05/05/25 13:25 05/05/25 13:30 Temperature Pulse Rate 116 H 116 H Respiratory Rate 8 L 10 L Blood Pressure 110/59 L Pulse Oximetry 98 73 L Oxygen Delivery Method 05/05/25 13:30 05/05/25 13:36 05/05/25 13:36 Temperature Pulse Rate 118 H Respiratory Rate 15 Blood Pressure 106/58 L 110/73 Pulse Oximetry 65 L Oxygen Delivery Method 05/05/25 13:40 05/05/25 13:40 05/05/25 13:45 Temperature Pulse Rate 116 H 116 H Respiratory Rate 11 L 18 Blood Pressure 104/61 Pulse Oximetry 83 L 93 Oxygen Delivery Method 05/05/25 13:45 05/05/25 13:50 05/05/25 13:50 Temperature Pulse Rate 115 H Respiratory Rate 11 L Blood Pressure 102/59 L 97/58 L Pulse Oximetry 93 Oxygen Delivery Method 05/05/25 13:56 05/05/25 13:56 05/05/25 14:00 Temperature Pulse Rate 118 H 117 H Respiratory Rate 25 H 17 Blood Pressure 108/58 L Pulse Oximetry 96 93 Oxygen Delivery Method 05/05/25 14:00 05/05/25 14:05 05/05/25 14:05 Temperature Pulse Rate 120 H Respiratory Rate 21 Blood Pressure 112/52 L 85/52 L Pulse Oximetry 94 Oxygen Delivery Method 05/05/25 14:11 05/05/25 14:11 05/05/25 14:15 Temperature Pulse Rate 118 H Respiratory Rate 20 Blood Pressure 106/60 99/52 L Pulse Oximetry 95 Oxygen Delivery Method 05/05/25 14:15 05/05/25 14:20 05/05/25 14:20 Temperature Pulse Rate 121 H 118 H Respiratory Rate 21 17 Blood Pressure 96/54 L Pulse Oximetry 95 96 Oxygen Delivery Method 05/05/25 14:25 05/05/25 14:25 05/05/25 14:30 Temperature Pulse Rate 118 H Respiratory Rate 17 Blood Pressure 94/55 L 99/55 L Pulse Oximetry 95 Oxygen Delivery Method 05/05/25 14:30 05/05/25 14:35 05/05/25 14:35 Temperature Pulse Rate 114 H 115 H Respiratory Rate 11 L 23 Blood Pressure 103/60 Pulse Oximetry 96 96 Oxygen Delivery Method 05/05/25 14:40 05/05/25 14:40 05/05/25 14:45 Temperature 98.4 F Pulse Rate 114 H 113 H Respiratory Rate 16 18 Blood Pressure 104/63 108/63 Pulse Oximetry 95 Oxygen Delivery Method 05/05/25 14:45 05/05/25 14:45 05/05/25 15:00 Temperature Pulse Rate 113 H 113 H Respiratory Rate 12 8 L Blood Pressure 108/63 Pulse Oximetry 95 93 Oxygen Delivery Method 05/05/25 15:00 05/05/25 15:02 05/05/25 15:15 Temperature 98.4 F Pulse Rate Respiratory Rate Blood Pressure 97/53 L 99/60 Pulse Oximetry Oxygen Delivery Method 05/05/25 15:15 05/05/25 15:29 05/05/25 15:30 Temperature 98.4 F Pulse Rate 116 H Respiratory Rate 13 Blood Pressure 108/59 L Pulse Oximetry 95 Oxygen Delivery Method 05/05/25 15:30 05/05/25 15:45 05/05/25 15:45 Temperature Pulse Rate 112 H 111 H Respiratory Rate 25 H 14 Blood Pressure 111/62 Pulse Oximetry 96 95 Oxygen Delivery Method 05/05/25 16:00 05/05/25 16:00 05/05/25 16:15 Temperature Pulse Rate 109 H Respiratory Rate 18 Blood Pressure 116/64 107/67 Pulse Oximetry 95 Oxygen Delivery Method 05/05/25 16:15 05/05/25 17:37 Temperature 99.0 F Pulse Rate 109 H 115 H Respiratory Rate 15 18 Blood Pressure 123/65 Pulse Oximetry 95 Oxygen Delivery Method Oxygen Delivery Method Room Air Objective <Libby Risdon - Last Filed: 05/05/25 18:04> Labs 05/05/25 11:43 05/05/25 11:43 Labs: Laboratory Results - last 24 hr 05/05/25 05/05/25 05/05/25 11:43 12:16 12:25 WBC 4.6 RBC 2.76 L Hgb 6.4 L* Hct 21.4 L MCV 77.6 L MCH 23.3 L MCHC 30.0 RDW 19.6 H Plt Count 477 H Neut % (Auto) 75.9 H Lymph % (Auto) 12.1 L Alpine % (Auto) 11.3 Eos % (Auto) 0.5 L Baso % (Auto) 0.2 Neut # (Auto) 3500 Lymph # (Auto) 600 L Alpine # (Auto) 500 Eos # (Auto) 0 Baso # (Auto) 0 PT 10.8 INR 1.0 APTT 22 L ABG pH 7.26 L* 7.34 L ABG pCO2 45.9 H 35.2 ABG pO2 20 L* 86 ABG HCO3 20 L 19 L ABG Total CO2 20 L 18 L ABG O2 Saturation 25 L* 96 ABG Base Excess -6.3 L -6.1 L Lee Test Positive Positive Sodium 134 L Potassium 4.6 Chloride 103 Carbon Dioxide 17 L BUN 38 H Creatinine 1.20 H Estimated GFR 49 L BUN/Creatinine Ratio 31.7 H Glucose 107 H Lactate 3.9 H Calcium 9.3 Total Bilirubin 0.6 AST 45 H ALT 25 Alkaline Phosphatase 131 H Ammonia < 9 L Total Creatine Kinase 94 Troponin I < 0.012 NT-Pro-B Natriuret Pep 221 H Total Protein 7.3 Albumin 4.1 Globulin 3.2 Albumin/Globulin Ratio 1.3 Procalcitonin 2.01 H Salicylates < 1.0 Acetaminophen 17 SARS-CoV-2 (PCR) Negative Influenza A (RT-PCR) Flu a negative Influenza B (RT-PCR) Flu b negative RSV (PCR) Negative Blood Type O Positive Antibody Screen Negative Crossmatch See Detail 05/05/25 13:34 WBC RBC Hgb Hct MCV MCH MCHC RDW Plt Count Neut % (Auto) Lymph % (Auto) Alpine % (Auto) Eos % (Auto) Baso % (Auto) Neut # (Auto) Lymph # (Auto) Alpine # (Auto) Eos # (Auto) Baso # (Auto) PT INR APTT ABG pH ABG pCO2 ABG pO2 ABG HCO3 ABG Total CO2 ABG O2 Saturation ABG Base Excess Lee Test Sodium Potassium Chloride Carbon Dioxide BUN Creatinine Estimated GFR BUN/Creatinine Ratio Glucose Lactate 1.5 Calcium Total Bilirubin AST ALT Alkaline Phosphatase Ammonia Total Creatine Kinase Troponin I NT-Pro-B Natriuret Pep Total Protein Albumin Globulin Albumin/Globulin Ratio Procalcitonin Salicylates Acetaminophen SARS-CoV-2 (PCR) Influenza A (RT-PCR) Influenza B (RT-PCR) RSV (PCR) Blood Type Antibody Screen Crossmatch Assessment & Plan <Libby Dumont - Last Filed: 05/05/25 18:04> Time-Based Coding :: [TOTAL MINUTES] spent with patient and on the chart (including review of chart, obtaining history, exam, reviewing outside data, placing orders, documenting exam and treatment plan, and counseling patient) on [DATE]. Quality <Libby Dumont - Last Filed: 05/05/25 18:04> VTE Deep Vein Thrombosis/Pulmonary Embolism Present on Admission: No
[2025-05-05 18:16] LABS: Clostridium difficile toxin AB Not Detected (Not Detect); Enteroaggregative E.coli Not Detected (Not Detect); Enteropathogenic E.coli Not Detected (Not Detect); Enterotoxigenic E.coli It/st Not Detected (Not Detect); Plesiomonsa shigelloides Not Detected (Not Detect); Shiga-like toxin-prod E.coli Not Detected (Not Detect)
--- NOTE | 2025-05-05 18:42 | P.CONS_ITS ---
History of Present Illness
--- NOTE | 2025-05-05 18:42 | PM.CN.IH.1 ---
History of Present Illness Consult details Date Patient Seen: 05/05/25 Time Patient Seen: 18:43 Chief complaint: confusion, weak . had UTI 3 weeks ago. Reason for consult: Anemia with possible GI bleed Narrative: Called to evaluate this 69-year-old female admitted today via the emergency room. The patient is a very poor historian and appears somewhat confused. Much of my history was obtained through the medical record and from a phone conversation with the patient's son, Chinedu. The patient has had significant issues since her fall last August where she sustained a neck injury. She subsequently underwent a cervical spine fusion. She has had multiple hospitalizations since that time with urinary tract infections and according to her son, ?taking too much of her medication at 1 time. The patient is enrolled in pain management. On presentation to the emergency room today, she was quite confused and was given Narcan. She reports feeling weak and having liquid watery bowel movements. The son states that her bowel movements have appeared normal, just very watery. She is incontinent now of both urine and stool. On presentation she was noted to have anemia with a hemoglobin of approximately 6.4 mg%. Her son notes he has never noted anyone stating she was anemic before. Review of her chart revealed her last hemoglobin to be 11. He does note that recently she has had multiple UTIs and was diagnosed with Clostridium difficile at 1 time. She is difficult to obtain a history from and notes there min standing about in the room. The patient's son states that yesterday she fell and potentially struck her head on the bathroom cabinet. She was somnolent afterwards. A CT of her head was performed in the emergency room today, with no acute changes. At this time she is lying quietly in bed eating ice chips. Again her history is limited due to confusion. She does note that she has had a hysterectomy. She states her only other surgery was the spinal fusion. She has a significant bilateral upper extremity tremor which she attributes to her spinal surgery. She states she has not had a fever to her knowledge. She has had no nausea or vomiting. She states her stools are very watery and difficult to control. Her son states they are pale brown or medium brown and appear normal other than ?they are peer water?. CT of the head revealed no acute process. CT of the chest abdomen and pelvis was suggestive of pancolitis. The full CT results are noted in the body of the consult. Meds Home Medications and Allergies Home Medications ?Medication ?Instructions ?Recorded ?Confirmed ?Type gabapentin 300 mg capsule 300 mg PO ONCE PM 09/16/24 09/16/24 History venlafaxine 37.5 mg 37.5 mg PO DAILY 09/16/24 09/16/24 History capsule,extended release 24 hr Allergies Allergy/AdvReac Type Severity Reaction Status Date / Time No Known Drug Allergies Allergy Verified 05/05/25 11:17 Review of Systems Review of Systems Narrative: Patient is somewhat confused and is unable to verbally provide a complete review of systems. Please see history of present illness for information I was able to glean from the patient and her son. Exam Vital Signs (past 8 hours): - 05/05/25 11:04 05/05/25 11:18 05/05/25 11:20 Temperature 97.9 F Pulse Rate 115 H 113 H 112 H Respiratory Rate 14 10 L 7 L Blood Pressure 72/32 L Pulse Oximetry 95 Oxygen Delivery Method Room Air Oxygen Flow Rate 05/05/25 11:20 05/05/25 11:30 05/05/25 11:30 Temperature Pulse Rate 111 H Respiratory Rate 12 Blood Pressure 93/50 L 104/58 L Pulse Oximetry 89 L Oxygen Delivery Method Oxygen Flow Rate 05/05/25 11:36 05/05/25 11:36 05/05/25 11:39 Temperature Pulse Rate 110 H 107 H Respiratory Rate 8 L 10 L Blood Pressure 82/53 L Pulse Oximetry 83 L 94 Oxygen Delivery Method Oxygen Flow Rate 05/05/25 11:39 05/05/25 11:40 05/05/25 11:40 Temperature Pulse Rate 105 H Respiratory Rate 9 L Blood Pressure 90/57 L 99/60 Pulse Oximetry 98 Oxygen Delivery Method Oxygen Flow Rate 05/05/25 11:45 05/05/25 11:45 05/05/25 11:50 Temperature Pulse Rate 111 H 118 H Respiratory Rate 10 L 13 Blood Pressure 118/65 Pulse Oximetry 99 90 L Oxygen Delivery Method Oxygen Flow Rate 05/05/25 11:50 05/05/25 11:55 05/05/25 11:55 Temperature Pulse Rate 122 H Respiratory Rate 22 Blood Pressure 112/63 113/57 L Pulse Oximetry 98 Oxygen Delivery Method Oxygen Flow Rate 05/05/25 12:00 05/05/25 12:00 05/05/25 12:15 Temperature Pulse Rate 122 H 116 H Respiratory Rate 23 12 Blood Pressure 121/67 Pulse Oximetry 97 91 Oxygen Delivery Method Oxygen Flow Rate 05/05/25 12:15 05/05/25 12:16 05/05/25 12:16 Temperature Pulse Rate 118 H Respiratory Rate 14 Blood Pressure 157/60 H 200/72 H Pulse Oximetry 97 Oxygen Delivery Method Oxygen Flow Rate 05/05/25 12:20 05/05/25 12:20 05/05/25 12:25 Temperature Pulse Rate 121 H 120 H Respiratory Rate 17 18 Blood Pressure 135/62 Pulse Oximetry 99 94 Oxygen Delivery Method Oxygen Flow Rate 05/05/25 12:25 05/05/25 12:30 05/05/25 12:31 Temperature Pulse Rate 118 H 118 H Respiratory Rate 16 20 Blood Pressure 126/59 L Pulse Oximetry 98 97 Oxygen Delivery Method Oxygen Flow Rate 05/05/25 12:31 05/05/25 12:35 05/05/25 12:35 Temperature Pulse Rate 119 H Respiratory Rate 13 Blood Pressure 80/52 L 120/60 Pulse Oximetry 94 Oxygen Delivery Method Oxygen Flow Rate 05/05/25 12:40 05/05/25 12:40 05/05/25 12:45 Temperature Pulse Rate 115 H 117 H Respiratory Rate 19 17 Blood Pressure 108/58 L Pulse Oximetry 95 93 Oxygen Delivery Method Oxygen Flow Rate 05/05/25 12:45 05/05/25 13:15 05/05/25 13:16 Temperature Pulse Rate 119 H 118 H Respiratory Rate 9 L 12 Blood Pressure 120/66 Pulse Oximetry 50 L 94 Oxygen Delivery Method Oxygen Flow Rate 05/05/25 13:16 05/05/25 13:22 05/05/25 13:22 Temperature Pulse Rate 117 H Respiratory Rate 10 L Blood Pressure 103/62 121/68 Pulse Oximetry 96 Oxygen Delivery Method Oxygen Flow Rate 05/05/25 13:25 05/05/25 13:25 05/05/25 13:30 Temperature Pulse Rate 116 H 116 H Respiratory Rate 8 L 10 L Blood Pressure 110/59 L Pulse Oximetry 98 73 L Oxygen Delivery Method Oxygen Flow Rate 05/05/25 13:30 05/05/25 13:36 05/05/25 13:36 Temperature Pulse Rate 118 H Respiratory Rate 15 Blood Pressure 106/58 L 110/73 Pulse Oximetry 65 L Oxygen Delivery Method Oxygen Flow Rate 05/05/25 13:40 05/05/25 13:40 05/05/25 13:45 Temperature Pulse Rate 116 H 116 H Respiratory Rate 11 L 18 Blood Pressure 104/61 Pulse Oximetry 83 L 93 Oxygen Delivery Method Oxygen Flow Rate 05/05/25 13:45 05/05/25 13:50 05/05/25 13:50 Temperature Pulse Rate 115 H Respiratory Rate 11 L Blood Pressure 102/59 L 97/58 L Pulse Oximetry 93 Oxygen Delivery Method Oxygen Flow Rate 05/05/25 13:56 05/05/25 13:56 05/05/25 14:00 Temperature Pulse Rate 118 H 117 H Respiratory Rate 25 H 17 Blood Pressure 108/58 L Pulse Oximetry 96 93 Oxygen Delivery Method Oxygen Flow Rate 05/05/25 14:00 05/05/25 14:05 05/05/25 14:05 Temperature Pulse Rate 120 H Respiratory Rate 21 Blood Pressure 112/52 L 85/52 L Pulse Oximetry 94 Oxygen Delivery Method Oxygen Flow Rate 05/05/25 14:11 05/05/25 14:11 05/05/25 14:15 Temperature Pulse Rate 118 H Respiratory Rate 20 Blood Pressure 106/60 99/52 L Pulse Oximetry 95 Oxygen Delivery Method Oxygen Flow Rate 05/05/25 14:15 05/05/25 14:20 05/05/25 14:20 Temperature Pulse Rate 121 H 118 H Respiratory Rate 21 17 Blood Pressure 96/54 L Pulse Oximetry 95 96 Oxygen Delivery Method Oxygen Flow Rate 05/05/25 14:25 05/05/25 14:25 05/05/25 14:30 Temperature Pulse Rate 118 H Respiratory Rate 17 Blood Pressure 94/55 L 99/55 L Pulse Oximetry 95 Oxygen Delivery Method Oxygen Flow Rate 05/05/25 14:30 05/05/25 14:35 05/05/25 14:35 Temperature Pulse Rate 114 H 115 H Respiratory Rate 11 L 23 Blood Pressure 103/60 Pulse Oximetry 96 96 Oxygen Delivery Method Oxygen Flow Rate 05/05/25 14:40 05/05/25 14:40 05/05/25 14:45 Temperature 98.4 F Pulse Rate 114 H 113 H Respiratory Rate 16 18 Blood Pressure 104/63 108/63 Pulse Oximetry 95 Oxygen Delivery Method Oxygen Flow Rate 05/05/25 14:45 05/05/25 14:45 05/05/25 15:00 Temperature Pulse Rate 113 H 113 H Respiratory Rate 12 8 L Blood Pressure 108/63 Pulse Oximetry 95 93 Oxygen Delivery Method Oxygen Flow Rate 05/05/25 15:00 05/05/25 15:02 05/05/25 15:15 Temperature 98.4 F Pulse Rate Respiratory Rate Blood Pressure 97/53 L 99/60 Pulse Oximetry Oxygen Delivery Method Oxygen Flow Rate 05/05/25 15:15 05/05/25 15:29 05/05/25 15:30 Temperature 98.4 F Pulse Rate 116 H Respiratory Rate 13 Blood Pressure 108/59 L Pulse Oximetry 95 Oxygen Delivery Method Oxygen Flow Rate 05/05/25 15:30 05/05/25 15:45 05/05/25 15:45 Temperature Pulse Rate 112 H 111 H Respiratory Rate 25 H 14 Blood Pressure 111/62 Pulse Oximetry 96 95 Oxygen Delivery Method Oxygen Flow Rate 05/05/25 16:00 05/05/25 16:00 05/05/25 16:15 Temperature Pulse Rate 109 H Respiratory Rate 18 Blood Pressure 116/64 107/67 Pulse Oximetry 95 Oxygen Delivery Method Oxygen Flow Rate 05/05/25 16:15 05/05/25 17:24 05/05/25 17:37 Temperature 99.0 F Pulse Rate 109 H 115 H Respiratory Rate 15 18 Blood Pressure 123/65 Pulse Oximetry 95 Oxygen Delivery Method Room Air Oxygen Flow Rate 05/05/25 17:52 05/05/25 17:52 Temperature 99.4 F 99.4 F Pulse Rate 110 H 110 H Respiratory Rate 20 20 Blood Pressure 123/73 123/62 Pulse Oximetry 97 Oxygen Delivery Method Oxygen Flow Rate 0 Oxygen Delivery Method Room Air Oxygen Flow Rate 0 Narrative Exam Narrative: Afebrile Sinus tach at 104/m Remaining vital signs stable Alert, but not completely oriented Regular rate and rhythm at 1:04 a.m.; no murmur appreciated Respirations clear bilaterally; normal chest wall excursion bilaterally; no wheezes, rales, or rhonchi Abdomen mildly protuberant, nontender, with no palpable masses; no peritoneal signs; bowel sounds x4 quadrants Rectal exam reveals small external hemorrhoid with good sphincter tone; digital rectal exam revealed no masses; guaiac negative; profuse pale watery stool noted pouring from the anus Moves all extremities x4 Bilateral upper extremities with significant tremor; sensory intact x4 Objective Labs 05/05/25 11:43 05/05/25 11:43 Labs: Laboratory Results - last 24 hr 05/05/25 05/05/25 05/05/25 11:43 12:16 12:25 WBC 4.6 RBC 2.76 L Hgb 6.4 L* Hct 21.4 L MCV 77.6 L MCH 23.3 L MCHC 30.0 RDW 19.6 H Plt Count 477 H Neut % (Auto) 75.9 H Lymph % (Auto) 12.1 L [place] % (Auto) 11.3 Eos % (Auto) 0.5 L Baso % (Auto) 0.2 Neut # (Auto) 3500 Lymph # (Auto) 600 L [place] # (Auto) 500 Eos # (Auto) 0 Baso # (Auto) 0 PT 10.8 INR 1.0 APTT 22 L ABG pH 7.26 L* 7.34 L ABG pCO2 45.9 H 35.2 ABG pO2 20 L* 86 ABG HCO3 20 L 19 L ABG Total CO2 20 L 18 L ABG O2 Saturation 25 L* 96 ABG Base Excess -6.3 L -6.1 L Lee Test Positive Positive Sodium 134 L Potassium 4.6 Chloride 103 Carbon Dioxide 17 L BUN 38 H Creatinine 1.20 H Estimated GFR 49 L BUN/Creatinine Ratio 31.7 H Glucose 107 H Lactate 3.9 H Calcium 9.3 Total Bilirubin 0.6 AST 45 H ALT 25 Alkaline Phosphatase 131 H Ammonia < 9 L Total Creatine Kinase 94 Troponin I < 0.012 NT-Pro-B Natriuret Pep 221 H Total Protein 7.3 Albumin 4.1 Globulin 3.2 Albumin/Globulin Ratio 1.3 Procalcitonin 2.01 H Stl C. cayetanensis PCR Stool Rotavirus (PCR) Stool Adenovirus (PCR) Stool Astrovirus (PCR) Stool Cryptosporidium PCR Stl E.coli Shiga Tox PCR St Sh/Enteroin Ecoli PCR Stl Enterotoxigenic E PCR Stool EPEC (PCR) Stl E. histolytica PCR Stool Giardia Lamblia PCR Stool Sapovirus (PCR) Stl P. shigelloides PCR St Y.enterocolitica PCR Stool Vibrio (PCR) Stl Vibrio cholerae PCR Stl Enteroaggr Ecoli PCR Stl Norovirus GI/GII PCR Salicylates < 1.0 Acetaminophen 17 Campylobacter (PCR) C. difficile Tox (PCR) SARS-CoV-2 (PCR) Negative Influenza A (RT-PCR) Flu a negative Influenza B (RT-PCR) Flu b negative RSV (PCR) Negative Salmonella (PCR) Blood Type O Positive Antibody Screen Negative Crossmatch See Detail 05/05/25 05/05/25 13:34 16:18 WBC RBC Hgb Hct MCV MCH MCHC RDW Plt Count Neut % (Auto) Lymph % (Auto) [place] % (Auto) Eos % (Auto) Baso % (Auto) Neut # (Auto) Lymph # (Auto) [place] # (Auto) Eos # (Auto) Baso # (Auto) PT INR APTT ABG pH ABG pCO2 ABG pO2 ABG HCO3 ABG Total CO2 ABG O2 Saturation ABG Base Excess Lee Test Sodium Potassium Chloride Carbon Dioxide BUN Creatinine Estimated GFR BUN/Creatinine Ratio Glucose Lactate 1.5 Calcium Total Bilirubin AST ALT Alkaline Phosphatase Ammonia Total Creatine Kinase Troponin I NT-Pro-B Natriuret Pep Total Protein Albumin Globulin Albumin/Globulin Ratio Procalcitonin Stl C. cayetanensis PCR Not detected Stool Rotavirus (PCR) Not detected Stool Adenovirus (PCR) Not detected Stool Astrovirus (PCR) Not detected Stool Cryptosporidium PCR Not detected Stl E.coli Shiga Tox PCR Not detected St Sh/Enteroin Ecoli PCR Not detected Stl Enterotoxigenic E PCR Not detected Stool EPEC (PCR) Not detected Stl E. histolytica PCR Not detected Stool Giardia Lamblia PCR Not detected Stool Sapovirus (PCR) Not detected Stl P. shigelloides PCR Not detected St Y.enterocolitica PCR Not detected Stool Vibrio (PCR) Not detected Stl Vibrio cholerae PCR Not detected Stl Enteroaggr Ecoli PCR Not detected Stl Norovirus GI/GII PCR Not detected Salicylates Acetaminophen Campylobacter (PCR) Not detected C. difficile Tox (PCR) Not detected SARS-CoV-2 (PCR) Influenza A (RT-PCR) Influenza B (RT-PCR) RSV (PCR) Salmonella (PCR) Not detected Blood Type Antibody Screen Crossmatch [facility] Medical History (Updated 05/05/25 @ 18:11 by Josemanuel Correa MD) Nicotine dependence Alcohol use disorder in remission Tremor Osteoarthritis Surgical History (Updated 05/05/25 @ 18:11 by Josemanuel Correa MD) H/O cervical spine surgery Family History (Updated 05/05/25 @ 18:13 by Josemanuel Correa MD) Father Heart disease Mother Heart disease Social History marital status: number of children: 1 household members: children lives independently: No caregiver/support person: Yes pets and animals: Yes Tobacco & Substance Use Smoking Status: Current every day smoker Smokeless tobacco user: other alcohol intake: former substance use type: marijuana Assessment & Plan Assessment & Plan narrative: 69-year-old female admitted with anemia secondary to possible upper GI bleed -given the normal color the patient stool which was guaiac negative, I do not feel this is an upper GI bleed. On CT the patient is noted to have rodriguez colitis therefore this may have been more of a chronic issue. I do not feel at this time an EGD is warranted. -stool for OCP, C diff, and Shigella/salmonella/vibrio/giardia and other organisms are negative -we will continue to follow with you Time-Based Coding :: [TOTAL MINUTES] spent with patient and on the chart (including review of chart, obtaining history, exam, reviewing outside data, placing orders, documenting exam and treatment plan, and counseling patient) on [DATE]. PROFEE Charge Codes Inpatient or Observation consultation: 48892
[2025-05-05 18:44] LABS: MRSA (Nasal) PCR NOT DETECTED (Not Detect)
--- NOTE | 2025-05-05 19:24 | PC.ADMIT ---
[email or web address] [facility] Admission Note: Pt arrived to room 228 from ED at 1640. VSS. Pt unable to scoot self to other bed after attempting. Pt alert to self and vague situation, reporting hallucinations--children in room, men in the corner. Pt redirected to room and situation. Pt incont of bowel and bladder. Attempted a straight cath for urine specimen and unable to obtain. Bed alarm active, call light within reach and explained use to pt. Care ongoing. The patient,Dee Khanna,69 y/o, was given written information regarding hospital policies, unit procedures and contact persons. Patient's smoking status: Current every day smoker. Vital Signs - 8 hr 05/05/25 11:30 05/05/25 11:30 05/05/25 11:36 Temperature Pulse Rate 111 H 110 H Respiratory Rate 12 8 L Blood Pressure 104/58 L Pulse Oximetry 89 L 83 L Oxygen Delivery Method Oxygen Flow Rate 05/05/25 11:36 05/05/25 11:39 05/05/25 11:39 Temperature Pulse Rate 107 H Respiratory Rate 10 L Blood Pressure 82/53 L 90/57 L Pulse Oximetry 94 Oxygen Delivery Method Oxygen Flow Rate 05/05/25 11:40 05/05/25 11:40 05/05/25 11:45 Temperature Pulse Rate 105 H 111 H Respiratory Rate 9 L 10 L Blood Pressure 99/60 Pulse Oximetry 98 99 Oxygen Delivery Method Oxygen Flow Rate 05/05/25 11:45 05/05/25 11:50 05/05/25 11:50 Temperature Pulse Rate 118 H Respiratory Rate 13 Blood Pressure 118/65 112/63 Pulse Oximetry 90 L Oxygen Delivery Method Oxygen Flow Rate 05/05/25 11:55 05/05/25 11:55 05/05/25 12:00 Temperature Pulse Rate 122 H 122 H Respiratory Rate 22 23 Blood Pressure 113/57 L Pulse Oximetry 98 97 Oxygen Delivery Method Oxygen Flow Rate 05/05/25 12:00 05/05/25 12:15 05/05/25 12:15 Temperature Pulse Rate 116 H Respiratory Rate 12 Blood Pressure 121/67 157/60 H Pulse Oximetry 91 Oxygen Delivery Method Oxygen Flow Rate 05/05/25 12:16 05/05/25 12:16 05/05/25 12:20 Temperature Pulse Rate 118 H 121 H Respiratory Rate 14 17 Blood Pressure 200/72 H Pulse Oximetry 97 99 Oxygen Delivery Method Oxygen Flow Rate 05/05/25 12:20 05/05/25 12:25 05/05/25 12:25 Temperature Pulse Rate 120 H Respiratory Rate 18 Blood Pressure 135/62 126/59 L Pulse Oximetry 94 Oxygen Delivery Method Oxygen Flow Rate 05/05/25 12:30 05/05/25 12:31 05/05/25 12:31 Temperature Pulse Rate 118 H 118 H Respiratory Rate 16 20 Blood Pressure 80/52 L Pulse Oximetry 98 97 Oxygen Delivery Method Oxygen Flow Rate 05/05/25 12:35 05/05/25 12:35 05/05/25 12:40 Temperature Pulse Rate 119 H 115 H Respiratory Rate 13 19 Blood Pressure 120/60 Pulse Oximetry 94 95 Oxygen Delivery Method Oxygen Flow Rate 05/05/25 12:40 05/05/25 12:45 05/05/25 12:45 Temperature Pulse Rate 117 H Respiratory Rate 17 Blood Pressure 108/58 L 120/66 Pulse Oximetry 93 Oxygen Delivery Method Oxygen Flow Rate 05/05/25 13:15 05/05/25 13:16 05/05/25 13:16 Temperature Pulse Rate 119 H 118 H Respiratory Rate 9 L 12 Blood Pressure 103/62 Pulse Oximetry 50 L 94 Oxygen Delivery Method Oxygen Flow Rate 05/05/25 13:22 05/05/25 13:22 05/05/25 13:25 Temperature Pulse Rate 117 H 116 H Respiratory Rate 10 L 8 L Blood Pressure 121/68 Pulse Oximetry 96 98 Oxygen Delivery Method Oxygen Flow Rate 05/05/25 13:25 05/05/25 13:30 05/05/25 13:30 Temperature Pulse Rate 116 H Respiratory Rate 10 L Blood Pressure 110/59 L 106/58 L Pulse Oximetry 73 L Oxygen Delivery Method Oxygen Flow Rate 05/05/25 13:36 05/05/25 13:36 05/05/25 13:40 Temperature Pulse Rate 118 H 116 H Respiratory Rate 15 11 L Blood Pressure 110/73 Pulse Oximetry 65 L 83 L Oxygen Delivery Method Oxygen Flow Rate 05/05/25 13:40 05/05/25 13:45 05/05/25 13:45 Temperature Pulse Rate 116 H Respiratory Rate 18 Blood Pressure 104/61 102/59 L Pulse Oximetry 93 Oxygen Delivery Method Oxygen Flow Rate 05/05/25 13:50 05/05/25 13:50 05/05/25 13:56 Temperature Pulse Rate 115 H Respiratory Rate 11 L Blood Pressure 97/58 L 108/58 L Pulse Oximetry 93 Oxygen Delivery Method Oxygen Flow Rate 05/05/25 13:56 05/05/25 14:00 05/05/25 14:00 Temperature Pulse Rate 118 H 117 H Respiratory Rate 25 H 17 Blood Pressure 112/52 L Pulse Oximetry 96 93 Oxygen Delivery Method Oxygen Flow Rate 05/05/25 14:05 05/05/25 14:05 05/05/25 14:11 Temperature Pulse Rate 120 H Respiratory Rate 21 Blood Pressure 85/52 L 106/60 Pulse Oximetry 94 Oxygen Delivery Method Oxygen Flow Rate 05/05/25 14:11 05/05/25 14:15 05/05/25 14:15 Temperature Pulse Rate 118 H 121 H Respiratory Rate 20 21 Blood Pressure 99/52 L Pulse Oximetry 95 95 Oxygen Delivery Method Oxygen Flow Rate 05/05/25 14:20 05/05/25 14:20 05/05/25 14:25 Temperature Pulse Rate 118 H 118 H Respiratory Rate 17 17 Blood Pressure 96/54 L Pulse Oximetry 96 95 Oxygen Delivery Method Oxygen Flow Rate 05/05/25 14:25 05/05/25 14:30 05/05/25 14:30 Temperature Pulse Rate 114 H Respiratory Rate 11 L Blood Pressure 94/55 L 99/55 L Pulse Oximetry 96 Oxygen Delivery Method Oxygen Flow Rate 05/05/25 14:35 05/05/25 14:35 05/05/25 14:40 Temperature Pulse Rate 115 H Respiratory Rate 23 Blood Pressure 103/60 104/63 Pulse Oximetry 96 Oxygen Delivery Method Oxygen Flow Rate 05/05/25 14:40 05/05/25 14:45 05/05/25 14:45 Temperature 98.4 F Pulse Rate 114 H 113 H Respiratory Rate 16 18 Blood Pressure 108/63 108/63 Pulse Oximetry 95 Oxygen Delivery Method Oxygen Flow Rate 05/05/25 14:45 05/05/25 15:00 05/05/25 15:00 Temperature Pulse Rate 113 H 113 H Respiratory Rate 12 8 L Blood Pressure 97/53 L Pulse Oximetry 95 93 Oxygen Delivery Method Oxygen Flow Rate 05/05/25 15:02 05/05/25 15:15 05/05/25 15:15 Temperature 98.4 F Pulse Rate 116 H Respiratory Rate 13 Blood Pressure 99/60 Pulse Oximetry 95 Oxygen Delivery Method Oxygen Flow Rate 05/05/25 15:29 05/05/25 15:30 05/05/25 15:30 Temperature 98.4 F Pulse Rate 112 H Respiratory Rate 25 H Blood Pressure 108/59 L Pulse Oximetry 96 Oxygen Delivery Method Oxygen Flow Rate 05/05/25 15:45 05/05/25 15:45 05/05/25 16:00 Temperature Pulse Rate 111 H 109 H Respiratory Rate 14 18 Blood Pressure 111/62 Pulse Oximetry 95 95 Oxygen Delivery Method Oxygen Flow Rate 05/05/25 16:00 05/05/25 16:15 05/05/25 16:15 Temperature Pulse Rate 109 H Respiratory Rate 15 Blood Pressure 116/64 107/67 Pulse Oximetry 95 Oxygen Delivery Method Oxygen Flow Rate 05/05/25 17:24 05/05/25 17:37 05/05/25 17:52 Temperature 99.0 F 99.4 F Pulse Rate 115 H 110 H Respiratory Rate 18 20 Blood Pressure 123/65 123/73 Pulse Oximetry Oxygen Delivery Method Room Air Oxygen Flow Rate 05/05/25 17:52 05/05/25 19:00 Temperature 99.4 F Pulse Rate 110 H Respiratory Rate 20 Blood Pressure 123/62 149/77 H Pulse Oximetry 97 Oxygen Delivery Method Oxygen Flow Rate 0
[2025-05-06] VITALS (17 sets, daily range): BP systolic 118–156; BP diastolic 59–92; PULSE 83–117; RESP 13–24; TEMP 36.1–36.4; O2SAT 94–98
[2025-05-06 00:33] LABS: Add Manual Diff / Slide Review NO; Hematocrit 23.6 % (36-46); Hemoglobin 7.8 g/dL (12.0-16.0); Lymphocytes Absolute Auto 700 /uL (1100-4500); Mean Corpuscular HGB Conc 33.2 % (30-36); Mean Corpuscular Hemoglobin 25.7 PG (26-34); Mean Corpuscular Volume 77.6 fL (80-100); Platelet Count 330 X10^3/uL (150-400)
[2025-05-06] MEDS: DEXTROSE 5%-0.9% NS 1,000 ML 150 ML IV ×2 (05:30→15:19)
[2025-05-06 05:45] LABS: Add Manual Diff / Slide Review NO; Hematocrit 24.0 % (36-46); Hemoglobin 7.8 g/dL (12.0-16.0); Lymphocytes Absolute Auto 700 /uL (1100-4500); Mean Corpuscular HGB Conc 32.7 % (30-36); Mean Corpuscular Hemoglobin 25.5 PG (26-34); Mean Corpuscular Volume 78.2 fL (80-100); Platelet Count 333 X10^3/uL (150-400)
[2025-05-06 05:49] LABS: Alanine Aminotransferase 14 IU/L (<35); Albumin 3.1 g/dL (3.5-5.0); Albumin Globulin Ratio 1.1 (1.0-2.8); Alkaline Phosphatase 98 U/L (38-126); Blood Urea Nitrogen 20 mg/dL (7-17); Calcium 8.1 mg/dL (8.4-10.2); Carbon Dioxide 20 mmol/L (22-32); Chloride 110 mmol/L (98-107); Estimated Glomerular Filt Rate > 60 mL/min (>60); Globulin 2.8 g/dL (1.7-4.1); Glucose 136 mg/dL (70-99); HEMOLYSIS < 15 (0-50); Potassium 3.7 mmol/L (3.4-5.1); Sodium 137 mmol/L (137-145); Total Protein 5.9 g/dL (6.3-8.2)
--- NOTE | 2025-05-06 06:10 | PC.NURSE ---
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
[2025-05-06] MEDS: PANTOPRAZOLE 40 MG VIAL IV (09:57)
--- NOTE | 2025-05-06 10:39 | PM.PN.IH.1 ---
Subjective Subjective Date Patient Seen: 05/06/25 Time Patient Seen: 10:39 Interval history: The patient remains episodically confused this a.m. MRI brain ordered per hospitalist this a.m. 3 watery yellow-green BM's overnight with one small this a.m. 2 units PRBC received overnight with Hgb now 7.4. Somnolent this a.m., but appropriate. No noted abdominal pain, nausea or vomiting. Has remained afebrile. Bilaeral upper extremity temor markedly improved. Exam Vital Signs (past 8 hours): - 05/06/25 03:00 05/06/25 03:30 05/06/25 04:00 Pulse Rate 113 H 111 H 108 H Respiratory Rate 15 13 14 Blood Pressure 131/68 141/66 H 129/63 Pulse Oximetry 95 95 95 05/06/25 04:30 05/06/25 05:00 05/06/25 05:30 Pulse Rate 110 H 107 H 106 H Respiratory Rate 24 20 14 Blood Pressure 118/64 129/72 132/75 Pulse Oximetry 94 94 96 05/06/25 06:00 Pulse Rate 101 H Respiratory Rate 14 Blood Pressure 138/79 Pulse Oximetry 98 Oxygen Delivery Method Room Air Oxygen Flow Rate 0 Narrative Exam Narrative: Sightly somnolent, but oriented x 3 AVSS RRR Resp CTA bilaterally Non-distended and very mildly globally tender ARGUELLES x 4 Objective Labs 05/06/25 04:29 05/06/25 04:29 Labs: Laboratory Results - last 24 hr 05/05/25 05/05/25 05/05/25 11:43 12:16 12:25 WBC 4.6 RBC 2.76 L Hgb 6.4 L* Hct 21.4 L MCV 77.6 L MCH 23.3 L MCHC 30.0 RDW 19.6 H Plt Count 477 H Neut % (Auto) 75.9 H Lymph % (Auto) 12.1 L [place] % (Auto) 11.3 Eos % (Auto) 0.5 L Baso % (Auto) 0.2 Neut # (Auto) 3500 Lymph # (Auto) 600 L [place] # (Auto) 500 Eos # (Auto) 0 Baso # (Auto) 0 PT 10.8 INR 1.0 APTT 22 L ABG pH 7.26 L* 7.34 L ABG pCO2 45.9 H 35.2 ABG pO2 20 L* 86 ABG HCO3 20 L 19 L ABG Total CO2 20 L 18 L ABG O2 Saturation 25 L* 96 ABG Base Excess -6.3 L -6.1 L Lee Test Positive Positive Sodium 134 L Potassium 4.6 Chloride 103 Carbon Dioxide 17 L BUN 38 H Creatinine 1.20 H Estimated GFR 49 L BUN/Creatinine Ratio 31.7 H Glucose 107 H Lactate 3.9 H Calcium 9.3 Total Bilirubin 0.6 AST 45 H ALT 25 Alkaline Phosphatase 131 H Ammonia < 9 L Total Creatine Kinase 94 Troponin I < 0.012 NT-Pro-B Natriuret Pep 221 H Total Protein 7.3 Albumin 4.1 Globulin 3.2 Albumin/Globulin Ratio 1.3 Procalcitonin 2.01 H Nasal Screen MRSA (PCR) Stl C. cayetanensis PCR Stool Rotavirus (PCR) Stool Adenovirus (PCR) Stool Astrovirus (PCR) Stool Cryptosporidium PCR Stl E.coli Shiga Tox PCR St Sh/Enteroin Ecoli PCR Stl Enterotoxigenic E PCR Stool EPEC (PCR) Stl E. histolytica PCR Stool Giardia Lamblia PCR Stool Sapovirus (PCR) Stl P. shigelloides PCR St Y.enterocolitica PCR Stool Vibrio (PCR) Stl Vibrio cholerae PCR Stl Enteroaggr Ecoli PCR Stl Norovirus GI/GII PCR Salicylates < 1.0 Acetaminophen 17 Campylobacter (PCR) C. difficile Tox (PCR) SARS-CoV-2 (PCR) Negative Influenza A (RT-PCR) Flu a negative Influenza B (RT-PCR) Flu b negative RSV (PCR) Negative Salmonella (PCR) Blood Type O Positive Antibody Screen Negative Crossmatch See Detail 05/05/25 05/05/25 05/05/25 13:34 16:18 16:50 WBC RBC Hgb Hct MCV MCH MCHC RDW Plt Count Neut % (Auto) Lymph % (Auto) [place] % (Auto) Eos % (Auto) Baso % (Auto) Neut # (Auto) Lymph # (Auto) [place] # (Auto) Eos # (Auto) Baso # (Auto) PT INR APTT ABG pH ABG pCO2 ABG pO2 ABG HCO3 ABG Total CO2 ABG O2 Saturation ABG Base Excess Lee Test Sodium Potassium Chloride Carbon Dioxide BUN Creatinine Estimated GFR BUN/Creatinine Ratio Glucose Lactate 1.5 Calcium Total Bilirubin AST ALT Alkaline Phosphatase Ammonia Total Creatine Kinase Troponin I NT-Pro-B Natriuret Pep Total Protein Albumin Globulin Albumin/Globulin Ratio Procalcitonin Nasal Screen MRSA (PCR) Not detected Stl C. cayetanensis PCR Not detected Stool Rotavirus (PCR) Not detected Stool Adenovirus (PCR) Not detected Stool Astrovirus (PCR) Not detected Stool Cryptosporidium PCR Not detected Stl E.coli Shiga Tox PCR Not detected St Sh/Enteroin Ecoli PCR Not detected Stl Enterotoxigenic E PCR Not detected Stool EPEC (PCR) Not detected Stl E. histolytica PCR Not detected Stool Giardia Lamblia PCR Not detected Stool Sapovirus (PCR) Not detected Stl P. shigelloides PCR Not detected St Y.enterocolitica PCR Not detected Stool Vibrio (PCR) Not detected Stl Vibrio cholerae PCR Not detected Stl Enteroaggr Ecoli PCR Not detected Stl Norovirus GI/GII PCR Not detected Salicylates Acetaminophen Campylobacter (PCR) Not detected C. difficile Tox (PCR) Not detected SARS-CoV-2 (PCR) Influenza A (RT-PCR) Influenza B (RT-PCR) RSV (PCR) Salmonella (PCR) Not detected Blood Type Antibody Screen Crossmatch 05/06/25 05/06/25 00:22 04:29 WBC 3.4 L 3.6 L RBC 3.04 L 3.07 L Hgb 7.8 L 7.8 L Hct 23.6 L 24.0 L MCV 77.6 L 78.2 L MCH 25.7 L 25.5 L MCHC 33.2 D 32.7 RDW 17.8 H 17.8 H Plt Count 330 333 Neut % (Auto) 60.5 58.0 Lymph % (Auto) 20.0 L 19.4 L [place] % (Auto) 18.5 H 21.5 H Eos % (Auto) 0.6 L 0.3 L Baso % (Auto) 0.4 0.8 Neut # (Auto) 2100 2100 Lymph # (Auto) 700 L 700 L [place] # (Auto) 600 800 Eos # (Auto) 0 0 Baso # (Auto) 0 0 PT INR APTT ABG pH ABG pCO2 ABG pO2 ABG HCO3 ABG Total CO2 ABG O2 Saturation ABG Base Excess Lee Test Sodium 137 Potassium 3.7 Chloride 110 H Carbon Dioxide 20 L BUN 20 H Creatinine 0.65 Estimated GFR > 60 BUN/Creatinine Ratio 30.8 H Glucose 136 H Lactate Calcium 8.1 L Total Bilirubin 0.4 AST 29 ALT 14 Alkaline Phosphatase 98 Ammonia Total Creatine Kinase Troponin I NT-Pro-B Natriuret Pep Total Protein 5.9 L Albumin 3.1 L Globulin 2.8 Albumin/Globulin Ratio 1.1 Procalcitonin Nasal Screen MRSA (PCR) Stl C. cayetanensis PCR Stool Rotavirus (PCR) Stool Adenovirus (PCR) Stool Astrovirus (PCR) Stool Cryptosporidium PCR Stl E.coli Shiga Tox PCR St Sh/Enteroin Ecoli PCR Stl Enterotoxigenic E PCR Stool EPEC (PCR) Stl E. histolytica PCR Stool Giardia Lamblia PCR Stool Sapovirus (PCR) Stl P. shigelloides PCR St Y.enterocolitica PCR Stool Vibrio (PCR) Stl Vibrio cholerae PCR Stl Enteroaggr Ecoli PCR Stl Norovirus GI/GII PCR Salicylates Acetaminophen Campylobacter (PCR) C. difficile Tox (PCR) SARS-CoV-2 (PCR) Influenza A (RT-PCR) Influenza B (RT-PCR) RSV (PCR) Salmonella (PCR) Blood Type Antibody Screen Crossmatch [facility] Medical History (Updated 05/05/25 @ 18:11 by Josemanuel Correa MD) Nicotine dependence Alcohol use disorder in remission Tremor Osteoarthritis Surgical History (Updated 05/05/25 @ 18:11 by Josemanuel Correa MD) H/O cervical spine surgery Family History (Updated 05/05/25 @ 18:13 by Josemanuel Correa MD) Father Heart disease Mother Heart disease Social History (Updated 05/05/25 @ 18:14 by Josemanuel Correa MD) marital status: number of children: 1 household members: children lives independently: No caregiver/support person: Yes pets and animals: Yes Smoking Status: Current every day smoker Smokeless tobacco user: other alcohol intake: former substance use type: marijuana Assessment & Plan Assessment & Plan narrative: 69 year old female admitted with weakness and anemia secondary to possible GI bleed -responded appropriately to transfusions -agree with clear liquid diet per hospitalist -would recommend probiotic orally at max dose -when tolerated, high fiber diet or unable to consume po, consider fiber supplementation Time-Based Coding :: [TOTAL MINUTES] spent with patient and on the chart (including review of chart, obtaining history, exam, reviewing outside data, placing orders, documenting exam and treatment plan, and counseling patient) on [DATE]. Quality VTE Deep Vein Thrombosis/Pulmonary Embolism Present on Admission: No [facility] [employer] Document charge(s): No Charge Codes Critical Care: 52671
[2025-05-06] MEDS: LOPERAMIDE 2 MG CAPSULE PO ×3 (11:29→20:49)
[2025-05-06] MEDS: MIDODRINE HCL 5 MG TABLET PO ×2 (11:29→14:44)
[2025-05-06 13:48] LABS: Appearance Urine UA SL CLOUDY; Bilirubin Urine UA NEGATIVE (NEGATIVE); Color Urine UA YELLOW; Glucose Urine UA NEGATIVE (Negative); Ketones Urine UA NEGATIVE (NEGATIVE); Leukocyte Esterase Urine UA TRACE (NEGATIVE); Nitrite Urine UA NEGATIVE (Negative); Occult Blood Urine UA 1+ (Negative); Protein Urine UA TRACE (Negative); Specific Gravity Urine UA 1.025 (1.000-1.035); Urobilinogen Urine UA 0.2 E.U./dL (0.2)
[2025-05-06 13:59] LABS: pH Urine UA 5.5 (4.5-8.0)
[2025-05-06 14:00] LABS: Culture Indicated Urine Specimen Cultured; UR Morphine/Opiate cutoff 300 Negative (Negative); Ur Specific Gravity Normal (Normal); Urine MDMA Negative (Negative); Urine Methamphetamines Negative (Negative); Urine Tetrahydrocannabinol Negative (Negative); Urine Tricyclic Antidepressant Negative (Negative)
--- NOTE | 2025-05-06 14:07 | DIET.CONS ---
Dietary Consultation Note Admission Date: 05/05/2025 15:28 Assessment: 69 y F admitted for weakness and anemia. Dietitian screened for MNA score EMR reviewed per rounds pt confused. Ht: 165.1 cm Wt: 58.74 kg BMI: 21.5 UBW: 59 kg 09/16/24, no significant weight changes in past yr, hx of 60-65 kg [id number] Last BM: 05/06/25 (05/06/25 13:00) MNA: 9 Evelio Score: 15 Diet: 05/06/25 Lunch Clear Liquid Diet Diet Modifications: Nutrition Percent Meal Consumed 100% 05/06/25 13:00 Labs: RBC 3.07 X10^6/uL (4.0-5.2) L 05/06/25 04:29 Hgb 7.8 g/dL (12.0-16.0) L 05/06/25 04:29 Hct 24.0 % (36-46) L 05/06/25 04:29 Creatinine 0.65 mg/dL (0.52-1.04) 05/06/25 04:29 Lactate 1.5 mmol/L (0.7-2.1) 05/05/25 13:34 NT-Pro-B Natriuret Pep 221 pg/mL (<125) H 05/05/25 11:43 Nutrition Diagnosis: none Interventions: will monitor PO intakes when diet is advanced Electronically Signed by: Rosario Dejesus 05/06/25 14:07 Clinical Dietitian [address] [id number]
--- NOTE | 2025-05-06 15:08 | PC.NURSE ---
Patient complained of increasing neck pain, Dr. Correa notified and oxycodone 10mg ordered and brought in to patient. Patient took but quickly became agitated stating she normally takes 30mg at a time and this won't touch it. Patient then refused MRI scan and states she needs to speak with about adequate pain management or she will want to just go home Bed alarm on and call light within reach. Dr. Correa notified. Continue to monitor.
--- NOTE | 2025-05-06 16:31 | PM.PN.1 ---
Subjective <Libby Dumont - Last Filed: 05/06/25 16:32> Subjective Date Patient Seen: 05/06/25 Time Patient Seen: 16:32 Interval history: Chief Complaint: Altered mental status. ? History of Present Illness: 69-year-old female brought in by her son, Chinedu, due to abnormal behavior that began last night after taking her medication. He reports she was acting confused and not herself. The patient reports a current prescription for oxycodone and denies hallucinations. She reports new right shoulder pain since admission but denies other pain, shortness of breath, or chest pain. She endorses shaking of her arms and legs, which she attributes to a prior spinal surgery for C2 and C4 fractures sustained after a fall down stairs. She also reports diarrhea for two days, describing it as black and watery. On evaluation, she was intermittently coherent, sometimes conversing appropriately about past and present events, and other times speaking nonsensically about the man or the sample in the corner. In the emergency department, the patient was treated with naloxone and is showing incomplete improvement in her mental status. ? Hospital Course: 05/06: Patient reports significant improvement in right shoulder pain. She appears more mentally intact today and only mentioned ?men in the corner? once during interview. Per surgeon Dr. Dietz, stool sample yesterday was negative for occult blood, endoscopy not indicated at this time. She recommended initiating a high-dose probiotic to recolonize the gut following recent C. difficile infection. On second visit late in the day, patient indicated that she refuses MRI and she plans to leave the hospital tonight. Her chronic neck pain has increased and she prefers to be at home with control over her pain medications. Will add equivalent suboxone for the duration of her stay. Labs show improved hemoglobin and kidney function compared to yesterday. Mild metabolic acidosis persists, liver enzymes normalized, though protein and albumin remain low. ? Physical Exam: General: Cooperative with exam, holding lucid conversation with rare nonsensical statements. HEENT: NC/AT. Mucous membranes dry. EOMI, PERRL. Neck: Not LAD, thyroid non-enlarged and non-tender. Cardiac: Regular rate and rhythm. No murmur. Pulmonary: Clear to auscultation bilaterally. No increased work of breathing. Abdomen: Soft, non-distended. Diffuse tenderness to palpation, sharp pain to palpation in RLQ with guarding of that area. Normal bowel sounds. Extremities: No edema or deformities. Peripheral pulses intact and symmetric. Skin: Normal color and turgor. No rashes or lesions observed. Neurological: No further tremor in extremities, no further myoclonus. Cranial nerves 2-12 appear intact. No lateralizing deficit of the extremities. ? Vitals reviewed and notable for: Mildly low temp: 96.9 ?F, elevated BP: 156/89 ? Labs reviewed and notable for: Hematology: Hgb 7.8 g/dL (up from 6.4 post-transfusion), Hct 24.0 %, RBC 3.07 M/?L, MCV 78.2 fL, RDW 17.8 %. WBC 3.6 K/?L (mild leukopenia) with neutrophil predominance (58%) and monocytosis (21.5%). Platelets 333 K/?L (normalized). Renal / Electrolytes: Sodium 137 mmol/L, Potassium 3.7 mmol/L, Chloride 110 mmol/L (high), CO? 20 mmol/L (low), BUN 20 mg/dL, Creatinine 0.65 mg/dL, BUN/Cr ratio 30.8. Liver Function / Proteins: AST 29 U/L, ALT 14 U/L, Alk Phos 98 U/L, Total Protein 5.9 g/dL (low), Albumin 3.1 g/dL (low). Metabolic: Calcium 8.1 mg/dL (low), Glucose 136 mg/dL (mildly elevated). ? No new imaging today. ? Assessment and Plan 69-year-old female with prior C. difficile infection, microcytic anemia, and metabolic encephalopathy, improving after transfusion and resuscitation. No evidence of active GI bleeding on stool testing. ? # Severe Microcytic Anemia Likely etiology: Chronic iron deficiency or prior GI blood loss, possibly NSAID-related. -s/p type and crossmatch -s/p 2x PRBC transfusion -Hgb improved to 7.8 from 6.4 -Iron studies today ? # Altered Mental Status, resolving Likely etiology: Metabolic encephalopathy from anemia and medication effect, improving post-transfusion. -Monitor BMP -Neuro checks -Maintain hemodynamic stability -Follow blood culture, no growth after 24 hours -Patient refused MRI ? # Pancolitis / History of C. difficile Infection Likely etiology: Postinfectious colitis with altered sourav. -Start high-dose probiotic per surgical recommendation -Monitor for recurrence of diarrhea or hematochezia ? # Acute Kidney Injury Likely etiology: Prerenal azotemia due to prior volume depletion. -Continue fluids as tolerated -Monitor urine output and BMP -Avoid nephrotoxins ? # Mild Transaminitis, resolved -LFTs normalized, continue to monitor ? # Metabolic Acidosis, resolving Likely etiology: Hypoperfusion-related -Continue hydration and monitor BMP ? # Elevated Procalcitonin -May reflect systemic inflammatory response rather than active infection. -Monitor vitals and temperature -No antibiotics unless infection source identified ? # Tremor, stable -Patient attributes to c-spine surgery -Likely need outpatient neuro consult, rule out MSA, essential tremor or other causes -Hold pregabalin ? # Right Shoulder Pain, resolved -IV infiltration with contrast dye ? # Chronic Neck Pain -Start PO buprenorphine equivalent to her typical dose of 20 mcg/hr transdermal patch -Continue home oxycodone 10mg ? # DVT Prophylaxis None due to unknown source of prior potential bleed ? # Code Status Full code ? # Disposition Unknown at this time <H Angel Correa MD - Last Filed: 05/06/25 16:34> Subjective Interval history: Chief Complaint: Altered mental status. ? History of Present Illness: 69-year-old female brought in by her son, Chinedu, due to abnormal behavior that began last night after taking her medication. He reports she was acting confused and not herself. The patient reports a current prescription for oxycodone and denies hallucinations. She reports new right shoulder pain since admission but denies other pain, shortness of breath, or chest pain. She endorses shaking of her arms and legs, which she attributes to a prior spinal surgery for C2 and C4 fractures sustained after a fall down stairs. She also reports diarrhea for two days, describing it as black and watery. On evaluation, she was intermittently coherent, sometimes conversing appropriately about past and present events, and other times speaking nonsensically about the man or the sample in the corner. In the emergency department, the patient was treated with naloxone and is showing incomplete improvement in her mental status. ? Hospital Course: 05/06: Patient reports significant improvement in right shoulder pain. She appears more mentally intact today and only mentioned ?men in the corner? once during interview. Per surgeon Dr. Dietz, stool sample yesterday was negative for occult blood, endoscopy not indicated at this time. She recommended initiating a high-dose probiotic to recolonize the gut following recent C. difficile infection. On second visit late in the day, patient indicated that she refuses MRI and she plans to leave the hospital tonight. Her chronic neck pain has increased and she prefers to be at home with control over her pain medications. Will add equivalent oral suboxone for the duration of her stay. Labs show improved hemoglobin and kidney function compared to yesterday. Mild metabolic acidosis persists, liver enzymes normalized, though protein and albumin remain low. ? Physical Exam: General: Cooperative with exam, holding lucid conversation with rare nonsensical statements. HEENT: NC/AT. Mucous membranes dry. EOMI, PERRL. Neck: Not LAD, thyroid non-enlarged and non-tender. Cardiac: Regular rate and rhythm. No murmur. Pulmonary: Clear to auscultation bilaterally. No increased work of breathing. Abdomen: Soft, non-distended. Diffuse tenderness to palpation, sharp pain to palpation in RLQ with guarding of that area. Normal bowel sounds. Extremities: No edema or deformities. Peripheral pulses intact and symmetric. Skin: Normal color and turgor. No rashes or lesions observed. Neurological: No further tremor in extremities, no further myoclonus. Cranial nerves 2-12 appear intact. No lateralizing deficit of the extremities. ? Vitals reviewed and notable for: Mildly low temp: 96.9 ?F, elevated BP: 156/89 ? Labs reviewed and notable for: Hematology: Hgb 7.8 g/dL (up from 6.4 post-transfusion), Hct 24.0 %, RBC 3.07 M/?L, MCV 78.2 fL, RDW 17.8 %. WBC 3.6 K/?L (mild leukopenia) with neutrophil predominance (58%) and monocytosis (21.5%). Platelets 333 K/?L (normalized). Renal / Electrolytes: Sodium 137 mmol/L, Potassium 3.7 mmol/L, Chloride 110 mmol/L (high), CO? 20 mmol/L (low), BUN 20 mg/dL, Creatinine 0.65 mg/dL, BUN/Cr ratio 30.8. Liver Function / Proteins: AST 29 U/L, ALT 14 U/L, Alk Phos 98 U/L, Total Protein 5.9 g/dL (low), Albumin 3.1 g/dL (low). Metabolic: Calcium 8.1 mg/dL (low), Glucose 136 mg/dL (mildly elevated). ? No new imaging today. ? Assessment and Plan 69-year-old female with prior C. difficile infection, microcytic anemia, and metabolic encephalopathy, improving after transfusion and resuscitation. No evidence of active GI bleeding on stool testing. ? # Severe Microcytic Anemia Likely etiology: Chronic iron deficiency or prior GI blood loss, possibly NSAID-related. -s/p type and crossmatch -s/p 2x PRBC transfusion -Hgb improved to 7.8 from 6.4 -Iron studies today ? # Altered Mental Status, resolving Likely etiology: Metabolic encephalopathy from anemia and medication effect, improving post-transfusion. -Monitor BMP -Neuro checks -Maintain hemodynamic stability -Follow blood culture, no growth after 24 hours -Patient refused MRI ? # Pancolitis / History of C. difficile Infection Likely etiology: Postinfectious colitis with altered sourav. -Start high-dose probiotic per surgical recommendation -Monitor for recurrence of diarrhea or hematochezia ? # Acute Kidney Injury Likely etiology: Prerenal azotemia due to prior volume depletion. -Continue fluids as tolerated -Monitor urine output and BMP -Avoid nephrotoxins ? # Mild Transaminitis, resolved -LFTs normalized, continue to monitor ? # Metabolic Acidosis, resolving Likely etiology: Hypoperfusion-related -Continue hydration and monitor BMP ? # Elevated Procalcitonin -May reflect systemic inflammatory response rather than active infection. -Monitor vitals and temperature -No antibiotics unless infection source identified ? # Tremor, stable -Patient attributes to c-spine surgery -Likely need outpatient neuro consult, rule out MSA, essential tremor or other causes -Hold pregabalin ? # Right Shoulder Pain, resolved -IV infiltration with contrast dye ? # Chronic Neck Pain -Start PO buprenorphine equivalent to her typical dose of 20 mcg/hr transdermal patch -Continue home oxycodone 10mg ? # DVT Prophylaxis None due to unknown source of prior potential bleed ? # Code Status Full code ? # Disposition Unknown at this time Exam <Libby Rodneyalex - Last Filed: 05/06/25 16:32> Vital Signs (past 8 hours): - 05/06/25 11:43 Pulse Rate 97 H Respiratory Rate 18 Blood Pressure 156/89 H Pulse Oximetry 97 Oxygen Flow Rate 0 Oxygen Delivery Method Room Air Oxygen Flow Rate 0 Objective <Libby Dumont - Last Filed: 05/06/25 16:32> Labs 05/06/25 04:29 05/06/25 04:29 Labs: Laboratory Results - last 24 hr 05/05/25 05/05/25 05/05/25 12: 16:18 16:50 WBC RBC Hgb Hct MCV MCH MCHC RDW Plt Count Neut % (Auto) Lymph % (Auto) [place] % (Auto) Eos % (Auto) Baso % (Auto) Neut # (Auto) Lymph # (Auto) [place] # (Auto) Eos # (Auto) Baso # (Auto) Sodium Potassium Chloride Carbon Dioxide BUN Creatinine Estimated GFR BUN/Creatinine Ratio Glucose Calcium Total Bilirubin AST ALT Alkaline Phosphatase Total Protein Albumin Globulin Albumin/Globulin Ratio Urine Color Urine Appearance Urine pH Ur Specific [place] Urine Protein Urine Glucose (UA) Urine Ketones Urine Occult Blood Urine Nitrate Urine Bilirubin Urine Urobilinogen Ur Leukocyte Esterase Urine RBC Urine WBC Ur Squamous Epith Cells Urine Bacteria Ur Culture Indicated? Vol Urine Centrifuged Nasal Screen MRSA (PCR) Not detected Stl C. cayetanensis PCR Not detected Stool Rotavirus (PCR) Not detected Stool Adenovirus (PCR) Not detected Stool Astrovirus (PCR) Not detected Stool Cryptosporidium PCR Not detected Stl E.coli Shiga Tox PCR Not detected St Sh/Enteroin Ecoli PCR Not detected Stl Enterotoxigenic E PCR Not detected Stool EPEC (PCR) Not detected Stl E. histolytica PCR Not detected Stool Giardia Lamblia PCR Not detected Stool Sapovirus (PCR) Not detected Stl P. shigelloides PCR Not detected St Y.enterocolitica PCR Not detected Stool Vibrio (PCR) Not detected Stl Vibrio cholerae PCR Not detected Stl Enteroaggr Ecoli PCR Not detected Stl Norovirus GI/GII PCR Not detected U Opiates 300ng/mL cut Ur Oxycodone Screen Urine Methadone Screen Ur Barbiturates Screen U Tricyclic Antidepress Ur Phencyclidine Scrn Ur Amphetamines Screen U Methamphetamines Scrn Ur MDMA Scrn (Ecstasy) U Benzodiazepines Scrn Urine Cocaine Screen U Marijuana (THC) Screen Urine Specific [place] Ur Creatinine Campylobacter (PCR) Not detected C. difficile Tox (PCR) Not detected Salmonella (PCR) Not detected Blood Type O Positive Antibody Screen Negative Crossmatch See Detail 05/06/25 05/06/25 05/06/25 00:22 04:29 13:13 WBC 3.4 L 3.6 L RBC 3.04 L 3.07 L Hgb 7.8 L 7.8 L Hct 23.6 L 24.0 L MCV 77.6 L 78.2 L MCH 25.7 L 25.5 L MCHC 33.2 D 32.7 RDW 17.8 H 17.8 H Plt Count 330 333 Neut % (Auto) 60.5 58.0 Lymph % (Auto) 20.0 L 19.4 L [place] % (Auto) 18.5 H 21.5 H Eos % (Auto) 0.6 L 0.3 L Baso % (Auto) 0.4 0.8 Neut # (Auto) 2100 2100 Lymph # (Auto) 700 L 700 L [place] # (Auto) 600 800 Eos # (Auto) 0 0 Baso # (Auto) 0 0 Sodium 137 Potassium 3.7 Chloride 110 H Carbon Dioxide 20 L BUN 20 H Creatinine 0.65 Estimated GFR > 60 BUN/Creatinine Ratio 30.8 H Glucose 136 H Calcium 8.1 L Total Bilirubin 0.4 AST 29 ALT 14 Alkaline Phosphatase 98 Total Protein 5.9 L Albumin 3.1 L Globulin 2.8 Albumin/Globulin Ratio 1.1 Urine Color Yellow Urine Appearance Sl cloudy Urine pH 5.5 Ur Specific [place] 1.025 Urine Protein Trace H Urine Glucose (UA) Negative Urine Ketones Negative Urine Occult Blood 1+ H Urine Nitrate Negative Urine Bilirubin Negative Urine Urobilinogen 0.2 Ur Leukocyte Esterase Trace H Urine RBC 5-10/hpf H Urine WBC 0-1/hpf Ur Squamous Epith Cells 0-1 /hpf Urine Bacteria Many (>30) H Ur Culture Indicated? Specimen cultured Vol Urine Centrifuged 10ml (spun) Nasal Screen MRSA (PCR) Stl C. cayetanensis PCR Stool Rotavirus (PCR) Stool Adenovirus (PCR) Stool Astrovirus (PCR) Stool Cryptosporidium PCR Stl E.coli Shiga Tox PCR St Sh/Enteroin Ecoli PCR Stl Enterotoxigenic E PCR Stool EPEC (PCR) Stl E. histolytica PCR Stool Giardia Lamblia PCR Stool Sapovirus (PCR) Stl P. shigelloides PCR St Y.enterocolitica PCR Stool Vibrio (PCR) Stl Vibrio cholerae PCR Stl Enteroaggr Ecoli PCR Stl Norovirus GI/GII PCR U Opiates 300ng/mL cut Negative Ur Oxycodone Screen Positive H Urine Methadone Screen Negative Ur Barbiturates Screen Negative U Tricyclic Antidepress Negative Ur Phencyclidine Scrn Negative Ur Amphetamines Screen Negative U Methamphetamines Scrn Negative Ur MDMA Scrn (Ecstasy) Negative U Benzodiazepines Scrn Negative Urine Cocaine Screen Negative U Marijuana (THC) Screen Negative Urine Specific [place] Ur Creatinine Campylobacter (PCR) C. difficile Tox (PCR) Salmonella (PCR) Blood Type Antibody Screen Crossmatch 05/06/25 13:13 WBC RBC Hgb Hct MCV MCH MCHC RDW Plt Count Neut % (Auto) Lymph % (Auto) [place] % (Auto) Eos % (Auto) Baso % (Auto) Neut # (Auto) Lymph # (Auto) [place] # (Auto) Eos # (Auto) Baso # (Auto) Sodium Potassium Chloride Carbon Dioxide BUN Creatinine Estimated GFR BUN/Creatinine Ratio Glucose Calcium Total Bilirubin AST ALT Alkaline Phosphatase Total Protein Albumin Globulin Albumin/Globulin Ratio Urine Color Urine Appearance Urine pH Normal Ur Specific [place] Urine Protein Urine Glucose (UA) Urine Ketones Urine Occult Blood Urine Nitrate Urine Bilirubin Urine Urobilinogen Ur Leukocyte Esterase Urine RBC Urine WBC Ur Squamous Epith Cells Urine Bacteria Ur Culture Indicated? Vol Urine Centrifuged Nasal Screen MRSA (PCR) Stl C. cayetanensis PCR Stool Rotavirus (PCR) Stool Adenovirus (PCR) Stool Astrovirus (PCR) Stool Cryptosporidium PCR Stl E.coli Shiga Tox PCR St Sh/Enteroin Ecoli PCR Stl Enterotoxigenic E PCR Stool EPEC (PCR) Stl E. histolytica PCR Stool Giardia Lamblia PCR Stool Sapovirus (PCR) Stl P. shigelloides PCR St Y.enterocolitica PCR Stool Vibrio (PCR) Stl Vibrio cholerae PCR Stl Enteroaggr Ecoli PCR Stl Norovirus GI/GII PCR U Opiates 300ng/mL cut Ur Oxycodone Screen Urine Methadone Screen Ur Barbiturates Screen U Tricyclic Antidepress Ur Phencyclidine Scrn Ur Amphetamines Screen U Methamphetamines Scrn Ur MDMA Scrn (Ecstasy) U Benzodiazepines Scrn Urine Cocaine Screen U Marijuana (THC) Screen Urine Specific [place] Normal Ur Creatinine Normal Campylobacter (PCR) C. difficile Tox (PCR) Salmonella (PCR) Blood Type Antibody Screen Crossmatch PFSH <Libby Dumont - Last Filed: 05/06/25 16:32> Medical History (Updated 05/05/25 @ 18:11 by Josemanuel Correa MD) Nicotine dependence Alcohol use disorder in remission Tremor Osteoarthritis Surgical History (Updated 05/05/25 @ 18:11 by Josemanuel Correa MD) H/O cervical spine surgery Family History (Updated 05/05/25 @ 18:13 by Josemanuel Correa MD) Father Heart disease Mother Heart disease Social History (Updated 05/05/25 @ 18:14 by Josemanuel Correa MD) marital status: number of children: 1 household members: children lives independently: No caregiver/support person: Yes pets and animals: Yes Smoking Status: Current every day smoker Smokeless tobacco user: other alcohol intake: former substance use type: marijuana Assessment & Plan <Libby Wetzel Filed: 05/06/25 16:32> Time-Based Coding :: [TOTAL MINUTES] spent with patient and on the chart (including review of chart, obtaining history, exam, reviewing outside data, placing orders, documenting exam and treatment plan, and counseling patient) on [DATE]. Quality <Libby Dumont - Last Filed: 05/06/25 16:32> VTE Deep Vein Thrombosis/Pulmonary Embolism Present on Admission: No
[2025-05-06] MEDS: ACETAMINOPHEN 325 MG TABLET 650 MG PO (16:39)
[2025-05-07 02:00] VITALS: BP 135/67; PULSE 83; RESP 16; TEMP 37; O2SAT 96
[2025-05-07 05:48] VITALS: BP 162/88; PULSE 81; RESP 15; TEMP 36.8; O2SAT 94
[2025-05-07] MEDS: PANTOPRAZOLE DR 20 MG TABLET PO (05:56)
[2025-05-07 10:00] VITALS: BP 171/95; PULSE 84; RESP 19; TEMP 36.1; O2SAT 97
[2025-05-07] MEDS: PREGABALIN 150 MG, PREGABALIN 50 MG 200 MG PO (10:25)
--- NOTE | 2025-05-07 10:39 | PC.NURSE ---
Addendum entered by Payton Vick RN 05/07/25 17:20: Son at bedside at 1420. AMA paperwork signed. Pt departed from unit via w/c with son at approximately 1430. Addendum entered by Payton Vick RN 05/07/25 13:04: This RN spoke with pt regarding care. Provider at bedside discussing care with pt. Son Chinedu called and spoke to this RN. Pt on phone with son. Son spoke with this RN again who confirms pt will be leaving AMA. Provider updated. Pt re-educated on purpose of continued stay but informed of her rights to leave. Call light within reach. Care ongoing. Addendum entered by Payton Vick RN 05/07/25 12:00: Pt called, stated, If my infection is bad enough to stay in the hospital with IV antibiotics, why am I not seeing a urologist? Pt updated on hospitalist Dr. Ye's plan, pt stated she must see a urologist. Pt again educated on the order for IV antibiotics by the hospitalist due to her urinary tract infection. Dr. Ye notified. Pt educated on right to refuse care and leave against medical advice, pt requested to see a urologist and speak to the hospitalist. Care ongoing. Addendum entered by Payton Vick RN 05/07/25 11:41: Pt updated on plan, informed pt if she leaves, her discharge will be considered against medical advice. Education was provided to pt on IV antibiotic course plan by provider. When pt was informed that no oral antibiotic will be sent to pharmacy due to leaving AMA, pt stated, So, the doctor is going to punish me? Pt was educated on what leaving AMA entails. Pt verbalized understanding, requesting, time to think. Call light within reach. Care ongoing. Original Note: Day shift: Pt A&Ox3, unsure of day. Reports pain of right shoulder and neck, 04/11, provider Dr. Ye at bedside. New orders received. Pt up to BSC SBA w/ FWW. Able to ambulate to chair SBA w/ FWW. IV identified as infiltrated. Pt declining new IV. Stating she would like to talk to the provider regarding discharge home today. Provider notified. Care ongoing.
--- NOTE | 2025-05-07 11:03 | P.DS_ITS ---
History of Present Illness
--- NOTE | 2025-05-07 11:03 | PM.DS.1 ---
History of Present Illness History of Present Illness Date Patient Seen: 05/07/25 Chief complaint: confusion, weak . had UTI 3 weeks ago. Narrative: Patient is leaving against medical advice Chief Complaint: Altered mental status. ? History of Present Illness: 69-year-old female brought in by her son, Chinedu, due to abnormal behavior that began last night after taking her medication. He reports she was acting confused and not herself. The patient reports a current prescription for oxycodone and denies hallucinations. She reports new right shoulder pain since admission but denies other pain, shortness of breath, or chest pain. She endorses shaking of her arms and legs, which she attributes to a prior spinal surgery for C2 and C4 fractures sustained after a fall down stairs. She also reports diarrhea for two days, describing it as black and watery. On evaluation, she was intermittently coherent, sometimes conversing appropriately about past and present events, and other times speaking nonsensically about the man or the sample in the corner. In the emergency department, the patient was treated with naloxone and is showing incomplete improvement in her mental status. ? Hospital Course: 05/06: Patient reports significant improvement in right shoulder pain. She appears more mentally intact today and only mentioned ?men in the corner? once during interview. Per surgeon Dr. Dietz, stool sample yesterday was negative for occult blood, endoscopy not indicated at this time. She recommended initiating a high-dose probiotic to recolonize the gut following recent C. difficile infection. On second visit late in the day, patient indicated that she refuses MRI and she plans to leave the hospital tonight. Her chronic neck pain has increased and she prefers to be at home with control over her pain medications. Will add equivalent suboxone for the duration of her stay. Labs show improved hemoglobin and kidney function compared to yesterday. Mild metabolic acidosis persists, liver enzymes normalized, though protein and albumin remain low. ? Physical Exam: General: Cooperative with exam, holding lucid conversation with rare nonsensical statements. HEENT: NC/AT. Mucous membranes dry. EOMI, PERRL. Neck: Not LAD, thyroid non-enlarged and non-tender. Cardiac: Regular rate and rhythm. No murmur. Pulmonary: Clear to auscultation bilaterally. No increased work of breathing. Abdomen: Soft, non-distended. Diffuse tenderness to palpation, sharp pain to palpation in RLQ with guarding of that area. Normal bowel sounds. Extremities: No edema or deformities. Peripheral pulses intact and symmetric. Skin: Normal color and turgor. No rashes or lesions observed. Neurological: No further tremor in extremities, no further myoclonus. Cranial nerves 2-12 appear intact. No lateralizing deficit of the extremities. ? Vitals reviewed and notable for: Mildly low temp: 96.9 ?F, elevated BP: 156/89 ? Labs reviewed and notable for: Hematology: Hgb 7.8 g/dL (up from 6.4 post-transfusion), Hct 24.0 %, RBC 3.07 M/?L, MCV 78.2 fL, RDW 17.8 %. WBC 3.6 K/?L (mild leukopenia) with neutrophil predominance (58%) and monocytosis (21.5%). Platelets 333 K/?L (normalized). Renal / Electrolytes: Sodium 137 mmol/L, Potassium 3.7 mmol/L, Chloride 110 mmol/L (high), CO? 20 mmol/L (low), BUN 20 mg/dL, Creatinine 0.65 mg/dL, BUN/Cr ratio 30.8. Liver Function / Proteins: AST 29 U/L, ALT 14 U/L, Alk Phos 98 U/L, Total Protein 5.9 g/dL (low), Albumin 3.1 g/dL (low). Metabolic: Calcium 8.1 mg/dL (low), Glucose 136 mg/dL (mildly elevated). ? No new imaging today. ? Assessment and Plan 69-year-old female with prior C. difficile infection, microcytic anemia, and metabolic encephalopathy, improving after transfusion and resuscitation. No evidence of active GI bleeding on stool testing. ? # Severe Microcytic Anemia Likely etiology: Chronic iron deficiency or prior GI blood loss, possibly NSAID-related. -s/p type and crossmatch -s/p 2x PRBC transfusion -Hgb improved to 7.8 from 6.4 -Iron studies today ? # Altered Mental Status, resolving Likely etiology: Metabolic encephalopathy from anemia and medication effect, improving post-transfusion. -Monitor BMP -Neuro checks -Maintain hemodynamic stability -Follow blood culture, no growth after 24 hours -Patient refused MRI ? # Pancolitis / History of C. difficile Infection Likely etiology: Postinfectious colitis with altered sourav. -Start high-dose probiotic per surgical recommendation -Monitor for recurrence of diarrhea or hematochezia ? # Acute Kidney Injury Likely etiology: Prerenal azotemia due to prior volume depletion. -Continue fluids as tolerated -Monitor urine output and BMP -Avoid nephrotoxins ? # Mild Transaminitis, resolved -LFTs normalized, continue to monitor ? # Metabolic Acidosis, resolving Likely etiology: Hypoperfusion-related -Continue hydration and monitor BMP ? # Elevated Procalcitonin -May reflect systemic inflammatory response rather than active infection. -Monitor vitals and temperature -No antibiotics unless infection source identified ? # Tremor, stable -Patient attributes to c-spine surgery -Likely need outpatient neuro consult, rule out MSA, essential tremor or other causes -Hold pregabalin ? # Right Shoulder Pain, resolved -IV infiltration with contrast dye ? # Chronic Neck Pain Patient to resume her maintenance treatment as she # Code Status Full code ? # Disposition Patient leaving against medical advice is being picked up by her son who is her caregiver Time based codin minutes were involved in the discharge this patient discharge [id number] evaluation of the patient physical examination of the patient review of records Discharge Providers Provider Date of admission: 05/05/25 15:28 Discharge Date: 05/07/25 Primary care physician: CHRISTINE Berger Consults: 05/05/25 17:08 Consult to General Surgery Routine Comment: Consulting Provider: Roselyn Dietz Reason for consultation: UGI bleed Has provider been notified: Yes 05/05/25 20:12 Consult to Pharmacy Routine Comment: high fall risk Discharge provider: Elvin Ye MD Exam Vital Signs (past 8 hours): - 05/07/25 05:48 05/07/25 08:10 Temperature 98.2 F Pulse Rate 81 Respiratory Rate 15 Blood Pressure 162/88 H Pulse Oximetry 94 Oxygen Delivery Method Room Air Oxygen Flow Rate 0 Oxygen Delivery Method Room Air Oxygen Flow Rate 0 Objective Labs 05/06/25 04:29 05/06/25 04:29 Labs: Laboratory Results - last 24 hr 05/06/25 05/06/25 13:13 13:13 Urine Color Yellow Urine Appearance Sl cloudy Urine pH 5.5 Normal Ur Specific [place] 1.025 Urine Protein Trace H Urine Glucose (UA) Negative Urine Ketones Negative Urine Occult Blood 1+ H Urine Nitrate Negative Urine Bilirubin Negative Urine Urobilinogen 0.2 Ur Leukocyte Esterase Trace H Urine RBC 5-10/hpf H Urine WBC 0-1/hpf Ur Squamous Epith Cells 0-1 /hpf Urine Bacteria Many (>30) H Ur Culture Indicated? Specimen cultured Vol Urine Centrifuged 10ml (spun) U Opiates 300ng/mL cut Negative Ur Oxycodone Screen Positive H Urine Methadone Screen Negative Ur Barbiturates Screen Negative U Tricyclic Antidepress Negative Ur Phencyclidine Scrn Negative Ur Amphetamines Screen Negative U Methamphetamines Scrn Negative Ur MDMA Scrn (Ecstasy) Negative U Benzodiazepines Scrn Negative Urine Cocaine Screen Negative U Marijuana (THC) Screen Negative Urine Specific [place] Normal Ur Creatinine Normal PFSH Medical History (Updated 05/05/25 @ 18:11 by Josemanuel Correa MD) Nicotine dependence Alcohol use disorder in remission Tremor Osteoarthritis Surgical History (Updated 05/05/25 @ 18:11 by Josemanuel Correa MD) H/O cervical spine surgery Family History (Updated 05/05/25 @ 18:13 by Josemanuel Correa MD) Father Heart disease Mother Heart disease Social History (Updated 05/05/25 @ 18:14 by Josemanuel Correa MD) marital status: number of children: 1 household members: children lives independently: No caregiver/support person: Yes pets and animals: Yes Smoking Status: Current every day smoker Smokeless tobacco user: other alcohol intake: former substance use type: marijuana Discharge Plan Discharge Plan Patient Disposition: Left Against Medical Advice Discharge orders & Medications Prescriptions: New sulfamethoxazole-trimethoprim [Bactrim DS] 800-160 mg tablet 1 tab PO BID Qty: 10 0RF Continued hydroxyzine HCl 25 mg tablet 25 mg PO Q4H PRN (Reason: anxiety) duloxetine 60 mg capsule,delayed release(DR/EC) 60 mg PO DAILY midodrine 5 mg tablet 5 mg PO 3XD methocarbamol 750 mg tablet 1,500 mg PO Q6H PRN (Reason: muscle spasm) omeprazole 20 mg capsule,delayed release(DR/EC) 20 mg PO DAILY oxycodone 10 mg tablet 10 mg PO 4XD PRN (Reason: pain) trazodone 50 mg tablet 50 mg PO ONCE PM pregabalin 200 mg capsule 200 mg PO 3XD Follow up/Referrals: Nito Coburn ARNP [Primary Care Provider, Nursing] Visit Report/Discharge Packet Stand Alone Forms: Patient Portal/API, Stroke Signs & Symptoms Discharge Data Primary Care Provider: Nito Coburn VTE Deep Vein Thrombosis/Pulmonary Embolism Present on Admission: No
--- NOTE | 2025-05-07 14:34 | CM.DPNOTE ---
DCP note BUSHEL GIRL reviewed EMR per RN pt wants to leave AMA. see RN notes for more. P: home with son support. left AMA. no further CM needs at this time. CM team will continue to follow as needed JOLIE Harden
== END 2025-05-07 14:30 | disposition left against medical advice (07) | DRG 811 ==
LOC: ED 15:19 → AC 15:28 → ICU 16:25
PROVIDERS: Admitting Provider Family Medicine; Emergency Provider Emergency Medicine; PCP Nurse Practitioner Family; Referring Provider Emergency Medicine; Visit Provider Family Medicine
DX: D50.0 Iron deficiency anemia secondary to blood loss (chronic) (principal); G93.41 Metabolic encephalopathy; E87.20 Acidosis, unspecified; N17.9 Acute kidney failure, unspecified; E86.0 Dehydration; M25.511 Pain in right shoulder; R25.1 Tremor, unspecified; K52.9 Noninfective gastroenteritis and colitis, unspecified; R74.01 Elevation of levels of liver transaminase levels; G89.29 Other chronic pain; M54.2 Cervicalgia; R79.89 Other specified abnormal findings of blood chemistry; F41.9 Anxiety disorder, unspecified; F32.A Depression, unspecified; W19.XXXA Unspecified fall, initial encounter; Z53.29 Procedure and treatment not carried out because of patient's decision for other reasons; Z87.19 Personal history of other diseases of the digestive system; Z98.1 Arthrodesis status; Z86.19 Personal history of other infectious and parasitic diseases
CPT/HCPCS: 36415; 36430; 36600; 70450; 71045; 71260; 72125; 74177; 80053; 80305; 80329; 81001; 82140; 82550; 82805; 83605; 83880; 84145; 84484; 85025; 85610; 85730; 86850; 86900; 86901; 87040; 87077; 87086; 87186; 87507; 87637; 87797; 93005; 96361; 96374; 99284; 99291; P9016; G0480; J2312; J2470; J2543; J7030; J7042; J7050; Q9967